=== PATIENT | male | born 1965 | race Caucasian/White ===

== ENCOUNTER 2017-05-09 11:49 | Observation (INO) | payer MEDICAID ==
[~2017-05-09] VITALS: Ht 170.2 cm; Wt 57.4 kg
[~2017-05-09 11:49] MED LIST: BASAGLAR K100 UNIT/1 SQ; FLUOXETINE20 MG PO; GABAPENTIN 400400 MG PO; LISINOPRIL 10MG10 MG PO; NAPROSYN500 M1 PO; PEPCID40 MG PO; TRAZODONE150 MG PO
[2017-05-09 11:53] VITALS: BP 146/110
[2017-05-09] MEDS ORDERED: SUBOXONE 8 MG-21 FIL SL (12:09)
[2017-05-09] MEDS ORDERED: OMEPRAZOLE40 MG PO (12:10)
[2017-05-09] MEDS ORDERED: SIMVASTATIN10 MG PO (12:10)
[2017-05-09 12:17] LABS: HEMOGLOBIN 16.6 g/dL (14.1-18.0)
[2017-05-09 12:19] LABS: LYMPH # 0.5 K/mm3 (0.7-4.5); LYMPH % 3.4 % (10-50)
--- NOTE | 2017-05-09 12:21 | Emergency Room Report ---
History of Present Illness Time Seen by MD Mata Presenting Problem in Triage Pt arrived:Walked Presenting Problem:PT REPORT WOKE UP THIS MORNING "SICK", REPORTS N/V. PT REPORTS HAS BEEN "SWEATY AND WEAK" FEELING. 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 N Clinical Suspician of Infection? N Mental Status: 1 - Regular (Normal Baseline) Sepsis Risk:Possible Sepsis Risk Have you (or family members/close friends) recently traveled outside the [place]? N If Yes, where/when: Have you had exposure to infectious disease within the past month? N TB? Other? Specify: Comment The patient complains of nausea, vomiting, diarrhea, sweatiness, and weakness that started this morning. He is a diabetic. He normally would check his sugar in the morning, but did not do so this morning, states that he just wanted to get to the hospital, so he walked here. Yesterday he felt fine. No pain at present. He is on Suboxone and has chronic back pain. He says he took Suboxone today and does not believe that he is in withdrawal. His back pain is not currently bothering him. He says he has been having problems with abdominal pain due to his gallbladder, which they are considering removing next month. He drinks 2 beers per night, no recent change. ALLERGIES Coded Allergies: No Known Allergies (03/22/17) Home Medications Active Scripts Famotidine (Pepcid) 40 MG PO BID #40 TAB Prov: 03/22/17 Reported Medications Insulin Glargine,Hum.rec.anlog (Basaglar Kwikpen U-100) 40 UNIT SQ DAILY LISINOPRIL (Lisinopril) 10 MG PO DAILY Fluoxetine Hcl (Fluoxetine 20MG) 20 MG PO DAILY GABAPENTIN (Gabapentin) 800 MG PO QHS Trazodone Hcl (Trazodone HCl) 150 MG PO QHS BUPRENORPHINE HCL/NALOXONE HCL (Suboxone 8 MG-2 MG Sl Film) 1 FILM SL BID Omeprazole (Omeprazole 40MG) 40 MG PO DAILY #30 Simvastatin 10 MG PO DAILY #30 History Medical History General CAD? No Angina: No ID: No Hypertension? Yes Hyperlipidemia? Yes CHF? No DVT? No PE? No COPD? No Asthma? No Anemia? No GERD? Yes Gastric ulcers? No GI Bleed? No Hernia? No Thyroid Problems? No Hypothyroidism? No CVA? No Seizures? No Diabetes? Yes Insulin Dependent: Yes Insulin Pump: No Home FSBS? Yes Renal Insuffiency? No End Stage Renal Disease? No UTI? No Stones? No BPH? No GB Disease: No Nephritic Syndrome? No Asplenia? No Hepatitis? No Sickle Cell Disease? No Arthritis? No Migraines? No Cataracts? No Glaucoma? No MRSA? No HIV? No TB? No Anxiety? No Depression? Yes Cancer? No More? No Immunization Hx DT/Tetanus Unknown Surgical Hx Previous Surgery?N Social History Smoking Hx Smoker: Current Every Day Smoker Tobacco: Yes Type Cigarettes Alcohol Alcohol: Yes Additionial History Additional History CT scan abdomen 03/22/17 possible gallbladder sludge/cholelithiasis. Ultrasound gallbladder 03/22/17 small amount sludge in the gallbladder. Small hyperechoic focus along the anterior wall may be due to a small polyp or a small adherent stone. HIDA scan 04/05/17 unremarkable. Review of Systems All Other Systems Reviewed and Negative Constitutional diaphoresis, malaise, weakness Respiratory denies cough, denies shortness of breath Cardiovascular denies chest pain Gastrointestinal see HPI, diarrhea, nausea, vomiting Physical Exam Vital Signs Vital Signs Date Time Temp Pulse Resp B/P Pulse O2 O2 Flow FiO2 Ox Delivery Rate 05/09 1824 98.9 109 16 151/100 99 ROOM AIR 05/09 1820 109 05/09 1820 98.9 109 16 151/100 05/09 1820 99 ROOM AIR 05/09 1748 98.8 100 20 158/90 97 05/09 1733 98.8 100 20 158/90 97 05/09 1622 107 20 161/92 100 05/09 1511 104 20 158/82 98 05/09 1355 101 20 141/94 98 05/09 1153 97.9 115 22 146/110 100 General Appearance no apparent distress Eye Exam - bilateral eye normal exam, bilateral eye PERRL, bilateral eye EOMI Ear, Nose, Throat hearing grossly normal, normal ENT inspection Neck normal inspection, non-tender, supple, full range of motion Respiratory Status Yes: trachea midline, chest symmetrical, non tender chest. No: respiratory distress. Lung Sounds bilateral: normal breath sounds, lungs clear. 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 No Results/Orders Laboratory Tests 05/09/17 1735: POC Glucose 207 H 05/09/17 1558: Lactic Acid 1.2 05/09/17 1510: Opiates Screen NEGATIVE, Urine Methadone Screen NEGATIVE, Barbiturates NEGATIVE, Phencyclidine Screen NEGATIVE, Amphetamines Screen NEGATIVE, Benzodiazepines Screen NEGATIVE, Cocaine Screen NEGATIVE, Marijuana (THC) Screen NEGATIVE 05/09/17 1354: POC Glucose 106 05/09/17 1229: Creatine Kinase 158, CK-MB (CK-2) Rel Index 1.2, CK and CKMB Interp 1.9, Troponin I < 0.02 05/09/17 1229: Amylase 32, Lipase 78 05/09/17 1202: Lactic Acid 2.3 H 05/09/17 1202: Sodium 144, Potassium 4.0, Chloride 107, Carbon Dioxide 31, BUN 12, Creatinine 0.7 L, Estimated Creat Clear 99, Estimated GFR (MDRD) 119, Glucose 199 H, Calcium 8.0 L, Total Bilirubin 0.4, AST 19, ALT 21, Alkaline Phosphatase 44 L, Total Protein 6.4, Albumin 3.5, Globulin 2.9, Albumin/Globulin Ratio 1.2, WBC 14.2 H, RBC 5.02, Hgb 16.6, Hct 49.7, MCV 99.1 H, RDW 12.7, Plt Count 189, Gran % 94.2 H, Gran # 13.4 H, Total Counted 100, Lymphocytes % 3.4 L, Monocytes % 2.4, Neutrophils 91 H, Band Neutrophils 1, Lymphocytes (Manual) 1 L, Lymphocytes # 0.5 L, Monocytes (Manual) 7, Monocytes # 0.3, Platelet Estimate NORMAL, Macrocytosis 1+, Target Cells 1+, PUBS MCHC 33.4, MCH 33.1 H, Alcohols 35 Current Medication Orders Sig/Iban Start time Last Medication Dose Route Stop Time Status Admin Fluoxetine HCl 20 MG DAILY 05/10 900 UNV PO Lisinopril 10 MG DAILY 05/10 900 UNV PO Pravastatin Sodium 10 MG DAILY 05/10 900 UNV PO Diagnostic Test (Pha) 1 EACH W/MEALS&HS 05/09 2100 UNV FS 07/08 2059 Famotidine 40 MG BID 05/09 2100 UNV PO Gabapentin 800 MG QHS 05/09 2100 UNV PO Insulin Human [rDNA See Dose W/MEALS&HS 05/09 2100 UNV origin] Insts (1) SC Trazodone HCl 150 MG QHS 05/09 2100 UNV PO Dextrose/Sodium 1,000 ML .Q8H 05/09 1715 UNV Chloride IV Influenza Virus 0.5 ML PRN PRN 05/09 171 UNV Vaccine Quadrival IM Nicotine 21 MG DAILYP PRN 05/09 1715 UNV TD Ondansetron HCl 4 MG Q6HP PRN 05/09 1715 UNV IV Sodium Chloride 10 ML PRN PRN 05/09 1715 UNV IV Dextrose/Sodium 1,000 ML .Q8H 05/09 1645 AC 05/09 Chloride IV 1633 Dextrose/Sodium 1,000 ML .STK-MED ONE 05/09 1632 DC Chloride IV Dextrose 50 ML ONCE ONE 05/09 1630 DC 05/09 IVP 05/09 1631 1633 Potassium Chloride/ 1,000 ML .Q8H 05/09 1630 DC Dextrose/Sod Cl IV 05/09 2029 Dextrose 0 .STK-MED ONE 05/09 1627 DC .ROUTE Iopamidol 75 ML ONCE ONE 05/09 1600 DC 05/09 IV 05/09 1601 1545 Sodium Chloride 10 ML ONCE ONE 05/09 1600 DC 05/09 IV 05/09 1601 1545 Famotidine 20 MG ONCE ONE 05/09 1530 DC 05/09 IV 05/09 1531 1521 Ondansetron HCl 4 MG ONCE ONE 05/09 1530 DC 05/09 IV 05/09 1531 1522 Famotidine 0 .STK-MED ONE 05/09 1521 DC IV Ondansetron HCl 0 .STK-MED ONE 05/09 1521 DC .ROUTE Sodium Chloride 1,000 ML .STK-MED ONE 05/09 1419 DC IV Sodium Chloride 1,000 ML .Q1H1M 05/09 1415 DC 05/09 IV 05/09 1515 1418 Dextrose 50 ML ONCE ONE 05/09 1230 DC 05/09 IVP 05/09 1231 1221 Dextrose 0 .STK-MED ONE 05/09 1218 DC .ROUTE Ondansetron HCl 4 MG ONCE ONE 05/09 1215 DC 05/09 IV 05/09 1216 1216 Sodium Chloride 10 ML PRN PRN 05/09 1215 AC IV 05/10 1206 Sodium Chloride 1,000 ML .Q1H1M 05/09 1215 DC 05/09 IV 05/09 1315 1215 Sodium Chloride 10 ML PRN PRN 05/09 1215 AC IV 05/10 1207 Sodium Chloride 1,000 ML .STK-MED ONE 05/09 1215 DC IV Ondansetron HCl 0 .STK-MED ONE 05/09 1214 DC .ROUTE Dose Instructions: (1)Insulin Human [rDNA origin]: SEE ADMIN CRITERIA FOR MEDIUM INTENSITY Orders Procedure Date/time Status DIET-CLEAR LIQUID 05/10 B Active CBC WITH AUTO DIFF 05/10 06 Active BASIC METABOLIC PROFILE 05/10 06 Active DIET-NOTHING BY MOUTH 05/09 D Complete RT Smoking Cessation >10min Se 05/09 1844 Active RT Smoking Cessation 3-10min S 05/09 1844 Active ADMITTED PT IS ACTUALLY IN BED 05/09 1826 Active FINGERSTICK BLOOD SUGAR 05/09 1735 Complete Decision to admit 05/09 1656 Active DIARRHEA PANEL, PCR 05/09 1615 Active URINALYSIS/COMPLETE 05/[address] ABD/PELVIS REQ 05/09 1520 Complete DRUG ABUSE SCREEN (TRIAGE) 05/09 1506 Complete FINGERSTICK BLOOD SUGAR 05/09 1354 Complete LACTIC ACID FOLLOW UP 05/09 1331 Complete LIPASE 05/09 1234 Complete AMYLASE 05/09 1234 Complete ELECTROCARDIOGRAM REQUEST 05/09 1232 Active CARDIAC ENZYMES 05/09 1232 Complete FSBS REQUEST BY CARE AREA 05/09 1208 Active ALCOHOL 05/09 1208 Complete IV SALINE LOCK 05/09 1207 Active CULTURE, BLOOD 05/09 1207 Active LACTIC ACID 05/09 1207 Complete CBC WITH AUTO DIFF 05/09 1207 Complete CHEM 12 PROFILE 05/09 1207 Complete DIFFERENTIAL-WBC 05/09 120 Complete ADMIT PATIENT 05/09 UNK Active 12 LEAD EKG-REBEKAH (INITIAL) 05/09 UNK Active VITAL SIGNS 05/09 UNK Active POM NURSE NICHOLAS HOSE ORDER 05/09 UNK Active IV SALINE LOCK 05/09 UNK Active RECORD I & O 05/09 UNK Active CODE STATUS 05/09 UNK Active PATIENT ACTIVITY ORDER 05/09 UNK Active FSBS REQUEST BY CARE AREA 05/09 UNK Active CM/EKG CM/EKG Comments EKG interpreted by Rosalino Gtz MD: Rhythm: sinus tachycardia Rate: 112 [place]: normal Ectopy: none Conduction: normal ST Segment Changes: none T Wave Changes: none Q Waves: none No evidence of acute ischemia or injury XRAY/CT/US XRAY/CT/US CT abdomen, pelvis Comment CT scan interpreted by radiologist: Thickened jejunum and proximal and mid ileum with scattered air-fluid levels consistent with enteritis. No change in the small calcification of the gallbladder. Progress - 3:00 PM: Recheck patient. He says he is still nauseated. Does not have any pain, but states he is "trying to get a headache". He complains of being hungry and wants to eat. His abdomen is firm, but it is nontender, he says his abdomen is its typical state. 4:47 PM: The patient is had recurrent hypoglycemia in the emergency department and persistent nausea and vomiting. I have discussed the case with Dr. Chan who agrees to admit the patient to the hospital. We discussed the patient's clinical information, including history, exam, laboratory and radiology results and ED course. Per hospital procedure, I will write temporary bridge inpatient orders on the patient. Specific orders requested by the admitting physician: The patient must supply his own Suboxone for use in the hospital. Continue IV fluids, Zofran clear liquids., Departure Departure Disposition Still a Patient Clinical Impression Primary Impression: Hypoglycemia Secondary Impressions: Enteritis Condition STABLE ED Critical Care Critical Care No at [id number]
[2017-05-09 12:53] LABS: NEUTROPHILS 91 % (42-76)
--- NOTE | 2017-05-09 13:30 | RADIOLOGY REPORT PS360 ---
CHEST-PORTABLE HISTORY: weak ORDERING PHYSICIAN: Rosalino Gtz MD PATIENT AGE: 51 years COMPARISON: None available FINDINGS: The cardiomediastinal silhouette and pulmonary vascularity are within normal limits. Scattered bilateral granulomas are present. No lobar consolidation or collapse. No acute bony anomalies. IMPRESSION: Old granulomatous disease, no acute finding
[2017-05-09 15:29] LABS: AMPHETAMINES/METAMPHETAMINES NEGATIVE ng/mL (<1000)
--- NOTE | 2017-05-09 16:03 | RADIOLOGY REPORT PS360 ---
CT ABD PELVIS W/ CONTRAST CLINICAL INDICATION: NAUSEA, VOMITING,FIRM ABDOMEN ORDERING PHYSICIAN: Rosalino Gtz MD PATIENT AGE: 51 years COMPARISON: 03/22/2017 TECHNIQUE: Axial images obtained with sagittal and coronal reformats. PROCEDURE: Oral Contrast: None IV Contrast: 75 mL [id number]. FINDINGS: Lung bases are clear. The liver, spleen, adrenal glands, and pancreas have an unremarkable appearance. A small calcification is once again noted involving the fundus of the gallbladder as previously described and could be due to small stone. No renal calculi, ureteral calculi, or hydronephrosis is evident. There is diffuse thickening of the jejunum and of the mid and proximal ileum with some scattered fluid-filled loops of small bowel with a few air-fluid levels. This is consistent with enteritis. No evidence of intestinal obstruction or free air. No evidence of appendicitis or diverticulitis. No acute bony anomalies. There is 6 mm anterolisthesis of L5 on S1. IMPRESSION: Thickened jejunum and proximal and mid ileum with scattered air-fluid levels consistent with enteritis No change small calcification of the gallbladder
[2017-05-09 18:20] VITALS: BP 151/100
[2017-05-09 18:24] VITALS: BP 151/100
[2017-05-09 19:28] VITALS: BP 161/91
--- NOTE | 2017-05-09 20:14 | HISTORY AND PHYSICAL REPORT ---
Demographics: Admit date: 05/09/17 Chief complaint: sob PRIMARY DIAGNOSIS: HYPOGLYCEMIA, ENTERITIS Allergies: Coded Allergies: No Known Allergies (03/22/17) History of present illness: History of present illness: omplains of nausea, vomiting, diarrhea, sweatiness, and weakness that started this morning. He is a diabetic. He normally would check his sugar in the morning , but did not do so this morning, states that he just wanted to get to the hospital, so he walked here. Yesterday he felt fine. No pain at present. He is on Suboxone and has chronic back pain. He says he took Suboxone today and does not believe that he is in withdrawal. His back pain is not currently bothering him. He says he has been having problems with abdominal pain due to his gallbladder, which they are considering removing next month. He drinks 2 beers per night, no recent change- pt was given ivf and attempted to see how he would do but continued to have sx and was admitted Past medical history: Family HX Family Hx Insignificant Yes Immunization HX DT/Tetanus 1-4 Years Ago Pneumonia Received In Past TB Test in last year No General CAD? No Angina: No [place]: No Hypertension? Yes Hyperlipidemia? Yes CHF? No DVT? No PE? No COPD? No Asthma? No Anemia? No GERD? Yes Gastric ulcers? No GI Bleed? No Hernia? No Thyroid Problems? No Hypothyroidism? No CVA? No Seizures? No Diabetes? Yes Insulin Dependent: Yes Insulin Pump: No Home FSBS? Yes Renal Insuffiency? No UTI? No Stones? No BPH? No GB Disease: No Nephritic Syndrome? No Asplenia? No Hepatitis? No Sickle Cell Disease? No Arthritis? No Migraines? No Cataracts? No Glaucoma? No MRSA? No HIV? No TB? No Anxiety? No Depression? Yes Cancer? No More? No Past Surgical HX Previous Surgery?N Current home meds: Active Scripts Famotidine (Pepcid) 40 MG PO BID #40 TAB Prov: 03/22/17 Reported Medications Insulin Glargine,Hum.rec.anlog (Basaglar Kwikpen U-100) 40 UNIT SQ DAILY LISINOPRIL (Lisinopril) 10 MG PO DAILY Fluoxetine Hcl (Fluoxetine 20MG) 20 MG PO DAILY GABAPENTIN (Gabapentin) 800 MG PO QHS Trazodone Hcl (Trazodone HCl) 150 MG PO QHS BUPRENORPHINE HCL/NALOXONE HCL (Suboxone 8 MG-2 MG Sl Film) 1 FILM SL BID Omeprazole (Omeprazole 40MG) 40 MG PO DAILY #30 Simvastatin 10 MG PO DAILY #30 Social Hx: Smoking HX Tobacco Yes Type Cigarettes Packs/day < 1 PACK Are you/the child exposed to second-hand smoke: Yes Alcohol Alcohol: Yes How much do you drink TWO BEERS EVERY SINGLE NIGHT For how long Longer Than 5 Years When was your last drink 12-24 Hours Ago Hx of Drug Use Drug Use? No Patien't marital status is Patient's support system is good Review of systems: Constitutional see HPI, weakness. No: fever. Eyes No: drainage. Ears, Nose, Mouth, Throat No ear discharge, No epistaxis, No throat pain Respiratory No: cough, shortness of breath, wheezing. Cardiovascular No chest pain, No palpitations, No syncope Gastrointestinal/Abdominal see HPI, diarrhea, nausea, poor appetite, poor fluid intake, No vomiting Genitourinary No: dysuria, frequency, hesitancy, hematuria. Musculoskeletal No: back pain, joint pain, neck pain. Skin No: rash. Neurological No: seizure disorder. Psychiatric No: no symptoms reported. Exam: Lab data for last 24 hours: Laboratory Tests 05/10/17 0615: POC Glucose 124 H 05/10/17 0610: Sodium 140, Potassium 3.1 L, Chloride 106, Carbon Dioxide 29, BUN 8, Creatinine 0.7 L, Estimated Creat Clear 101, Estimated GFR (MDRD) 119, Glucose 132 H, Calcium 7.4 L, WBC 4.1 L, RBC 3.91 L, Hgb 12.5 L, Hct 38.7 L, MCV 99.0 H, RDW 12.7, Plt Count 123 L, Gran % 75.5, Gran # 3.1, Lymphocytes % 20.0, Monocytes % 4.5, Lymphocytes # 0.8, Monocytes # 0.2, PUBS MCHC 32.3, MCH 32.0 H 05/10/17 0416: Urine Color YELLOW, Urine Appearance CLEAR, Urine pH 6.0, Ur Specific [place] 1.020, Urine Protein NEGATIVE, Urine Ketones NEGATIVE, Urine Blood NEGATIVE, Urine Nitrate NEGATIVE, Urine Bilirubin NEGATIVE, Urine Urobilinogen 0.2, Ur Leukocyte Esterase NEGATIVE, Urine RBC OCC, Urine WBC OCC, Urine Bacteria 1+, Urine Mucus OCC, Urine Glucose 2+ H 05/09/17 2059: POC Glucose 250 H 05/09/17 1851: POC Glucose 209 H 05/09/17 1735: POC Glucose 207 H 05/09/17 1558: Lactic Acid 1.2 05/09/17 1510: Opiates Screen NEGATIVE, Urine Methadone Screen NEGATIVE, Barbiturates NEGATIVE, Phencyclidine Screen NEGATIVE, Amphetamines Screen NEGATIVE, Benzodiazepines Screen NEGATIVE, Cocaine Screen NEGATIVE, Marijuana (THC) Screen NEGATIVE 05/09/17 1354: POC Glucose 106 05/09/17 1229: Creatine Kinase 158, CK-MB (CK-2) Rel Index 1.2, CK and CKMB Interp 1.9, Troponin I < 0.02 05/09/17 1229: Amylase 32, Lipase 78 05/09/17 1202: Lactic Acid 2.3 H 05/09/17 1202: Sodium 144, Potassium 4.0, Chloride 107, Carbon Dioxide 31, BUN 12, Creatinine 0.7 L, Estimated Creat Clear 99, Estimated GFR (MDRD) 119, Glucose 199 H, Calcium 8.0 L, Total Bilirubin 0.4, AST 19, ALT 21, Alkaline Phosphatase 44 L, Total Protein 6.4, Albumin 3.5, Globulin 2.9, Albumin/Globulin Ratio 1.2, WBC 14.2 H, RBC 5.02, Hgb 16.6, Hct 49.7, MCV 99.1 H, RDW 12.7, Plt Count 189, Gran % 94.2 H, Gran # 13.4 H, Total Counted 100, Lymphocytes % 3.4 L, Monocytes % 2.4, Neutrophils 91 H, Band Neutrophils 1, Lymphocytes (Manual) 1 L, Lymphocytes # 0.5 L, Monocytes (Manual) 7, Monocytes # 0.3, Platelet Estimate NORMAL, Macrocytosis 1+, Target Cells 1+, PUBS MCHC 33.4, MCH 33.1 H, Alcohols 35 Microbiology 05/09 1202 BLOOD: Anaerobic Blood Culture - RECD 05/09 1202 BLOOD: Aerobic Blood Culture - RECD 05/09 1202 BLOOD: Anaerobic Blood Culture - RECD 05/09 1202 BLOOD: Aerobic Blood Culture - RECD Admission vital signs: 1ST Vital Signs Result Date Time Pulse Ox 100 05/09 1153 B/P 146/110 05/09 1153 Temp 97.9 05/09 1153 Pulse 115 05/09 1153 Resp 22 05/09 1153 O2 Delivery ROOM AIR 05/09 1820 Exam General appearance: alert Eyes: anicteric, PERRLA ENT: dry mucous membranes Neck: no JVD Cardiovascular: regular rate & rhythm, murmur Respiratory: no respiratory distress, diminished breath sounds ABD: soft, tenderness Genitourinary: no hematuria Extremities: moves all Musculoskeletal: equal muscle strength Skin: dry Neuro: alert, dba developer II-XII nml as tested Additional information: will give ivf and monitor glucose Plan: Problem List 1. Enteritis 2. Hypoglycemia 3. IDDM (insulin dependent diabetes mellitus) 4. Chronic pain Plan: monitor glucose and fluids at 0728
[2017-05-10 04:40] LABS: URINE BILIRUBIN - DIPSTICK NEGATIVE (NEG); URINE BLOOD NEGATIVE (NEG)
[2017-05-10 04:50] VITALS: BP 144/80
[2017-05-10 06:53] LABS: HEMOGLOBIN 12.5 g/dL (14.1-18.0); LYMPH # 0.8 K/mm3 (0.7-4.5)
--- NOTE | 2017-05-10 07:52 | PHARMACY CLINIC NOTE ---
Patient Demographics Patient Demographics Admission date: 05/09/17 Date: 05/10/17 Time: 075 Allergies Coded Allergies: No Known Allergies (03/22/17) HEIGHT- FT: 5 IN: 7.00 K.380 VTE General Information Labs: Laboratory Tests 05/10 05/09 0610 1202 Hematology Hgb (14.1 - 18.0 g/dL) 12.5 L 16.6 Hct (42.0 - 52.0 %) 38.7 L 49.7 Plt Count (142 - 424 K/mm3) 123 L 189 Disclaimer The following section includes nursing documentation that has been pulled in for pharmacy review. Patient's VTE score: 1 Patient's VTE Risk: VERY LOW RISK Clinical trial participant? No VTE prophylaxis [id number] VTE prophylaxis ordered? Yes Type of prophylaxis/treatment: NICHOLAS at 0752
[2017-05-10 08:00] VITALS: BP 147/88
[2017-05-10 12:37] LABS: AEROMONAS NOT DETECTED (NOT DETECTE); ASTROVIRUS NOT DETECTED (NOT DETECTE); CYCLOSPORA CAYETANENSIS NOT DETECTED (NOT DETECTE); E COLI O157 NOT DETECTED (NOT DETECTE); ENTEROAGGREGATIVE E COLI NOT DETECTED (NOT DETECTE); ENTEROPATHOGENIC E COLI NOT DETECTED (NOT DETECTE); ENTEROTOXIGENIC E COLI NOT DETECTED (NOT DETECTE); SAPOVIRUS NOT DETECTED (NOT DETECTE); SHIGA-LIKE TOXIN PROD. E COLI NOT DETECTED (NOT DETECTE); SHIGELLA/ENTEROINVASIVE E COLI NOT DETECTED (NOT DETECTE); VIBRIO CHOLERAE NOT DETECTED (NOT DETECTE)
[2017-05-10 12:46] LABS: NOROVIRUS DETECTED (NOT DETECTE)
--- NOTE | 2017-05-10 14:16 | ACUTE CARE PROGRESS NOTE (QUA) ---
Progress Notes Subjective Date 05/10/17 Time 0800 Note doing better Patient/family reports: feeling better Nursing reports: no complaints Objective Findings Last VS-Temp:98.8 B/P:147/88 Pulse:82 Resp:16 SaO2:98 ROOM AIR Last weight lbs:126 oz:8 K.380 Method:Bed Scales Exam General appearance: awake Eyes: anicteric, PERRLA ENT: dry mucous membranes Neck: no JVD Cardiovascular: regular rate & rhythm Respiratory: no respiratory distress ABD: soft Genitourinary: no hematuria Extremities: moves all Musculoskeletal: equal muscle strength Skin: dry Neuro: alert, treatment specialist II-XII nml as tested Reviewed: allergies, medications, vital signs, lab results Assessment/Plan Problem List 1. Enteritis 2. Hypoglycemia 3. IDDM (insulin dependent diabetes mellitus) 4. Chronic pain Patient condition Improving Plan: continue current care This inpt stay is expected to cross 2 MNs from start of care Yes Comments: will change to regular fluids and replace kcl Antibiotic Stewardship (2) Current Culture Results Microbiology 05/09 120 BLOOD: Anaerobic Blood Culture - RECD 05/09 1202 BLOOD: Aerobic Blood Culture - RECD at 1416
--- NOTE | 2017-05-10 14:16 | ACUTE CARE PROGRESS NOTE (QUA) ---
Progress Notes Subjective Date 05/10/17 Time 0800 Note doing better Patient/family reports: feeling better Nursing reports: no complaints Objective Findings Last VS-Temp:98.8 B/P:147/88 Pulse:82 Resp:16 SaO2:98 ROOM AIR Last weight lbs:126 oz:8 K.380 Method:Bed Scales Exam General appearance: awake Eyes: anicteric, PERRLA ENT: dry mucous membranes Neck: no JVD Cardiovascular: regular rate & rhythm Respiratory: no respiratory distress ABD: soft Genitourinary: no hematuria Extremities: moves all Musculoskeletal: equal muscle strength Skin: dry Neuro: alert, trimmer loader II-XII nml as tested Reviewed: allergies, medications, vital signs, lab results Assessment/Plan Problem List 1. Enteritis 2. Hypoglycemia 3. IDDM (insulin dependent diabetes mellitus) 4. Chronic pain Patient condition Improving Plan: continue current care This inpt stay is expected to cross 2 MNs from start of care Yes Comments: will change to regular fluids and replace kcl Antibiotic Stewardship (2) Current Culture Results Microbiology 05/09 120 BLOOD: Anaerobic Blood Culture - RECD 05/09 1202 BLOOD: Aerobic Blood Culture - RECD at 1416
[2017-05-10 16:00] VITALS: BP 142/82
[2017-05-10 20:12] VITALS: BP 142/82; BP 153/93
[2017-05-10 20:28] VITALS: BP 153/93
[2017-05-11 04:01] VITALS: BP 141/78
[2017-05-11] MEDS ORDERED: ALIGN10.5 MG PO (08:26)
[2017-05-11 08:30] VITALS: BP 143/92
--- NOTE | 2017-05-11 08:32 | ACUTE CARE PROGRESS NOTE (QUA) ---
Progress Notes Subjective Date 05/11/17 Time 0830 Patient/family reports: feeling better, diarrhea Nursing reports: alert Objective Findings Laboratory Tests 05/11/17 0611: POC Glucose 474 *H 05/10/17 2020: Sodium 137, Potassium 3.8, Chloride 103, Carbon Dioxide 30, BUN 9, Creatinine 0.7 L, Estimated Creat Clear 101, Estimated GFR (MDRD) 119, Glucose 148 H, Calcium 8.3 L 05/10/17 2006: POC Glucose 143 H 05/10/17 1655: POC Glucose 245 H 05/10/17 1147: POC Glucose 343 *H 05/10/17 1025: Stl Aeromonas (PCR) NOT DETECTED, Stl Cyclospora species NOT DETECTED, Stool Rotavirus (PCR) NOT DETECTED, Stool Astrovirus (PCR) NOT DETECTED, Stool Campylobacter PCR NOT DETECTED, Stool Cryptosporidium PCR NOT DETECTED, Stl E. histolytica PCR NOT DETECTED, Stool Giardia Lamblia PCR NOT DETECTED, Stl P. shigelloides PCR NOT DETECTED, Stool Sapovirus (PCR) NOT DETECTED, Stool Vibrio (PCR) NOT DETECTED, Stl Vibrio cholerae PCR NOT DETECTED, Stl Norovirus GI/GII PCR DETECTED H, Adenovirus (PCR) NOT DETECTED, C. difficile Tox (PCR) NOT DETECTED, E. coli (PCR) NOT DETECTED, Salmonella (PCR) NOT DETECTED, Yersinia ( PCR) NOT DETECTED Vital Signs Date Time Temp Pulse Resp B/P Pulse O2 O2 Flow FiO2 Ox Delivery Rate 05/11 0401 98.7 85 18 141/78 98 ROOM AIR 05/10 2028 98.0 91 18 153/93 97 ROOM AIR 05/10 2012 98.0 91 18 153/93 98 05/10 1600 98.9 89 16 142/82 98 ROOM AIR 05/10 0853 98.8 82 16 147/88 98 Current Medications Insulin Human [rDNA origin] 0 .STK-MED ONE SC (DC) Sodium Chloride 1,000 ML .STK-MED ONE IV (DC) Insulin Human [rDNA origin] 0 .STK-MED ONE SC (DC) Sodium Chloride 1,000 ML .[id number] IV Insulin Human [rDNA origin] 0 .STK-MED ONE SC (DC) Fluoxetine HCl 20 MG DAILY PO Lisinopril 10 MG DAILY PO Pravastatin Sodium 10 MG DAILY PO Potassium Chloride/Water 100 ML ONCE ONE IV (DC) Diagnostic Test (Pha) 1 EACH W/MEALS&HS FS Famotidine 40 MG BID PO Gabapentin 800 MG QHS PO Insulin Human [rDNA origin] SEE ADMIN CRITERIA FOR MEDIUM INTENSITY W/MEALS&HS SC Trazodone HCl 150 MG QHS PO Nicotine 21 MG QAM TD Influenza Virus Vaccine Quadrival 0.5 ML PRN PRN IM Ondansetron HCl 4 MG Q6HP PRN IV Sodium Chloride 10 ML PRN PRN IV Sodium Chloride 10 ML PRN PRN IV Sodium Chloride 10 ML PRN PRN IV (DC) Last VS-Temp:98.7 B/P:141/78 Pulse:85 Resp:18 SaO2:98 ROOM AIR Last weight lbs:126 oz:8 K.380 Method:Bed Scales Exam General appearance: normal appearance, no acute distress Eyes: normal exam ENT: normal exam Neck: normal inspection Cardiovascular: normal exam, regular rate & rhythm Respiratory: normal exam, clear to auscultation, good air movement ABD: normal exam, normal bowel sounds, soft, no tenderness Genitourinary: normal voiding & quantity Extremities: normal exam, moves all, warm Musculoskeletal: normal exam, normal gait Skin: normal exam, intact, warm Neuro: normal exam, alert, intact, oriented Reviewed: allergies, medications, vital signs, lab results, radiology report Assessment/Plan Problem List 1. Enteritis 2. Hypoglycemia 3. IDDM (insulin dependent diabetes mellitus) 4. Chronic pain Patient condition Stable Plan: initiate discharge plan This inpt stay is expected to cross 2 MNs from start of care Yes Comments: rounded with vladimir Antibiotic Stewardship (2) Current Culture Results Microbiology 05/09 120 BLOOD: Anaerobic Blood Culture - RECD 05/09 1202 BLOOD: Aerobic Blood Culture - RECD at 0832
[2017-05-11] MEDS ORDERED: ZOFRAN4 MG PO (08:36)
--- NOTE | 2017-05-11 08:36 | DISCHARGE SUMMARY STANDARD ---
Demographics Admit date: 05/09/17 Discharge date: 05/11/17 History of present illness History of present illness 51 yr old male complains of nausea, vomiting, diarrhea, sweatiness, and weakness that started this morning. He is a diabetic. He normally would check his sugar in the morning, but did not do so this morning, states that he just wanted to get to the hospital, so he walked here. Yesterday he felt fine. No pain at present. He is on Suboxone and has chronic back pain. He says he took Suboxone today and does not believe that he is in withdrawal. His back pain is not currently bothering him. He says he has been having problems with abdominal pain due to his gallbladder, which they are considering removing next month. He drinks 2 beers per night, no recent change- pt was given ivf and attempted to see how he would do but continued to have sx and was admitted Hospital Course Hospital Course: Diarreha- iv fluids, diet clears then advanced, monitor of labs and diarreha panel- pos norovirus dc home, encourage fluids, probotic given,monitor glucose close Discharge diagnoses Problem List 1. Enteritis 2. Hypoglycemia 3. IDDM (insulin dependent diabetes mellitus) 4. Chronic pain Medications Medications: Discharge meds are as noted. Comment: vladimir rounded earlier Follow up Follow up in office in: 7 DAYS with: MARLEE CAPONE at 0835
[2017-05-11 09:01] VITALS: BP 143/92
[2017-05-11 09:42] VITALS: BP 143/92
--- OUTSIDE RECORDS SUMMARY | 2017-05-24 09:04 | External Medical Summary Rpt ---
Author Author , PAULINA GALLARDO Address Unknown Phone [email or web address] Providers Care Two Way Radio Technician Name Role Phone BAKARI RAÚL, BAKARI Unavailable Unavailable RAÚL [facility] Unavailable Unavailable PHARMACY, [facility], Unavailable Unavailable [facility] BIRDWHISTELL, Unavailable Unavailable BIRDWHISTELL BIRDWHISTELL, Unavailable Unavailable BIRDWHISTELL BIRDWHISTELL MAT, Unavailable Unavailable [facility] MAT [facility], Unavailable Unavailable BIRDWHISTELL MAT [facility] Unavailable Unavailable & INTER, [facility] Unavailable Unavailable & INTER, [facility] GARG, GARG Unavailable Unavailable YOHANA GARG, BRITANY, Unavailable Unavailable YOHANA Toribio CASE JUS, CASE JUS Unavailable Unavailable CELLAROSI - YORBA, Unavailable Unavailable CELLAROSI - YORBA CELLAROSI - YORBA Unavailable Unavailable PAT, CELLAROSI - YORBA PAT [facility] Unavailable Unavailable [facility], [facility], Unavailable Unavailable [id number], Unavailable Unavailable [facility] 2332 [facility] & Unavailable Unavailable EDUCATION, [facility] & Unavailable Unavailable EDUCATION, [facility] Unavailable Unavailable SERVICES, [facility] Unavailable Unavailable [facility], [facility] Unavailable Unavailable [facility], [facility] FARAGASSO DEV, Unavailable Unavailable FARAGASSO DEV BLANCHE STODDARD Unavailable Unavailable BLANCHE BERGER Unavailable Unavailable PREMA [facility] Unavailable Unavailable HOSPITA, [facility] Unavailable Unavailable HOSPITA, [facility] Unavailable Unavailable EMS, [facility] PATRICE RHO, PATRICE Unavailable Unavailable RHO [facility], Unavailable Unavailable [facility] HABASH, KEFAH, Unavailable Unavailable HABASH, KEFAH FINCH, FINCH Unavailable Unavailable [facility], Unavailable Unavailable [facility], Unavailable Unavailable [facility] RAIN KARI, Unavailable Unavailable RAIN KARI RAIN KAIR, Unavailable Unavailable RAIN KARI [facility] Unavailable Unavailable SERVICES O, [facility] HOUSMAN LILO, HOUSMAN Unavailable Unavailable LIL[facility] Unavailable Unavailable [facility], [facility] Unavailable Unavailable [facility] Un[facility] Unavailable [facility] PS, [facility] Unavailable Unavailable [facility], [facility]available Unavailable PRACTITIONER GR, KMS NURSE PRACTITIONER GR BELL BETTY, BELL Unavailable Unavailable BETTY [facility] # Unavailable Unavailable [id number], [facility] # [id number] [facility] Unavailable Unavailable HOLD[facility], [facility]available Unavailable [facility], [facility] Unavailable Unavailable [facility], [facility], Unavailable Unavailable [facility] JAVIER ANT, JAVIER ANT Unavailable Unavailable MAJMUDAR, MAJMUDAR Unavailable Unavailable [facility] Unavailable Unavailable SERVICES, [facility] MATT, MATT Unavailable Unavailable MATT MYNOR, MATT Unavailable Unavailable LOWE MATT FELIPE, MATT Unavailable Unavailable [place]STINEE MAX, JOSE P, MAX, Unavailable Unavailable JOSE P MECCARIELLO TRA, Unavailable Unavailable MECCARIELLO TRA MUHA JAVI, MUHA JAVI Unavailable Unavailable MUHA JAVI, MUHA JAVI Unavailable Unavailable ELENITA, BETSY R, Unavailable Unavailable ELENITA, BETSY R OZOR, OZOR Unavailable Unavailable VILLA, VILLA Unavailable Unavailable [facility], Unavailable Unavailable [facility], Unavailable Unavailable [facility], Unavailable Unavailable [facility] Unavailable Unavailable INCORPORAT, [facility] BOWLES JERRI, Unavailable Unavailable BOWLES JERRI MORENO MORGAN, Unavailable Unavailable MORENO MORGAN JIMMY, JIMMY Unavailable Unavailable SCALF SARA, SCALF SARA Unavailable Unavailable SHASHY WOOD, SHASHY Unavailable Unavailable [facility] Unavailable Un[facility], [facility] Unavailable Unavailable [facility]GENCY SERV, [facility] Unavailable Unavailable [facility]GENCY SERV[facility], [facility] Unavailable Unavailable PHYSICIAN SERVI, [facility] KESSLER RYA, KESSLER Unavailable Unavailable RYA KESSLER RYA, KESSLER Unavailable Unavailable RYA QUAN ADWOA, QUAN Unavailable Unavailable ADWOA VORKPOR EDWAR, VORKPOR Unavailable Unavailable EDWAR [id number] # Unavailable Unavailable [id number], [facility] #[id number] # [id number] WELLS, WELLS Unavailable Unavailable [facility]S SCO, [facility] Unavailable Unavailable RICHARD MAT, RICHARD MAT Unavailable Unavailable Purpose Continuity of Care Document - 02-13-2008 through 2016 Problems Code Diagnosis DOS Provider Status R109 UNSPECIFIED 04-05-2017 [facility] K828 OTHER 03-22-2017 [facility] SPECIFIED MEDICAL DISEASES OF IMAGING ASS GALLBLADDER R1013 EPIGASTRIC 03-22-2017 [facility] E1040 TYPE 1 02-27-2017 [facility] DIABETES L MELLITUS W/DIAB NEUROPATHY UNS E1043 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-27-2017 [facility] W/DIABETIC L AUTONOMIC POLYNEUROPA THY E119 TYPE 2 12-08-2016 [facility] WITHOUT COMPLICATIO NS [id number] FRACTURE 10-03-2016 [facility] INITIAL ENCNTR FOR CLOS FRACTURE E1165 TYPE 2 09-14-2016 [facility] MELLITUS HOSPITA WITH HYPERGLYCEM [place] [id number] GENERALIZED 09-14-2016 [facility] ABDOMINAL [facility]Y TENDERNESS HOSPITA R112 NAUSEA WITH 09-14-2016 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 M533 SACROCOCCYG 08-31-2016 [facility] DISORDERS NEC M545 LOW BACK 08-31-2016 [facility] PAIN DE [facility] EMS R531 WEAKNESS 08-31-2016 [facility] R5381 OTHER 08-31-2016 [facility] [id number] UNS 08-31-2016 [facility] FRACTURE N EMERGENCY SACRUM SERVI INITIAL ENC CLOS FRACTURE R300 DYSURIA 06-21-2016 [facility] N EMERGENCY SERVI R319 HEMATURIA 06-21-2016 [facility] UNSPECIFIED RADIOLOGY E1065 TYPE 1 06-15-2016 S NURSE DIABETES PRACTITIONE MELLITUS R GR WITH HYPERGLYCEM IA E1010 TYPE 1 06-02-2016 [facility] DIABETES L MAT MELLITUS W/KETOACIDO SIS W/O COMA K219 GASTRO-ESOP 06-02-2016 [facility] H REFLUX L MAT DISEASE WITHOUT ESOPHAGITIS K3184 GASTROPARES 06-02-2016 [facility] IS L MAT H34980 PAIN IN 05-05-2016 [facility] [place] RIGHT ELBOW RADIOLOGY M7711 LATERAL 05-05-2016 [facility] EPICONDYLIT N EMERGENCY IS RIGHT SERVI ELBOW R1110 VOMITING 03-02-2016 [facility] UNSPECIFIED COMMUNTIY HOSPITA Z5321 PROC & [place] 03-02-2016 [facility] NOT CARRIED COMMUNTIY OUT PT HOSPITA LEAVE PRIOR TO SEEN N521 ERECTILE 12-25-2015 [facility] DYSFUNCTION L MAT DUE TO DISEASES CLASS ELSW R1012 LEFT UPPER 12-18-2015 [facility] PAIN Z1211 ENCOUNTER 12-02-2015 [facility] MALIGNANT GROUP PS NEOPLASM OF COLON R1011 RIGHT UPPER 11-07-2015 [facility] PAIN HOSPITA Z125 ENCOUNTER 10-29-2015 [facility] MALIGNANT NEOPLASM PROSTATE B354 TINEA 09-15-2015 [facility] CORPORIS COMMUNTIY HOSPITA B358 OTHER 09-15-2015 [facility] DERMATOPHYT OSES L0201 CUTANEOUS 09-15-2015 [facility] ABSCESS OF COMMUNTIY FACE HOSPITA L723 SEBACEOUS 09-15-2015 [facility] CYST COMMUNTIY HOSPITA E0841 DM D/T 07-30-2015 [facility] UNDERLYING L MAT COND W/DIABETIC MONONEUROPA THY A084 VIRAL 07-20-2015 [facility] INTESTINAL COMMUNTIY INFECTION HOSPITA UNSPECIFIED X87644 TYPE 1 DM 07-20-2015 [facility] W/UNS DIAB COMMUNTIY RETINPATH HOSPITA W/O MACULAR EDEMA R000 TACHYCARDIA 07-20-2015 [facility] UNSPECIFIED 93887 DIAB W/O 04-14-2015 [facility] COMP TYPE DIAGNOSTICS II/UNS NOT STATED UNCNTRL 04371 DIAB 04-14-2015 [facility] W/NEURO L MANIFESTS TYPE II/UNS NOT UNCNTRL 3572 POLYNEUROPA 04-14-2015 [facility] THY IN L DIABETES V5867 LONG-TERM 04-14-2015 [facility] USE OF L INSULIN 32660 DIAB W/O 01-18-2015 [facility] L[facility] COMP TYPE I [JUV] NOT STATED UNCNTRL 37959 NAUSEA WITH 01-18-2015 [facility] VOMITING 70414 PLANTAR 11-14-2014 [facility] FIB[facility]AT[facility] ANKLE CE S 7295 PAIN IN 11-14-2014 [facility] & TISSUES OF ANKLE CE LIMB 3671 MYOPIA 08-12-2014 MUHA JAVI 3559 MONONEURITI 07-02-2014 [facility] UNSPECIFIED SITE 70901 DIAB W/O 06-19-2014 DI[facility]ETES MENTION CARE & COMP TYPE I EDUCATION [JUV TYPE] UNCNTRL 56114 OSTEOARTHRO 04-07-2014 [facility] S[facility] UNSPEC RADIOLOGY WHETHER GEN/LOC LOWER LEG 98092 OBSTRUCTIVE 12-27-2013 [facility] SLEEP APNEA 26808 OTHER 12-27-2013 [facility] ALTERATION [place] [address] UNSPECIFIED 12-27-2013 [facility] SLEEP COMMUNITY APNEA HOSPITA 1105 DERMATOPHYT 12-20-2013 [facility] OSIS OF THE L MAT BODY 78549 ESOPHAGEAL 12-20-2013 [facility] REFLUX L MAT 5363 GASTROPARES 11-25-2013 [place] [address] NAUSEA 11-25-2013 [facility] ALONE 4778 ALLERGIC 11-21-2013 [facility] RHINITIS L MAT DUE TO OTHER ALLERGEN 48082 UNSPECIFIED 11-21-2013 [facility] L MAT ARTHROPATHY SITE UNSPECIFIED 4659 ACUTE URIS 11-10-2013 [facility] [place] [facility] UNSPECIFIED SITE 4739 UNSPECIFIED 11-10-2013 [facility] [place] SINUSITIS 7862 COUGH 11-10-2013 [facility] 7241 PAIN IN 10-22-2013 [facility] THORACIC [facility] SPINE 7242 LUMBAGO 10-22-2013 [facility] HOSPITA 94613 DIAB W/O 10-14-2013 [facility] MENTION N PHYSICIAN COMP TYPE SERVI II/UNS TYPE UNCNTRL 15415 DIABETES 10-14-2013 [facility] W/KETOACIDO N PHYSICIAN SIS TYPE SERVI II/UNS TYPE UNCNTRL 27159 DEHYDRATION 10-14-2013 [facility] N PHYSICIAN SERVI 5849 ACUTE 10-14-2013 [facility] KIDNEY N PHYSICIAN FAILURE SERVI UNSPECIFIED 96706 DIAB 10-13-2013 [facility] W/KETOACIDO N EMERGENCY S TYPE I PHYSI [JUV] NOT STATE UNCNTRL 18514 DIAB W/OTH 10-13-2013 [facility]- MANIFESTS DE CO TYPE II/UNS EMS NOT UNCNTRL 57483 SINOATRIAL 10-13-2013 [facility] NODE DE CO DYSFUNCTION EMS 63176 VOMITING 10-13-2013 [facility] ALONE [place] EMS 21089 OTHER 10-13-2013 [facility]- ABNORMAL DE CO GLUCOSE EMS 83317 DIABETES 08-14-2013 [facility] DALYU W/KETOACIDO SIS TYPE I [JUV] UNCNTRL 75157 OTHER ACUTE 01-31-2011 [facility] EXTERNA & INTER 66984 TOB USE D/O 01-31-2011 [facility] COMP PG [facility] /PP & INTER UNSPEC EPIS CARE/NA 7569 OTH&UNSPEC 01-31-2011 [facility] 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 31056 UNSPECIFIED 01-31-2011 [facility] SLEEP [facility] DISTURBANCE & INTER 7919 OTHER 01-31-2011 [facility] NONSPECIFIC [facility]ED[facility] FINDING & INTER EXAMINATION OF URINE 4519 PHLEBITIS&T 12-01-2010 [facility] HROMBOPHLEB [facility]EDI[facility] ITIS OF & INTER UNSPECIFIED SITE 49654 SHORTNESS 11-05-2010 [facility] BRE[facility] [facility] 44932 ABDOMINAL 10-27-2010 [facility] PAIN, [facility] UNSPECIFIED HOSPITA SITE 09067 OTHER 10-20-2010 [facility] SPECIFIED [facility]RICS DISORDER OF & INTER THE ESOPHAGUS 7245 UNSPECIFIED 10-20-2010 [facility] BACKACHE PEDIATRICS & INTER 2762 ACIDOSIS 10-09-2010 [facility] & INTER 5609 UNSPECIFIED 10-09-2010 [facility] INTESTINAL PEDIATRICS & INTER OBSTRUCTION 2753 DISORDERS 10-07-2010 [facility] PHOSPHORUS HOSPITA METABOLISM 2768 HYPOPOTASSE 10-07-2010 [facility] HOSPITA 58491 LEUKOCYTOSI 10-07-2010 [facility] UNSPECIFIED SERVICES 5362 PERSISTENT 10-07-2010 [facility] 5601 PARALYTIC 10-07-2010 [facility] ILEUS [facility] HOSPITA 5758 OTHER 10-07-2010 [facility] [place] SPECIFIED RADIOLOGY DISORDER OF GALLBLADDER 5780 HEMATEMESIS 10-07-2010 [facility] HOSPITA 5789 UNSPECIFIED 10-07-2010 [facility]EM[facility]GENCY OF SERVICES GASTROINTES TINAL TRACT 5589 OTH&UNSPEC 10-06-2010 [facility] NONINFECTIO EMERGENCY US SERVICES GASTROENTER ITIS&COLITI S 7850 UNSPECIFIED 09-21-2010 [facility] 67487 DIAB 09-12-2010 [facility]/NEURO [facility] MANIFESTS HOSPITA TYPE I [JUV TYPE] UNCNTRL 7840 HEADACHE 09-12-2010 [facility] 64857 ABDOMINAL 09-12-2010 [facility] PAIN, LEFT [facility] UPPER HOSPITA [facility]ANT 01117 ABDOMINAL 09-12-2010 [facility] PAIN, [facility] EPIGASTRIC HOSPITA 5253 RETAINED 06-08-2010 [facility] DENTAL ROOT KARI 5264 INFLAMMATOR 06-08-2010 RAIN Y KARI CONDITIONS OF JAW 91473 DIAB 02-14-2008 [facility]/OPHTH [facility] CARE MANIFESTS CENTER TYPE II/UNS NOT UNCNTRL 47114 REGULAR 02-14-2008 [facility] 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 7231 CERVICALGIA 02-14-2008 YOHANA GARG E16.2 HYPOGLYCEMI A, UNSPECIFIED K29.70 GASTRITIS, UNSPECIFIED , WITHOUT BLEEDING K52.9 NONINFECTIV E GASTROENTER ITIS AND COLITIS, UNSPECIFIED R10.9 UNSPECIFIED ABDOMINAL PAIN Allergies, Adverse Reactions, Alerts Clinical Alert Notifications Alert Diabetes: no A1C in the last 6 months Diabetes: no eye exam in the last 365 days Diabetes: no influenza vaccine in the last 365 days Diabetes: no lipid panel in the last 365 days Member has >/= 3 hosp admit & >/= 1 ED visit in 365 days Medications Na ND Rx Da Fi Fi Am Da Di Ph RX Ph St me C No te ll ll ou ys ag ar # ys at rm s nt no ma ic us Or Da si cy ia de te s n re d LI 00 09 10 30 30 00 EA Ac SI 37 -0 -[address] ti NO 82 8- 6- 00 00 SI ve GA 07 20 20 50 DE IL 41 17 17 08 0 41 PH 10 AR MA MG CY TA OF BL CY ET NT HI AN A IN C FA 61 09 10 40 20 00 EA Ac MO 44 -1 -[address] ti TI 20 1- 6- 00 00 SI ve DI 12 20 20 50 DE NE 20 17 17 10 1 01 PH 40 AR MA MG CY TA OF BL CY ET NT HI AN A IN C GA 16 09 09 12 30 00 EA Ac BA 71 -0 -[address] ti PE 40 2- 9- 00 00 SI ve NT 33 20 20 0 50 DE IN 20 17 17 01 2 59 PH 80 AR 0 MA MG CY TA OF BL CY ET NT HI AN A IN C GA 16 08 09 90 30 00 EA Ac BA 71 -1 -[address] ti PE 40 1- 8- 00 00 SI ve NT 33 20 20 49 DE IN 20 17 17 61 2 46 PH 80 AR 0 MA MG CY TA OF BL CY ET NT HI AN A IN C FA 61 08 09 40 20 00 EA Ac MO 44 -0 -[address] ti TI 20 9- 1- 00 00 SI ve DI 12 20 20 49 DE NE 20 17 17 74 1 17 PH 40 AR MA MG CY TA OF BL CY ET NT HI AN A IN C BA 00 07 08 30 30 00 EA Ac SA 00 -2 -[address] ti GL 27 7- 5- 00 00 SI ve AR 71 20 20 49 DE 55 17 17 58 10 9 47 PH 0 AR UN MA IT CY /M L OF KW CY IK NT PE HI N AN A IN C OM 62 07 08 30 30 00 EA Ac EP 17 -2 -[address] ti RA 50 7- 5- 00 00 SI ve ZO 13 20 20 49 DE LE 64 17 [address] AR MA 40 CY MG OF CY CA NT PS HI UL AN E A IN C SI 16 07 08 30 30 00 EA Ac MV 71 -2 -[address] ti 40 7- 5- 00 00 SI ve TA 68 20 20 49 DE TI 20 17 17 58 N 2 44 PH 10 AR MA MG CY TA OF BL CY ET NT HI AN A IN C FL 50 07 08 30 30 00 EA Ac UO 11 -2 -[address] ti XE 10 7- 5- 00 00 SI ve TI 64 20 20 49 DE NE 80 17 17 58 3 45 PH HC AR L MA 20 CY MG OF CY CA NT PS HI UL AN E A IN C NA 68 07 08 60 30 00 EA Ac GA 46 -2 -[address] ti OX 20 7- 5- 00 00 SI ve EN 19 20 20 49 DE 00 17 17 58 50 5 48 PH 0 AR MG MA CY TA BL OF ET CY NT HI AN A IN C TR 50 07 08 30 30 00 EA Ac AZ 11 -2 -[address] ti OD 10 7- 5- 00 00 SI ve ON 43 20 20 49 DE E 30 17 17 58 50 2 43 PH AR MG MA CY TA BL OF ET CY NT HI AN A IN C LI 00 07 08 30 30 00 EA Ac SI 37 -2 -[address] ti NO 82 7- 5- 00 00 SI ve GA 07 20 20 49 DE IL 41 17 17 58 0 42 PH 10 AR MA MG CY TA OF BL CY ET NT HI AN A IN C GA 69 07 08 12 30 00 GE Ac BA 09 -1 -0 0. 00 OR ti PE 70 0- 4- 00 04 GE ve NT 81 20 20 0 02 TO IN 11 17 17 01 WN 2 94 80 AP 0 OT MG HE CA TA RY BL ET LA 60 07 07 1. 30 00 GE Ac NC 91 -0 -2 00 00 OR ti IN 30 5- 8- 0 06 GE ve G 00 20 20 04 TO DE 30 17 17 63 WN 1 98 CE AP OT HE CA RY 60 07 07 10 25 00 GE Ac MAZA 91 -0 -2 0. 00 OR ti RE 30 5- 8- 00 06 GE ve 00 20 20 0 04 TO CO 10 17 17 63 WN MF 1 97 OR AP T OT 30 HE G CA LA RY NC ET S ON 53 07 07 1. 30 00 GE Ac ET 88 -0 -2 00 00 OR ti OU 50 5- 8- 0 06 GE ve CH 20 20 20 04 TO 80 17 17 63 WN UL 1 96 TR AP AM OT IN HE I CA ME RY TE R BD 08 07 07 10 30 00 GE Ac 29 -0 -2 0. 00 OR ti UL 03 5- 8- 00 06 GE ve TR 20 20 20 0 04 TO A- 10 17 17 63 WN FI 9 93 NE AP OT PE HE N CA ND RY L 8M MX 31 G ON 53 07 07 10 25 00 GE Ac ET 88 -0 -2 0. 00 OR ti OU 50 5- 8- 00 06 GE ve CH 24 20 20 0 04 TO 45 17 17 62 WN UL 0 85 TR AP A OT TE HE ST CA RY ST RI PS BA 00 07 07 15 30 00 GE Ac SA 00 -0 -2 .0 00 OR ti GL 27 5- 8- 00 06 GE ve AR 71 20 20 04 TO 55 17 17 62 WN 10 9 86 0 AP UN OT IT HE /M CA L RY KW IK PE N GA 69 06 07 12 30 00 GE Ac BA 09 -1 -0 0. 00 OR ti PE 70 3- 7- 00 06 GE ve NT 81 20 20 0 04 TO IN 11 17 17 16 WN 2 20 80 AP 0 OT MG HE CA TA RY BL ET FR 99 05 06 10 25 00 WA Ac EE 07 -2 -2 0. [address] 30 8- 3- 00 00 RE ve YL 70 20 20 0 42 EN E 82 17 17 81 S LI 7 24 #1 TE [address] RI P EA 91 05 06 10 30 00 GE Ac SY 23 -2 -1 0. 00 OR ti 70 2- 6- 00 06 GE ve CO 00 20 20 0 04 TO MF 17 17 17 35 WN OR 2 56 T AP SY OT R HE 1 CA ML RY 30 GX 1/ 2" FL 00 05 06 16 30 00 WA Ac UT 05 -2 -1 .0 00 LG ti IC 43 3- 6- 00 00 RE ve 27 20 20 42 EN ON 09 17 17 73 S E 9 46 #1 GA 20 OP 75 50 MC G SP RA Y SI 68 05 06 30 30 00 WA Ac MV 18 -2 -1 .0 00 LG ti 00 3- 6- 00 00 RE ve TA 47 20 20 41 EN TI 80 17 17 50 S N 3 62 #1 10 20 75 MG TA BL ET GA 69 05 06 12 30 00 GE Ac BA 09 -1 -0 0. 00 OR ti PE 70 7- 9- 00 06 GE ve NT 81 20 20 0 04 TO IN 11 17 17 16 WN 2 20 80 AP 0 OT MG HE CA TA RY BL ET IN 11 04 05 60 30 00 [facility] MAZA 91 -2 -2 .0 00 LG ti LI 70 8- 6- 00 00 RE ve N 04 20 20 41 EN SY 81 17 17 69 S RI 4 11 #1 N 20 0. 75 5 ML 31 GX 16 " UL 08 05 05 10 25 00 IA Ac TI 22 -0 -2 0. 00 LG ti CA 20 1- 6 00 RE ve RE 95 20 20 0 42 EN 83 17 17 83 S PE 1 02 #1 N 20 NE 75 ED LE S 8M M 31 G BA 00 05 15 30 00 [facility] SA 00 -0 -2 .0 00 LG ti GL 27 - 00 RE ve AR 71 20 20 42 EN 55 17 17 83 S 10 9 00 #1 0 20 UN 75 IT /M L KW IK PE N FR 99 05 05 10 25 00 [facility] EE 07 -0 -2 0. [address] 30 - 00 RE ve YL 70 20 20 0 42 EN E 82 17 17 81 S LI 7 24 #1 TE [address] RI P TR 60 04 05 00 [facility] [place] 50 -2 -1 .0 00 LG ti OD 52 00 RE ve ON 65 20 20 40 EN E 50 17 17 46 S 15 1 68 #1 0 20 MG 75 TA BL ET SI 68 04 05 30 30 00 [facility] MV 18 -2 -1 .0 00 LG ti 00 00 RE ve TA 47 20 20 41 EN TI 80 17 17 50 S N 3 62 #1 10 20 75 MG TA BL ET FL 00 04 05 16 30 00 [facility] [place] 05 -2 -1 .0 00 LG ti IC 43 6 9 00 RE ve 27 20 20 42 EN ON 09 17 17 73 S E 9 46 #1 GA 20 OP 75 50 MC G SP RA Y GA 69 04 05 12 30 00 GE Ac BA 09 -2 -1 0. 00 OR ti PE 70 4 00 06 GE ve NT 81 20 20 0 04 TO IN 11 17 17 16 WN 2 20 80 AP 0 OT MG HE CA TA RY BL ET FL 00 04 05 30 30 00 WA Ac UO 78 -1 -1 .0 00 LG ti XE 12 7- 2- 00 00 RE ve TI 82 20 20 42 EN NE 20 17 17 55 S 1 03 #1 HC 20 L 75 20 MG CA PS UL E LI 68 04 05 30 30 00 WA Ac SI 18 -1 -1 .0 00 LG ti NO 00 7- 2- 00 00 RE ve GA 51 20 20 41 EN IL 40 17 17 87 S 3 96 #1 10 20 75 MG TA BL ET FR 99 04 05 10 25 00 WA Ac EE 07 -1 -0 0. [address] 30 2- 5- 00 00 RE ve YL 13 20 20 0 39 EN E 00 17 17 08 S 28 1 78 #1 G 20 LA 75 NC ET S FR 99 04 04 10 25 00 IA Ac EE 07 -0 -2 0. [address] 30 4- 8- 00 00 RE ve YL 70 20 20 0 38 EN E 82 17 17 27 S LI 7 72 #1 TE [address] RI P IN 11 03 04 60 30 00 IA Ac MAZA 91 -3 -2 .0 00 LG ti LI 70 0- 8- 00 00 RE ve N 04 20 20 41 EN SY 81 17 17 69 S RI 4 11 #1 N 20 0. 75 5 ML 31 GX 5/ 16 " TR 60 03 04 30 30 00 IA Ac AZ 50 -3 -2 .0 00 LG ti OD 52 0- 8- 00 00 RE ve ON 65 20 20 40 EN E 50 17 17 46 S 15 1 68 #1 0 20 MG 75 TA BL ET GA 68 03 04 12 30 00 HO Ac BA 00 -2 -2 0. 00 ME ti PE 10 7- 1- 00 06 TO ve NT 00 20 20 0 08 WN IN 70 17 17 39 3 08 PH 80 AR 0 MA MG CY TA OF BL ET CY NT HI AN A SI 68 03 04 30 30 00 IA Ac MV 18 -2 -2 .0 00 LG ti 00 6- 1- 00 00 RE ve TA 47 20 20 41 EN TI 80 17 17 50 S N 3 62 #1 10 20 75 MG TA BL ET FL 60 03 04 16 30 00 WA Ac UT 50 -2 -2 .0 00 LG ti IC 50 6- 1- 00 00 RE ve 82 20 20 42 EN ON 90 17 17 12 S E 1 74 #1 GA 20 OP 75 50 MC G SP RA Y LA 00 03 04 10 28 00 WA Ac NT 08 -2 -2 .0 00 LG ti US 82 4- 1- 00 00 RE ve 22 20 20 42 EN 10 03 17 17 09 S 0 3 44 #1 UN 20 IT 75 /M L AL FR 99 03 04 10 25 00 IA Ac EE 07 -2 -1 0. [address] 30 1- 4- 00 RE ve YL 13 20 20 0 39 EN E 00 17 17 08 S 28 1 78 #1 G 20 LA 75 NC ET S FR 99 03 04 10 25 00 IA Ac EE 07 -0 -0 0. [address] 30 9- 7- 00 00 RE ve YL 70 20 20 0 38 EN E 82 17 17 27 S LI 7 72 #1 TE [address] RI P LI 68 03 04 30 00 IA Ac SI 18 -1 -0 .0 00 LG ti NO 00 4- 7- 00 RE ve GA 51 20 20 41 EN IL 40 17 17 87 S 3 96 #1 10 20 75 MG TA BL ET FL 00 03 04 30 00 IA Ac UO 78 -1 -0 .0 00 LG ti XE 12 4- 7- 00 RE ve TI 82 20 20 40 EN NE 20 17 17 13 S 1 48 #1 HC 20 L 75 20 MG CA PS UL E IN 11 03 03 60 30 00 IA Ac MAZA 91 -0 -3 .0 00 LG ti LI 70 4- 1- 00 00 RE ve N 04 20 20 41 EN SY 81 17 17 69 S RI 4 11 #1 N 20 0. 75 5 ML 31 GX 5/ 16 " TR 60 03 03 30 30 00 IA Ac AZ 50 -0 -3 .0 00 LG ti OD 52 3- 1- 00 00 RE ve ON 65 20 20 40 EN E 50 17 17 46 S 15 1 68 #1 0 20 MG 75 TA BL ET GA 00 02 03 12 30 00 IA Ac BA 09 -2 -2 0. 00 LG ti PE 34 7- 4- 00 00 RE ve NT 44 20 20 0 41 EN IN 40 17 17 55 S 5 59 #1 80 20 0 75 MG TA BL ET FL 60 02 03 16 30 00 IA Ac UT 50 -2 -2 .0 00 LG ti IC 50 4- 4- 00 00 RE ve 82 20 20 41 EN ON 90 17 17 50 S E 1 51 #1 GA 20 OP 75 50 MC G SP RA Y SI 68 02 03 30 30 00 IA Ac MV 18 -2 -2 .0 00 LG ti 00 4- 4- 00 00 RE ve TA 47 20 20 41 EN TI 80 17 17 50 S N 3 62 #1 10 20 75 MG TA BL ET FR 99 02 03 10 25 00 IA Ac EE 07 -2 -2 0. [address] 30 3- 4- 00 00 RE ve YL 13 20 20 0 39 EN E 00 17 17 08 S 28 1 78 #1 G 20 LA 75 NC ET S FR 99 02 03 10 25 00 IA Ac EE 07 -1 -1 0. [address] 30 4- 0- 00 00 RE ve YL 70 20 20 0 38 EN E 82 17 17 27 S LI 7 72 #1 TE [address] RI P LI 68 02 03 30 30 00 IA Ac SI 18 -1 -1 .0 00 LG ti NO 00 3- 0- 00 00 RE ve GA 51 20 20 39 EN IL 40 17 17 02 S 3 30 #1 10 20 75 MG TA BL ET FL 00 02 03 30 30 00 IA Ac UO 78 -1 -1 .0 00 LG ti XE 12 3- 0- 00 00 RE ve TI 82 20 20 40 EN NE 20 17 17 13 S 1 48 #1 HC 20 L 75 20 MG CA PS UL E LA 00 02 03 10 28 00 IA Ac NT 08 -2 -1 .0 00 LG ti US 82 2- 0- 00 00 RE ve 22 20 20 38 EN 10 03 17 17 20 S 0 3 71 #1 UN 20 IT 75 /M L AL HY 00 02 03 20 [address] 59 -2 -1 .0 00 LG ti OC 12 0- 0- 00 00 RE ve OD 60 20 20 41 EN ON 50 17 17 40 S -A 5 84 #1 CE 20 TA 75 CA NO PH 7. 5- 32 5 HY 00 02 03 [address] 59 -0 -0 .0 00 LG ti OC 12 6- 3- 00 00 RE ve OD 60 20 20 41 EN ON 50 17 17 10 S -A 5 78 #1 CE 20 TA 75 CA NO PH 7. 5- 32 5 FR 99 02 03 10 25 00 IA Ac EE 07 -0 -0 0. [address] 30 6- 3- 00 00 RE ve YL 13 20 20 0 41 EN E 00 17 17 10 S 28 1 76 #1 G 20 LA 75 NC ET S FR 99 02 03 1. 30 00 WA Ac EE 07 -0 -0 [address] 30 6- 3- 0 00 RE ve YL 70 20 20 41 EN E 80 17 17 10 S LI 5 75 #1 TE 20 75 ME TE R NI 00 02 03 28 28 00 WA Ac CO 53 -0 -0 .0 00 LG ti TI 61 6- 3- 00 00 RE ve NE 10 20 20 41 EN 88 17 17 10 S 21 8 67 #1 20 MG 75 /2 4H R PA TC H TR 60 02 03 30 30 00 WA Ac AZ 50 -0 -0 .0 00 LG ti OD 52 4- 3- 00 00 RE ve ON 65 20 20 40 EN E 50 17 17 46 S 15 1 68 #1 0 20 MG 75 TA BL ET IN 11 02 03 10 30 00 IA Ac MAZA 91 -0 -0 0. 00 LG ti LI 70 4- 3- 00 00 RE ve N 04 20 20 0 38 EN SY 81 17 17 72 S RI 4 10 #1 N 20 0. 75 5 ML 31 GX / 16 " ON 02 02 12 2 00 WA Ac DA 46 -0 -2 .0 00 LG ti NS 20 1- 4- 00 00 RE ve ET 15 20 20 41 EN RO 71 17 17 02 S N 3 58 #1 OD 20 T 75 4 MG TA BL ET GA 68 02 02 20 5 00 IA Ac OM 38 -0 -2 .0 00 LG ti ET 20 1- 4- 00 00 RE ve ALONSO 04 20 20 41 EN ZI 00 17 17 02 S NE 1 57 #1 20 12 75 .5 MG TA BL ET FR 99 01 02 10 25 00 WA Ac EE 07 -3 -2 0. [address] 30 1- 4- 00 00 RE ve YL 13 20 20 0 39 EN E 00 17 17 08 S 28 1 78 #1 G 20 LA 75 NC ET S GA 00 01 02 12 30 00 WA Ac BA 09 -3 -2 0. 00 LG ti PE 34 0- 4- 00 00 RE ve NT 44 20 20 0 40 EN IN 40 17 17 95 S 5 43 #1 80 20 0 75 MG TA BL ET SI 68 01 02 30 30 00 WA Ac MV 18 -2 -2 .0 00 LG ti 00 6- 4- 00 00 RE ve TA 47 20 20 39 EN TI 80 17 17 17 S N 3 15 #1 10 20 75 MG TA BL ET FL 60 01 02 16 30 00 IA Ac UT 50 -2 -2 .0 00 LG ti IC 50 6- 4- 00 00 RE ve 82 20 20 40 EN ON 90 17 17 88 S E 1 04 #1 GA 20 OP 75 50 MC G SP RA Y LA 00 01 02 10 28 00 IA Ac NT 08 -2 -1 .0 00 LG ti US 82 4- 7- 00 00 RE ve 22 20 20 38 EN 10 03 17 17 20 S 0 3 71 #1 UN 20 IT 75 /M L AL HY 00 01 02 60 [address] 59 -2 -1 .0 00 LG ti OC 12 3- 7- 00 00 RE ve OD 60 20 20 40 EN ON 50 17 17 80 S -A 5 58 #1 CE 20 TA 75 CA NO PH 7. 5- [address] 00 02 60 30 00 IA Ac OO 53 -2 -1 .0 00 LG ti L 61 3- 7- 00 00 RE ve SO 06 20 20 40 EN FT 50 17 17 80 S EN 1 57 #1 ER 20 75 24 0 MG SO FT GE L FR 99 01 02 10 25 00 IA Ac EE 07 -2 -1 0. [address] 30 1- 7- 00 00 RE ve YL 70 20 20 0 38 EN E 82 17 17 27 S LI 7 72 #1 TE [address] RI P LI 68 01 02 30 30 00 IA Ac SI 18 -1 -1 .0 00 LG ti NO 00 7- 0- 00 00 RE ve GA 51 20 20 39 EN IL 40 17 17 02 S 3 30 #1 10 20 75 MG TA BL ET FL 00 02 30 30 IA Ac UO 78 -1 -1 .0 00 LG ti XE 12 7- 0- 00 00 RE ve TI 82 20 20 40 EN NE 20 17 17 13 S 1 48 #1 HC 20 L 75 20 MG CA PS UL E TR 60 01 02 30 30 00 IA Ac AZ 50 -0 -0 .0 00 LG ti OD 52 9- 3- 00 00 RE ve ON 65 20 20 40 EN E 50 17 17 46 S 15 1 68 #1 0 20 MG 75 TA BL ET FR 99 01 02 10 25 00 IA Ac EE 07 -0 -0 0. [address] 30 9- 3- 00 00 RE ve YL 13 20 20 0 39 EN E 00 17 17 08 S 28 1 78 #1 G 20 LA 75 NC ET S GA 68 12 01 12 30 00 GE Ac BA 46 -2 -2 0. 00 OR ti PE 20 8- 0- 00 06 GE ve NT 12 20 20 0 03 TO IN 70 16 17 43 WN 1 31 80 AP 0 OT MG HE CA TA RY BL ET LA 00 12 01 10 28 00 IA Ac NT 08 -2 -2 .0 00 LG ti US 82 8- 0- 00 00 RE ve 22 20 20 38 EN 10 03 16 17 20 S 0 3 71 #1 UN 20 IT 75 /M L AL FR 99 12 01 10 25 00 IA Ac EE 07 -2 -2 0. [address] 30 8- 0- 00 00 RE ve YL 70 20 20 0 38 EN E 82 16 17 27 S LI 7 72 #1 TE [address] RI P FL 50 12 01 16 30 00 IA Ac UT 38 -2 -2 .0 00 LG ti IC 30 7- 0- 00 00 RE ve 70 20 20 38 EN ON 01 16 17 59 S E 6 83 #1 GA 20 OP 75 50 MC G SP RA Y SI 68 12 30 30 00 IA Ac MV 18 -2 -2 .0 00 LG ti 00 7- 0- 00 00 RE ve TA 47 20 20 39 EN TI 80 16 17 17 S N 3 15 #1 10 20 75 MG TA BL ET FL 00 12 30 30 00 IA Ac UO 78 -2 -1 .0 00 LG ti XE 12 0- 3- 00 00 RE ve TI 82 20 20 40 EN NE 20 16 17 13 S 1 48 #1 HC 20 L 75 20 MG CA PS UL E LI 68 12 01 30 30 00 IA Ac SI 18 -2 -1 .0 00 LG ti NO 00 0- 3- 00 00 RE ve GA 51 20 20 39 EN IL 40 16 17 02 S 3 30 #1 10 20 75 MG TA BL ET FR 99 12 01 10 25 00 IA Ac EE 07 -1 -1 0. [address] 30 7- 3- 00 00 RE ve YL 13 20 20 0 39 EN E 00 16 17 08 S 28 1 78 #1 G 20 LA 75 NC ET S IN 11 12 01 60 30 00 IA Ac MAZA 91 -0 -0 .0 00 LG ti LI 70 9- 9- 00 00 RE ve N 04 20 20 38 EN SY 81 16 17 72 S RI 4 10 #1 N 20 0. 75 5 ML 31 GX 5/ 16 " TR 60 12 01 30 30 00 WA Ac AZ 50 -1 -0 .0 00 LG ti OD 52 1- 9- 00 00 RE ve ON 65 20 20 37 EN E 50 16 17 84 S 15 1 55 #1 0 20 MG 75 TA BL ET HY 00 02 02 0 10 2 [place] [address] 59 -0 -0 0. LG 38 NL ti OC 13 2- 2- 00 RE 13 EY ve OD 20 20 20 0 EN ON 20 16 16 S PA -A 5 #1 UL CE 20 W TA 75 CA # NO PH 12 EN 07 5 5- 32 5 MAZA 61 02 02 0 20 10 WA 34 MA Ac LF 97 -0 -0 0. LG 38 RT ti AM 10 2- 2- 00 RE 12 IN ve ET 12 20 20 0 EN HO 00 16 16 S LA XA 5 #1 UR ZO 20 A LE 75 B -T # MP 12 DS 07 5 TA BL ET CL 00 02 02 0 45 10 WA 34 MA Ac OT 16 -0 -0 0. LG 38 RT ti RI 80 2- 2- 00 RE 14 IN ve MA 13 20 20 0 EN ZO 34 16 16 S LA LE 6 #1 UR 20 A 1% 75 B # CR EA 12 M 07 5 TR 00 06 08 2 30 30 KR 64 BA Ac AZ 60 -2 -2 .0 OG 93 LB ti OD 36 0- 4- 00 ER 66 AU ve ON 16 20 20 5 GH E 02 11 11 PH [address] MG CY EW # P TA BL 24 ET 70 9 NO 00 07 07 5 20 25 KR 64 BA Ac VO 16 -0 -0 .0 OG 96 LB ti LO 93 8- 8- 00 ER 83 AU ve G 68 20 20 6 GH CA 51 11 11 PH X 2 AR AN [address] -3 CY EW 0 # P AL 24 70 9 BD 08 07 07 5 60 30 KR 64 BA Ac 29 -0 -0 .0 OG 96 LB ti IN 03 8- 8- 00 ER 82 AU ve MAZA 28 20 20 8 GH LI 46 11 11 PH N 8 AR AN SY MA DR R CY EW 0. # P 5 ML 24 70 8M 9 MX 31 G TR 50 06 06 2 30 30 KR 64 BA Ac AZ 11 -2 -2 .0 OG 93 LB ti OD 10 0- 0- 00 ER 66 AU ve ON 43 20 20 5 GH E 30 11 11 PH [address] MG CY EW # P TA BL 24 ET 70 9 CY 59 06 06 1 90 30 KR 64 BA Ac CL 74 -2 -2 .0 OG 93 LB ti OB 60 0- 0- 00 ER 66 AU ve EN 21 20 20 4 GH ZA 10 11 11 PH GA 6 AR AN IN MA DR E CY EW 5 # P MG 24 TA 70 BL 9 ET LI 00 06 06 0 15 30 KR 64 BA Ac SI 59 -2 -2 .0 OG 93 LB ti NO 10 0- 0- 00 ER 66 AU ve GA 40 20 20 3 GH IL 60 11 11 PH [address] MG CY EW # P TA BL 24 ET 70 9 CI 55 06 06 0 20 10 KR 64 BA Ac GA 11 -2 -2 .0 OG 93 LB ti OF 10 0- 0- 00 ER 66 AU ve LO 12 20 20 2 GH XA 70 11 11 PH CI 1 AR AN N MA DR HC CY EW L # P 50 0 24 MG 70 9 TA B AM 00 04 04 0 14 7 KR 64 BA Ac OX 09 -2 -2 .0 OG 83 LB ti -C 32 0- 0- 00 ER 75 AU ve LA 27 20 20 3 GH V 43 11 11 PH 50 4 AR AN 0- MA DR 12 CY EW 5 # P MG 24 TA 70 BL 9 ET CY 59 03 03 0 90 30 KR 64 BA Ac CL 74 -1 -1 .0 OG 78 LB ti OB 60 8- 8- 00 ER 22 AU ve EN 21 20 20 4 GH ZA 10 11 11 PH GA 6 AR AN IN MA DR E CY EW 5 # P MG 24 TA 70 BL 9 ET 64 03 03 3 60 30 KR 64 BA Ac 67 -1 -1 .0 OG 77 LB ti 90 4- 4- 00 ER 33 AU ve 90 20 20 6 GH 60 11 11 PH [address] CY EW # P 24 70 9 BA 00 03 03 3 90 30 KR 64 BA Ac CL 83 -0 -0 .0 OG 76 LB ti OF 21 9- 9- 00 ER 52 AU ve EN 02 20 20 3 GH 40 11 11 PH [address] MG CY EW # P TA BL 24 ET 70 9 TR 50 03 03 3 30 30 KR 64 BA Ac AZ 11 -0 -0 .0 OG 76 LB ti OD 10 9- 9- 00 ER 52 AU ve ON 43 20 20 2 GH E 30 11 11 PH [address] MG CY EW # P TA BL 24 ET 70 9 GA 68 02 02 0 12 3 KR 64 FI Ac OM 38 -2 -2 .0 OG 73 NL ti ET 20 3- 3- 00 ER 99 EY ve ALONOS 04 20 20 4 ZI 10 11 11 PH PA NE 1 AR UL MA W 25 CY # MG 24 TA 70 BL 9 ET RA 53 02 02 0 30 15 KR 64 FI Ac NI 74 -2 -2 .0 OG 73 NL ti TI 60 3- 3- 00 ER 99 EY ve DI 25 20 20 5 NE 31 11 11 PH PA 0 AR UL 15 MA W 0 CY MG # TA 24 BL 70 ET 9 MAZA 00 02 02 0 28 7 KR 64 FI Ac CR 09 -2 -2 .0 OG 73 NL ti AL 32 3- 3- 00 ER 99 EY ve FA 21 20 20 6 TE 00 11 11 PH PA 1 1 AR UL MA W GM CY # TA BL 24 ET 70 9 TR 50 02 02 0 30 30 KR 64 BA Ac AZ 11 -0 -0 .0 OG 70 LB ti OD 10 7- 7- 00 ER 89 AU ve ON 43 20 20 6 GH E 30 11 11 PH [address] MG CY EW # P TA BL 24 ET 70 9 OX 00 10 10 0 12 2 KR 22 HE Ac YC 40 -2 -2 .0 OG 65 ND ti OD 60 5- 5- 00 ER 12 ER ve ON 51 20 20 6 SO E- 20 10 10 PH N AC 1 AR RO ET MA BE AM CY RT IN # W OP HE 24 N 70 5- 9 32 5 OX 00 10 10 0 20 3 KR 22 AD Ac YC 40 -1 -1 .0 OG 65 KI ti OD 60 8- 8- 00 ER 06 NS ve ON 51 20 20 6 E- 20 10 10 PH FA AC 1 AR CA ET MA LY AM CY & IN # OP CO HE 24 SM N 70 ET 5- 9 IC 32 5 DE NT IS TR Y 00 10 10 0 20 2 KR 45 AD Ac 40 -1 -1 .0 OG 67 KI ti 60 3- 3- 00 ER 79 NS ve 35 20 20 8 70 10 10 PH FA 5 AR CA MA LY CY & # CO 24 SM 70 ET 9 IC DE NT IS TR Y 00 10 10 0 20 2 KR 45 AD Ac 40 -1 -1 .0 OG 67 KI ti 60 3- 3- 00 ER 79 NS ve 35 20 20 8 70 10 10 PH RU 5 AR TH MA CY # 24 70 9 00 10 10 0 20 3 KR 45 AD Ac 40 -0 -0 .0 OG 67 KI ti 60 7- 7- 00 ER 62 NS ve 35 20 20 8 70 10 10 PH RU 5 AR TH MA CY # 24 70 9 00 10 10 0 20 3 KR 45 AD Ac 40 -0 -0 .0 OG 67 KI ti 60 7- 7- 00 ER 62 NS ve 35 20 20 8 70 10 10 PH FA 5 AR CA MA LY CY & # CO 24 SM 70 ET 9 IC DE NT IS TR Y LO 00 09 10 5 30 30 KR 64 OL Ac VA 09 -3 -0 .0 OG [address] 30 0- 1- 00 ER 79 ER ve AT 92 20 20 7 IN 80 10 10 PH BR 6 AR ET 40 MA T CY A MG # TA 24 BL 70 ET 9 NO 00 06 10 02 10 30 J 75 GA Ac VO 16 -3 -0 .0 & 80 ES ti LI 91 0- 9- 00 L 90 TO ve N 83 20 20 PH 8 N 70 71 08 08 AR HE -3 1 MA NR 0 CY Y 10 R 0 UN IT /M L AL 00 08 09 00 10 2 CV 15 MA Ac 40 -2 -1 .0 S 32 X ti 60 7- 1- 00 PH 23 DO ve 35 20 20 AR NA 80 08 08 MA LD 5 CY P 23 32 NO 00 06 09 01 10 30 J 75 No Ac VO 16 -3 -1 .0 & 80 t ti LI 91 0- 1- 00 L 90 Av ve N 83 20 20 PH 8 ai 70 71 08 08 AR la -3 1 MA bl 0 CY e 10 0 UN IT /M L AL CL 00 08 09 00 28 7 CV 15 MA Ac IN 09 -2 -1 .0 S 32 X ti DA 33 7- 1- 00 PH 24 DO ve MY 17 20 20 AR NA CI 10 08 08 MA LD N 1 CY P HC L 23 15 32 0 MG CA PS UL E 00 07 07 00 16 3 CV 13 No Ac 40 -0 -1 .0 S 92 t ti 60 9- 7- 00 PH 70 Av ve 35 20 20 AR ai 80 08 08 MA la 5 CY bl e 23 32 45 07 07 00 32 11 CV 13 No Ac 80 -0 -1 .0 S 77 t ti 20 3- 7- 00 PH 28 Av ve 52 20 20 AR ai 29 08 08 MA la 0 CY bl e 23 32 00 06 07 00 30 4 CV 13 No Ac 40 -3 -1 .0 S 67 t ti 60 0- 7- 00 PH 94 Av ve 35 20 20 AR ai 70 08 08 MA la 5 CY bl e 23 32 NO 00 06 07 00 10 30 J 75 No Ac VO 16 -3 -1 .0 & 80 t ti LI 91 0- 7- 00 L 90 Av ve N 83 20 20 PH 8 ai 70 71 08 08 AR la -3 1 MA bl 0 CY e 10 0 UN IT /M L AL AM 00 06 07 00 28 7 CV 13 No Ac OX 09 -3 -1 .0 S 67 t ti IC 33 0- 7- 00 PH 91 Av ve IL 10 20 20 AR ai LI 90 08 08 MA la N 5 CY bl 50 e 0 23 MG 32 CA PS UL E TR 60 07 07 02 30 30 CV 87 No Ac AZ 50 -1 -1 .0 S 84 t ti OD 52 4- 7- 00 PH 37 Av ve ON 65 20 20 AR ai E 40 07 08 MA la 10 1 CY bl 0 e MG 23 32 TA BL ET Immunization Name Date Rout CVX Reac Dose Comm Prov Is Faci e tion ent ider Refu lity Give sed n TDAP 02-0 115 GEOR No GEOR 2-20 GETO GETO VACC 16 WN WN INE COMM COMM 7 UNTI UNTI YRS/ Y Y > IM [facility]OSP [facility] Results Labs Lab Lab Date Result Refere Interp Status Commen Order Detail nces retati t Range on Urinalysis dipstick W Reflex Microscopic panel in Urine (05-10-2017 04:16) Bacteri 1+ O complet a 017 ed [Presen 04:16 ce] in Urine sedimen t by Light microsc opy Mucus OCC NONE complet [Presen 017 ed ce] in 04:16 Urine sedimen t by Light microsc opy Erythro OCC 0 complet cytes 017 ed [Presen 04:16 ce] in Urine sedimen t by Light microsc opy Urinalysis dipstick W Reflex Microscopic panel in Urine (05-10-2017 04:16) Appeara CLEAR CLEAR complet nce of 017 ed Urine 04:16 Bilirub NEGATIV NEG complet in 017 E ed [Presen 04:16 ce] in Urine by Test strip Erythro NEGATIV NEG complet cytes 017 E ed [Presen 04:16 ce] in Urine Color YELLOW YELLOW complet of 017 ed Urine 04:16 Ketones NEGATIV NEG complet 017 E ed [Presen 04:16 ce] in Urine by Automat ed test strip Mucus NEGATIV NEG complet [Presen 017 E ed ce] in 04:16 Urine sedimen t by Light microsc opy Nitrite NEGATIV NEG complet 017 E ed [Presen 04:16 ce] in Urine by Test strip Urobili 0.2 NEG complet nogen 017 ed [Presen 04:16 ce] in Urine by Test strip Drugs identified in Urine by Screen method (05-09-2017 15:10) Ampheta NEGATIV <1000 complet mine 017 E ed [Presen 15:10 ce] in Urine by Screen method 11-Hydr NEGATIV <50 complet oxy 017 E ed delta-9 15:10 tetrahy drocann abinol [Presen ce] in Unspeci fied specime n Differential panel, method unspecified - (05-09-2017 12:02) LYMPH 1 % 10% - Low complet 017 50% ed 12:02 Macrocy 1+ complet lory 017 ed [Presen 12:02 ce] in Blood Platele NORMAL complet ts 017 ed [Presen 12:02 ce] in Blood by Light microsc opy Target 1+ complet cells 017 ed [Presen 12:02 ce] in Blood by Light microsc opy Urinalysis dipstick W Reflex Microscopic panel in Urine (03-22-2017 11:48) Bacteri TRACE O complet a 017 ed [Presen 11:48 ce] in Urine sedimen t by Light microsc opy Erythro OCC 0 complet cytes 017 ed [Presen 11:48 ce] in Urine sedimen t by Light microsc opy Epithel 08-09-2 OCC OCC complet ial 017 ed cells.s 11:48 quamous [Presen ce] in Urine sedimen t by Microsc opy high power field Urinalysis dipstick W Reflex Microscopic panel in Urine (03-22-2017 11:48) Appeara CLEAR CLEAR complet nce of 017 ed Urine 11:48 Bilirub NEGATIV NEG complet in 017 E ed [Presen 11:48 ce] in Urine by Test strip Erythro TRACE-I NEG complet cytes 017 NTACT ed [Presen 11:48 ce] in Urine Color YELLOW YELLOW complet of 017 ed Urine 11:48 Ketones TRACE NEG Abnorma complet 017 l ed [Presen 11:48 ce] in Urine by Automat ed test strip Mucus NEGATIV NEG complet [Presen 017 E ed ce] in 11:48 Urine sedimen t by Light microsc opy Nitrite NEGATIV NEG complet 017 E ed [Presen 11:48 ce] in Urine by Test strip Urobili 0.2 NEG complet nogen 017 ed [Presen 11:48 ce] in Urine by Test strip Procedures Procedure DOS Code Location Performer Comment HEPATOBIL 51055 [facility] SYST 7 MEDICAL IMAG INC IMAGING GB ASS W/[place] [address] [facility] ABDOMEN & 7 MEDICAL PELVIS IMAGING W/[place] [address] [facility] ABDOMINAL 7 MEDICAL REAL IMAGING TIME ASS W/IMAGE LIMITED FINAL G9551 [facility] REPR ABD 7 MEDICAL IMAG STS IMAGING W/O ASS INCIDNT FND LES NTD: FINAL G9638 [facility] REPORTS 7 MEDICAL W/O DOC IMAGING 1/MORE ASS DOSE REDUCTION TECH FOR DIAB A5512 [facility] ONLY MX 7 MEDICAL MEDICAL DNSITY SUPPLY [facility] [facility] FORMD PRFAB EA DIAB ONLY A5500 [facility] [place] FIT CSTM 7 MEDICAL MEDICAL PREP&SPL SUPPLY SUPPLY [facility] DNSITY INSRT AMB A0427 [facility] 7 [facility] CO EMS CO EMS EMERGENCY TRANSPORT LEVEL 1 URNLS DIP 92077 [facility] 7 N N STICK/TAB COMMUNTIY COMMUNTIY LET HOSPITA HOSPITA REAGENT AUTO MICROSCOP Y GROUND A0425 [facility] MILEAGE 7 N-DE Ray-DE PER CO EMS CO EMS STATUTE MILE THERAPEUT 45094 [facility] IC 7 N N INJECTION COMMUNTIY COMMUNTIY IV PUSH HOSPITA HOSPITA EACH NEW DRUG THER 35133 [facility] PROPH/DX 7 N N NJX IV COMMUNTIY COMMUNTIY PUSH HOSPITA HOSPITA SINGLE/1S T SBST/DRUG KETONE 43230 [facility] BODIES 7 N N SERUM COMMUNTIY COMMUNTIY QUALITAT[place] [address] [facility] LIPASE 7 N [place] [address] [facility] INFUSION 7 N N HYDRATION COMMUNTIY COMMUNTIY EACH HOSPITA HOSPITA ADDITIONA L HOUR COMPREHEN 34177 [facility] SIVE 7 N N METABOLIC COMMUNTIY COMMUNTIY [place] [address] [facility] LACTATE 7 N N COMMUNTIY COMMUNTIY HOSPITA HOSPITA INFUSION J7030 [facility] NORMAL 7 N N SALINE COMMUNTIY COMMUNTIY SOLUTION HOSPITA HOSPITA 1000 CC GLUC BLD 22357 [facility] GLUC MNTR 7 N N DEV COMMUNTIY COMMUNTIY CLEARED HOSPITA HOSPITA FDA SPEC HOME USE BLOOD 51706 [facility] COUNT 7 N N COMPLETE COMMUNTIY COMMUNTIY AUTO&AUTO HOSPITA HOSPITA DIFRNTL WBC ECG 97490 [facility] ROUTINE 7 [place] ECG EMERGENCY W/LEAST SERV 12 LDS I&R ONLY INITIAL 86230 [facility] 7 MEDICINE CARE/DAY SERVICES 30 O MINUTES SBSQ 63650 [facility] 7 N FAMILY CARE/DAY PRACTICE 25 MINUTES SBSQ 55786 [facility] 7 N FAMILY CARE/DAY PRACTICE 25 MINUTES AMB A0427 [facility] SERVICE 7 [facility] CO EMS CO EMS [place]ENC[place] [address] [facility] HEAD/BRAI 7 RADIOLOGY N W/O CONTRAST MATERIAL RADIOLOGI 39094 [facility] C 7 RADIOLOGY EXAMINATI ON CHEST SINGLE VIEW FRONTAL ECG 06619 [facility] ROUTINE 7 [place] ECG EMERGENCY W/LEAST SERVI 12 LDS I&R ONLY GROUND A0425 [facility] MILEAGE 7 [place] [place] PER CO EMS CO EMS STATUTE MILE RADEX 41081 [facility] SPINE 7 RADIOLOGY LUMBOSACR AL 2/3 VIEWS RADEX 02811 [facility] SACRUM & 7 RADIOLOGY [place] [address] [place] [address] [facility] PATRICE ABDOMEN & 6 RADIOLOGY RHO PELVIS W/O CONTRAST MATERIAL HEMOGLOBI 96328 [facility] QUAN N 6 NURSE ADWOA GLYCOSYLA PRACTITIO NICHOLAS A1C NER GR GLUC BLD 97246 [facility] QUAN GLUC MNTR 6 NURSE ADWOA DEV PRACTITIO CLEARED NER GR FDA SPEC HOME USE HEMOGLOBI 23800 [facility] N 6 N N GLYCOSYLA COMMUNTIY COMMUNTIY NICHOLAS A1C HOSPITA HOSPITA GLUC BLD 09218 [facility] GLUC MNTR 6 N N DEV COMMUNTIY COMMUNTIY CLEARED HOSPITA HOSPITA FDA SPEC HOME USE BLOOD 50605 [facility] COUNT 6 N N COMPLETE COMMUNTIY COMMUNTIY AUTO&AUTO HOSPITA HOSPITA DIFRNTL WBC COLLECTIO 45136 [facility] N VENOUS 6 N N BLOOD COMMUNTIY COMMUNTIY VENIPUNCT HOSPITA HOSPITA URE COMPREHEN 53127 [facility] SIVE 6 N N METABOLIC COMMUNTIY COMMUNTIY PANEL HOSPITA HOSPITA INJECTION J2270 [facility] MORPHINE 6 N N SULFATE COMMUNTIY COMMUNTIY UP TO 10 HOSPITA HOSPITA MG THERAPEUT 24426 [facility] IC 6 N N PROPHYLAC COMMUNTIY COMMUNTIY TIC/DX HOSPITA HOSPITA INJECTION SUBQ/IM INJECTION C9113 [facility] 6 N N PANTOPRAZ COMMUNTIY COMMUNTIY OLE HOSPITA HOSPITA SODIUM PER VIAL THER 70975 [facility] PROPH/DX 6 N N NJX EA COMMUNTIY COMMUNTIY SEQL IV HOSPITA HOSPITA PUSH SBST/DRUG FAC OBSERVATI 29489 [facility] 6 KHUSH[place] [address] [facility] MAGNESIUM 6 N N COMMUNTIY [place] [address] [facility] PHOSPHORU 6 N N S COMMUNTIY COMMUNTIY [place] [address] [facility] PHOSPHORU 6 N N S COMMUNTIY COMMUNTIY [place] [address] [facility] MAGNESIUM 6 N N COMMUNTIY COMMUNTIY HOSPITA HOSPITA INJECTION J0610 [facility] CALCIUM 6 N N GLUCONATE COMMUNTIY COMMUNTIY PER 10 HOSPITA HOSPITA ML NONINVASI 06189 [facility] VE 6 N N EAR/PULSE COMMUNTIY COMMUNTIY OXIMETRY HOSPITA HOSPITA SINGLE DETER THERAPEUT 55921 [facility] IC 6 N N INJECTION COMMUNTIY COMMUNTIY IV PUSH HOSPITA HOSPITA EACH NEW DRUG INJECTION J2270 [facility] MORPHINE 6 N N SULFATE COMMUNTIY COMMUNTIY UP TO 10 HOSPITA HOSPITA MG INITIAL 01030 [facility] OBSERVATI 6 ELL LEENA RÍOS MAT ON CARE/DAY 50 MINUTES THER 31897 [facility] PROPH/DX 6 N N NJX EA COMMUNTIY COMMUNTIY SEQL IV HOSPITA HOSPITA PUSH SBST/DRUG FAC INJECTION C9113 [facility] 6 N N PANTOPRAZ COMMUNTIY COMMUNTIY OLE HOSPITA HOSPITA SODIUM PER VIAL THERAPEUT 46695 [facility] IC 6 N N PROPHYLAC COMMUNTIY COMMUNTIY TIC/DX HOSPITA HOSPITA INJECTION SUBQ/IM PROTHROMB 33954 [facility] IN TIME 6 N N COMMUNTIY COMMUNTIY HOSPITA HOSPITA INJECTION J2550 [facility] 6 N N PROMETHAZ COMMUNTIY COMMUNTIY INE HCL HOSPITA HOSPITA UP TO 50 MG INFUSION J7030 [facility] NORMAL 6 N N SALINE COMMUNTIY COMMUNTIY SOLUTION HOSPITA HOSPITA 1000 CC COMPREHEN 42272 [facility] SIVE 6 N N METABOLIC COMMUNTIY COMMUNTIY PANEL HOSPITA HOSPITA COLLECTIO 16854 [facility] N VENOUS 6 N N BLOOD COMMUNTIY COMMUNTIY VENIPUNCT HOSPITA HOSPITA URE BLOOD 08743 [facility] COUNT 6 N N COMPLETE COMMUNTIY COMMUNTIY AUTO&AUTO HOSPITA HOSPITA DIFRNTL WBC GLUC BLD 70432 [facility] GLUC MNTR 6 N N DEV COMMUNTIY COMMUNTIY CLEARED HOSPITA HOSPITA FDA SPEC HOME USE HEMOGLOBI 50877 [facility] N 6 N N GLYCOSYLA COMMUNTIY COMMUNTIY NICHOLAS A1C HOSPITA HOSPITA GLUC BLD 68931 [facility] GLUC MNTR 6 N N DEV COMMUNTIY COMMUNTIY CLEARED HOSPITA HOSPITA FDA SPEC HOME USE ARTERIAL 82767 [facility] PUNCTURE 6 N N WITHDRAWA COMMUNTIY COMMUNTIY L BLOOD HOSPITA HOSPITA DX BLOOD 43175 [facility] GASES ANY 6 N N COMMUNTIY COMMUNTIY COMBINATI HOSPITA HOSPITA ON PH PCO2 PO2 CO2 HCO3 BLOOD 92753 [facility] COUNT 6 N N COMPLETE COMMUNTIY COMMUNTIY AUTO&AUTO HOSPITA HOSPITA DIFRNTL WBC COLLECTIO 82709 [facility] N VENOUS 6 N N BLOOD COMMUNTIY COMMUNTIY VENIPUNCT HOSPITA HOSPITA URE INJECTION J1815 [facility] INSULIN 6 N N PER 5 COMMUNTIY COMMUNTIY UNITS HOSPITA HOSPITA INJECTION J2550 [facility] 6 N N PROMETHAZ COMMUNTIY COMMUNTIY INE HCL HOSPITA HOSPITA [place] 50 [place] [address] [facility] INFUSION 6 N N HYDRATION COMMUNTIY COMMUNTIY EACH HOSPITA HOSPITA ADDITIONA L HOUR COMPREHEN 92883 [facility] SIVE 6 N N METABOLIC COMMUNTIY COMMUNTIY PANEL HOSPITA HOSPITA INFUSION J7030 [facility] NORMAL 6 N N SALINE COMMUNTIY COMMUNTIY SOLUTION HOSPITA HOSPITA 1000 CC INJECTION J1885 [facility] 6 N N KETOROLAC COMMUNTIY COMMUNTIY HOSPITA HOSPITA TROMETHAM INE PER 15 MG H[facility] G0378 [facility] OBSERVATI 6 N N ON COMMUNTIY COMMUNTIY SERVICE HOSPITA HOSPITA PER HOUR THERAPEUT 97141 [facility] IC 6 N N PROPHYLAC COMMUNTIY COMMUNTIY TIC/DX HOSPITA HOSPITA INJECTION SUBQ/IM THER 26417 [facility] PROPH/DX 6 N N NJX EA COMMUNTIY COMMUNTIY SEQL IV HOSPITA HOSPITA PUSH SBST/DRUG FAC URNLS DIP 38322 [facility] 6 N N STICK/TAB COMMUNTIY COMMUNTIY LET HOSPITA HOSPITA REAGENT AUTO MICROSCOP Y TOBACCO 68793 [facility] USE 6 N N CESSATION COMMUNTIY COMMUNTIY HOSPITA HOSPITA INTERMEDI ATE 3-10 MINUTES INJECTION [id number] [facility] MORPHINE 6 N N SULFATE COMMUNTIY COMMUNTIY UP TO [place] [address] [facility] INFUSION 6 N N THERAPY/P COMMUNTIY COMMUNTIY ROPHYLAXI HOSPITA HOSPITA S /DX 1ST TO 1 HR THERAPEUT 04078 [facility] IC 6 N N INJECTION COMMUNTIY COMMUNTIY IV PUSH HOSPITA HOSPITA EACH NEW DRUG KETONE 17245 [facility] BODIES 6 N N SERUM COMMUNTIY COMMUNTIY [place]IT[place] [address] [facility] LIPASE 6 N N COMMUNTIY COMMUNTIY HOSPITA HOSPITA ARTHROCEN 68009 [facility] MECCARIEL TESIS 6 [place] LO TRA ASPIR&/IN EMERGENCY J INTERM SERVI JT/BURS W/O US RADEX 51193 [facility] ELBOW 6 N N COMPLETE COMMUNTIY COMMUNTIY MINIMUM 3 HOSPITA HOSPITA VIEWS INFUSION J7030 [facility] NORMAL 6 N N SALINE COMMUNTIY COMMUNTIY SOLUTION HOSPITA HOSPITA 1000 CC COLLECTIO 06689 [facility] N VENOUS 6 N N BLOOD COMMUNTIY COMMUNTIY VENIPUNCT HOSPITA HOSPITA URE BLOOD 90876 [facility] COUNT 6 N N COMPLETE COMMUNTIY COMMUNTIY AUTO&AUTO HOSPITA HOSPITA DIFRNTL WBC GLUC BLD 05528 [facility] GLUC MNTR 6 N N DEV COMMUNTIY COMMUNTIY CLEARED HOSPITA HOSPITA FDA SPEC HOME USE THERAPEUT 30933 [facility] IC 6 N N PROPHYLAC COMMUNTIY COMMUNTIY TIC/DX HOSPITA HOSPITA INJECTION SUBQ/IM OBSERVATI 43645 [facility] ON CARE 6 ELL MAT ELL MAT DISCHARGE MANAGEMEN T BASIC 41429 [facility] METABOLIC 6 N N PANEL COMMUNTIY COMMUNTIY CALCIUM HOSPITA HOSPITA TOTAL ECG 59714 [facility] ROUTINE 6 N N ECG COMMUNTIY COMMUNTIY W/LEAST HOSPITA HOSPITA 12 LDS TRCG ONLY W/O I&[place] [address] [facility] [place] SCALF SARA ABDOMEN & 6 RADIOLOGY PELVIS W/O CONTRAST MATERIAL URNLS DIP 44583 [facility] 6 N N STICK/TAB COMMUNTIY COMMUNTIY LET HOSPITA HOSPITA [place] [address] [facility] LIPASE 6 N N COMMUNTIY COMMUNTIY HOSPITA HOSPITA KETONE 32806 [facility] BODIES 6 N N SERUM COMMUNTIY COMMUNTIY QUALITATI HOSPITA HOSPITA VE ECG 40118 [facility] OZOR ROUTINE 6 [place] ECG EMERGENCY W/LEAST PHYS 12 LDS I&R ONLY INJECTION J0360 [facility] 6 N N HYDRALAZI COMMUNTIY COMMUNTIY NE HCL UP HOSPITA HOSPITA TO 20 MG THERAPEUT 67914 [facility] IC 6 N N PROPHYLAC COMMUNTIY COMMUNTIY TIC/DX HOSPITA HOSPITA INJECTION SUBQ/IM THER 59388 [facility] PROPH/DX 6 N N NJX IV COMMUNTIY COMMUNTIY PUSH HOSPITA HOSPITA SINGLE/1S T SBST/DRUG THERAPEUT 75955 [facility] IC 6 N N INJECTION COMMUNTIY COMMUNTIY IV PUSH HOSPITA HOSPITA EACH NEW DRUG TOBACCO 83371 [facility] USE 6 N N CESSATION COMMUNTIY COMMUNTIY HOSPITA HOSPITA INTERMEDI ATE 3-10 MINUTES INITIAL 92715 [facility] OBSERVATI 6 ELL MAT ELL MAT ON CARE/DAY 50 MINUTES DRUG TEST G0479 [facility] 6 N N PRESUMP;I COMMUNTIY COMMUNTIY NSTRUMENT HOSPITA HOSPITA ED CHEMISTRY ANLYZER GLUC BLD 13737 [facility] GLUC MNTR 6 N N DEV COMMUNTIY COMMUNTIY CLEARED HOSPITA HOSPITA FDA SPEC HOME USE BLOOD 46328 [facility] COUNT 6 N N COMPLETE COMMUNTIY COMMUNTIY AUTO&AUTO HOSPITA HOSPITA DIFRNTL WBC COLLECTIO 01773 [facility] N VENOUS 6 N N BLOOD COMMUNTIY COMMUNTIY [place] [address] [facility] AMYLASE 6 N N COMMUNTIY COMMUNTIY HOSPITA HOSPITA INFUSION J7030 [facility] NORMAL 6 N N SALINE COMMUNTIY COMMUNTIY SOLUTION HOSPITA HOSPITA 1000 CC H[facility] [id number] [facility] OBSERVATI 6 N N ON COMMUNTIY COMMUNTIY SERVICE HOSPITA HOSPITA PER HOUR INJECTION J2270 [facility] MORPHINE 6 N N SULFATE COMMUNTIY COMMUNTIY UP TO 10 [place] [address] [facility] PHOSPHORU 6 N N S COMMUNTIY [place] [address] [facility] INFUSION 6 N N HYDRATION COMMUNTIY COMMUNTIY EACH HOSPITA HOSPITA ADDITIONA L HOUR COMPREHEN 21017 [facility] SIVE 6 N N METABOLIC COMMUNTIY COMMUNTIY PANEL HOSPITA HOSPITA COLOREC G0121 [facility] CANCR 6 N N SCR; COMMUNTIY COMMUNTIY COLNSCPY HOSPITA HOSPITA NOT MEET HI RISK GLUC BLD 26038 [facility] GLUC MNTR 6 N N DEV COMMUNTIY COMMUNTIY CLEARED HOSPITA HOSPITA FDA SPEC HOME USE RINGERS J7120 [facility] LACTATE 6 N N INFUSION COMMUNTIY COMMUNTIY UP TO HOSPITA HOSPITA 1000 CC COLONOSCO 63045 GASTROENT CASE JUS PY FLX DX 6 EROLOGY W/COLLJ AND SPEC WHEN HEPATOL PFRMD ANES 17901 [facility] LOWER 6 ANESTHESI INTESTINE A GROUP [place] [address] [facility] LIPASE 6 N N COMMUNTIY COMMUNTIY HOSPITA HOSPITA KETONE 52849 [facility] BODIES 6 N N SERUM COMMUNTIY COMMUNTIY QUALITATI HOSPITA HOSPITA VE THER 46047 [facility] PROPH/DX 6 N N NJX IV COMMUNTIY COMMUNTIY PUSH HOSPITA HOSPITA SINGLE/1S T SBST/DRUG THERAPEUT 99231 [facility] IC 6 N N INJECTION COMMUNTIY COMMUNTIY IV PUSH HOSPITA HOSPITA EACH NEW DRUG URNLS DIP 54876 [facility] 6 N N STICK/TAB COMMUNTIY COMMUNTIY LET HOSPITA HOSPITA REAGENT AUTO MICROSCOP Y GLUC BLD 08594 [facility] GLUC MNTR 6 N N DEV COMMUNTIY COMMUNTIY CLEARED HOSPITA HOSPITA FDA SPEC HOME USE BLOOD 41799 [facility] COUNT 6 N N COMPLETE COMMUNTIY COMMUNTIY AUTO&AUTO [place] [address] [facility] TROPONIN 6 N N QUANTITAT COMMUNTIY COMMUNTIY VERÓNICA HOSPITA HOSPITA INJECTION J2270 [facility] MORPHINE 6 N N SULFATE COMMUNTIY COMMUNTIY UP TO 10 HOSPITA HOSPITA MG INFUSION J7030 [facility] NORMAL 6 N N SALINE COMMUNTIY COMMUNTIY SOLUTION HOSPITA HOSPITA [address] [place] [address] [facility] LACTATE 6 N N COMMUNTIY COMMUNTIY HOSPITA HOSPITA COLLECTIO 60295 [facility] N VENOUS 6 N N BLOOD COMMUNTIY COMMUNTIY VENIPUNCT HOSPITA HOSPITA URE COMPREHEN 25632 [facility] SIVE 6 N N METABOLIC COMMUNTIY [place] [address] [facility] INFUSION 6 N N HYDRATION COMMUNTIY COMMUNTIY EACH HOSPITA HOSPITA ADDITIONA L HOUR COMPREHEN 37527 [facility] SIVE 6 DIAGNOSTI DIAGNOST[place] [address] [facility] PROSTATE 6 DIAGNOSTI DIAGNOSTI [place] [address] [facility] THYROXINE 6 DIAGNOSTI DIAGNOSTI TOTAL CS CS THYROID 86201 [facility] HORM 6 DIAGNOSTI DIAGNOSTI UPTK/THYR CS CS OID HORMONE BINDING RATIO HEMOGLOBI 20279 [facility] N 6 DIAGNOSTI DIAGNOSTI GLYCOSYLA CS CS NICHOLAS A1C BLOOD 76379 [facility] COUNT 6 DIAGNOSTI DIAGNOSTI COMPLETE CS AUTO&[place] [address] [facility] THYROID 6 DIAGNOSTI DIAGNOSTI STIMULATI CS CS NG HORMONE TSH LIPID 70621 [facility] PANEL 6 DIAGNOSTI DIAGNOSTI CS CS INJECTION J2001 [facility] 6 N N LIDOCAINE COMMUNTIY COMMUNTIY HCL HOSPITA HOSPITA INTRAVENO US INFUS 10 MG INCISION 12595 [facility] & 6 PREMA PREMA DRAINAGE ABSCESS SIMPLE/SI NGLE IM ADM 11515 [facility] PRQ ID 6 N N SUBQ/IM COMMUNTIY COMMUNTIY NJXS 1 HOSPITA HOSPITA VACCINE TDAP 97524 [facility] VACCINE 7 6 N N YRS/> IM COMMUNTIY COMMUNTIY HOSPITA [facility]ITA [facility] 88040 [facility] 5 [facility] DAY MANAGEMEN T 30 MIN/< SBSQ 15945 [facility] 5 [facility] CARE/DAY 25 MINUTES SBSQ 30377 [facility] 5 [facility] CARE/DAY 25 MINUTES AMB A0427 [facility] SERVICE 5 [facility] EMS CO EMS EMERGENCY TRANSPORT LEVEL 1 ECG 61939 [facility] ROUTINE 5 SCO SCO ECG W/LEAST 12 LDS I&R ONLY INITIAL 75309 [facility] 5 [facility] CARE/DAY 50 MINUTES GROUND A0425 [facility] MILEAGE 5 [facility] PER CO EMS CO EMS STATUTE MILE ALBUMIN 90506 [facility] URINE 5 DIAGNOSTI DIAGNOSTI MICROALBU CS MIN QUANTIATI VE URNLS DIP 52747 [facility] 5 DIAGNOSTI DIAGNOSTI STICK/TAB [facility] LET RGNT AUTO W/O MICROSCOP Y CREATININ 77027 [facility] E OTHER 5 DIAGNOSTI DIAGNOSTI SOURCE [facility] HEMOGLOBI 51066 [facility] N 5 DIAGNOSTI DIAGNOSTI GLYCOSYLA [facility] NICHOLAS A1C WALKING L4360 ISIDRO MONROESO BOOT 5 FOOT & N MORGAN PNEUMATC ANKLE CE &/ VACUUM PREFAB CUSTM FIT HEMOGLOBI 04619 [facility] N 5 DIAGNOSTI DIAGNOSTI GLYCOSYLA CS CS NICHOLAS A1C CANE INCL E0100 J & L J & L CANES 4 [facility] MEDICAL MATERIAL EQUIPMENT EQUIPMENT ADJUSTBLE /FIX W/[place] [address] [facility] THYROID 4 DIAGNOSTI DIAGNOSTI STIMULATI [place] [address] [facility] THYROXINE 4 DIAGNOSTI DIAGNOSTI TOTAL CS CS HEMOGLOBI 28543 [facility] N 4 DIAGNOSTI DIAGNOSTI GLYCOSYLA CS CS NICHOLAS A1C THYROID 48256 [facility] HORM 4 DIAGNOSTI DIAGNOSTI UPTK/THYR CS CS OID HORMONE BINDING RATIO BLOOD 10079 [facility] COUNT 4 DIAGNOSTI DIAGNOSTI COMPLETE CS CS AUTO&AUTO DIFRNTL WBC LIPID 61082 [facility] PANEL 4 DIAGNOSTI DIAGNOSTI CS CS COMPREHEN 67722 [facility] SIVE 4 DIAGNOSTI DIAGNOSTI METABOLIC CS CS PANEL INFUS SET A4230 DIABETES DIABETES EXT 4 CARE & CARE & INSULIN EDUCATION EDUCATION PUMP NONNDLE CANNULA TYPE SKIN A5120 DIABETES DIABETES BARRIER 4 CARE & CARE & WIPES OR EDUCATION EDUCATION SWABS EACH SYRINGE A4232 DIABETES DIABETES W/NDLE 4 CARE & CARE & EXTERNAL EDUCATION EDUCATION INSULIN PUMP STERILE 3CC TRANSPARE A6257 DIABETES DIABETES NT FILM 4 CARE & CARE & STERL 16 EDUCATION EDUCATION SQ IN OR LESS EA DRESS TRANSPARE A6257 DIABETES DIABETES NT FILM 4 CARE & CARE & STERL 16 EDUCATION EDUCATION SQ IN OR LESS EA DRESS SYRINGE A4232 DIABETES DIABETES W/NDLE 4 CARE & CARE & EXTERNAL EDUCATION EDUCATION INSULIN PUMP STERILE 3CC SKIN A5120 DIABETES DIABETES BARRIER 4 CARE & CARE & WIPES OR EDUCATION EDUCATION SWABS EACH INFUS SET A4230 DIABETES DIABETES EXT 4 CARE & CARE & INSULIN EDUCATION EDUCATION PUMP NONNDLE CANNULA TYPE ANKLE L1902 [facility] RICHARDSO ORTH 4 FOOT & N MORGAN ANKLE ANKLE CE GAUNT/SIM PREFAB OFF-THE-S HELF MRI LOWER 96355 PROSCAN PROSCAN EXTREM 4 RADIOLOGY RADIOLOGY OTH/THN JT W/O CONTR MATRL INFUS SET A4230 [facility] DIABETES EXT 4 CARE & CARE & INSULIN EDUCATION EDUCATION PUMP NONNDLE CANNULA TYPE SKIN A5120 DIABETES DIABETES BARRIER 4 CARE & CARE & WIPES OR EDUCATION EDUCATION SWABS EACH SYRINGE A4232 DIABETES DIABETES W/NDLE 4 CARE & CARE & EXTERNAL EDUCATION EDUCATION INSULIN PUMP STERILE 3CC TRANSPARE A6257 DIABETES DIABETES NT FILM 4 CARE & CARE & STERL 16 EDUCATION EDUCATION SQ IN OR LESS EA DRESS RADEX 85206 [facility] ANKLE 4 FOOT & N MORGAN COMPLETE ANKLE CE MINIMUM 3 VIEWS WALKING L4360 [facility] BOOT 4 FOOT & N MORGAN PNEUMATC ANKLE CE &/ VACUUM PREFAB CUSTM FIT RADIOLOGI 30112 [facility] C 4 FOOT & N MORGAN EXAMINATI ANKLE CE ON FOOT 2 VIEWS INFUS SET A4230 DI[facility]ETES DIABETES EXT 4 CARE & CARE & INSULIN EDUCATION EDUCATION PUMP NONNDLE CANNULA TYPE SKIN A5120 DIABETES DIABETES BARRIER 4 CARE & CARE & WIPES OR EDUCATION EDUCATION SWABS EACH SYRINGE A4232 DIABETES DIABETES W/NDLE 4 CARE & CARE & EXTERNAL EDUCATION EDUCATION INSULIN PUMP STERILE 3CC TRANSPARE A6257 DIABETES DIABETES NT FILM 4 CARE & CARE & STERL 16 EDUCATION EDUCATION SQ IN OR LESS EA DRESS TRANSPARE A6257 DIABETES DIABETES NT FILM 4 CARE & CARE & STERL 16 EDUCATION EDUCATION SQ IN OR LESS EA DRESS EXTERNAL E0784 PANFILO WHITTAKER AMBULATOR 4 [facility] Y E E INFUSION SERVICES SERVICES PUMP INSULIN SLEEP STD 03277 [facility] AIRFLOW 4 N N HRT COMMUNITY COMMUNITY RATE&O2 HOSPITA HOSPITA SAT EFFORT UNATT SYRINGE A4232 DIABETES DIABETES W/NDLE 4 CARE & CARE & EXTERNAL EDUCATION EDUCATION INSULIN PUMP STERILE 3CC SKIN A5120 DIABETES DIABETES BARRIER 4 CARE & CARE & WIPES OR EDUCATION EDUCATION SWABS EACH INFUS SET A4230 DIABETES DIABETES EXT 4 CARE & CARE & INSULIN EDUCATION EDUCATION PUMP NONNDLE CANNULA TYPE SENSOR;IN A9276 DIABETES DIABETES VSV DISP 4 CARE & CARE & INTRSTL EDUCATION EDUCATION CONT GLU MON SYS 1U=1D LIPID 70382 [facility] PANEL 4 DIAGNOSTI DIAGNOSTI CS CS COMPREHEN 17385 [facility] SIVE 4 DIAGNOSTI DIAGNOST[place] [address] [facility] THYROID 4 DIAGNOSTI DIAGNOSTI STIMULATI [place] [address] [facility] C-PEPTIDE 4 DIAGNOSTI [place]AG[place] [address] [facility] THYROXINE 4 DIAGNOSTI DIAGNOSTI [place] [address] [facility] INSULIN 4 DIAGNOSTI DIAGNOSTI TOTAL CS CS INCORPORA T THYROID 35296 [facility] HORM 4 DIAGNOSTI DIAGNOSTI UPTK/THYR CS CS OID INCORPORA HORMONE T BINDING RATIO BLOOD 36897 [facility] COUNT 4 DIAGNOSTI DESTINEE COMPLETE CS AUTO&AUTO DIFRNTL WBC HEMOGLOBI 89213 [facility] N 4 DIAGNOSTI DIAGNOSTI GLYCOSYLA CS CS NICHOLAS A1C RADIOLOGI 23168 [facility] [place] [facility] C EXAM 4 RADIOLOGY CHEST 2 VIEWS FRONTAL&L ATERAL RADEX 58278 [facility] SPINE 4 N N THORACIC COMMUNITY COMMUNITY 2 [facility] RADEX 84347 [facility] SPINE 4 N N LUMBOSACR COMMUNITY COMMUNITY AL 2/3 HOSPITA HOSPITA [facility] 02451 [facility] DISCHARGE 4 [place] A GOP DAY PHYSICIAN MANAGEMEN SERVI T 30 MIN/< SBSQ 12464 [facility] 4 [place] A GOP CARE/DAY PHYSICIAN 25 SERVI MINUTES INITIAL 27633 [facility] 4 [place] LILO CARE/DAY PHYSICIAN 70 SERVI MINUTES AMB A0427 [facility] SERVICE 4 [facility] EMS CO EMS EMERGENCY TRANSPORT LEVEL 1 RADIOLOGI 74462 [facility] [place] [facility] C 4 RADIOLOGY EXAMINATI ON CHEST SINGLE VIEW FRONTAL GROUND A0425 [facility] MILEAGE 4 N-DE N-DE PER CO EMS CO EMS STATUTE MILE ECG 88618 [facility] CELLARO ROUTINE 4 [facility] - YORBA ECG EMERGENCY PAT W/LEAST PHYSI 12 [facility] I&R [facility] 85315 [facility] DISCHARGE 4 [place] HUG DAY PHYSICIAN MANAGEMEN SERVI T 30 MIN/< SBSQ 74424 [facility] 4 [place] HU CARE/DAY PHYSICIAN 35 SERVI MINUTES INITIAL 91833 [facility] 4 [place] HU CARE/DAY PHYSICIAN 70 SERVI MINUTES CRITICAL 73509 [facility] 4 PREMA PREMA ILL/INJUR ED PATIENT INIT 30-74 MIN COMPREHEN 17582 [facility] ER[facility] SIVE 1 [facility] METABOLIC [employer] [facility] PANEL COLLECTIO 54614 [facility] N VENOUS 1 AND BLOOD PEDIATRIC VENIPUNCT S & INTER URE ALBUMIN 45534 [facility] URINE 1 MICROALBU PEDIATRIC PEDIATRIC MIN S & INTER S & INTER SEMIQUANT ITATIVE HEMOGLOBI 45965 [facility] ER[facility] N 1 [employer] GLYCOSYLA [employer] HOLDING NICHOLAS A1C SBSQ [address] JERRI CARE/DAY ADVANCED 25 MAZA MINUTES INITIAL 17744 [facility] INPATIENT 1 [facility] CONSULT ADVANCED NEW/ESTAB MAZA PT 40 MIN GASTRIC 58011 [facility] EMPTYING 1 N N IMAGING COMMUNITY [facility] 39512 [facility] DISCHARGE 1 BETTY DAY PEDIATRIC MANAGEMEN S & INTER T 30 MIN/< SBSQ 69778 [facility] 1 BETTY CARE/DAY PEDIATRIC 25 S & INTER MINUTES RADEX ABD 75172 [facility] [place] [facility] COMPL 1 RADIOLOGY AQT ABD W/S/E/D V[place] [address] [place] [address] [facility] ABDOMEN & 1 RADIOLOGY PELVIS W/O CONTRAST MATERIAL CRITICAL 75719 [facility] 1 EMERGENCY DEV ILL/INJUR SERVICES ED PATIENT INIT 30-74 MIN INITIAL 48444 [facility] 1 BETTY CARE/DAY PEDIATRIC 70 S & INTER MINUTES AMB A0427 [facility] SERVICE 1 [facility] CO EMS CO EMS EMERGENCY TRANSPORT LEVEL 1 GROUND A0425 [facility] MILEAGE 1 [facility] PER HI EMS CO EMS STATUTE MILE GENERAL 14365 [facility] ER[facility] HEALTH 1 AMERIC 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 HOLDING LIPID 50819 LAB [facility] LAB [facility] PANEL 1 [employer] HOLDING HEMOGLOBI 60837 LAB [facility] ER[facility]MO N 1 AMERIC AMERIC GLYCOSYLA HOLDING [place] [address] LAB ERASMO LAB ERASMO FREE 1 AMERIC AMERIC THYROXINE HOLDING HOLDING [facility] [facility] 1 AND ECG PEDIATRIC W/LEAST S & INTER 12 LDS W/I&[place] [address] [facility] [place] BAKAR[facility] HEAD/BRAI 1 RADIOLOGY RAÚL N W/O CONTRAST MATERIAL ALVEOLECT 01991 [facility] RAIN FADY 0 KARI KARI W/CURTG OSTEITIS/ SEQUESTRE CTOMY DEEP D9220 [facility] RAIN SEDATION/ 0 KARI KARI GENERAL ANESTHESI A-1ST 30 MINUTES ORTHOPANT 53607 [facility] RAIN OGRAM 0 KARI KARI BLD GLU A4253 AM MED AM MED TEST/REAG 8 DIRECT DIRECT T [facility] PHARMACY GLU MON-50 LANCETS A4259 AM MED AM MED PER BOX 8 DIRECT DIRECT OF [address] [facility] PHARMACY BLD GLU A4253 AM MED AM MED TEST/REAG 8 DIRECT DIRECT T [facility] PHARMACY GLU MON-50 LANCETS A4259 AM MED AM MED PER BOX [address] [facility] PHARMACY LANCETS A4259 AM MED AM MED PER BOX [address] [facility] PHARMACY BLD GLU A4253 AM MED AM MED TEST/REAG 8 DIRECT DIRECT T [facility] PHARMACY GLU MON-50 DEEP D9220 [facility] ELENITA, SEDATION/ 8 FOR BETSY Castillo GENERAL ORAL&MAXI ANESTHESI LLOFACIAL A-1ST 30 SURGERY MINUTES CHIROPRAC 21217 BRITANY GARG, TIC 8 YOHANA M YOHANA M MANIPULAT [place] SPINAL 3-4 REGIONS APPLICATI 35210 BRITANY GARG, ON 8 YOHANA M YOHANA M MODALITY 1/> AREAS HOT/COLD PACKS APPL 56095 BRITANY, GARG, MODALITY 8 YOHANA M YOHANA M 1/> AREAS ELEC STIMJ UNATTENDE D APPL 05289 GARG, GARG, MODALITY 8 YOHANA M YOHANA M 1/> AREAS ELEC STIMJ UNATTENDE D APPLICATI 86234 BRITANY GARG, ON 8 YOHANA M YOHANA M MODALITY 1/> AREAS HOT/COLD PACKS CHIROPRAC 24632 BRITANY GARG, TIC 8 YOHANA M YOHANA M MANIPULAT [place] SPINAL 3-4 REGIONS DETERMINA 63093 [facility], TION 8 [facility] E STATE ORTHOPANT 21344 [facility] MAX, OGRAM 8 FOR JOSE P ORAL&MAXI LLOFACIAL SURGERY Encounters Encounter Start End Date Code Location Performer Type Date OFFICE 00200 [facility] 7 7 KHUSHBU RÍOS T VISIT 15 MINUTES OFFICE 98955 [facility] 7 7 KHUSHBU RÍOS T VISIT 15 MINUTES EMERGENCY 66091 [facility] [place] VISIT EMERGENCY HIGH PHYS SEVERITY& THREAT RUST [facility] - 7 7 N OUTPATIEN COMMUNTIY T HOSPITA EMERGENCY 02291 [facility] 7 7 N DEPARTMEN COMMUNTIY T VISIT HOSPITA HIGH/URGE NT SEVERITY EMERGENCY 79715 [facility] CELLAROSI DEPT 7 7 [facility] - YORBA VISIT EMERGENCY HIGH PHYS SEVERITY& THREAT FUN EMERGENCY 59493 [facility] DEPT 7 7 [place] VISIT EMERGENCY HIGH SERVI SEVERITY& THREAT FUN EMERGENCY 53529 [facility] 6 6 N DEPARTMEN COMMUNTIY T VISIT HOSPITA HIGH/URGE NT SEVERITY [facility] - 6 6 N OUTPATIEN COMMUNTIY T HOSPITA OFFICE 04714 [facility] 6 6 NURSE ADWOA DORANTES/ESTAB NER GR PATIENT 60 MIN [facility] - 6 6 N OUTPATIEN COMMUNTIY T HOSPITA EMERGENCY 76500 [facility] DEPT 6 6 [place] LOWE VISIT EMERGENCY HIGH SERVI SEVERITY& THREAT FUN EMERGENCY 21475 [facility] 6 6 N DEPARTMEN COMMUNTIY T VISIT HOSPITA MODERATE SEVERITY [facility] - 6 6 N OUTPATIEN COMMUNTIY T HOSPITA EMERGENCY 76372 [facility] 6 6 [place] LO TRA DEPARTMEN EMERGENCY T VISIT SERVI HIGH/URGE NT SEVERITY OFFICE 23707 [facility] 6 6 KHUSHBU STERN T VISIT 15 MINUTES [facility]OSPITAL [facility] - 6 6 N OUTPATIEN COMMUNTIY T HOSPITA EMERGENCY 09460 [facility] 6 6 N DEPARTMEN COMMUNTIY T VISIT HOSPITA LIMITED/M INOR PROB OFFICE 08150 [facility] 6 6 KHUSHBU STERN T VISIT 15 MINUTES [facility]OSP[facility] - 6 6 N OUTPATIEN COMMUNTIY T HOSPITA EMERGENCY 17993 [facility] DEPT 6 6 [place] VISIT EMERGENCY HIGH PHYS SEVERITY& THREAT RUST [facility] - 6 6 N OUTPATIEN COMMUNTIY T HOSPITA EMERGENCY [address] [facility] DEPT 6 6 [place] VISIT EMERGENCY HIGH SERV SEVERITY& THREAT FUNCJ EMERGENCY 36401 [facility] 6 6 N DEPARTMEN COMMUNTIY T VISIT HOSPITA HIGH/URGE NT SEVERITY [facility] - 6 6 N OUTPATIEN COMMUNTIY T HOSPITA OFFICE 42053 [facility] B[facility] 6 6 KHUSHBU STERN T VISIT 15 MINUTES EMERGENCY 35509 [facility] 6 6 N DEPARTMEN COMMUNTIY T VISIT HOSPITA MODERATE SEVERITY [facility] - 6 6 N OUTPATIEN COMMUNTIY T HOSPITA EMERGENCY 73241 [facility] 6 6 PREMA PREMA DEPARTMEN T VISIT HIGH/URGE NT SEVERITY OFFICE 40726 [facility] 5 5 KHUSHBU STERN T VISIT 15 MINUTES [facility]OSP[facility] - 5 5 N INPATIENT COMMUNTIY HOSPITA EMERGENCY 83678 [facility] DEPT 5 5 SCO SCO VISIT HIGH SEVERITY& THREAT FUNCJ EMERGENCY 56562 [facility] 5 5 EDWAR EDWAR VISIT HIGH SEVERITY& THREAT FUNCJ OFFICE 32046 [facility] 5 5 KHUSHBU RÍOS T VISIT 15 MINUTES EMERGENCY 61758 [facility] DEPT 5 5 PREMA PREMA VISIT HIGH SEVERITY& THREAT FUNCJ OFFICE 98533 [facility] 5 5 FOOT & N MORGAN T VISIT ANKLE CE 15 MINUTES OFFICE 79410 MUHA JAVI MUHA JAVI OUTPATIEN 4 4 T NEW 30 MINUTES OFFICE 19797 [facility] OUT[facility]IEN 4 4 FOOT & N MORGAN T VISIT ANKLE CE 15 MINUTES OFFICE 80249 [facility] OUT[facility]IEN 4 4 FOOT & N MORGAN T VISIT ANKLE CE 15 MINUTES OFFICE 46419 [facility] OUT[facility]IEN 4 4 FOOT & N MORGAN T VISIT ANKLE CE 15 MINUTES OFFICE 05200 [facility] OUT[facility]IEN 4 4 FOOT & N MORGAN T VISIT ANKLE CE 15 MINUTES OFFICE 43910 [facility] OUT[facility] 4 4 FOOT & N MORGAN T NEW 30 ANKLE CE MINUTES [facility] - 4 4 N OUTPATIEN [facility] T HOSPITA OFFICE 70227 [facility] B[facility] OUTPATIEN 4 4 KHUSHBU LEENA KHUSHBU STERN T VISIT 15 MINUTES EMERGENCY 42370 [facility] DEPT 4 4 PREMA PREMA VISIT HIGH SEVERITY& THREAT FUN OFFICE 49320 [facility] OUT[facility]IEN 4 4 KHUSHBU STERN KHUSHBU STERN T VISIT 25 MINUTES EMERGENCY 10546 [facility] DEPT 4 4 RYA RYA VISIT HIGH SEVERITY& THREAT [facility] [place] [address] 4 N OUTPATIEN [facility] T HOSPITA EMERGENCY 70062 [facility] CELLARO DEPT 4 4 [facility] - YORBA VISIT EMERGENCY PAT HIGH PHYSI SEVERITY& THREAT FUN OFFICE 39690 [facility] 1 1 AND T VISIT PEDIATRIC 15 S & INTER MINUTES OFFICE 02510 [facility] 1 1 AND T VISIT PEDIATRIC 15 S & INTER MINUTES [facility] [place] [address] 1 N OUTPATIEN COMMUNITY T HOSPITA OFFICE 72850 [facility] OUT[facility] 1 1 AND T VISIT PEDIATRIC 15 S & INTER MINUTES [facility] [place] 13397 1 N INPATIENT [facility] EMERGENCY 41785 DERRICK MANCIA 1 1 EMERGENCY PREMA DEPARTMEN SERVICES T VISIT HIGH/URGE NT SEVERITY OFFICE 12128 [facility] OUT[facility]IEN 1 1 T VISIT 5 PEDIATRIC PEDIATRIC MINUTES S & INTER S & INTER OFFICE 66613 PATRICK FARR OUTPATIEN 1 1 AND T VISIT PEDIATRIC 15 S & INTER MINUTES [facility] [place] [address]97 1 N INPATIENT [facility] HOSPITA OFFICE 14116 RAIN RAIN OUTPATIEN 0 0 KARI KARI T NEW 10 MINUTES OFFICE 79111 [facility], OUTINGAEN 8 8 [facility] NEW 30 CENTER MINUTES OFFICE 18447 GARG, BRITANY OUTPATIEN 8 8 YOHANA Toribio T VISIT 15 MINUTES OFFICE 21767 [place] [facility], OUTPATIEN 8 8 FOR JOSE Velasquez T NEW 10 ORAL&MAXI MINUTES LLOFACIAL SURGERY
--- OUTSIDE RECORDS SUMMARY | 2017-05-24 09:04 | External Medical Summary Rpt ---
Author Author , PAULINA GALLARDO Address Unknown Phone [email or web address] Care Team Providers Care Distribution Spec Name Role Phone BAKARI RAÚL, BAKARI Unavailable [...] Unavailable Unavailable PAT, CELLAROSI - YORBA PAT [facility] Unavailable Unavailable ADVANCED MAZA, [facility], Unavailable Unavailable [facility] 2332, Unavailable Unavailable [facility] 2332 DI[facility] C[facility] & Unavailable Unavailable EDUCATION, [facility] & Unavailable Unavailable EDUCATION, [facility] ED[facility] Unavailable Unavailable SERVICES, [facility] Unavailable Unavailable [facility], [employer] [facility] Unavailable Unavailable [facility], [employer] [facility] FARAGASSO DEV, Unavailable Unavailable FARAGASSO DEV BLANCHE STODDARD Unavailable Unavailable BLANCHE BERGER Unavailable Unavailable [facility] Un[facility] Unavailable [facility], [facility] Unavailable Unavailable HOSPITA, [facility] Un[facility], [facility] Unavailable Unavailable EMS, [facility] PATRICE RHO, PATRICE Unavailable Unavailable RHO [facility], Unavailable Unavailable [facility] HABASH, KEFAH, Unavailable Unavailable HABASH, KEFAH FINCH, FINCH Unavailable Unavailable [facility], Unavailable Unavailable [facility], Unavailable Unavailable [facility] RAIN KARI, Unavailable Unavailable RAIN KARI RAIN KARI, Unavailable Unavailable RAIN KARI [facility] Unavailable Unavailable SERVICES O, [facility] HOUSMAN LILO, HOUSMAN Unavailable Unavailable [facility] Unavailable Unavailable [facility], [facility] Un[facility] Un[facility] Un[facility], [facility] Unavailable Unavailable [facility], [facility] N[facility] Unavailable Unavailable PRACTITIONER GR, KMS NURSE PRACTITIONER GR BELL BETTY, BELL Unavailable Unavailable BETTY [facility] # Unavailable Unavailable [id number], [facility] # [id number] [facility] Unavailable Unavailable HOLD[facility], [facility] Unavailable Unavailable [facility], [facility] Unavailable Unavailable [facility], [facility], Unavailable Unavailable [facility] JAVIER ANT, JAVIER ANT Unavailable Unavailable MAJMUDAR, MAJMUDAR Unavailable Unavailable [facility] Unavailable Unavailable SERVICES, [facility] MATT, MATT Unavailable Unavailable MATT [...] [facility] Unavailable Unavailable [facility]Y [facility], [facility] Unavailable Unavailable EMERGENCY SERV, [facility] Unavailable Unavailable EMERGENCY SERVI, [facility] Unavailable Unavailable PHYSICIAN SERVI, [facility] KESSLER RYA, KESSLER Unavailable Unavailable RYA KESSLER RYA, KESSLER Unavailable Unavailable RYA QUAN ADWOA, QUAN Unavailable Unavailable ADWOA VORKPOR EDWAR, VORKPOR Unavailable Unavailable EDWAR [facility] #[id number] # Unavailable Unavailable [id number], [facility] #[id number] # [id number] WELLS, WELLS Unavailable Unavailable [facility], [facility] Unavailable Unavailable RICHARD MAT, RICHARD MAT Unavailable Unavailable Purpose Continuity of Care Document - 02-13-2008 through 2016 Problems Code Diagnosis DOS Provider Status R109 UNSPECIFIED 04-05-2017 [facility] K828 OTHER 03-22-2017 [facility] SPECIFIED MEDICAL DISEASES OF IMAGING ASS GALLBLADDER R1013 EPIGASTRIC 03-22-2017 [facility] E1040 TYPE 1 02-27-2017 [facility] DIABETES L MELLITUS W/DIAB NEUROPATHY UNS E1043 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-27-2017 [facility] W/DIABETIC L AUTONOMIC POLYNEUROPA THY E119 TYPE 2 12-08-2016 [employer] [facility] WITHOUT COMPLICATIO NS [id number] FRACTURE 10-03-2016 [facility] INITIAL ENCNTR FOR CLOS FRACTURE E1165 TYPE 2 09-14-2016 [facility] DIABETES COMMUNTIY MELLITUS [place]ITA [place] HYPERGLYCEM [place] V34377 GENERALIZED 09-14-2016 [facility] ABDOMINAL COMMUNTIY TENDERNESS HOSPITA R112 NAUSEA WITH 09-14-2016 [facility] UNSPECIFIED PHYS R197 DIARRHEA 09-14-2016 [facility] UNSPECIFIED N EMERGENCY PHYS R51 HEADACHE 09-14-2016 [facility] COMMUNTIY HOSPITA R739 HYPERGLYCEM 09-14-2016 [facility] IA N EMERGENCY UNSPECIFIED PHYS Z720 TOBACCO USE 09-14-2016 [facility] COMMUNTIY HOSPITA 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 [facility] 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 COMMUNTIY OF INSULIN HOSPITA E1310 [...] W/OTH SPEC COMPLICATIO N E872 ACIDOSIS 08-31-2016 [facility] M533 SACROCOCCYG 08-31-2016 [facility] DISORDERS NEC M545 LOW BACK 08-31-2016 [facility] PAIN DE CO EMS R531 WEAKNESS 08-31-2016 [facility] R5381 OTHER 08-31-2016 [facility] [place] [facility] [facility] [id number] UNS 08-31-2016 [facility] FRACTURE N EMERGENCY SACRUM [...] K3184 GASTROPARES 06-02-2016 [facility] IS L MAT D66893 PAIN IN 05-05-2016 [facility] [place] RIGHT [place] [facility] M7711 LATERAL 05-05-2016 [facility] EPICONDYLIT N EMERGENCY IS RIGHT SERVI ELBOW R1110 VOMITING 03-02-2016 [facility] [facility] UNSPECIFIED COMMUNTIY HOSPITA Z5321 PROC & TX 03-02-2016 [facility] NOT CARRIED COMMUNTIY OUT PT HOSPITA LEAVE PRIOR TO SEEN N521 ERECTILE 12-25-2015 [facility] DYSFUNCTION L MAT DUE TO DISEASES CLASS ELSW R1012 LEFT UPPER 12-18-2015 [facility] PAIN Z1211 ENCOUNTER 12-02-2015 [facility] PS NEOPLASM OF COLON R1011 RIGHT UPPER 11-07-2015 [facility] COMMUNTIY PAIN HOSPITA Z125 ENCOUNTER 10-29-2015 [facility] MALIGNANT NEOPLASM PROSTATE B354 TINEA 09-15-2015 [facility] CORPORIS COMMUNTIY HOSPITA B358 OTHER 09-15-2015 [facility] DERMATOPHYT OSES L0201 CUTANEOUS 09-15-2015 [facility] [place] ABSCESS OF COMMUNTIY FACE HOSPITA L723 SEBACEOUS 09-15-2015 [facility] CYST COMMUNTIY HOSPITA E0841 DM D/T 07-30-2015 [facility] UNDERLYING L MAT COND W/DIABETIC MONONEUROPA THY A084 VIRAL 07-20-2015 [facility] [facility] INTESTINAL COMMUNTIY INFECTION HOSPITA UNSPECIFIED R99864 TYPE 1 DM 07-20-2015 [facility] W/UNS DIAB COMMUNTIY RETINPATH HOSPITA W/O MACULAR EDEMA R000 TACHYCARDIA 07-20-2015 [facility] UNSPECIFIED 98601 DIAB W/O 04-14-2015 [facility] COMP TYPE DIAGNOSTICS II/UNS NOT STATED UNCNTRL 98610 DIAB 04-14-2015 [facility] W/NEURO L MANIFESTS TYPE II/UNS NOT UNCNTRL 3572 POLYNEUROPA 04-14-2015 [facility] THY IN L DIABETES V5867 LONG-TERM 04-14-2015 [facility] USE OF L INSULIN 84993 DIAB W/O 01-18-2015 [facility] LLOY[facility] COMP TYPE I [JUV] NOT STATED UNCNTRL 23165 NAUSEA WITH 01-18-2015 [facility] LLOYD VOMITING 72041 PLANTAR 11-14-2014 [facility] F[facility] & FIBROMATOSI ANKLE CE S 7295 PAIN IN 11-14-2014 [facility] TISSUES OF ANKLE CE LIMB 3671 MYOPIA 08-12-2014 MUHA JAVI 3559 MONONEURITI 07-02-2014 [facility] S OF DIAGNOSTICS UNSPECIFIED SITE 44716 DIAB W/O 06-19-2014 DI[facility] MENTION CARE & COMP TYPE I EDUCATION [JUV TYPE] UNCNTRL 71773 OSTEOARTHRO 04-07-2014 [facility] UNSPEC RADIOLOGY WHETHER GEN/LOC LOWER LEG 43142 OBSTRUCTIVE 12-27-2013 [facility] SLEEP APNEA 82177 OTHER 12-27-2013 [facility] ALTER[place] [address] UNSPECIFIED 12-27-2013 [facility] SLEEP COMMUNITY APNEA HOSPITA 1105 DERMATOPHYT 12-20-2013 [facility] OSIS OF THE L MAT BODY 01741 ESOPHAGEAL 12-20-2013 [facility] REFLUX L MAT 5363 GASTROPARES 11-25-2013 [place] [address] NAUSEA 11-25-2013 [facility] LLOYD ALONE 4778 ALLERGIC 11-21-2013 [facility] RHINITIS L MAT DUE TO OTHER ALLERGEN 68736 UNSPECIFIED 11-21-2013 [facility] L MAT ARTHROPATHY SITE UNSPECIFIED 4659 ACUTE URIS 11-10-2013 [facility] UNSPECIFIED SITE 4739 UNSPECIFIED 11-10-2013 [facility] SINUSITIS 7862 COUGH 11-10-2013 [facility] 7241 PAIN IN 10-22-2013 [facility]ACIC [facility] SPINE 7242 LUMBAGO 10-22-2013 [facility] 86136 DIAB W/O 10-14-2013 [facility] MENTION N PHYSICIAN COMP TYPE SERVI II/UNS TYPE UNCNTRL 55720 DIABETES 10-14-2013 [facility] W/KETOACIDO N PHYSICIAN SIS TYPE SERVI II/UNS TYPE UNCNTRL 16773 DEHYDRATION 10-14-2013 [facility] N PHYSICIAN SERVI 5849 ACUTE 10-14-2013 [facility] KIDNEY N PHYSICIAN FAILURE SERVI UNSPECIFIED 12632 DIAB 10-13-2013 [facility] W/KETOACIDO N EMERGENCY S TYPE I PHYSI [JUV] NOT STATE UNCNTRL 17309 DIAB W/OTH 10-13-2013 [facility] MANIFESTS DE CO TYPE II/UNS EMS NOT UNCNTRL 48723 SINOATRIAL 10-13-2013 [facility] NODE DE CO DYSFUNCTION EMS 99472 VOMITING 10-13-2013 [facility] [place] [facility] ALONE [place] EMS 73620 OTHER 10-13-2013 [facility] [facility]- ABNORMAL DE CO GLUCOSE EMS 58103 DIABETES 08-14-2013 [facility] DALYU W/KETOACIDO SIS TYPE I [JUV] UNCNTRL 74552 OTHER ACUTE 01-31-2011 [facility] EXTERNA & INTER 02108 TOB USE D/O 01-31-2011 [facility] COMP PG [facility]ED[facility] /PP & INTER UNSPEC EPIS CARE/NA 7569 OTH&UNSPEC 01-31-2011 [facility] 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 19647 UNSPECIFIED 01-31-2011 [facility] SLEEP [facility] DISTURBANCE & INTER 7919 OTHER 01-31-2011 [facility] NONSPECIFIC [facility]ED[facility]RICS FINDING & INTER EXAMINATION OF URINE 4519 PHLEBITIS&T 12-01-2010 [facility] HROMBOPHLEB [facility]EDIATRICS ITIS OF & INTER UNSPECIFIED SITE 53546 SHORTNESS 11-05-2010 [facility] 43824 ABDOMINAL 10-27-2010 [facility] PAIN, [facility] UNSPECIFIED HOSPITA SITE 32124 OTHER 10-20-2010 [facility] SPECIFIED [facility]IATRICS DISORDER OF & INTER THE ESOPHAGUS 7245 UNSPECIFIED 10-20-2010 [facility] BACKACHE PEDIATRICS & INTER 2762 ACIDOSIS 10-09-2010 [facility] & INTER 5609 UNSPECIFIED 10-09-2010 [facility] INTEST[facility] & INTER OBSTRUCTION 2753 DISORDERS 10-07-2010 [facility] PHOSPHORUS HOSPITA METABOLISM 2768 HYPOPOTASSE 10-07-2010 [facility] HOSPITA 21282 LEUKOCYTOSI 10-07-2010 [facility] UNSPECIFIED SERVICES 5362 PERSISTENT 10-07-2010 [facility] 5601 PARALYTIC 10-07-2010 [facility] ILEUS [facility] HOSPITA 5758 OTHER 10-07-2010 [facility] [place] SPECIFIED [facility] DISORDER OF GALLBLADDER 5780 HEMATEMESIS 10-07-2010 [facility] 5789 UNSPECIFIED 10-07-2010 [facility] OF SERVICES GASTROINTES TINAL TRACT 5589 OTH&UNSPEC 10-06-2010 [facility] NONINFECTIO [facility]ERGENCY US SERVICES GASTROENTER ITIS&COLITI S 7850 UNSPECIFIED 09-21-2010 [facility]ACHYCARD[facility]ING 50025 DIAB 09-12-2010 [facility]/NEURO [facility] MANIFESTS HOSPITA TYPE I [JUV TYPE] UNCNTRL 7840 HEADACHE 09-12-2010 [facility] 40391 ABDOMINAL 09-12-2010 [facility] PAIN, LEFT [facility] UPPER HOSPITA QU[facility]ANT 25845 ABDOMINAL 09-12-2010 [facility] PAIN, [facility] EPIGASTRIC HOSPITA 5253 RETAINED 06-08-2010 [facility] KARI 5264 INFLAMMATOR 06-08-2010 RA[facility] Y KARI CONDITIONS OF JAW 36316 DIAB 02-14-2008 [facility] MANIF[facility] CENTER TYPE II/UNS NOT UNCNTRL 17242 REGULAR 02-14-2008 [facility] 15536 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 75 5 ML 31 GX 16 " UL 08 05 05 10 25 00 NM Ac TI 22 -0 -2 0. 00 LG ti CA 20 1- 6 00 RE ve RE 95 20 20 0 42 EN 83 17 17 83 S PE 1 02 #1 N 20 NE 75 ED LE S 8M M 31 G BA 00 05 15 30 00 [facility] SA 00 -0 -2 .0 00 LG ti GL 27 - 00 RE ve AR 71 20 20 42 EN 55 17 17 83 S 10 9 00 #1 0 20 UN 75 IT /M L KW IK PE N FR 99 05 05 10 25 00 [facility] EE 07 -0 -2 0. [address] 30 - 00 RE ve YL 70 20 20 0 42 EN E 82 17 17 81 S LI 7 24 #1 TE [address] RI P TR 60 04 05 00 [facility] AZ 50 -2 -1 .0 00 LG ti OD 52 00 RE ve ON 65 20 20 40 EN E 50 17 17 46 S 15 1 68 #1 0 20 MG 75 TA BL ET SI 68 04 05 30 30 00 [facility] MV 18 -2 -1 .0 00 LG ti 00 00 RE ve TA 47 20 20 41 EN TI 80 17 17 50 S N 3 62 #1 10 20 75 MG TA BL ET FL 00 04 05 16 30 00 [facility] UT 05 -2 -1 .0 00 LG ti IC 43 6 9 00 RE ve 27 20 20 42 EN ON 09 17 17 73 S E 9 46 #1 DC 20 OP 75 50 MC G SP [...] 00 7- 2- 00 00 RE ve DC 51 20 20 41 EN IL 40 [...] FR 99 04 04 10 25 00 NM Ac EE 07 -0 -2 0. [address] 30 4- 8- 00 00 RE ve YL 70 20 20 0 38 EN E 82 17 17 27 S LI 7 72 #1 TE [address] RI P IN 11 03 04 60 30 00 NM Ac MAZA 91 -3 -2 .0 00 LG ti LI 70 0- 8- 00 00 RE ve N 04 20 20 41 EN SY 81 17 17 69 S RI 4 11 #1 N 20 0. 75 5 ML 31 GX 5/ 16 " TR 60 03 04 30 30 00 NM Ac [place] 50 -3 -2 .0 00 [...] SI 68 03 04 30 30 00 NM Ac MV 18 -2 -2 .0 00 [...] 17 12 S E 1 74 #1 DC 20 OP 75 50 MC G SP RA Y LA 00 03 04 10 28 00 WA Ac NT 08 -2 -2 .0 00 LG ti US 82 4- 1- 00 00 RE ve 22 20 20 42 EN 10 03 17 17 09 S 0 3 44 #1 UN 20 IT 75 /M L AL FR 99 03 04 10 25 00 NM Ac EE 07 -2 -1 0. [address] 30 1- 4- 00 RE ve YL 13 20 20 0 39 EN E 00 17 17 08 S 28 1 78 #1 G 20 LA 75 NC ET S FR 99 03 04 10 25 00 NM Ac EE 07 -0 -0 0. [address] 30 9- 7- 00 00 RE ve YL 70 20 20 0 38 EN E 82 17 17 27 S LI 7 72 #1 TE [address] RI P LI 68 03 04 30 00 NM Ac SI 18 -1 -0 .0 00 LG ti NO 00 4- 7- 00 RE ve DC 51 20 20 41 EN IL 40 17 17 87 S 3 96 #1 10 20 75 MG TA BL ET FL 00 03 04 30 00 NM Ac UO 78 -1 -0 .0 00 LG ti XE 12 4- 7- 00 RE ve TI 82 20 20 40 EN NE 20 17 17 13 S 1 48 #1 HC 20 L 75 20 MG CA PS UL E IN 11 03 03 60 30 00 NM Ac MAZA 91 -0 -3 .0 00 LG ti LI 70 4- 1- 00 00 RE ve N 04 20 20 41 EN SY 81 17 17 69 S RI 4 11 #1 N 20 0. 75 5 ML 31 GX 5/ 16 " TR 60 03 03 30 30 00 NM Ac AZ 50 -0 -3 .0 00 LG ti OD 52 3- 1- 00 00 RE ve ON 65 20 20 40 EN E 50 17 17 46 S 15 1 68 #1 0 20 MG 75 TA BL ET GA 00 02 03 12 30 00 NM Ac BA 09 -2 -2 0. 00 LG ti PE 34 7- 4- 00 00 RE ve NT 44 20 20 0 41 EN IN 40 17 17 55 S 5 59 #1 80 20 0 75 MG TA BL ET FL 60 02 03 16 30 00 NM Ac UT 50 -2 -2 .0 00 LG ti IC 50 4- 4- 00 00 RE ve 82 20 20 41 EN ON 90 17 17 50 S E 1 51 #1 DC 20 OP 75 50 MC G SP RA Y SI 68 02 03 30 30 00 NM Ac MV 18 -2 -2 .0 00 LG ti 00 4- 4- 00 00 RE ve TA 47 20 20 41 EN TI 80 17 17 50 S N 3 62 #1 10 20 75 MG TA BL ET FR 99 02 03 10 25 00 NM Ac EE 07 -2 -2 0. [address] 30 3- 4- 00 00 RE ve YL 13 20 20 0 39 EN E 00 17 17 08 S 28 1 78 #1 G 20 LA 75 NC ET S FR 99 02 03 10 25 00 NM Ac EE 07 -1 -1 0. [address] 30 4- 0- 00 00 RE ve YL 70 20 20 0 38 EN E 82 17 17 27 S LI 7 72 #1 TE [address] RI P LI 68 02 03 30 30 00 NM Ac SI 18 -1 -1 .0 00 LG ti NO 00 3- 0- 00 00 RE ve DC 51 20 20 39 EN IL 40 17 17 02 S 3 30 #1 10 20 75 MG TA BL ET FL 00 02 03 30 30 00 NM Ac UO 78 -1 -1 .0 00 LG ti XE 12 3- 0- 00 00 RE ve TI 82 20 20 40 EN NE 20 17 17 13 S 1 48 #1 HC 20 L 75 20 MG CA PS UL E LA 00 02 03 10 28 00 NM Ac NT 08 -2 -1 .0 00 LG ti US 82 2- 0- 00 00 RE ve 22 20 20 38 EN 10 03 17 17 20 S 0 3 71 #1 UN 20 IT 75 /M L AL HY 00 02 03 [address] 59 -2 -1 .0 00 LG ti OC 12 0- 0- 00 00 RE ve OD 60 20 20 41 EN ON 50 17 17 40 S -A 5 84 #1 CE 20 TA 75 VT NO PH 7. 5- 32 5 HY 00 02 03 60 [address] 59 -0 -0 .0 00 LG ti OC 12 6- 3- 00 00 RE ve OD 60 20 20 41 EN ON 50 17 17 10 S -A 5 78 #1 CE 20 TA 75 VT NO PH 7. 5- 32 5 FR 99 02 03 10 25 00 NM Ac EE 07 -0 -0 0. 00 [...] IN 11 02 03 10 30 00 NM Ac MAZA 91 -0 -0 0. 00 [...] T 75 4 MG TA BL ET DC 68 02 02 20 5 00 NM Ac OM 38 -0 -2 .0 00 [...] FL 60 01 02 16 30 00 NM Ac UT 50 -2 -2 .0 00 LG ti IC 50 6- 4- 00 00 RE ve 82 20 20 40 EN ON 90 17 17 88 S E 1 04 #1 DC 20 OP 75 50 MC G SP RA Y LA 00 01 02 10 28 00 NM Ac NT 08 -2 -1 .0 00 LG ti US 82 4- 7- 00 00 RE ve 22 20 20 38 EN 10 03 17 17 20 S 0 3 71 #1 UN 20 IT 75 /M L AL HY 00 01 02 60 [address] 59 -2 -1 .0 00 LG ti OC 12 3- 7- 00 00 RE ve OD 60 20 20 40 EN ON 50 17 17 80 S -A 5 58 #1 CE 20 TA 75 VT NO PH 7. 5- [address] 00 02 60 30 00 NM Ac OO 53 -2 -1 .0 00 LG ti L 61 3- 7- 00 00 RE ve SO 06 20 20 40 EN FT 50 17 17 80 S EN 1 57 #1 ER 20 75 24 0 MG SO FT GE L FR 99 01 02 10 25 00 NM Ac EE 07 -2 -1 0. [address] 30 1- 7- 00 00 RE ve YL 70 20 20 0 38 EN E 82 17 17 27 S LI 7 72 #1 TE [address] RI P LI 68 01 02 30 30 00 NM Ac SI 18 -1 -1 .0 00 LG ti NO 00 7- 0- 00 00 RE ve DC 51 20 20 39 EN IL 40 17 17 02 S 3 30 #1 10 20 75 MG TA BL ET FL 00 02 30 30 NM Ac UO 78 -1 -1 .0 00 LG ti XE 12 7- 0- 00 00 RE ve TI 82 20 20 40 EN NE 20 17 17 13 S 1 48 #1 HC 20 L 75 20 MG CA PS UL E TR 60 01 02 30 30 00 NM Ac AZ 50 -0 -0 .0 00 LG ti OD 52 9- 3- 00 00 RE ve ON 65 20 20 40 EN E 50 17 17 46 S 15 1 68 #1 0 20 MG 75 TA BL ET FR 99 01 02 10 25 00 NM Ac EE 07 -0 -0 0. 00 [...] LA 00 12 01 10 28 00 NM Ac NT 08 -2 -2 .0 00 LG ti US 82 8- 0- 00 00 RE ve 22 20 20 38 EN 10 03 16 17 20 S 0 3 71 #1 UN 20 IT 75 /M L AL FR 99 12 01 10 25 00 NM Ac EE 07 -2 -2 0. [address] 30 8- 0- 00 00 RE ve YL 70 20 20 0 38 EN E 82 16 17 27 S LI 7 72 #1 TE [address] RI P FL 50 12 01 16 30 00 NM Ac UT 38 -2 -2 .0 00 LG ti IC 30 7- 0- 00 00 RE ve 70 20 20 38 EN ON 01 16 17 59 S E 6 83 #1 DC 20 OP 75 50 MC G SP RA Y SI 68 12 30 30 00 NM Ac MV 18 -2 -2 .0 00 LG ti 00 7- 0- 00 00 RE ve TA 47 20 20 39 EN TI 80 16 17 17 S N 3 15 #1 10 20 75 MG TA BL ET FL 00 12 30 30 00 NM Ac UO 78 -2 -1 .0 00 LG ti XE 12 0- 3- 00 00 RE ve TI 82 20 20 40 EN NE 20 16 17 13 S 1 48 #1 HC 20 L 75 20 MG CA PS UL E LI 68 12 01 30 30 00 NM Ac SI 18 -2 -1 .0 00 LG ti NO 00 0- 3- 00 00 RE ve DC 51 20 20 39 EN IL 40 16 17 02 S 3 30 #1 10 20 75 MG TA BL ET FR 99 12 01 10 25 00 NM Ac EE 07 -1 -1 0. [address] 30 7- 3- 00 00 RE ve YL 13 20 20 0 39 EN E 00 16 17 08 S 28 1 78 #1 G 20 LA 75 NC ET S IN 11 12 01 60 30 00 NM Ac MAZA 91 -0 -0 .0 00 [...] #1 UL CE 20 W TA 75 VT # NO PH 12 EN 07 5 [...] ve G 68 20 20 6 GH VT 51 11 11 PH X 2 AR [...] 4 GH ZA 10 11 11 PH DC 6 AR AN IN MA DR E CY EW 5 # P MG 24 TA 70 BL 9 ET LI 00 06 06 0 15 30 KR 64 BA Ac SI 59 -2 -2 .0 OG 93 LB ti NO 10 0- 0- 00 ER 66 AU ve DC 40 20 20 3 GH IL 60 11 11 PH [address] MG CY EW # P TA BL 24 ET 70 9 CI 55 06 06 0 20 10 KR 64 BA Ac DC 11 -2 -2 .0 OG 93 LB [...] 4 GH ZA 10 11 11 PH DC 6 AR AN IN MA DR E [...] P TA BL 24 ET 70 9 DC 68 02 02 0 12 3 KR 64 FI Ac OM 38 -2 -2 .0 OG 73 NL ti ET 20 3- 3- 00 ER 99 EY ve ALONSO 04 20 20 4 ZI 10 11 [...] 10 10 PH FA AC 1 AR VT ET MA LY AM CY & IN # OP CO HE 24 SM N 70 ET 5- 9 IC 32 5 DE NT IS TR Y 00 10 10 0 20 2 KR 45 AD Ac 40 -1 -1 .0 OG 67 KI ti 60 3- 3- 00 ER 79 NS ve 35 20 20 8 70 10 10 PH FA 5 AR VT MA LY CY & # CO 24 [...] 70 10 10 PH FA 5 AR VT MA LY CY & # CO 24 [...] 06 10 02 10 30 J 75 DC Ac VO 16 -3 -0 .0 & [...] Procedure DOS Code Location Performer Comment HEPATOBIL 53762 [facility] SYST 7 MEDICAL IMAG INC IMAGING GB ASS W/[place] [address] [facility] ABDOMEN & 7 MEDICAL PELVIS IMAGING W/[place] [address] [facility] ABDOMINAL 7 MEDICAL REAL IMAGING TIME ASS W/IMAGE LIMITED FINAL G9551 [facility] REPR ABD 7 MEDICAL IMAG STS IMAGING W/O ASS INCIDNT FND LES NTD: FINAL G9638 [facility] REPORTS 7 MEDICAL W/O DOC IMAGING 1/MORE ASS DOSE REDUCTION TECH FOR DIAB A5512 [facility] ONLY MX 7 MEDICAL MEDICAL DNSITY SUPPLY [facility] [employer] [facility] FORMD PRFAB EA DIAB ONLY A5500 [facility] FIT CSTM 7 MEDICAL MEDICAL PREP&SPL SUPPLY SUPPLY SHOE [facility] LLC DNSITY INSRT AMB A0427 [facility] 7 [facility] EMS CO EMS EMERGENCY TRANSPORT LEVEL 1 URNLS DIP 14828 [facility] 7 N N STICK/TAB COMMUNTIY COMMUNTIY LET HOSPITA HOSPITA REAGENT AUTO MICROSCOP Y GROUND A0425 [facility] MILEAGE 7 N-DE Ray-DE PER CO EMS CO EMS STATUTE MILE THERAPEUT 46138 [facility] IC 7 N N INJECTION COMMUNTIY COMMUNTIY IV PUSH HOSPITA HOSPITA EACH NEW DRUG THER 68243 [facility] PROPH/DX 7 N N NJX IV COMMUNTIY COMMUNTIY PUSH HOSPITA HOSPITA SINGLE/1S T SBST/DRUG KETONE 80670 [facility] BODIES 7 N N SERUM COMMUNTIY COMMUNTIY [place]IT[place] [address] [facility] LIPASE 7 N [place] [address] [facility] INFUSION 7 N N HYDRATION COMMUNTIY COMMUNTIY EACH HOSPITA HOSPITA ADDITIONA L HOUR COMPREHEN 73960 [facility] SIVE 7 N N METABOLIC COMMUNTIY COMMUNTI[place] [address] [facility] LACTATE 7 N N COMMUNTIY COMMUNTIY HOSPITA HOSPITA INFUSION J7030 [facility] NORMAL 7 N N SALINE COMMUNTIY COMMUNTIY SOLUTION HOSPITA HOSPITA 1000 CC GLUC BLD 78304 [facility] GLUC MNTR 7 N N DEV COMMUNTIY COMMUNTIY CLEARED HOSPITA HOSPITA FDA SPEC HOME USE BLOOD 67868 [facility] COUNT 7 N N COMPLETE COMMUNTIY COMMUNTIY AUTO&AUTO HOSPITA HOSPITA DIFRNTL WBC ECG 31014 [facility] ROUTINE 7 [place] ECG EMERGENCY W/LEAST SERV 12 LDS I&R ONLY INITIAL 65880 [facility] 7 MEDICINE CARE/DAY SERVICES 30 O MINUTES SBSQ 23682 [facility] 7 N FAMILY CARE/DAY PRACTICE 25 MINUTES SBSQ 02602 [facility] 7 N FAMILY CARE/DAY PRACTICE 25 MINUTES AMB A0427 [facility] SERVICE 7 [facility] [place] [address] [facility] [place] [facility] HEAD/BRAI 7 RADIOLOGY N W/O CONTRAST MATERIAL RADIOLOGI 33165 [facility] [place] [facility] C 7 RADIOLOGY EXAMINATI ON CHEST SINGLE VIEW FRONTAL ECG [address] [facility] ROUTINE 7 [place] ECG EMERGENCY W/LEAST SERVI 12 LDS I&R ONLY GROUND A0425 [facility] MILEAGE 7 [facility] CO EMS STATUTE MILE RADEX 57358 [facility] [place] [facility] SPINE 7 RADIOLOGY LUMBOSACR AL 2/3 VIEWS RADEX 91177 [facility] [place] [facility] SACRUM & 7 RADIOLOGY [place] [address] [place] [address] [facility] [place] PATRICE ABDOMEN & 6 RADIOLOGY RHO PELVIS W/O CONTRAST MATERIAL HEMOGLOBI 49836 [facility] QUAN N 6 NURSE ADWOA GLYCOSYLA PRACTITIO NICHOLAS A1C NER GR GLUC BLD 84347 [facility] QUAN GLUC MNTR 6 NURSE ADWOA DEV PRACTITIO CLEARED NER GR FDA SPEC HOME USE HEMOGLOBI 39252 [facility] N 6 N N GLYCOSYLA COMMUNTIY COMMUNTIY NICHOLAS A1C HOSPITA HOSPITA GLUC BLD 30677 [facility] GLUC MNTR 6 N N DEV COMMUNTIY COMMUNTIY CLEARED HOSPITA HOSPITA FDA SPEC HOME USE BLOOD 07214 [facility] COUNT 6 N N COMPLETE COMMUNTIY COMMUNTIY AUTO&AUTO HOSPITA HOSPITA DIFRNTL WBC COLLECTIO 57370 [facility] N VENOUS 6 N N BLOOD COMMUNTIY COMMUNTIY VENIPUNCT HOSPITA HOSPITA URE COMPREHEN 56402 [facility] [facility] SIVE 6 N N METABOLIC COMMUNTIY COMMUNTIY PANEL HOSPITA HOSPITA INJECTION J2270 [facility] MORPHINE 6 N N SULFATE COMMUNTIY COMMUNTIY UP TO 10 HOSPITA HOSPITA MG THERAPEUT 99446 [facility] IC 6 N N PROPHYLAC COMMUNTIY COMMUNTIY TIC/DX HOSPITA HOSPITA INJECTION SUBQ/IM INJECTION C9113 [facility] 6 N N PANTOPRAZ COMMUNTIY COMMUNTIY OLE HOSPITA HOSPITA SODIUM PER VIAL THER 23622 [facility] PROPH/DX 6 N N NJX EA COMMUNTIY COMMUNTIY SEQL IV HOSPITA HOSPITA PUSH SBST/DRUG FAC OBSERVATI 52103 [facility] ON CARE 6 KHUSHBU [place] [address] [facility] MAGNESIUM 6 N N COMMUNTIY [place] [address] [facility] PHOSPHORU 6 N N S COMMUNTIY COMMUNTIY [place] [address] [facility] PHOSPHORU 6 N N S COMMUNTIY COMMUNTIY [place] [address] [facility] MAGNESIUM 6 N N COMMUNTIY COMMUNTIY HOSPITA HOSPITA INJECTION J0610 [facility] CALCIUM 6 N N GLUCONATE COMMUNTIY COMMUNTIY PER 10 HOSPITA HOSPITA ML NONINVASI 68059 [facility] VE 6 N N EAR/PULSE COMMUNTIY COMMUNTIY OXIMETRY HOSPITA HOSPITA SINGLE DETER THERAPEUT 74269 [facility] IC 6 N N INJECTION COMMUNTIY COMMUNTIY IV PUSH HOSPITA HOSPITA EACH NEW DRUG INJECTION J2270 [facility] MORPHINE 6 N N SULFATE COMMUNTIY COMMUNTIY UP TO 10 HOSPITA HOSPITA MG INITIAL 19918 [facility] B[facility] OBSERVATI 6 ELL LEENA RÍOS MAT ON CARE/DAY 50 MINUTES THER 07219 [facility] PROPH/DX 6 N N NJX EA COMMUNTIY COMMUNTIY SEQL IV HOSPITA HOSPITA PUSH SBST/DRUG FAC INJECTION C9113 [facility] 6 N N PANTOPRAZ COMMUNTIY COMMUNTIY OLE HOSPITA HOSPITA SODIUM PER VIAL THERAPEUT 25611 [facility] IC 6 N N PROPHYLAC COMMUNTIY COMMUNTIY TIC/DX HOSPITA HOSPITA INJECTION SUBQ/IM PROTHROMB 63999 [facility] IN TIME 6 N N COMMUNTIY COMMUNTIY HOSPITA HOSPITA INJECTION J2550 [facility] 6 N N PROMETHAZ COMMUNTIY COMMUNTIY INE HCL HOSPITA HOSPITA UP TO 50 MG INFUSION J7030 [facility] NORMAL 6 N N SALINE COMMUNTIY COMMUNTIY SOLUTION HOSPITA HOSPITA 1000 CC COMPREHEN 58325 [facility] SIVE 6 N N METABOLIC COMMUNTIY COMMUNTIY PANEL HOSPITA HOSPITA COLLECTIO 94742 [facility] N VENOUS 6 N N BLOOD COMMUNTIY COMMUNTIY VENIPUNCT HOSPITA HOSPITA URE BLOOD 35447 [facility] COUNT 6 N N COMPLETE COMMUNTIY COMMUNTIY AUTO&AUTO HOSPITA HOSPITA DIFRNTL WBC GLUC BLD 66983 [facility] GLUC MNTR 6 N N DEV COMMUNTIY COMMUNTIY CLEARED HOSPITA HOSPITA FDA SPEC HOME USE HEMOGLOBI 25450 [facility] N 6 N N GLYCOSYLA COMMUNTIY COMMUNTIY NICHOLAS A1C HOSPITA HOSPITA GLUC BLD 92187 [facility] GLUC MNTR 6 N N DEV COMMUNTIY COMMUNTIY CLEARED HOSPITA HOSPITA FDA SPEC HOME USE ARTERIAL 46391 [facility] PUNCTURE 6 N N WITHDRAWA COMMUNTIY COMMUNTIY L BLOOD HOSPITA HOSPITA DX BLOOD 57763 [facility] GASES ANY 6 N N COMMUNTIY COMMUNTIY COMBINATI HOSPITA HOSPITA ON PH PCO2 PO2 CO2 HCO3 BLOOD 44172 [facility] COUNT 6 N N COMPLETE COMMUNTIY COMMUNTIY AUTO&AUTO HOSPITA HOSPITA DIFRNTL WBC COLLECTIO 98442 [facility] N VENOUS 6 N N BLOOD COMMUNTIY COMMUNTIY VENIPUNCT HOSPITA HOSPITA URE INJECTION J1815 [facility] INSULIN 6 N N PER 5 COMMUNTIY COMMUNTIY UNITS HOSPITA HOSPITA INJECTION J2550 [facility] 6 N N PROMETHAZ COMMUNTIY COMMUNTIY INE HCL HOSPITA HOSPITA [place] 50 [place] [address] [facility] INFUSION 6 N N HYDRATION COMMUNTIY COMMUNTIY EACH HOSPITA HOSPITA ADDITIONA L HOUR COMPREHEN 72914 [facility] SIVE 6 N N METABOLIC COMMUNTIY COMMUNTIY PANEL HOSPITA HOSPITA INFUSION J7030 [facility] NORMAL 6 N N SALINE COMMUNTIY COMMUNTIY SOLUTION HOSPITA HOSPITA 1000 CC INJECTION J1885 [facility] 6 N N KETOROLAC COMMUNTIY COMMUNTIY HOSPITA HOSPITA TROMETHAM INE PER 15 [facility] G0378 [facility] OBSERVATI 6 N N ON COMMUNTIY COMMUNTIY SERVICE HOSPITA HOSPITA PER HOUR THERAPEUT 40193 [facility] IC 6 N N PROPHYLAC COMMUNTIY COMMUNTIY TIC/DX HOSPITA HOSPITA INJECTION SUBQ/IM THER 34696 [facility] PROPH/DX 6 N N NJX EA COMMUNTIY COMMUNTIY SEQL IV HOSPITA HOSPITA PUSH SBST/DRUG FAC URNLS DIP 65021 [facility] 6 N N STICK/TAB COMMUNTIY COMMUNTIY LET HOSPITA HOSPITA REAGENT AUTO MICROSCOP Y TOBACCO 77137 [facility] USE 6 N N CESSATION COMMUNTIY COMMUNTIY HOSPITA HOSPITA INTERMEDI ATE 3-10 MINUTES INJECTION J2270 [facility] MORPHINE 6 N N SULFATE COMMUNTIY COMMUNTIY UP [place] 10 [place] [address] [facility] INFUSION 6 N N THERAPY/P COMMUNTIY COMMUNTIY ROPHYLAXI HOSPITA HOSPITA S /DX 1ST TO 1 HR THERAPEUT 58525 [facility] IC 6 N N INJECTION COMMUNTIY COMMUNTIY IV PUSH HOSPITA HOSPITA EACH NEW DRUG KETONE 42290 [facility] BODIES 6 N N SERUM COMMUNTIY COMMUNTIY QUALIT[place] [address] [facility] LIPASE 6 N N COMMUNTIY COMMUNTIY HOSPITA HOSPITA ARTHROCEN 49616 [facility] MECCARIEL TESIS 6 [place] LO TRA ASPIR&/IN EMERGENCY J INTERM SERVI JT/BURS W/O US RADEX 60268 [facility] ELBOW 6 N N COMPLETE COMMUNTIY COMMUNTIY MINIMUM 3 HOSPITA HOSPITA VIEWS INFUSION J7030 [facility] NORMAL 6 N N SALINE COMMUNTIY COMMUNTIY SOLUTION HOSPITA HOSPITA 1000 CC COLLECTIO 66598 [facility] N VENOUS 6 N N BLOOD COMMUNTIY COMMUNTIY VENIPUNCT HOSPITA HOSPITA URE BLOOD 99238 [facility] COUNT 6 N N COMPLETE COMMUNTIY COMMUNTIY AUTO&AUTO HOSPITA HOSPITA DIFRNTL WBC GLUC BLD 93042 [facility] GLUC MNTR 6 N N DEV COMMUNTIY COMMUNTIY CLEARED HOSPITA HOSPITA FDA SPEC HOME USE THERAPEUT 24589 [facility] IC 6 N N PROPHYLAC COMMUNTIY COMMUNTIY TIC/DX HOSPITA HOSPITA INJECTION SUBQ/IM OBSERVATI 50682 [facility] B[facility]WH[facility] ON CARE 6 ELL MAT ELL MAT DISCHARGE MANAGEMEN T BASIC 20683 [facility] METABOLIC 6 N N PANEL COMMUNTIY COMMUNTIY CALCIUM HOSPITA HOSPITA TOTAL ECG 87810 [facility] ROUTINE 6 N N ECG COMMUNTIY COMMUNTIY W/LEAST HOSPITA HOSPITA 12 LDS TRCG ONLY W/O I&[place] [address] [facility] [place] [facility] SARA ABDOMEN & 6 RADIOLOGY PELVIS W/O CONTRAST MATERIAL URNLS DIP 68146 [facility] 6 N N STICK/TAB COMMUNTIY COMMUNTIY LET HOSPITA HOSPITA [place] [address] [facility] LIPASE 6 N N COMMUNTIY COMMUNTIY HOSPITA HOSPITA KETONE 03071 [facility] BODIES 6 N N SERUM COMMUNTIY COMMUNTIY QUALITATI HOSPITA HOSPITA VE ECG 98220 [facility] OZOR ROUTINE 6 [place] ECG EMERGENCY W/LEAST PHYS 12 LDS I&R ONLY INJECTION J0360 [facility] 6 N N HYDRALAZI COMMUNTIY COMMUNTIY NE HCL UP HOSPITA HOSPITA TO 20 MG THERAPEUT 90156 [facility] IC 6 N N PROPHYLAC COMMUNTIY COMMUNTIY TIC/DX HOSPITA HOSPITA INJECTION SUBQ/IM THER 04318 [facility] PROPH/DX 6 N N NJX IV COMMUNTIY COMMUNTIY PUSH HOSPITA HOSPITA SINGLE/1S T SBST/DRUG THERAPEUT 94496 [facility] IC 6 N N INJECTION COMMUNTIY COMMUNTIY IV PUSH HOSPITA HOSPITA EACH NEW DRUG TOBACCO 19843 [facility] USE 6 N N CESSATION COMMUNTIY COMMUNTIY HOSPITA HOSPITA INTERMEDI ATE 3-10 MINUTES INITIAL 85636 [facility] OBSERVATI 6 ELL MAT ELL MAT ON CARE/DAY 50 MINUTES DRUG TEST G0479 [facility] 6 N N PRESUMP;I COMMUNTIY COMMUNTIY NSTRUMENT HOSPITA HOSPITA ED CHEMISTRY ANLYZER GLUC BLD 27597 [facility] GLUC MNTR 6 N N DEV COMMUNTIY COMMUNTIY CLEARED HOSPITA HOSPITA FDA SPEC HOME USE BLOOD 21211 [facility] COUNT 6 N N COMPLETE COMMUNTIY COMMUNTIY AUTO&AUTO HOSPITA HOSPITA DIFRNTL WBC COLLECTIO 43777 [facility] N VENOUS 6 N N BLOOD COMMUNTIY COMMUNTIY [place]ENIP[place] [address] [facility] AMYLASE 6 N N COMMUNTIY COMMUNTIY HOSPITA HOSPITA INFUSION J7030 [facility] NORMAL 6 N N SALINE COMMUNTIY COMMUNTIY SOLUTION HOSPITA HOSPITA 1000 [facility] G0378 [facility] OBSERVATI 6 N N ON COMMUNTIY COMMUNTIY SERVICE HOSPITA HOSPITA PER HOUR INJECTION J2270 [facility] MORPHINE 6 N N SULFATE COMMUNTIY COMMUNTIY UP TO [address] [place] [address] [facility] PHOSPHORU 6 N N S COMMUNTIY [place] [address] [facility] INFUSION 6 N N HYDRATION COMMUNTIY COMMUNTIY EACH HOSPITA HOSPITA ADDITIONA L HOUR COMPREHEN 60290 [facility] SIVE 6 N N METABOLIC COMMUNTIY COMMUNTIY PANEL HOSPITA HOSPITA COLOREC G0121 [facility] CANCR 6 N N SCR; COMMUNTIY COMMUNTIY COLNSCPY HOSPITA HOSPITA NOT MEET HI RISK GLUC BLD 12424 [facility] GLUC MNTR 6 N N DEV COMMUNTIY COMMUNTIY CLEARED HOSPITA HOSPITA FDA SPEC HOME USE RINGERS J7120 [facility] LACTATE 6 N N INFUSION COMMUNTIY COMMUNTIY UP TO HOSPITA HOSPITA 1000 CC COLONOSCO 55260 GASTROENT CASE JUS PY FLX DX 6 EROLOGY W/COLLJ AND SPEC WHEN HEPATOL PFRMD ANES 76788 [facility] JAVIER ANT LOWER 6 ANESTHESI INTESTINE A GROUP [place] [address] [facility] LIPASE 6 N N COMMUNTIY COMMUNTIY HOSPITA HOSPITA KETONE 81806 [facility] BODIES 6 N N SERUM COMMUNTIY COMMUNTIY QUALITATI HOSPITA HOSPITA VE THER 99869 [facility] PROPH/DX 6 N N NJX IV COMMUNTIY COMMUNTIY PUSH HOSPITA HOSPITA SINGLE/1S T SBST/DRUG THERAPEUT 58454 [facility] IC 6 N N INJECTION COMMUNTIY COMMUNTIY IV PUSH HOSPITA HOSPITA EACH NEW DRUG URNLS DIP 75707 [facility] 6 N N STICK/TAB COMMUNTIY COMMUNTIY LET HOSPITA HOSPITA REAGENT AUTO MICROSCOP Y GLUC BLD 69167 [facility] GLUC MNTR 6 N N DEV COMMUNTIY COMMUNTIY CLEARED HOSPITA HOSPITA FDA SPEC HOME USE BLOOD 28622 [facility] COUNT 6 N N COMPLETE COMMUNTIY COMMUNTIY AUTO&AUTO [place] [address] [facility] TROPONIN 6 N N QUANTITAT COMMUNTIY COMMUNTIY VERÓNICA HOSPITA HOSPITA INJECTION J2270 [facility] MORPHINE 6 N N SULFATE COMMUNTIY COMMUNTIY UP TO 10 HOSPITA HOSPITA MG INFUSION J7030 [facility] NORMAL 6 N N SALINE COMMUNTIY COMMUNTIY SOLUTION HOSPITA HOSPITA [address] [place] [address] [facility] LACTATE 6 N N COMMUNTIY COMMUNTIY HOSPITA HOSPITA COLLECTIO 66781 [facility] N VENOUS 6 N N BLOOD COMMUNTIY COMMUNTIY VENIPUNCT HOSPITA HOSPITA URE COMPREHEN 27205 [facility] SIVE 6 N N METABOLIC COMMUNTIY [place] [address] [facility] INFUSION 6 N N HYDRATION COMMUNTIY COMMUNTIY EACH HOSPITA HOSPITA ADDITIONA L HOUR COMPREHEN 35031 [facility] SIVE 6 DIAGNOSTI DIAGNOST[place] [address] [facility] PROSTATE 6 DIAGNOSTI DIAGNOSTI [place] [address] [facility] THYROXINE 6 DIAGNOSTI DIAGNOSTI TOTAL CS CS THYROID 05260 [facility] HORM 6 DIAGNOSTI DIAGNOSTI UPTK/THYR CS CS OID HORMONE BINDING RATIO HEMOGLOBI 57005 [facility] N 6 DIAGNOSTI DIAGNOSTI GLYCOSYLA CS CS NICHOLAS A1C BLOOD 84650 [facility] COUNT 6 DIAGNOSTI DIAGNOSTI COMPLETE CS AUTO&[place] [address] [facility] THYROID 6 DIAGNOSTI DIAGNOSTI STIMULATI CS CS NG HORMONE TSH LIPID 08422 [facility] PANEL 6 DIAGNOSTI DIAGNOSTI CS CS INJECTION J2001 [facility] 6 N N LIDOCAINE COMMUNTIY COMMUNTIY HCL HOSPITA HOSPITA INTRAVENO US INFUS 10 MG INCISION 06242 [facility] & 6 PREMA PREMA DRAINAGE ABSCESS SIMPLE/SI NGLE IM ADM 44369 [facility] PRQ ID 6 N N SUBQ/IM COMMUNTIY COMMUNTIY NJXS 1 HOSPITA HOSPITA VACCINE TDAP 47081 [facility] VACCINE 7 6 N N YRS/> IM COMMUNTIY COMMUNTIY HOSPITA HOSPITA HOSPITAL 82027 [facility] 5 [facility] DAY MANAGEMEN T 30 MIN/< SBSQ 26479 [facility] 5 [facility] CARE/DAY 25 MINUTES SBSQ 97102 [facility] 5 [facility] CARE/DAY 25 MINUTES AMB A0427 [facility] SERVICE 5 [facility] EMS EMERGENCY TRANSPORT LEVEL 1 ECG 16896 [facility] ROUTINE 5 SCO SCO ECG W/LEAST 12 LDS I&R ONLY INITIAL 32788 [facility] 5 [facility] CARE/DAY 50 MINUTES GROUND A0425 [facility] MILEAGE 5 [facility] [place] [facility] PER CO EMS CO EMS STATUTE MILE ALBUMIN 57064 [facility] URINE 5 DIAGNOSTI DIAGNOSTI MICROALBU CS MIN QUANTIATI VE URNLS DIP 70413 [facility] 5 DIAGNOSTI DIAGNOSTI STICK/TAB [facility] LET RGNT AUTO W/O MICROSCOP Y CREATININ 98282 [facility] E OTHER 5 DIAGNOSTI DIAGNOSTI SOURCE [facility] HEMOGLOBI 24684 [facility] N 5 DIAGNOSTI DIAGNOSTI GLYCOSYLA [facility] NICHOLAS A1C WALKING L4360 ISIDRO MONROESO BOOT 5 FOOT & N MORGAN PNEUMATC ANKLE CE &/ VACUUM PREFAB CUSTM FIT HEMOGLOBI 25030 [facility] N 5 DIAGNOSTI DIAGNOSTI GLYCOSYLA CS CS NICHOLAS A1C CANE INCL E0100 J & L J & L CANES 4 HOME [facility] ALL [facility]ICAL MEDICAL MATERIAL EQUIPMENT EQUIPMENT ADJUSTBLE /FIX W/[place] [address] [facility] THYROID 4 DIAGNOSTI DIAGNOSTI STIMULATI [place] [address] [facility] THYROXINE 4 DIAGNOSTI DIAGNOSTI TOTAL CS CS HEMOGLOBI 85014 [facility] N 4 DIAGNOSTI DIAGNOSTI GLYCOSYLA CS CS NICHOLAS A1C THYROID 57822 [facility] HORM 4 DIAGNOSTI DIAGNOSTI UPTK/THYR CS CS OID HORMONE BINDING RATIO BLOOD 99675 [facility] COUNT 4 DIAGNOSTI DIAGNOSTI COMPLETE CS CS AUTO&AUTO DIFRNTL WBC LIPID 39933 [facility] PANEL 4 DIAGNOSTI DIAGNOSTI CS CS COMPREHEN 54880 [facility] SIVE 4 DIAGNOSTI DIAGNOSTI METABOLIC [...] CE GAUNT/SIM PREFAB OFF-THE-S HELF MRI LOWER 20723 PROSCAN PROSCAN EXTREM 4 RADIOLOGY RADIOLOGY OTH/THN [...] SQ IN OR LESS EA DRESS RADEX 03250 [facility] ANKLE 4 FOOT & N MORGAN COMPLETE ANKLE CE MINIMUM 3 VIEWS WALKING L4360 [facility] BOOT 4 FOOT & N MORGAN PNEUMATC ANKLE CE &/ VACUUM PREFAB CUSTM FIT RADIOLOGI 51494 [facility] [place] C 4 FOOT & N MORGAN EXAMINATI [...] INFUSION SERVICES SERVICES PUMP INSULIN SLEEP STD 00399 [facility] AIRFLOW 4 N N HRT COMMUNITY COMMUNITY [...] EDUCATION CONT GLU MON SYS 1U=1D LIPID 66525 [facility] PANEL 4 DIAGNOSTI DIAGNOSTI CS CS COMPREHEN 97521 [facility] SIVE 4 DIAGNOSTI DIAGNOST[place] [address] [facility] THYROID 4 DIAGNOSTI DIAGNOSTI STIMULATI [place] [address] [facility] C-PEPTIDE 4 DIAGNOSTI [place]AG[place] [address] [facility] THYROXINE 4 DIAGNOSTI DIAGNOSTI [place] [address] [facility] INSULIN 4 DIAGNOSTI DIAGNOSTI TOTAL CS CS INCORPORA T THYROID 83955 [facility] HORM 4 DIAGNOSTI DIAGNOSTI UPTK/THYR CS CS OID INCORPORA HORMONE T BINDING RATIO BLOOD 21614 [facility] COUNT 4 DIAGNOSTI DESTINEE COMPLETE CS AUTO&AUTO DIFRNTL WBC HEMOGLOBI 11657 [facility] N 4 DIAGNOSTI DIAGNOSTI GLYCOSYLA CS CS NICHOLAS A1C RADIOLOGI 62863 [facility] [place] [facility] MAT C EXAM 4 RADIOLOGY CHEST 2 VIEWS FRONTAL&L ATERAL RADEX 97785 [facility] SPINE 4 N N THORACIC COMMUNITY COMMUNITY 2 [facility] RADEX 65941 [facility] SPINE 4 N N LUMBOSACR COMMUNITY COMMUNITY AL 2/3 HOSPITA HOSPITA [facility]ON[facility] 36844 [facility] DISCHARGE 4 [place] A GOP DAY PHYSICIAN MANAGEMEN SERVI T 30 MIN/< SBSQ 21930 [facility] 4 [place] A GOP CARE/DAY PHYSICIAN 25 SERVI MINUTES INITIAL 14367 [facility] 4 [place] LILO CARE/DAY PHYSICIAN 70 SERVI MINUTES AMB A0427 [facility] SERVICE 4 [facility] EMS CO EMS EMERGENCY TRANSPORT LEVEL 1 RADIOLOGI 86730 [facility] [place] [facility] MAT C 4 RADIOLOGY EXAMINATI ON CHEST SINGLE VIEW FRONTAL GROUND A0425 [facility] MILEAGE 4 N-DE N-DE PER CO EMS CO EMS STATUTE MILE ECG 94499 [facility] CELLARO ROUTINE 4 [place] - YORBA ECG EMERGENCY PAT W/LEAST PHYSI 12 [facility] I&R [facility] 68954 [facility] DISCHARGE 4 [place] HUG DAY PHYSICIAN MANAGEMEN SERVI T 30 MIN/< SBSQ 85637 [facility] 4 [place] HU CARE/DAY PHYSICIAN 35 SERVI MINUTES INITIAL 89575 [facility] 4 [place] HU CARE/DAY PHYSICIAN 70 SERVI MINUTES CRITICAL 38696 [facility] 4 PREMA PREMA ILL/INJUR ED PATIENT INIT 30-74 MIN COMPREHEN 54806 [facility] ER[facility]MO SIVE 1 AMERIC [employer] METABOLIC HOLDING HOLDING PANEL COLLECTIO 51837 [facility] N VENOUS 1 AND BLOOD PEDIATRIC VENIPUNCT S & INTER URE ALBUMIN 60426 [facility] URINE 1 MICROALBU PEDIATRIC PEDIATRIC MIN S & INTER S & INTER SEMIQUANT ITATIVE HEMOGLOBI 68765 [facility] ERASMO N 1 AMERIC AMERIC GLYCOSYLA HOLDING HOLDING NICHOLAS A1C SBSQ [address] JERRI CARE/DAY ADVANCED 25 MAZA MINUTES INITIAL 84934 [facility] INPATIENT 1 [facility] CONSULT ADVANCED NEW/ESTAB MAZA PT 40 MIN GASTRIC 11787 [facility] EMPTYING 1 N N IMAGING [facility]UNITY [facility] 75428 [facility] DISCHARGE 1 BETTY DAY PEDIATRIC MANAGEMEN S & INTER T 30 MIN/< SBSQ 50459 [facility] 1 BETTY CARE/DAY PEDIATRIC 25 S & INTER MINUTES RADEX ABD 90380 [facility] [place] [facility] MAT COMPL 1 RADIOLOGY AQT ABD W/S/E/D VIE[place] [address] [place] [address] [facility] [place] MAT ABDOMEN & 1 RADIOLOGY PELVIS W/O CONTRAST MATERIAL CRITICAL 81273 [facility] 1 EMERGENCY DEV ILL/INJUR SERVICES ED PATIENT INIT 30-74 MIN INITIAL 27864 [facility] 1 BETTY CARE/DAY PEDIATRIC 70 S & INTER MINUTES AMB A0427 [facility] SERVICE 1 [facility] EMS CO EMS EMERGENCY TRANSPORT LEVEL 1 GROUND A0425 [facility] MILEAGE 1 [facility] [facility] PER MT EMS CO EMS STATUTE MILE GENERAL 79614 [facility] HEALTH 1 AMERIC 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 HOLDING LIPID 00707 LAB [facility] PANEL 1 AMERIC AMERIC HOLDING HOLDING HEMOGLOBI 96689 [facility] ER[facility] N 1 AMERIC AMERIC GLYCOSYLA HOLDING [place] [address] LAB ERASMO LAB ERASMO FREE 1 AMERIC AMERIC THYROXINE HOLDING HOLDING ECG 25900 [facility] AND ECG PEDIATRIC W/LEAST S & INTER 12 LDS W/I&[place] [address] [facility] [place] BAKARI HEAD/BRAI 1 RADIOLOGY RAÚL N W/O CONTRAST MATERIAL ALVEOLECT 67668 [facility] RAIN FADY 0 KARI KARI W/CURTG OSTEITIS/ SEQUESTRE CTOMY DEEP D9220 [facility] RAIN SEDATION/ 0 KARI KARI GENERAL ANESTHESI A-1ST 30 MINUTES ORTHOPANT 76223 [facility] RAIN OGRAM 0 KARI KARI BLD GLU A4253 AM MED AM MED TEST/REAG 8 DIRECT DIRECT T [facility] PHARMACY GLU MON-50 LANCETS A4259 AM MED AM MED PER BOX 8 DIRECT DIRECT OF 100 [facility] BLD GLU A4253 AM MED AM MED TEST/REAG 8 DIRECT DIRECT T [facility] PHARMACY GLU MON-50 LANCETS A4259 AM MED AM MED PER BOX 8 DIRECT DIRECT OF 100 [facility] LANCETS A4259 AM MED AM MED PER BOX 8 DIRECT DIRECT OF 100 [facility] BLD GLU [id number] AM MED AM MED TEST/REAG 8 DIRECT DIRECT T [facility] PHARMACY GLU MON-50 DEEP [id number] [facility] EL[facility]ITA, SEDATION/ 8 FOR BETSY Castillo GENERAL ORAL&MAXI ANESTHESI LLOFACIAL A-1ST 30 SURGERY MINUTES CHIROPRAC 18953 BRITANY GARG, TIC 8 YOHANA M YOHANA M MANIPULAT [place] SPINAL 3-4 REGIONS APPLICATI 42674 BRITANY GARG, ON 8 YOHANA M YOHANA M MODALITY 1/> AREAS HOT/COLD PACKS APPL 94460 BRITANY, GARG, MODALITY 8 YOHANA M YOHANA M 1/> AREAS ELEC STIMJ UNATTENDE D APPL 98353 GRAG, GARG, MODALITY 8 YOHANA M YOHANA M 1/> AREAS ELEC STIMJ UNATTENDE D APPLICATI 49690 BRITANY GARG, ON 8 YOHANA M YOHANA M MODALITY 1/> AREAS HOT/COLD PACKS CHIROPRAC 88981 BRITANY GARG, TIC 8 YOHANA M YOHANA M MANIPULAT [place] SPINAL 3-4 REGIONS DETERMINA 24028 [facility], TION 8 [facility] 87902 [facility] MAX, OGRAM 8 FOR JOSE P ORAL&MAXI LLOFACIAL SURGERY Encounters Encounter Start End Date Code Location Performer Type Date OFFICE 28267 [facility] OUTPATIEN 7 7 KHUSHBU RÍOS T VISIT 15 MINUTES OFFICE 11939 [facility] OUT[facility] 7 7 KHUSHBU ROÍS T VISIT 15 MINUTES EMERGENCY 49165 [facility] 7 7 [place] VISIT EMERGENCY HIGH PHYS SEVERITY& THREAT [facility] - 7 7 N OUTPATIEN COMMUNTIY T HOSPITA EMERGENCY 02696 [facility] 7 7 N DEPARTMEN COMMUNTIY T VISIT HOSPITA HIGH/URGE NT SEVERITY EMERGENCY 94571 [facility] DEPT 7 7 [place] - YORBA VISIT EMERGENCY HIGH PHYS SEVERITY& THREAT FUN EMERGENCY 34053 [facility] DEPT 7 7 [place] VISIT EMERGENCY HIGH SERVI SEVERITY& THREAT FUN EMERGENCY 96300 [facility] 6 6 N DEPARTMEN COMMUNTIY T VISIT HOSPITA HIGH/URGE NT SEVERITY [facility] - 6 6 N OUTPATIEN COMMUNTIY T HOSPITA OFFICE 96319 [facility] 6 6 NURSE ADWOA DORANTES/ESTAB NER GR PATIENT 60 MIN [facility] - 6 6 N OUTPATIEN COMMUNTIY T HOSPITA EMERGENCY 40290 [facility] DEPT 6 6 [place] LOWE VISIT EMERGENCY HIGH SERVI SEVERITY& THREAT FUN EMERGENCY 91991 [facility] 6 6 N DEPARTMEN COMMUNTIY T VISIT HOSPITA MODERATE SEVERITY [facility]PITAL [facility] - 6 6 N OUTPATIEN COMMUNTIY T HOSPITA EMERGENCY 45584 [facility] 6 6 [place] LO TRA DEPARTMEN EMERGENCY T VISIT SERVI HIGH/URGE NT SEVERITY OFFICE 85295 [facility] OUTPATIEN 6 6 KHUSHBU STERN T VISIT 15 MINUTES [facility] - 6 6 N OUTPATIEN COMMUNTIY T HOSPITA EMERGENCY 26629 [facility] 6 6 N DEPARTMEN COMMUNTIY T VISIT HOSPITA LIMITED/M INOR PROB OFFICE 73045 [facility] OUTPATIEN 6 6 KHUSHBU STERN T VISIT 15 MINUTES [facility] - 6 6 N OUTPATIEN COMMUNTIY T HOSPITA EMERGENCY 01555 [facility] DEPT 6 6 [place] VISIT EMERGENCY HIGH PHYS SEVERITY& THREAT [facility] - 6 6 N OUTPATIEN COMMUNTIY T HOSPITA EMERGENCY 77376 [facility] DEPT 6 6 [place] VISIT EMERGENCY HIGH SERV SEVERITY& THREAT [facility] EMERGENCY 35249 [facility] 6 6 N DEPARTMEN COMMUNTIY T VISIT HOSPITA HIGH/URGE NT SEVERITY [facility] - 6 6 N OUTPATIEN COMMUNTIY T HOSPITA OFFICE 64807 [facility] B[facility] OUT[facility] 6 6 KHUSHBU STERN T VISIT 15 MINUTES EMERGENCY 46809 [facility] 6 6 N DEPARTMEN COMMUNTIY T VISIT HOSPITA MODERATE SEVERITY [facility] - 6 6 N OUTPATIEN COMMUNTIY T HOSPITA EMERGENCY 22519 [facility] 6 6 PREMA PREMA DEPARTMEN T VISIT HIGH/URGE NT SEVERITY OFFICE 21461 [facility] OUTPATIEN 5 5 KHUSHBU STERN T VISIT 15 MINUTES [facility] - 5 5 N INPATIENT COMMUNTIY HOSPITA EMERGENCY 68878 [facility] DEPT 5 5 SCO SCO VISIT HIGH SEVERITY& THREAT FUNCJ EMERGENCY 19280 [facility]ORK[facility] DEPT 5 5 EDWAR EDWAR VISIT HIGH SEVERITY& THREAT FUNCJ OFFICE 05060 BIRDWHIST BIRDWHIST OUTPATIEN 5 5 KHUSHBU RÍOS T VISIT 15 MINUTES EMERGENCY 20860 BLANCHE MANCIA DEPT 5 5 PREMA PREMA VISIT HIGH SEVERITY& THREAT FUNCJ OFFICE 52649 [place] [facility] OUT[facility]EN 5 5 FOOT & N MORGAN T VISIT ANKLE CE 15 MINUTES OFFICE 13309 MUHA JAVI MUHA JAVI OUTPATIEN 4 4 T NEW 30 MINUTES OFFICE 01018 [place] [facility] OUTPATIEN 4 4 FOOT & N MORGAN T VISIT ANKLE CE 15 MINUTES OFFICE 10589 [place] [facility] OUTPATIEN 4 4 FOOT & N MORGAN T VISIT ANKLE CE 15 MINUTES OFFICE 15051 [place] [facility] OUTPATIEN 4 4 FOOT & N MORGAN T VISIT ANKLE CE 15 MINUTES OFFICE 32940 [place] [facility] OUTPATIEN 4 4 FOOT & N MORGAN T VISIT ANKLE CE 15 MINUTES OFFICE 54493 [place] [facility] OUTPATIEN 4 4 FOOT & N MORGAN T NEW 30 ANKLE CE MINUTES [facility] - 4 4 N OUTPATIEN [facility] T HOSPITA OFFICE 11313 BIRDWHIST BIRDWHIST OUTPATIEN 4 4 KHUSHBU LEENA KHUSHBU STERN T VISIT 15 MINUTES EMERGENCY 34291 BLANCHE MANCIA DEPT 4 4 PREMA PREMA VISIT HIGH SEVERITY& THREAT FUN OFFICE 38005 BIRDWHIST BIRDWHIST OUTPATIEN 4 4 KHUSHBU STERN KHUSHBU STERN T VISIT 25 MINUTES EMERGENCY 95215 CHECO KESSLER DEPT 4 4 RYA RYA VISIT HIGH SEVERITY& THREAT [facility]LY [facility] [place] [address] 4 N OUTPATIEN [facility] T HOSPITA EMERGENCY 94610 [facility] CELLARO DEPT 4 4 CLAYTON - YORBA VISIT EMERGENCY PAT HIGH PHYSI SEVERITY& THREAT FUN OFFICE 28161 [facility] OUTPATIEN 1 1 AND T VISIT PEDIATRIC 15 S & INTER MINUTES OFFICE 97078 [facility] OUTPATIEN 1 1 AND T VISIT PEDIATRIC 15 S & INTER MINUTES [facility] [place] [address] 1 N OUTPATIEN COMMUNITY T HOSPITA OFFICE 59010 [facility] OUTPATIEN 1 1 AND T VISIT PEDIATRIC 15 S & INTER MINUTES [facility] [place] [address] 1 N INPATIENT COMMUNITY HOSPITA EMERGENCY 46702 DERRICK MANCIA 1 1 EMERGENCY PREMA DEPARTMEN SERVICES T VISIT HIGH/URGE NT SEVERITY OFFICE 50666 [facility] CULLENGRASS OUTPATIEN 1 1 T VISIT 5 PEDIATRIC PEDIATRIC MINUTES S & INTER S & INTER OFFICE 76536 PATRICK FARR OUTPATIEN 1 1 AND T VISIT PEDIATRIC 15 S & INTER MINUTES [facility] [place] [address] 1 N INPATIENT [facility] HOSPITA OFFICE 09178 RAIN RAIN OUTPATIEN 0 0 KARI KARI T NEW 10 MINUTES OFFICE 73172 [facility], OUTINGAEN 8 8 [facility] Stuart NEW 30 CENTER MINUTES OFFICE 27724 GARG, BRITANY OUTPATIEN 8 8 YOHANA Toribio T VISIT 15 MINUTES OFFICE 06364 [facility] MAX, OUTPATIEN 8 8 FOR JOSE Velasquez T NEW 10 ORAL&MAXI MINUTES LLOFACIAL SURGERY
--- OUTSIDE RECORDS SUMMARY | 2017-05-24 09:12 | External Medical Summary Rpt ---
Author Author , PAULINA GALLARDO Address Unknown Phone [email or web address] Care Team Providers Care Transit Planner Name Role Phone BAKARI RAÚL, BAKARI Unavailable [...] INTER GARG, GARG Unavailable Unavailable YOHANA GARG, GARG, Unavailable Unavailable YOHANA Toribio CASE JUS, CASE JUS Unavailable Unavailable CELLAROSI - YORBA, Unavailable Unavailable CELLAROSI - YORBA CELLAROSI - YORBA Unavailable Unavailable PAT, CELLAROSI - YORBA PAT [facility] Unavailable Unavailable ADVANCED MAZA, [facility], Unavailable Unavailable [facility]32, Unavailable Unavailable [facility] 2332 [facility] & Unavailable Unavailable EDUCATION, [facility] & Unavailable Unavailable EDUCATION, [facility] Unavailable Unavailable SERVICES, [facility] Unavailable Unavailable X[employer], [facility] Unavailable Unavailable LLC, [facility] FARAGASSO DEV, Unavailable Unavailable FARAGASSO DEV BLANCHE STODDARD Unavailable Unavailable BLANCHE BERGER Unavailable Unavailable PRE[facility] Unavailable Unavailable HOSPITA, [facility] Unavailable Unavailable H[facility]PITA, [facility] Un[facility] Unavailable [facility], [facility] Un[facility] Unavailable [facility], [facility] PATRICE RHO, PATRICE Unavailable Unavailable RHO [facility], Unavailable Unavailable [facility] HABASH, KEFAH, Unavailable Unavailable HABASH, KEFAH FINCH, FINCH Unavailable Unavailable FINCH JERRI, FINCH Unavailable Unavailable JERRI [facility], Unavailable Unavailable [facility], Unavailable Unavailable [facility] RA[facility], Unavailable Unavailable [facility], Unavailable Unavailable [facility] Unavailable Unavailable SERVICES O, [facility] HOUSMAN LILO, HOUSMAN Unavailable Unavailable LILO [facility] Unavailable Unavailable EQU[facility]MENT, [facility] Un[facility] Unavailable [facility] Unavailable Unavailable GROUP PS, [facility] Unavailable Unavailable [facility], [facility] Unavailable Unavailable PRACTITIONER GR, KMS NURSE PRACTITIONER GR BELL BETTY, BELL Unavailable Unavailable BETTY [facility] # Unavailable Unavailable [id number], [facility] # [id number] [facility] Unavailable Unavailable [facility], [facility] Unavailable Unavailable [facility], [facility] Unavailable Unavailable [facility], [facility], Unavailable Unavailable [facility] JAVIER ANT, JAVIER ANT Unavailable Unavailable MAJMUDAR, MAJMUDAR Unavailable Unavailable [facility] Unavailable Unavailable SERVICES, [facility] MATT, MATT Unavailable Unavailable MATT DESTINEE, MATT Unavailable Unavailable DESTINEE MAX, JOSE P, [...] Unavailable SHASHY WOOD, SHASHY Unavailable Unavailable WOOD DALEY WOOD, SHASHY Unavailable Unavailable [facility] Unavailable Unavailable [facility], [facility] Unavailable Unavailable EMERGENCY SERV, [facility] Unavailable Unavailable EMERGENCY SERVI, [facility] Unavailable Unavailable PHYSICIAN SERVI, [facility] KESSLER RYA, KESSLER Unavailable Unavailable RYA KESSLER RYA, KESSLER Unavailable Unavailable RYA QUAN ADWOA, QUAN Unavailable Unavailable ADWOA VORKPOR EDWAR, VORKPOR Unavailable Unavailable EDWAR [facility] #[id number] # Unavailable Unavailable [id number], [facility][id number] # [id number] WELLS, WELLS Unavailable Unavailable [facility], [facility] Unavailable Unavailable RICHARD MAT, RICHARD MAT Unavailable Unavailable Purpose Continuity of Care Document - 02-13-2008 through 2016 Problems Code Diagnosis DOS Provider Status R109 UNSPECIFIED 04-05-2017 [facility] [facility] K828 OTHER 03-22-2017 [place] SPEC[facility]IED [facility] DISEASES OF IMAGING ASS [facility] R1013 EPIGASTRIC 03-22-2017 [place] [facility] E1040 TYPE 1 02-27-2017 [facility] DIABETES L MELLITUS W/DIAB NEUROPATHY UNS E1043 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-27-2017 [facility] W/DIABETIC L AUTONOMIC POLYNEUROPA THY E119 TYPE 2 12-08-2016 [facility] MELL[facility] SUP[facility] XM Radio WITHOUT COMPLICATIO NS [id number] FRACTURE 10-03-2016 [facility] INITIAL ENCNTR FOR CLOS FRACTURE E1165 TYPE 2 09-14-2016 [facility] MELLITUS [place]ITA [place]PER[place]YCEM [place] [id number] GENERALIZED 09-14-2016 [facility] ABDOMINAL COMM[facility]TIY TENDERNESS HOSPITA R112 NAUSEA WITH 09-14-2016 [facility] UNSPECIFIED PHYS R197 DIARRHEA 09-14-2016 [facility] UNS[facility] N EMERGENCY PHYS R51 HEADACHE 09-14-2016 [facility] COMM[facility]TIY [facility]ITA R739 HYPERGLYCEM 09-14-2016 [facility] N EMERGENCY UNSPECIFIED PHYS Z720 TOBACCO USE 09-14-2016 [facility] COMM[facility]TIY [facility]PITA Z794 CHCF 09-14-2016 [facility] CURRENT USE COMMUNTIY OF INSULIN HOSPITA E1310 [...] W/OTH SPEC COMPLICATIO N E872 ACIDOSIS 08-31-2016 [facility]Y SERVI M533 SACROCOCCYG 08-31-2016 [facility] EAL [facility] DISORDERS NEC M545 LOW BACK 08-31-2016 [facility]- PAIN DE CO EMS R531 WEAKNESS 08-31-2016 [facility] R5381 OTHER 08-31-2016 [facility] [place] [facility] [id number] UNS 08-31-2016 [facility] FRACTURE N EMERGENCY SACRUM [...] K3184 GASTROPARES 06-02-2016 [facility] IS L MAT K84127 PAIN IN 05-05-2016 [facility] [place] RIGHT ELBOW RADIOLOGY M7711 LATERAL 05-05-2016 [facility] EPICONDYLIT N EMERGENCY IS RIGHT SERVI ELBOW R1110 VOMITING 03-02-2016 [facility] UNSPECIFIED COMMUNTIY HOSPITA Z5321 PROC & TX 03-02-2016 [facility] NOT CARRIED COMMUNTIY OUT PT HOSPITA LEAVE PRIOR TO SEEN N521 ERECTILE 12-25-2015 [facility] DYSFUNCTION L MAT DUE TO DISEASES CLASS ELSW R1012 LEFT UPPER 12-18-2015 [facility] [place] [facility] PAIN Z1211 ENCOUNTER 12-02-2015 [place] [facility] MALIGNANT GROUP PS NEOPLASM OF COLON R1011 RIGHT UPPER 11-07-2015 [facility] PAIN HOSPITA Z125 ENCOUNTER 10-29-2015 [facility] MALIGNANT NEOPLASM PROSTATE B354 TINEA 09-15-2015 [facility] CORPORIS COMMUNTIY HOSPITA B358 OTHER 09-15-2015 [facility] DERMATOPHYT OSES L0201 CUTANEOUS 09-15-2015 [facility] ABSCESS OF COMMUNTIY FACE HOSPITA L723 SEBACEOUS 09-15-2015 [facility] CYST COMMUNTIY HOSPITA E0841 DM D/T 07-30-2015 [facility] UNDERLYING L MAT COND W/DIABETIC MONONEUROPA THY A084 VIRAL 07-20-2015 [facility] INTESTINAL COMMUNTIY INFECTION HOSPITA UNSPECIFIED W64276 TYPE 1 DM 07-20-2015 [facility] W/UNS DIAB COMMUNTIY RETINPATH HOSPITA W/O MACULAR EDEMA R000 TACHYCARDIA 07-20-2015 [facility] UNSPECIFIED 13725 DIAB W/O 04-14-2015 [facility] COMP TYPE DIAGNOSTICS II/UNS NOT STATED UNCNTRL 04636 DIAB 04-14-2015 [facility] W/NEURO L MANIFESTS TYPE II/UNS NOT UNCNTRL 3572 POLYNEUROPA 04-14-2015 [facility] THY IN L DIABETES V5867 LONG-TERM 04-14-2015 [facility] USE OF L INSULIN 39569 DIAB W/O 01-18-2015 [facility] L[facility] COMP TYPE I [JUV] NOT STATED UNCNTRL 49277 NAUSEA WITH 01-18-2015 [facility] L[facility] VOMITING 53771 PLANTAR 11-14-2014 [facility] FAS[facility] FOOT & FIBROMATOSI ANKLE CE S 7295 PAIN IN 11-14-2014 [facility] BiomedINGTON SOFT FOOT & TISSUES OF ANKLE CE LIMB 3671 MYOPIA 08-12-2014 MUHA JAVI 3559 MONONEURITI 07-02-2014 [facility] S OF DIAGNOSTICS UNSPECIFIED SITE 94383 DIAB W/O 06-19-2014 DI[facility] MENTION CARE & COMP TYPE I EDUCATION [JUV TYPE] UNCNTRL 08926 OSTEOARTHRO 04-07-2014 [facility] UNSPEC RADIOLOGY WHETHER GEN/LOC LOWER LEG 05465 OBSTRUCTIVE 12-27-2013 [facility] SLEEP APNEA 16805 OTHER 12-27-2013 [facility] [address] UNSPECIFIED 12-27-2013 [facility] SLEEP COMMUNITY APNEA HOSPITA 1105 DERMATOPHYT 12-20-2013 [facility] OSIS OF THE L MAT BODY 84412 ESOPHAGEAL 12-20-2013 [facility] REFLUX L MAT 5363 GASTROPARES 11-25-2013 [place] [address] NAUSEA 11-25-2013 [facility] L[facility] ALONE 4778 ALLERGIC 11-21-2013 [facility] RHINITIS L MAT DUE TO OTHER ALLERGEN 46000 UNSPECIFIED 11-21-2013 [facility] L MAT ARTHROPATHY SITE UNSPECIFIED 6400 ACUTE URIS 11-10-2013 [facility]YA OF UNSPECIFIED SITE 4739 UNSPECIFIED 11-10-2013 [facility] SINUSITIS 7862 COUGH 11-10-2013 [facility] 7241 PAIN IN 10-22-2013 [facility] [place] THORACIC [facility] SPINE 7242 LUMBAGO 10-22-2013 [facility] HOSPITA 00434 DIAB W/O 10-14-2013 [facility] MENTION N PHYSICIAN COMP TYPE SERVI II/UNS TYPE UNCNTRL 84397 DIABETES 10-14-2013 [facility] W/KETOACIDO N PHYSICIAN SIS TYPE SERVI II/UNS TYPE UNCNTRL 72182 DEHYDRATION 10-14-2013 [facility] N PHYSICIAN SERVI 5849 ACUTE 10-14-2013 [facility] KIDNEY N PHYSICIAN FAILURE SERVI UNSPECIFIED 95668 DIAB 10-13-2013 [facility] W/KETOACIDO N EMERGENCY S TYPE I PHYSI [JUV] NOT STATE UNCNTRL 21494 DIAB W/OTH 10-13-2013 [facility]- MANIFESTS DE CO TYPE II/UNS EMS NOT UNCNTRL 31961 SINOATRIAL 10-13-2013 [facility]- NODE DE CO DYSFUNCTION EMS 03575 VOMITING 10-13-2013 [facility]- ALONE [place] EMS 28221 OTHER 10-13-2013 [facility]- ABNORMAL DE CO GLUCOSE EMS 31654 DIABETES 08-14-2013 [facility] DALYU W/KETOACIDO SIS TYPE I [JUV] UNCNTRL 01976 OTHER ACUTE 01-31-2011 [facility] EXTERNA & INTER 17911 TOB USE D/O 01-31-2011 [facility] COMP PG [facility]ED[facility] /PP & INTER UNSPEC EPIS CARE/NA 7569 OTH&UNSPEC 01-31-2011 [facility] 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 02641 UNSPECIFIED 01-31-2011 [facility] SLEEP [facility] DISTURBANCE & INTER 7919 OTHER 01-31-2011 [facility] NONSPECIFIC [facility]EDIATRICS FINDING & INTER EXAMINATION OF URINE 4519 PHLEBITIS&T 12-01-2010 [facility] HROMBOPHLEB [facility]EDIATRICS ITIS OF & INTER UNSPECIFIED SITE 00090 SHORTNESS 11-05-2010 [facility] [place] [facility] 52387 ABDOMINAL 10-27-2010 [facility] PAIN, [facility] UNSPECIFIED HOSPITA SITE 70975 OTHER 10-20-2010 [facility] SPECIFIED [facility]ATRICS DISORDER OF & INTER THE ESOPHAGUS 7245 UNSPECIFIED 10-20-2010 [facility] BACKACHE PEDIATRICS & INTER 2762 ACIDOSIS 10-09-2010 [facility] & INTER 5609 UNSPECIFIED 10-09-2010 [facility] IN[facility] & INTER OBSTRUCTION 2753 DISORDERS 10-07-2010 [facility] PH[facility]US [facility] METABOLISM 2768 HYPOPOTASSE 10-07-2010 [facility] HOSPITA 28296 LEUKOCYTOSI 10-07-2010 [facility] UNSPECIFIED SERVICES 5362 PERSISTENT 10-07-2010 [facility]GENCY SERVICES 5601 PARALYTIC 10-07-2010 [facility] ILEUS [facility]ITA 5758 OTHER 10-07-2010 [facility] [place] SPECIFIED [facility]OLOG[facility] DISORDER OF GALLBLADDER 5780 HEMATEMESIS 10-07-2010 [facility] 5789 UNSPECIFIED 10-07-2010 [facility] OF SERVICES GASTROINTES TINAL TRACT 5589 OTH&UNSPEC 10-06-2010 [facility] NONINFECTIO EMERGENCY US SERVICES GASTROENTER ITIS&COLITI S 7850 UNSPECIFIED 09-21-2010 [facility] 81083 DIAB 09-12-2010 [facility] W/NEURO [facility] MANIFESTS HOSPITA TYPE I [JUV TYPE] UNCNTRL 7840 HEADACHE 09-12-2010 [facility] 42392 ABDOMINAL 09-12-2010 [facility] PAIN, LEFT [facility] UPPER HOSPITA QUADRANT 36482 ABDOMINAL 09-12-2010 [facility] PAIN, [facility] EPIGASTRIC HOSPITA 5253 RETAINED 06-08-2010 [facility] KARI 5264 INFLAMMATOR 06-08-2010 RA[facility] Y KARI CONDITIONS OF JAW 59378 DIAB 02-14-2008 [facility] MANIFESTS CENTER TYPE II/UNS NOT UNCNTRL 28055 REGULAR 02-14-2008 [facility] 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 7231 CERVICALGIA 02-14-2008 YOHANA GARG Medications Na ND Rx Da Fi Fi [...] 82 8- 6- 00 00 SI ve UT 07 20 20 50 DE IL 41 [...] ET NT HI AN A IN C LI 00 07 08 30 30 00 EA Ac SI 37 -2 -[address] ti NO 82 7- 5- 00 00 SI ve UT 07 20 20 49 DE IL 41 17 17 58 0 42 PH 10 AR MA MG CY TA OF BL CY ET NT HI AN A IN C TR 50 07 08 30 30 00 EA Ac AZ 11 -2 -[address] ti OD 10 7- 5- 00 00 SI ve ON 43 20 20 49 DE E 30 17 17 58 50 2 43 PH AR MG MA CY TA BL OF ET CY NT HI AN A IN C NA 68 07 08 60 30 00 EA Ac UT 46 -2 -[address] ti OX 20 7- 5- 00 00 SI ve EN 19 20 20 49 DE 00 17 17 58 50 5 48 PH 0 AR MG MA CY TA BL OF ET CY NT HI AN A IN C FL [...] ET NT HI AN A IN C OM 62 07 08 30 30 00 EA Ac EP 17 -2 -[address] ti RA 50 7- 5- 00 00 SI ve ZO 13 20 20 49 DE LE 64 17 [address] AR MA 40 CY MG OF CY CA NT PS HI UL AN E A IN C BA 00 07 08 30 30 00 EA Ac SA 00 -2 -[address] ti GL 27 7- 5- 00 00 SI ve AR 71 20 20 49 DE 55 17 17 58 10 9 47 PH 0 AR UN MA IT CY /M L OF KW CY IK NT PE HI N AN A IN C GA 69 07 08 12 30 00 GE Ac BA 09 -1 -0 0. 00 OR ti PE 70 0- 4- 00 04 GE ve NT 81 20 20 0 02 TO IN 11 17 17 01 WN 2 94 80 AP 0 OT MG HE CA TA RY BL ET BA 00 07 07 15 30 00 GE Ac SA 00 -0 -2 .0 00 OR ti GL 27 5- 8- 00 06 GE ve AR 71 20 20 04 TO 55 17 17 62 WN 10 9 86 0 AP UN OT IT HE /M CA L RY KW IK PE N ON 53 07 07 10 25 00 GE Ac ET 88 -0 -2 0. 00 OR ti OU 50 5- 8- 00 06 GE ve CH 24 20 20 0 04 TO 45 17 17 62 WN UL 0 85 TR AP A OT TE HE ST CA RY ST RI PS BD 08 07 07 10 30 00 GE Ac 29 -0 -2 0. 00 OR ti UL 03 5- 8- 00 06 GE ve TR 20 20 20 0 04 TO A- 10 17 17 63 WN FI 9 93 NE AP OT PE HE N CA ND RY L 8M MX 31 G ON 53 07 07 1. 30 00 GE Ac ET 88 -0 -2 00 00 OR ti OU 50 5- 8- 0 06 GE ve CH 20 20 20 04 TO 80 17 17 63 WN UL 1 96 TR AP AM OT IN HE I CA ME RY TE R 60 07 07 10 25 00 GE Ac MAZA 91 -0 -2 0. 00 OR ti RE 30 5- 8- 00 06 GE ve 00 20 20 0 04 TO CO 10 17 17 63 WN MF 1 97 OR AP T OT 30 HE G CA LA RY NC ET S LA 60 07 07 1. 30 00 GE Ac NC 91 -0 -2 00 00 OR ti IN 30 5- 8- 0 06 GE ve G 00 20 20 04 TO DE 30 17 17 63 WN 1 98 CE AP OT HE CA RY GA 69 06 07 12 30 00 [...] CA ML RY 30 GX 1/ 2" SI 68 05 06 30 30 00 WA Ac MV 18 -2 -1 .0 00 LG ti 00 3- 6- 00 00 RE ve TA 47 20 20 41 EN TI 80 17 17 50 S N 3 62 #1 10 20 75 MG TA BL ET FL 00 05 06 16 30 00 MN Ac UT 05 -2 -1 .0 00 LG ti IC 43 3- 6- 00 00 RE ve 27 20 20 42 EN ON 09 17 17 73 S E 9 46 #1 UT 20 OP 75 50 MC G SP RA Y GA 69 05 06 12 30 00 GE Ac BA 09 -1 -0 0. 00 OR ti PE 70 7- 9- 00 06 GE ve NT 81 20 20 0 04 TO IN 11 17 17 16 WN 2 20 80 AP 0 OT MG HE CA TA RY BL ET IN 11 04 05 60 30 00 WA Ac MAZA 91 -2 -2 .0 00 LG ti LI 70 8- 6- 00 00 RE ve N 04 20 20 41 EN SY 81 17 17 69 S RI 4 11 #1 N 20 0. 75 5 ML 31 GX 5/ 16 " FR 99 05 05 10 25 00 WA Ac EE 07 -0 -2 0. [address] 30 - 00 RE ve YL 70 20 20 0 42 EN E 82 17 17 81 S LI 7 24 #1 TE [address] RI P BA 00 05 05 15 30 00 MN Ac SA 00 -0 -2 .0 00 LG ti GL 27 - 00 RE ve AR 71 20 20 42 EN 55 17 17 83 S 10 9 00 #1 0 20 UN 75 IT /M L KW IK PE N UL 08 05 05 10 00 MN Ac TI 22 -0 -2 0. 00 LG ti CA 20 - 6 00 RE ve RE 95 20 20 0 42 EN 83 17 17 83 S PE 1 02 #1 N 20 NE 75 ED LE S 8M M 31 G GA 69 04 05 30 00 GE Ac BA 09 -2 -1 0. 00 OR ti PE 70 06 GE ve NT 81 20 20 0 04 TO IN 11 17 17 16 WN 2 20 80 AP 0 OT MG HE CA TA RY BL ET FL 00 04 05 00 MN Ac UT 05 -2 -1 .0 00 LG ti IC 43 00 RE ve 27 20 20 42 EN ON 09 17 17 73 S E 9 46 #1 UT 20 OP 75 50 MC G SP RA Y SI 68 04 01 10 30 00 [facility] MV 18 -2 -1 .0 00 LG ti 00 00 RE ve TA 47 20 20 41 EN TI 80 17 17 50 S N 3 62 #1 10 20 75 MG TA BL ET TR 60 04 01 10 30 00 MN Ac AZ 50 -2 -1 .0 00 LG ti OD 52 00 RE ve ON 65 20 20 40 EN E 50 17 17 46 S 15 1 68 #1 0 20 MG 75 TA BL ET LI 68 04 05 00 MN Ac SI 18 -1 -1 .0 00 LG ti NO 00 00 RE ve UT 51 20 20 41 EN IL 40 17 17 87 S 3 96 #1 10 20 75 MG TA BL ET FL 00 04 05 30 30 00 MN Ac UO 78 -1 -1 .0 00 LG ti XE 12 00 RE ve TI 82 20 20 42 EN NE 20 17 17 55 S 1 03 #1 HC 20 L 75 20 MG CA PS UL E FR 99 04 05 10 25 00 MN Ac EE 07 -1 -0 0. [address] 30 2- 5- 00 00 RE ve YL 13 20 20 0 39 EN E 00 17 17 08 S 28 1 78 #1 G 20 LA 75 NC ET S TR 60 03 04 30 30 00 MN Ac AZ 50 -3 -2 .0 00 LG ti OD 52 0- 8- 00 00 RE ve ON 65 20 20 40 EN E 50 17 17 46 S 15 1 68 #1 0 20 MG 75 TA BL ET IN 11 03 04 60 30 00 MN Ac MAZA 91 -3 -2 .0 00 LG ti LI 70 0- 8- 00 00 RE ve N 04 20 20 41 EN SY 81 17 17 69 S RI 4 11 #1 N 20 0. 75 5 ML 31 GX 5 16 " FR 99 04 04 10 25 00 MN Ac EE 07 -0 -2 0. [address] 30 4- 8- 00 00 RE ve YL 70 20 20 0 38 EN E 82 17 17 27 S LI 7 72 #1 TE [address] RI P LA 00 03 04 10 28 00 MN Ac NT 08 -2 -2 .0 00 LG ti US 82 4- 1- 00 00 RE ve 22 20 20 42 EN 10 03 17 17 09 S 0 3 44 #1 UN 20 IT 75 /M L AL FL 60 03 04 16 30 00 MN Ac UT 50 -2 -2 .0 00 LG ti IC 50 6- 1- 00 00 RE ve 82 20 20 42 EN ON 90 17 17 12 S E 1 74 #1 UT 20 OP 75 50 MC G SP RA Y SI 68 03 04 30 30 00 MN Ac MV 18 -2 -2 .0 00 LG ti 00 6- 1- 00 00 RE ve TA 47 20 20 41 EN TI 80 17 17 50 S N 3 62 #1 10 20 75 MG TA BL ET GA 68 03 04 12 30 00 Ac BA 00 -2 -2 0. 00 ME ti PE 10 7- 1- 00 06 TO ve NT 00 20 20 0 08 WN IN 70 17 17 39 3 08 PH 80 AR 0 MA MG CY TA OF BL ET CY NT HI AN A FR 99 03 04 10 25 00 MN Ac EE 07 -2 -1 0. [address] 30 1- 4- 00 00 RE ve YL 13 20 20 0 39 EN E 00 17 17 08 S 28 1 78 #1 G 20 LA 75 NC ET S FR 99 03 04 10 25 00 MN Ac EE 07 -0 -0 0. [address] 30 9- 7- 00 RE ve YL 70 20 20 0 38 EN E 82 17 17 27 S LI 7 72 #1 TE [address] RI P FL 00 03 04 30 30 00 WA Ac UO 78 -1 -0 .0 00 LG ti XE 12 4- 7- 00 RE ve TI 82 20 20 40 EN NE 20 17 17 13 S 1 48 #1 HC 20 L 75 20 MG CA PS UL E LI 68 03 04 30 30 00 MN Ac SI 18 -1 -0 .0 00 LG ti NO 00 4- 7- 00 RE ve UT 51 20 20 41 EN IL 40 17 17 87 S 3 96 #1 10 20 75 MG TA BL ET TR 60 03 11 10 30 00 MN Ac AZ 50 -0 -3 .0 00 LG ti OD 52 3- 1- 00 RE ve ON 65 20 20 40 EN E 50 17 17 46 S 15 1 68 #1 0 20 MG 75 TA BL ET IN 11 03 03 60 30 00 MN Ac MAZA 91 -0 -3 .0 00 LG ti LI 70 4- 00 RE ve N 04 20 20 41 EN SY 81 17 17 69 S RI 4 11 #1 N 20 0. 75 5 ML 31 GX / 16 " FR 99 02 03 10 25 00 MN Ac EE 07 -2 -2 0. [address] 30 3- 00 RE ve YL 13 20 20 0 39 EN E 00 17 17 08 S 28 1 78 #1 G 20 LA 75 NC ET S FL 60 02 03 16 30 00 MN Ac UT 50 -2 -2 .0 00 LG ti IC 50 4- 4- 00 RE ve 82 20 20 41 EN ON 90 17 17 50 S E 1 51 #1 UT 20 OP 75 50 MC G SP RA Y SI 68 02 30 30 00 MN Ac MV 18 -2 -2 .0 00 LG ti 00 4- 4- 00 RE ve TA 47 20 20 41 EN TI 80 17 17 50 S N 3 62 #1 10 20 75 MG TA BL ET GA 00 02 03 12 30 00 MN Ac BA 09 -2 -2 0. 00 LG ti PE 34 7- 4- 00 RE ve NT 44 20 20 0 41 EN IN 40 17 17 55 S 5 59 #1 80 20 0 75 MG TA BL ET FL 00 02 03 30 30 MN Ac UO 78 -1 -1 .0 00 LG ti XE 12 3- 0- 00 00 RE ve TI 82 20 20 40 EN NE 20 17 17 13 S 1 48 #1 HC 20 L 75 20 MG CA PS UL E LI 68 02 03 30 30 00 MN Ac SI 18 -1 -1 .0 00 LG ti NO 00 3- 0- 00 00 RE ve UT 51 20 20 39 EN IL 40 17 17 02 S 3 30 #1 10 20 75 MG TA BL ET FR 99 02 03 10 25 00 MN Ac EE 07 -1 -1 0. [address] 30 4- 0- 00 00 RE ve YL 70 20 20 0 38 EN E 82 17 17 27 S LI 7 72 #1 TE [address] RI P HY 00 02 03 [address] 59 -2 -1 .0 00 LG ti OC 12 0- 0- 00 00 RE ve OD 60 20 20 41 EN ON 50 17 17 40 S -A 5 84 #1 CE 20 TA 75 NC NO PH 7. 5- 32 5 LA 00 02 03 10 28 00 MN Ac NT 08 -2 -1 .0 00 LG ti US 82 2- 0- 00 00 RE ve 22 20 20 38 EN 10 03 17 17 20 S 0 3 71 #1 UN 20 IT 75 /M L AL IN 11 02 03 10 30 00 MN Ac MAZA 91 -0 -0 0. 00 LG ti LI 70 4- 3- 00 00 RE ve N 04 20 20 0 38 EN SY 81 17 17 72 S RI 4 10 #1 N 20 0. 75 5 ML 31 GX 5/ 16 " TR 60 02 03 30 30 00 MN Ac AZ 50 -0 -0 .0 00 LG ti OD 52 4- 3- 00 00 RE ve ON 65 20 20 40 EN E 50 17 17 46 S 15 1 68 #1 0 20 MG 75 TA BL ET NI 00 02 03 28 28 00 MN Ac CO 53 -0 -0 .0 00 LG ti TI 61 6- 3- 00 00 RE ve NE 10 20 20 41 EN 88 17 17 10 S 21 8 67 #1 20 MG 75 /2 4H R PA TC H FR 99 02 03 1. 30 00 MN Ac EE 07 -0 -0 [address] 30 6- 3- 0 00 RE ve YL 70 20 20 41 EN E 80 17 17 10 S LI 5 75 #1 TE 20 75 ME TE R FR 99 02 03 10 25 00 WA Ac EE 07 -0 -0 0. [address] 30 6- 3- 00 00 RE ve YL 13 20 20 0 41 EN E 00 17 17 10 S 28 1 76 #1 G 20 LA 75 NC ET S HY 00 02 03 [address] 59 -0 -0 .0 00 LG ti OC 12 6- 3- 00 00 RE ve OD 60 20 20 41 EN ON 50 17 17 10 S -A 5 78 #1 CE 20 TA 75 NC NO PH 7. 5- 32 5 FL 60 01 02 16 30 00 WA Ac UT 50 -2 -2 .0 00 LG ti IC 50 6- 4- 00 00 RE ve 82 20 20 40 EN ON 90 17 17 88 S E 1 04 #1 UT 20 OP 75 50 MC G SP RA Y SI 68 01 02 30 30 00 MN Ac MV 18 -2 -2 .0 00 LG ti 00 6- 4- 00 00 RE ve TA 47 20 20 39 EN TI 80 17 17 17 S N 3 15 #1 10 20 75 MG TA BL ET GA 00 01 02 12 30 00 MN Ac BA 09 -3 -2 0. 00 LG ti PE 34 0- 4- 00 00 RE ve NT 44 20 20 0 40 EN IN 40 17 17 95 S 5 43 #1 80 20 0 75 MG TA BL ET FR 99 01 02 10 25 00 MN Ac EE 07 -3 -2 0. [address] 30 1- 4- 00 00 RE ve YL 13 20 20 0 39 EN E 00 17 17 08 S 28 1 78 #1 G 20 LA 75 NC ET S UT 68 02 02 20 5 00 MN Ac OM 38 -0 -2 .0 00 LG ti ET 20 1- 4- 00 00 RE ve ALONSO 04 20 20 41 EN ZI 00 17 17 02 S NE 1 57 #1 20 12 75 .5 MG TA BL ET ON 68 02 02 12 2 00 WA Ac DA 46 -0 -2 .0 00 LG ti NS 20 1- 4- 00 00 RE ve ET 15 20 20 41 EN RO 71 17 17 02 S N 3 58 #1 OD 20 T 75 4 MG TA BL ET FR 99 01 02 10 25 00 MN Ac EE 07 -2 -1 0. [address] 30 1- 7- 00 00 RE ve YL 70 20 20 0 38 EN E 82 17 17 27 S LI 7 72 #1 TE [address] RI P LA 00 01 02 10 28 00 MN Ac NT 08 -2 -1 .0 00 LG ti US 82 4- 7- 00 00 RE ve 22 20 20 38 EN 10 03 17 17 20 S 0 3 71 #1 UN 20 IT 75 /M L AL ST 00 01 02 60 30 00 MN Ac OO 53 -2 -1 .0 00 LG ti L 61 3- 7- 00 00 RE ve SO 06 20 20 40 EN FT 50 17 17 80 S EN 1 57 #1 ER 20 75 24 0 MG SO FT GE L HY 00 01 02 60 [address] 59 -2 -1 .0 00 LG ti OC 12 3- 7- 00 00 RE ve OD 60 20 20 40 EN ON 50 17 17 80 S -A 5 58 #1 CE 20 TA 75 NC NO PH 7. 5- 32 5 FL 00 01 02 30 30 00 MN Ac UO 78 -1 -1 .0 00 LG ti XE 12 7- 0- 00 00 RE ve TI 82 20 20 40 EN NE 20 17 17 13 S 1 48 #1 HC 20 L 75 20 MG CA PS UL E LI 68 01 30 30 00 MN Ac SI 18 -1 -1 .0 00 LG ti NO 00 7- 0- 00 00 RE ve UT 51 20 20 39 EN IL 40 17 17 02 S 3 30 #1 10 20 75 MG TA BL ET FR 99 01 02 10 25 00 MN Ac EE 07 -0 -0 0. [address] 30 9- 3- 00 00 RE ve YL 13 20 20 0 39 EN E 00 17 17 08 S 28 1 78 #1 G 20 LA 75 NC ET S TR 60 01 30 30 00 MN Ac AZ 50 -0 -0 .0 00 LG ti OD 52 9- 3- 00 00 RE ve ON 65 20 20 40 EN E 50 17 17 46 S 15 1 68 #1 0 20 MG 75 TA BL ET SI 68 12 30 30 00 MN Ac MV 18 -2 -2 .0 00 LG ti 00 7- 0- 00 00 RE ve TA 47 20 20 39 EN TI 80 16 17 17 S N 3 15 #1 10 20 75 MG TA BL ET FL 50 12 01 16 30 00 MN Ac UT 38 -2 -2 .0 00 LG ti IC 30 7- 0- 00 00 RE ve 70 20 20 38 EN ON 01 16 17 59 S E 6 83 #1 UT 20 OP 75 50 MC G SP RA Y FR 99 12 01 10 25 00 WA Ac EE 07 -2 -2 0. [address] 30 8- 0- 00 00 RE ve YL 70 20 20 0 38 EN E 82 16 17 27 S LI 7 72 #1 TE [address] RI P LA 00 12 01 10 28 00 WA Ac NT 08 -2 -2 .0 00 LG ti US 82 8- 0- 00 00 RE ve 22 20 20 38 EN 10 03 16 17 20 S 0 3 71 #1 UN 20 IT 75 /M L AL GA 68 12 01 12 30 00 GE Ac BA 46 -2 -2 0. 00 OR ti PE 20 8- 0- 00 06 GE ve NT 12 20 20 0 03 TO IN 70 16 17 43 WN 1 31 80 AP 0 OT MG HE CA TA RY BL ET FR 99 12 01 10 25 00 MN Ac EE 07 -1 -1 0. [address] 30 7- 3- 00 00 RE ve YL 13 20 20 0 39 EN E 00 16 17 08 S 28 1 78 #1 G 20 LA 75 NC ET S LI 68 12 30 30 00 MN Ac SI 18 -2 -1 .0 00 LG ti NO 00 0- 3- 00 00 RE ve UT 51 20 20 39 EN IL 40 16 17 02 S 3 30 #1 10 20 75 MG TA BL ET FL 00 12 30 30 00 MN Ac UO 78 -2 -1 .0 00 LG ti XE 12 0- 3- 00 00 RE ve TI 82 20 20 40 EN NE 20 16 17 13 S 1 48 #1 HC 20 L 75 20 MG CA PS UL E IN 11 12 60 30 00 MN Ac MAZA 91 -0 -0 .0 00 LG ti LI 70 9- 9- 00 00 RE ve N 04 20 20 38 EN SY 81 16 17 72 S RI 4 10 #1 N 20 0. 75 5 ML 31 GX 5/ 16 " TR 60 12 01 30 30 00 MN Ac AZ 50 -1 -0 .0 00 LG ti OD 52 1- 9- 00 00 RE ve ON 65 20 20 37 EN E 50 16 17 84 S 15 1 55 #1 0 20 MG 75 TA BL ET CL 00 02 02 0 45 10 WA 34 MA Ac OT 16 -0 -0 0. LG 38 RT ti RI 80 2- 2- 00 RE 14 IN ve MA 13 20 20 0 EN ZO 34 16 16 S LA LE 6 #1 UR 20 A 1% 75 B # CR EA 12 M 07 5 MAZA 61 02 02 0 20 10 WA 34 MA Ac LF 97 -0 -0 0. LG 38 RT ti AM 10 2- 2- 00 RE 12 IN ve ET 12 20 20 0 EN HO 00 16 16 S LA XA 5 #1 UR ZO 20 A LE 75 B -T # MP 12 DS 07 5 TA BL ET HY 00 02 02 0 10 [address] 59 -0 -0 0. LG 38 NL ti OC 13 2- 2- 00 RE 13 EY ve OD 20 20 20 0 EN ON 20 16 16 S PA -A 5 #1 UL CE 20 W TA 75 NC # NO PH 12 EN 07 5 5- 32 5 TR 00 06 08 2 30 30 KR 64 BA Ac AZ 60 -2 -2 .0 OG 93 LB ti OD 36 0- 4- 00 ER 66 AU ve ON 16 20 20 5 GH E 02 11 11 PH [address] MG CY EW # P TA BL 24 ET 70 9 BD 08 07 07 5 60 30 KR 64 BA Ac 29 -0 -0 .0 OG 96 LB ti IN 03 8- 8- 00 ER 82 AU ve MAZA 28 20 20 8 GH LI 46 11 11 PH N 8 AR AN SY MA DR R CY EW 0. # P 5 ML 24 70 8M 9 MX 31 G NO 00 07 07 5 20 25 KR 64 BA Ac VO 16 -0 -0 .0 OG 96 LB ti LO 93 8- 8- 00 ER 83 AU ve G 68 20 20 6 GH NC 51 11 11 PH X 2 AR AN [address] -3 CY EW 0 # P AL 24 70 9 CI 55 06 06 0 20 10 KR 64 BA Ac UT 11 -2 -2 .0 OG 93 LB ti OF 10 0- 0- 00 ER 66 AU ve LO 12 20 20 2 GH XA 70 11 11 PH CI 1 AR AN N MA DR HC CY EW L # P 50 0 24 MG 70 9 TA B LI 00 06 06 0 15 30 KR 64 BA Ac SI 59 -2 -2 .0 OG 93 LB ti NO 10 0- 0- 00 ER 66 AU ve UT 40 20 20 3 GH IL 60 [...] 4 GH ZA 10 11 11 PH UT 6 AR AN IN MA DR E CY EW 5 # P MG 24 TA 70 BL 9 ET TR 50 06 06 2 30 30 KR 64 BA Ac AZ 11 -2 -2 .0 OG 93 LB ti OD 10 0- 0- 00 ER 66 AU ve ON 43 20 20 5 GH E 30 11 11 PH [address] MG CY EW # P TA BL 24 ET 70 9 AM 00 04 04 0 14 7 [...] 4 GH ZA 10 11 11 PH UT 6 AR AN IN MA DR E [...] CY EW # P 24 70 9 TR 50 03 03 3 30 30 KR 64 BA Ac AZ 11 -0 -0 .0 OG 76 LB ti OD 10 9- 9- 00 ER 52 AU ve ON 43 20 20 2 GH E 30 11 11 PH [address] MG CY EW # P TA BL 24 ET 70 9 BA 00 03 03 3 90 30 KR 64 BA Ac CL 83 -0 -0 .0 OG 76 LB ti OF 21 9- 9- 00 ER 52 AU ve EN 02 20 20 3 GH 40 11 11 PH [address] MG CY EW # P TA BL 24 ET 70 9 UT 68 02 02 0 12 3 KR [...] 10 10 PH FA AC 1 AR NC ET MA LY AM CY & IN [...] 70 9 00 10 10 0 20 2 KR 45 AD Ac 40 -1 -1 .0 OG 67 KI ti 60 3- 3- 00 ER 79 NS ve 35 20 20 8 70 10 10 PH FA 5 AR NC MA LY CY & # CO 24 SM 70 ET 9 IC DE NT IS TR Y 00 10 10 0 20 3 KR [...] 70 10 10 PH FA 5 AR NC MA LY CY & # CO 24 [...] 06 10 02 10 30 J 75 UT Ac VO 16 -3 -0 .0 & 80 ES ti LI 91 0- 9- 00 L 90 TO ve N 83 20 20 PH 8 N 70 71 08 08 AR HE -3 1 MA NR 0 CY Y 10 R 0 UN IT /M L AL CL 00 08 09 00 28 7 CV 15 MA Ac IN 09 -2 -1 .0 S 32 X ti DA 33 7- 1- 00 PH 24 DO ve MY 17 20 20 AR NA CI 10 08 08 MA LD N 1 CY P HC L 23 15 32 0 MG CA PS UL E NO 00 06 09 01 10 30 J 75 No Ac VO 16 -3 -1 .0 & 80 t ti LI 91 0- 1- 00 L 90 Av ve N 83 20 20 PH 8 ai 70 71 08 08 AR la -3 1 MA bl 0 CY e 10 0 UN IT /M L AL 00 08 09 00 10 2 CV 15 MA Ac 40 -2 -1 .0 S 32 X ti 60 7- 1- 00 PH 23 DO ve 35 20 20 AR NA 80 08 08 MA LD 5 CY P 23 32 TR 60 07 07 02 30 30 CV 87 No Ac AZ 50 -1 -1 .0 S 84 t ti OD 52 4- 7- 00 PH 37 Av ve ON 65 20 20 AR ai E 40 07 08 MA la 10 1 CY bl 0 e MG 23 32 TA BL ET AM 00 06 07 00 28 7 CV 13 No Ac OX 09 -3 -1 .0 S 67 t ti IC 33 0- 7- 00 PH 91 Av ve IL 10 20 20 AR ai LI 90 08 08 MA la N 5 CY bl 50 e 0 23 MG 32 CA PS UL E NO 00 06 07 00 10 30 J 75 No Ac VO 16 -3 -1 .0 & 80 t ti LI 91 0- 7- 00 L 90 Av ve N 83 20 20 PH 8 ai 70 71 08 08 AR la -3 1 MA bl 0 CY e 10 0 UN IT /M L AL 00 06 07 00 30 4 CV [...] 0 CY bl e 23 32 00 07 07 00 16 3 CV 13 No Ac 40 -0 -1 .0 S 92 t ti 60 9- 7- 00 PH 70 Av ve 35 20 20 AR ai 80 08 08 MA la 5 CY bl e 23 32 Immunization Name Date Rout CVX Reac Dose Comm Prov Is Faci e tion ent ider Refu lity Give sed n TDAP 02-0 115 GEOR No GEOR 2-20 GETO GETO VACC 16 WN WN INE COMM COMM 7 UNTI UNTI YRS/ Y Y > IM HOSP [facility] Procedures Procedure DOS Code Location Performer Comment [facility] [address] [facility] SYST 7 MEDICAL IMAG INC IMAGING GB ASS W/PHARMA INTERVENJ FINAL G9551 [facility] REPR ABD 7 MEDICAL IMAG STS IMAGING W/O ASS INCIDNT FND LES NTD: FINAL G9638 [facility] REPORTS 7 MEDICAL W/O DOC IMAGING 1/MORE ASS DOSE REDUCTION TECH 57442 [facility] ABDOMINAL 7 MEDICAL REAL IMAGING TIME ASS W/[place] [address] [facility] ABDOMEN & 7 MEDICAL PELVIS IMAGING W/O ASS CONTRAST MATERIAL FOR DIAB A5512 [place] ONLY MX 7 MEDICAL MEDICAL DNSITY SUPPLY SUPPLY INSRT DIR [employer] FORMD PRFAB EA DIAB ONLY A5500 [place] FIT CSTM 7 MEDICAL MEDICAL PREP&SPL SUPPLY SUPPLY [employer] DNSITY INSRT AMB A0427 [facility] SERVICE 7 Cory-DE Ray-DE ALS CO EMS CO EMS EMERGENCY TRANSPORT LEVEL 1 [place] [address] [facility] LACTATE 7 N N COMMUNTIY COMMUNTIY HOSPITA HOSPITA BLOOD 02914 [facility] COUNT 7 N N COMPLETE COMMUNTIY COMMUNTIY AUTO&AUTO HOSPITA HOSPITA DIFRNTL WBC INFUSION J7030 [facility] NORMAL 7 N N SALINE COMMUNTIY COMMUNTIY SOLUTION HOSPITA HOSPITA 1000 CC COMPREHEN 90668 [facility] SIVE 7 N N METABOLIC COMMUNTIY COMMUNTIY PANEL HOSPITA HOSPITA GLUC BLD 53668 [facility] GLUC MNTR 7 N N DEV COMMUNTIY COMMUNTIY CLEARED HOSPITA HOSPITA FDA SPEC HOME USE GROUND A0425 [facility] MILEAGE 7 [facility] PER CO EMS CO EMS STATUTE MILE THERAPEUT 20437 [facility] IC 7 N N INJECTION COMMUNTIY COMMUNTIY IV PUSH HOSPITA HOSPITA EACH NEW DRUG URNLS DIP 75354 [facility] 7 N N STICK/TAB COMMUNTIY COMMUNTIY LET HOSPITA HOSPITA REAGENT AUTO MICROSCOP Y THER 55291 [facility] PROPH/DX 7 N N NJX IV COMMUNTIY COMMUNTIY PUSH HOSPITA HOSPITA SINGLE/1S T SBST/DRUG KETONE 11346 [facility] BODIES 7 N N SERUM COMMUNTIY COMMUNTIY QUALITAT[place] [address] [facility] LIPASE 7 N [place] [address] [facility] INFUSION 7 N N HYDRATION COMMUNTIY COMMUNTIY EACH HOSPITA HOSPITA ADDITIONA L HOUR ECG 44150 [facility] ROUTINE 7 [place] ECG EMERGENCY W/LEAST SERV 12 LDS I&R ONLY INITIAL 74551 [facility] 7 MEDICINE CARE/DAY SERVICES 30 O MINUTES SBSQ 26265 [facility] 7 N FAMILY CARE/DAY PRACTICE 25 MINUTES SBSQ 31996 [facility] 7 N FAMILY CARE/DAY PRACTICE 25 MINUTES AMB A0427 [facility] SERVICE 7 Cory-DE DE LEON ALS CO EMS CO EMS [place] [address] [facility] [place] [facility] HEAD/BRAI 7 RADIOLOGY N W/O CONTRAST MATERIAL RADIOLOGI 32880 [facility] [place] [facility] C 7 RADIOLOGY EXAMINATI ON CHEST SINGLE VIEW FRONTAL ECG 10484 [facility] ROUTINE 7 [place] ECG EMERGENCY W/LEAST SERVI 12 LDS I&R ONLY GROUND A0425 [facility] MILEAGE 7 Cory-DE Ray-DE PER CO EMS CO EMS STATUTE MILE RADEX 33757 [facility] [place] [facility] SPINE 7 RADIOLOGY LUMBOSACR AL 2/3 VIEWS RADEX 00159 [facility] [place] [facility] SACRUM & 7 RADIOLOGY [place] [address] [place] [address] [facility] [place] PATRICE ABDOMEN & 6 RADIOLOGY RHO PELVIS W/O CONTRAST MATERIAL HEMOGLOBI 57522 [facility] QUAN N 6 NURSE ADWOA GLYCOSYLA PRACTITIO NICHOLAS A1C NER GR GLUC BLD 89029 KMS QUAN GLUC MNTR 6 NURSE ADWOA DEV PRACTITIO CLEARED NER FDA SPEC HOME USE INJECTION J2270 [facility] MORPHINE 6 N N SULFATE COMMUNTIY COMMUNTIY UP TO 10 HOSPITA HOSPITA MG GLUC BLD 61610 [facility] GLUC MNTR 6 N N DEV COMMUNTIY COMMUNTIY CLEARED HOSPITA HOSPITA FDA SPEC HOME USE THERAPEUT 90431 [facility] IC 6 N N PROPHYLAC COMMUNTIY COMMUNTIY TIC/DX HOSPITA HOSPITA INJECTION SUBQ/[place] [address] [facility] MAGNESIUM 6 N N COMMUNTIY COMMUNTIY HOSPITA HOSPITA THER 04141 [facility] PROPH/DX 6 N N NJX EA COMMUNTIY COMMUNTIY SEQL IV HOSPITA HOSPITA PUSH SBST/DRUG FAC COMPREHEN 38046 [facility] SIVE 6 N N METABOLIC COMMUNTIY COMMUNTIY PANEL HOSPITA HOSPITA HEMOGLOBI 22645 [facility] N 6 N N GLYCOSYLA COMMUNTIY COMMUNTIY NICHOLAS A1C HOSPITA HOSPITA BLOOD 74508 [facility] COUNT 6 N N COMPLETE COMMUNTIY COMMUNTIY AUTO&AUTO HOSP[place] [address] [facility] PHOSPHORU 6 N N S COMMUNTIY COMMUNTIY INORGANIC HOSPITA HOSPITA OBSERVATI 66016 [facility] BIRDWHIST ON CARE 6 ELL MAT ELL MAT DISCHARGE MANAGEMEN T INJECTION C9113 [facility] 6 N N PANTOPRAZ COMMUNTIY COMMUNTIY OLE HOSPITA HOSPITA SODIUM PER VIAL COLLECTIO 96965 [facility] N VENOUS 6 N N BLOOD COMMUNTIY COMMUNTIY VENIPUNCT HOSPITA HOSPITA URE INJECTION C9113 [facility] 6 N N PANTOPRAZ COMMUNTIY COMMUNTIY OLE HOSPITA HOSPITA SODIUM PER VIAL COLLECTIO 57666 [facility] N VENOUS 6 N N BLOOD COMMUNTIY COMMUNTIY VENIPUNCT HOSPITA HOSPITA URE PROTHROMB 57954 [facility] IN TIME 6 N N COMMUNTIY COMMUNTIY HOSPITA HOSPITA BLOOD 95698 [facility] COUNT 6 N N COMPLETE COMMUNTIY COMMUNTIY AUTO&AUTO HOSPITA HOSPITA DIFRNTL WBC INFUSION J7030 [facility] NORMAL 6 N N SALINE COMMUNTIY COMMUNTIY SOLUTION HOSPITA HOSPITA 1000 CC COMPREHEN 79194 [facility] SIVE 6 N N METABOLIC COMMUNTIY COMMUNTIY PANEL HOSPITA HOSPITA INJECTION J2550 [facility] 6 N N PROMETHAZ COMMUNTIY COMMUNTIY INE HCL HOSPITA HOSPITA UP TO 50 MG THER 90701 [facility] PROPH/DX 6 N N NJX EA COMMUNTIY COMMUNTIY SEQL IV HOSPITA HOSPITA PUSH SBST/[place] [address] [facility] MAGNESIUM 6 N N COMMUNTIY [place] [address] [facility] PHOSPHORU 6 N N S COMMUNTIY COMMUNTIY INORGANIC HOSPITA HOSPITA INJECTION J0610 [facility] CALCIUM 6 N N GLUCONATE COMMUNTIY COMMUNTIY PER 10 HOSPITA HOSPITA ML THERAPEUT 55900 [facility] IC 6 N N PROPHYLAC COMMUNTIY COMMUNTIY TIC/DX HOSPITA HOSPITA INJECTION SUBQ/IM HEMOGLOBI 01419 [facility] N 6 N N GLYCOSYLA COMMUNTIY COMMUNTIY NICHOLAS A1C HOSPITA HOSPITA INJECTION J2270 [facility] MORPHINE 6 N N SULFATE COMMUNTIY COMMUNTIY UP TO 10 HOSPITA HOSPITA MG NONINVASI 28926 [facility] VE 6 N N EAR/PULSE COMMUNTIY COMMUNTIY OXIMETRY HOSPITA HOSPITA SINGLE DETER THERAPEUT 51525 [facility] IC 6 N N INJECTION COMMUNTIY COMMUNTIY IV PUSH HOSPITA HOSPITA EACH NEW DRUG GLUC BLD 40872 [facility] GLUC MNTR 6 N N DEV COMMUNTIY COMMUNTIY CLEARED HOSPITA HOSPITA FDA SPEC HOME USE INITIAL 85789 [facility] BIRDWHIST OBSERVATI 6 ELL MAT ELL MAT ON CARE/DAY 50 MINUTES URNLS DIP 72998 [facility] 6 N N STICK/TAB COMMUNTIY COMMUNTIY LET HOSPITA HOSPITA REAGENT AUTO MICROSCOP Y TOBACCO 79383 [facility] USE 6 N N CESSATION COMMUNTIY COMMUNTIY HOSPITA HOSPITA INTERMEDI ATE 3-10 MINUTES GLUC BLD 86151 [facility] GLUC MNTR 6 N N DEV COMMUNTIY COMMUNTIY CLEARED HOSPITA HOSPITA FDA SPEC HOME USE BLOOD 86682 [facility] GASES ANY 6 N N COMMUNTIY COMMUNTIY COMBINATI HOSPITA HOSPITA ON PH PCO2 PO2 CO2 HCO3 THERAPEUT 90186 [facility] IC 6 N N INJECTION COMMUNTIY COMMUNTIY IV [place] [address] [facility] INFUSION 6 N N THERAPY/P COMMUNTIY COMMUNTIY ROPHYLAXI HOSPITA HOSPITA S /DX 1ST TO 1 HR INJECTION J2270 [facility] MORPHINE 6 N N SULFATE COMMUNTIY COMMUNTIY UP TO 10 HOSPITA HOSPITA MG THERAPEUT 57194 [facility] IC 6 N N PROPHYLAC COMMUNTIY COMMUNTIY TIC/DX HOSPITA HOSPITA INJECTION SUBQ/[place] [address] [facility] LIPASE 6 N N [place]UN[place] [address] [facility] INFUSION 6 N N HYDRATION COMMUNTIY COMMUNTIY EACH HOSPITA HOSPITA ADDITIONA L HOUR KETONE 47459 [facility] BODIES 6 N N SERUM COMMUNTIY COMMUNTIY QUALITATI HOSPITA HOSPITA VE INJECTION J1885 [facility] 6 N N KETOROLAC COMMUNTIY COMMUNTIY HOSPITA HOSPITA TROMETHAM INE PER 15 MG THER 17296 [facility] PROPH/DX 6 N N NJX EA COMMUNTIY COMMUNTIY SEQL IV HOSPITA HOSPITA PUSH SBST/DRUG FAC INJECTION J1815 [facility] INSULIN 6 N N PER 5 COMMUNTIY COMMUNTIY UNITS HOSPITA HOSPITA INJECTION J2550 [facility] 6 N N PROMETHAZ COMMUNTIY COMMUNTIY INE HCL HOSPITA HOSPITA UP TO 50 MG COMPREHEN 40848 [facility] SIVE 6 N N METABOLIC COMMUNTIY COMMUNTIY PANEL HOSPITA HOSPITA INFUSION J7030 [facility] NORMAL 6 N N SALINE COMMUNTIY COMMUNTIY SOLUTION HOSPITA HOSPITA 1000 CC BLOOD 93070 [facility] COUNT 6 N N COMPLETE COMMUNTIY COMMUNTIY AUTO&AUTO HOSPITA HOSPITA DIFRNTL WBC ARTERIAL 06532 [facility] PUNCTURE 6 N N WITHDRAWA COMMUNTIY COMMUNTIY L BLOOD HOSPITA HOSPITA DX HOSPITAL G0378 [facility] OBSERVATI 6 N N ON COMMUNTIY COMMUNTIY SERVICE HOSPITA HOSPITA PER HOUR COLLECTIO 95417 [facility] N VENOUS 6 N N BLOOD COMMUNTIY COMMUNTIY VENIPUNCT HOSPITA HOSPITA URE ARTHROCEN 95309 [facility] MECCARIEL TESIS 6 [place] LO TRA ASPIR&/IN EMERGENCY J INTERM SERVI JT/BURS W/O US RADEX 21709 [facility] [place] ELBOW 6 RADIOLOGY JERRI COMPLETE MINIMUM 3 VIEWS THERAPEUT 27431 [facility] IC 6 N N PROPHYLAC COMMUNTIY COMMUNTIY TIC/DX HOSPITA HOSPITA INJECTION SUBQ/IM GLUC BLD 60388 [facility] GLUC MNTR 6 N N DEV COMMUNTIY COMMUNTIY CLEARED HOSPITA HOSPITA FDA SPEC HOME USE INFUSION J7030 [facility] NORMAL 6 N N SALINE COMMUNTIY COMMUNTIY SOLUTION HOSPITA HOSPITA 1000 CC BLOOD 89657 [facility] COUNT 6 N N COMPLETE COMMUNTIY COMMUNTIY AUTO&AUTO HOSPITA HOSPITA DIFRNTL WBC BASIC 68065 [facility] METABOLIC 6 N N PANEL COMMUNTIY COMMUNTIY CALCIUM HOSPITA HOSPITA TOTAL COLLECTIO 29802 [facility] N VENOUS 6 N N BLOOD COMMUNTIY COMMUNTIY VENIPUNCT HOSPITA HOSPITA URE OBSERVATI 10457 [facility]IRD[facility] BIRDWHIST ON CARE 6 ELL MAT ELL [place] [address] [facility] AMYLASE 6 N N COMMUNTIY COMMUNTIY HOSPITA HOSPITA COLLECTIO 64201 [facility] N VENOUS 6 N N BLOOD COMMUNTIY COMMUNTIY VENIPUNCT HOSPITA HOSPITA URE HOSPITAL G0378 [facility] OBSERVATI 6 N N ON COMMUNTIY COMMUNTIY SERVICE HOSPITA HOSPITA PER HOUR DRUG TEST G0479 [facility] 6 N N PRESUMP;I COMMUNTIY COMMUNTIY NSTRUMENT HOSPITA HOSPITA ED CHEMISTRY ANLYZER INFUSION J7030 [facility] NORMAL 6 N N SALINE COMMUNTIY COMMUNTIY SOLUTION HOSPITA HOSPITA 1000 CC BLOOD 51805 [facility] COUNT 6 N N COMPLETE COMMUNTIY COMMUNTIY AUTO&AUTO HOSPITA HOSPITA DIFRNTL WBC COMPREHEN 60101 [facility] SIVE 6 N N METABOLIC COMMUNTIY COMMUNTIY PANEL HOSPITA HOSPITA GLUC BLD 22367 [facility] GLUC MNTR 6 N N DEV COMMUNTIY COMMUNTIY CLEARED HOSPITA HOSPITA FDA SPEC HOME USE TOBACCO 24255 [facility] USE 6 N N CESSATION COMMUNTIY COMMUNTIY HOSPITA HOSPITA INTERMEDI ATE 3-10 MINUTES INJECTION J2270 [facility] MORPHINE 6 N N SULFATE COMMUNTIY COMMUNTIY UP TO 10 HOSPITA HOSPITA MG INJECTION J0360 [facility] 6 N N HYDRALAZI COMMUNTIY COMMUNTIY NE HCL UP HOSPITA HOSPITA TO 20 MG INITIAL 02690 [facility] BIRDWHIST OBSERVATI 6 ELL MAT ELL MAT ON CARE/DAY 50 MINUTES URNLS DIP 67668 [facility] 6 N N STICK/TAB COMMUNTIY COMMUNTIY LET HOSPITA HOSPITA REAGENT AUTO MICROSCOP Y ECG 25816 [facility] [place] ECG EMERGENCY W/LEAST PHYS 12 LDS I&R ONLY THERAPEUT 87123 [facility] IC 6 N N INJECTION COMMUNTIY COMMUNTIY IV PUSH HOSPITA HOSPITA EACH NEW DRUG THER 36028 [facility] PROPH/DX 6 N N NJX IV COMMUNTIY COMMUNTIY PUSH HOSPITA HOSPITA SINGLE/1S T SBST/DRUG ECG 48191 [facility] ROUTINE 6 N N ECG COMMUNTIY COMMUNTIY W/LEAST HOSPITA HOSPITA 12 LDS TRCG ONLY W/O I&R THERAPEUT 69893 [facility] IC 6 N N PROPHYLAC COMMUNTIY COMMUNTIY TIC/DX HOSPITA HOSPITA INJECTION SUBQ/[place] [address] [facility] [place] SCALF S[place] ABDOMEN & 6 RADIOLOGY PELVIS W/[place] [address] [facility] PHOSPHORU 6 N N S COMMUNTIY COMMUN[place] [address] [facility] INFUSION 6 N N HYDRATION COMMUNTIY COMMUNTIY EACH HOSPITA HOSPITA ADDITIONA L HOUR KETONE 01585 [facility] BODIES 6 N N SERUM COMMUNTIY COMMUNTIY QUALITAT[place] [address] [facility] LIPASE 6 N N COMMUNTIY COMMUNTIY HOSPITA HOSPITA RINGERS J7120 [facility] LACTATE 6 N N INFUSION COMMUNTIY COMMUNTIY UP TO HOSPITA HOSPITA 1000 CC GLUC BLD 59685 [facility] GLUC MNTR 6 N N DEV COMMUNTIY COMMUNTIY CLEARED HOSPITA HOSPITA FDA SPEC HOME USE ANES 96016 [place] J[place] ANT LOWER 6 ANESTHESI INTESTINE A GROUP PS ENDOSCOPY DISTAL DUODENUM COLOREC G0121 [facility] CANCR 6 N N SCR; COMMUNTIY COMMUNTIY COLNSCPY HOSPITA HOSPITA NOT MEET HI RISK COLONOSCO 41126 GASTROENT CASE JUS PY FLX DX 6 EROLOGY W/COLLJ [place] [address] [facility] LACTATE 6 N N COMMUNTIY COMMUNTIY HOSPITA HOSPITA COLLECTIO 95174 [facility] N VENOUS 6 N N BLOOD COMMUNTIY COMMUNTIY VENIPUNCT HOSPITA HOSPITA URE COMPREHEN 74338 [facility] SIVE 6 N N METABOLIC COMMUNTIY COMMUNTIY PANEL HOSPITA HOSPITA INFUSION J7030 [facility] NORMAL 6 N N SALINE COMMUNTIY COMMUNTIY SOLUTION HOSPITA HOSPITA 1000 CC BLOOD 68758 [facility] COUNT 6 N N COMPLETE COMMUNTIY COMMUNTIY AUTO&AUTO HOSP[place] [address] [facility] TROPONIN 6 N N QUANTITAT COMMUNTIY COMMUNTIY VERÓNICA HOSPITA HOSPITA GLUC BLD 66768 [facility] GLUC MNTR 6 N N DEV COMMUNTIY COMMUNTIY CLEARED HOSPITA HOSPITA FDA SPEC HOME USE THERAPEUT 56042 [facility] IC 6 N N INJECTION COMMUNTIY COMMUNTIY IV PUSH HOSPITA HOSPITA EACH NEW DRUG URNLS DIP 28338 [facility] 6 N N STICK/TAB COMMUNTIY COMMUNTIY LET HOSPITA HOSPITA REAGENT AUTO MICROSCOP Y INJECTION J2270 [facility] MORPHINE 6 N N SULFATE COMMUNTIY COMMUNTIY UP TO 10 HOSPITA HOSPITA MG THER 34064 [facility] PROPH/DX 6 N N NJX IV COMMUNTIY COMMUNTIY PUSH HOSPITA HOSPITA SINGLE/1S T SBST/[place] [address] [facility] LIPASE 6 N N COMMUNTIY COMMUNTIY HOSPITA HOSPITA KETONE 41275 [facility] BODIES 6 N N SERUM COMMUNTIY [place] [address] [facility] INFUSION 6 N N HYDRATION COMMUNTIY COMMUNTIY EACH HOSPITA HOSPITA ADDITIONA L HOUR HEMOGLOBI 08742 [facility] N 6 DIAGNOSTI DIAGNOSTI GLYCOSYLA CS CS NICHOLAS A1C LIPID 04428 [facility] PANEL 6 DIAGNOSTI DIAGNOSTI CS CS THYROID 39520 [facility] HORM 6 DIAGNOSTI DIAGNOSTI UPTK/THYR CS CS OID HORMONE BINDING RATIO BLOOD 27063 [facility] COUNT 6 DIAGNOSTI DIAGNOSTI COMPLETE CS CS AUTO&[place] [address] [facility] PROSTATE 6 DIAGNOSTI DIAGNOSTI SPECIFIC CS CS ANTIGEN TOTAL COMPREHEN 60377 [facility] SIVE 6 DIAGNOSTI DIAGNOSTI [place] [address] [facility] THYROXINE 6 DIAGNOST[place] [address] [facility] THYROID 6 DIAGNOSTI DIAGNOSTI STIMULATI CS CS NG HORMONE TSH IM ADM 41313 [facility] PRQ ID 6 N N SUBQ/IM COMMUNTIY COMMUNTIY NJXS 1 HOSPITA HOSPITA VACCINE TDAP 90994 [facility] VACCINE 7 6 N N YRS/> IM COMMUNTIY COMMUNTIY HOSPITA HOSPITA INCISION 89002 [facility] MANCIA & 6 PREMA PREMA DRAINAGE ABSCESS SIMPLE/SI NGLE INJECTION J2001 [facility] 6 N N LIDOCAINE COMMUNTIY COMMUNTIY HCL HOSPITA HOSPITA INTRAVENO US INFUS 10 [facility] 21516 [facility] DISCHARGE 5 [facility] DAY MANAGEMEN T 30 MIN/< SBSQ 80486 [facility] 5 [facility] CARE/DAY 25 MINUTES SBSQ 55253 [facility] 5 [facility] CARE/DAY 25 MINUTES AMB A0427 [facility] SERVICE 5 [facility] [place] [facility] ALS CO EMS CO EMS EMERGENCY TRANSPORT LEVEL 1 ECG 61215 [facility] ROUTINE 5 SCO SCO ECG W/LEAST 12 LDS I&R ONLY INITIAL 28962 [facility] 5 [facility] CARE/DAY 50 MINUTES GROUND A0425 [facility] MILEAGE 5 [facility] PER CO EMS CO EMS STATUTE MILE ALBUMIN 02839 [facility] URINE 5 DIAGNOSTI DIAGNOSTI MICROALBU [facility] MIN QUANTIATI VE HEMOGLOBI 92849 [facility] N 5 DIAGNOSTI DIAGNOSTI GLYCOSYLA [facility] NICHOLAS A1C CREATININ 14462 [facility] E OTHER 5 DIAGNOSTI DIAGNOSTI SOURCE [facility] URNLS DIP 94370 QUEST QUEST 5 DIAGNOSTI DIAGNOSTI STICK/TAB [facility] LET RGNT AUTO W/O MICROSCOP Y WALKING L4360 ISIDRO ELI BOOT 5 FOOT & N MORGAN PNEUMATC ANKLE CE &/ VACUUM PREFAB CUSTM FIT HEMOGLOBI 60886 QUEST QUEST N 5 DIAGNOSTI DIAGNOSTI GLYCOSYLA [facility] NICHOLAS A1C CANE INCL E0100 J & L J & L CANES 4 HOME HOME ALL MEDICAL MEDICAL MATERIAL EQUIPMENT EQUIPMENT ADJUSTBLE /FIX W/[place] [address] [facility] THYROID 4 DIAGNOSTI DIAGNOSTI STIMULATI [place] [address] [facility] THYROXINE 4 DIAGNOSTI DIAGNOSTI TOTAL CS CS COMPREHEN 77924 [facility] QUE[facility] SIVE 4 DIAGNOSTI DIAGNOSTI METABOLIC CS CS PANEL BLOOD 42358 [facility] QUE[facility] COUNT 4 DIAGNOSTI DIAGNOSTI COMPLETE CS CS AUTO&AUTO DIFRNTL WBC THYROID 95062 [facility] HORM 4 DIAGNOSTI DIAGNOSTI UPTK/THYR CS CS OID HORMONE BINDING RATIO HEMOGLOBI 21403 QUEST QUEST N 4 DIAGNOSTI DIAGNOSTI GLYCOSYLA CS CS NICHOLAS A1C LIPID 78233 QUEST QUEST PANEL 4 DIAGNOSTI DIAGNOSTI CS CS INFUS SET A4230 DIABETES DIABETES EXT 4 CARE & CARE & INSULIN EDUCATION EDUCATION PUMP NONNDLE CANNULA TYPE SYRINGE A4232 DIABETES DIABETES W/NDLE 4 CARE & CARE & EXTERNAL EDUCATION EDUCATION INSULIN PUMP STERILE 3CC TRANSPARE A6257 DIABETES DIABETES NT FILM 4 CARE & CARE & STERL 16 EDUCATION EDUCATION SQ IN OR LESS EA DRESS SKIN A5120 DIABETES DIABETES BARRIER 4 CARE & CARE & WIPES OR EDUCATION EDUCATION SWABS EACH SKIN A5120 DIABETES DIABETES BARRIER 4 CARE & CARE & WIPES OR EDUCATION EDUCATION SWABS EACH TRANSPARE A6257 DIABETES DIABETES NT FILM 4 CARE & CARE & STERL 16 EDUCATION EDUCATION SQ IN OR LESS EA DRESS SYRINGE A4232 DIABETES DIABETES W/NDLE 4 CARE & CARE & EXTERNAL EDUCATION EDUCATION INSULIN PUMP STERILE 3CC INFUS SET A4230 DIABETES DIABETES EXT 4 CARE & CARE & INSULIN EDUCATION EDUCATION PUMP NONNDLE CANNULA TYPE ANKLE L1902 [place] [facility] ORTH 4 FOOT & N MORGAN ANKLE ANKLE CE GAUNT/SIM PREFAB OFF-THE-S HELF MRI LOWER 99929 PROSCAN PROSCAN EXTREM 4 RADIOLOGY RADIOLOGY OTH/THN JT W/O CONTR MATRL INFUS SET A4230 DIABETES DIABETES EXT 4 CARE & CARE & INSULIN EDUCATION EDUCATION PUMP NONNDLE CANNULA TYPE SYRINGE A4232 DIABETES DIABETES W/NDLE 4 CARE & CARE & EXTERNAL EDUCATION EDUCATION INSULIN PUMP STERILE 3CC TRANSPARE A6257 DIABETES DIABETES NT FILM 4 CARE & CARE & STERL 16 EDUCATION EDUCATION SQ IN OR LESS EA DRESS SKIN A5120 DIABETES DIABETES BARRIER 4 CARE & CARE & WIPES OR EDUCATION EDUCATION SWABS EACH WALKING L4360 [facility] FOOT & N MORGAN PNEUMATC ANKLE CE &/ VACUUM PREFAB CUSTM FIT RADEX 49071 [facility] ANKLE 4 FOOT & N MORGAN COMPLETE ANKLE CE MINIMUM 3 VIEWS RADIOLOGI 78493 [place] [facility] C 4 FOOT & N MORGAN EXAMINATI ANKLE CE ON FOOT 2 VIEWS INFUS SET A4230 DIABETES DIABETES EXT 4 CARE & CARE & INSULIN EDUCATION EDUCATION PUMP NONNDLE CANNULA TYPE SYRINGE A4232 DIABETES DIABETES W/NDLE 4 CARE & CARE & EXTERNAL EDUCATION EDUCATION INSULIN PUMP STERILE 3CC SKIN A5120 DIABETES DIABETES BARRIER 4 CARE & CARE & WIPES OR EDUCATION EDUCATION SWABS EACH TRANSPARE A6257 DIABETES DIABETES NT FILM 4 CARE & CARE & STERL 16 EDUCATION EDUCATION SQ IN OR LESS EA DRESS SKIN A5120 DIABETES DIABETES BARRIER 4 CARE & CARE & WIPES OR EDUCATION EDUCATION SWABS EACH EXTERNAL E0784 PANFILO WHITTAKER AMBULATOR 4 [facility] Y E E INFUSION SERVICES SERVICES PUMP INSULIN TRANSPARE A6257 DIABETES DIABETES NT FILM 4 CARE & CARE & STERL 16 EDUCATION EDUCATION SQ IN OR LESS EA DRESS SYRINGE [id number] DIABETES DIABETES W/NDLE 4 CARE & CARE & EXTERNAL EDUCATION EDUCATION INSULIN PUMP STERILE 3CC SLEEP STD 09951 SHASHY SHASHY AIRFLOW 4 WOOD WOOD HRT RATE&O2 SAT EFFORT UNATT INFUS SET A4230 DIABETES DIABETES EXT 4 CARE & CARE & INSULIN EDUCATION EDUCATION PUMP NONNDLE CANNULA TYPE SENSOR;IN A9276 DIABETES DIABETES VSV DISP 4 CARE & CARE & INTRSTL EDUCATION EDUCATION CONT GLU MON SYS 1U=1D LIPID 30210 [facility] PANEL 4 DIAGNOSTI DIAGNOSTI CS CS HEMOGLOBI 59936 [facility] QUEST N 4 DIAGNOSTI DIAGNOSTI GLYCOS[place] [address] [facility] QUE[facility] INSULIN 4 DIAGNOSTI DIAGNOST[place] [address] [facility] THYROID 4 DIAGNOSTI DIAGNOSTI STIMULATI [place] [address] [facility] THYROXINE 4 DIAGNOSTI DIAGNOSTI TOTAL CS CS INCORPORA T COMPREHEN 36850 [facility] SIVE 4 DIAGNOSTI DIAGNOSTI METABOLIC CS CS PANEL BLOOD 31214 [facility] MATT COUNT 4 DIAGNOSTI DESTINEE COMPLETE CS AUTO&AUTO DIFRNTL WBC THYROID 92293 [facility] HORM 4 DIAGNOSTI DIAGNOSTI UPTK/THYR CS CS OID INCORPORA [place] [address] [facility] C-PEPTIDE 4 DIAGNOSTI DIAGNOSTI CS CS INCORPORA T RADIOLOGI 16664 [facility] C EXAM 4 RYA RYA CHEST 2 VIEWS FRONTAL&L ATERAL RADEX 90590 [facility] [place] [facility] SPINE 4 RADIOLOGY THORACIC 2 VIEWS RADEX 91154 [facility] [place] SPINE 4 RADIOLOGY LUMBOSACR AL 2/3 [facility] 64212 [facility] 4 [place] A GOP DAY PHYSICIAN MANAGEMEN SERVI T 30 MIN/< SBSQ 66459 [facility] 4 [place] A GOP CARE/DAY PHYSICIAN 25 SERVI MINUTES AMB A0427 [facility] SERVICE 4 [facility] [place] [facility] CO EMS CO EMS EMERGENCY TRANSPORT LEVEL 1 RADIOLOGI 39373 [facility] C 4 [place] - YORBA EXAMINATI EMERGENCY PAT ON CHEST PHYSI SINGLE VIEW FRONTAL INITIAL 17167 [facility] 4 [place] LILO CARE/DAY PHYSICIAN 70 SERVI MINUTES ECG 45195 [facility] ROUTINE 4 [place] ECG EMERGENCY PAT W/LEAST PHYSI 12 LDS I&R ONLY GROUND A0425 [facility] [place] PER CO EMS CO EMS STATUTE [facility] 55915 [facility] 4 [place] [facility] DAY PHYSICIAN MANAGEMEN SERVI T 30 MIN/< SBSQ 02564 [facility] 4 [place] [facility] CARE/DAY PHYSICIAN 35 SERVI MINUTES INITIAL 78444 [facility] 4 [place] [facility] CARE/DAY PHYSICIAN 70 SERVI MINUTES CRITICAL 67053 [facility] 4 PREMA PREMA ILL/INJUR ED PATIENT INIT 30-74 MIN COLLECTIO 73931 [facility] N VENOUS 1 AND BLOOD PEDIATRIC VENIPUNCT S & INTER URE ALBUMIN 11753 [facility] URINE 1 MICROALBU PEDIATRIC PEDIATRIC MIN S & INTER S & INTER SEMIQUANT ITATIVE COMPREHEN 74939 [facility] ER[facility]MO SIVE 1 [facility] METABOLIC [facility] PANEL HEMOGLOBI 61544 LAB [facility]MO LAB ERASMO N 1 AMERIC AMERIC GLYCOSYLA HOLDING HOLDING NICHOLAS A1C SBSQ 38195 [facility] 1 [facility] CARE/DAY ADVANCED 25 MAZA MINUTES INITIAL 62530 [facility] INPATIENT 1 [facility] CONSULT ADVANCED NEW/ESTAB MAZA PT 40 MIN GASTRIC 88130 [facility] [place] [facility] EMPTYING 1 RADIOLOGY IMAGING STUDY [facility] 83910 [facility] DISCHARGE 1 BETTY DAY PEDIATRIC MANAGEMEN S & INTER T 30 MIN/< RADEX ABD 42216 [facility] [place] [facility] COMPL 1 RADIOLOGY AQT ABD W/S/E/D VIEWS 1 VIEW CH SBSQ 29766 [facility] 1 BETTY CARE/DAY PEDIATRIC 25 S & INTER MINUTES CRITICAL 57310 [facility] 1 EMERGENCY DEV ILL/INJUR SERVICES ED PATIENT INIT 30-74 MIN AMB A0427 [facility] SERVICE 1 [facility] CO EMS CO EMS EMERGENCY TRANSPORT LEVEL 1 INITIAL 65449 [facility] 1 BETTY CARE/DAY PEDIATRIC 70 S & [place] [address] [facility] [place] [facility] ABDOMEN & 1 RADIOLOGY PELVIS W/O CONTRAST MATERIAL GROUND A0425 [facility] 1 Cory-DE N-DE PER CO EMS CO EMS STATUTE MILE HEMOGLOBI 88161 LAB ERASMO LAB ERASMO N 1 AMERIC AMERIC GLYCOSYLA [employer]ING HOLDING NICHOLAS A1C LIPID 91767 LAB ER[facility] LAB ERASMO PANEL 1 [place] [address] LAB ERASMO LAB ERASMO FREE 1 AMERIC AMERIC THYROXINE HOLDING HOLDING GENERAL 82687 LAB ERASMO LAB ERASMO HEALTH 1 AMERIC 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 HOLDING ECG 99331 [facility] ROUTINE 1 AND ECG PEDIATRIC W/LEAST S & INTER 12 LDS W/I&R [place] [address] [facility] [place] HEAD/BRAI 1 RADIOLOGY RAÚL N W/O CONTRAST MATERIAL ALVEOLECT 99314 BR[facility] RAIN FADY 0 KARI KARI W/CURTG OSTEITIS/ SEQUESTRE CTOMY DEEP D9220 BRISEYDA RAIN SEDATION/ 0 KARI KARI GENERAL ANESTHESI A-1ST 30 MINUTES ORTHOPANT 67445 BRISEYDA RAIN OGRAM 0 KARI KARI LANCETS A4259 AM MED AM MED PER BOX 8 DIRECT DIRECT OF 100 [facility] PH[facility]ACY BLD GLU A4253 AM MED AM MED TEST/REAG 8 DIRECT DIRECT T STRIPS [facility] PHARMACY GLU MON-50 LANCETS A4259 AM MED AM MED PER BOX 8 DIRECT DIRECT OF 100 [facility] PHARMACY BLD GLU A4253 AM MED AM MED TEST/REAG 8 DIRECT DIRECT T STRIPS [facility] PHARMACY GLU MON-50 BLD GLU A4253 AM MED AM MED TEST/REAG 8 DIRECT DIRECT T STRIPS [facility] PHARMACY GLU MON-50 LANCETS A4259 AM MED AM MED PER BOX 8 DIRECT DIRECT OF 100 [facility] PHARMAC[facility] DEEP D9220 [place] DEIRDRE ELENITA, SEDATION/ 8 FOR BETSY Castillo GENERAL ORAL&MAXI ANESTHESI LLOFACIAL A-1ST 30 SURGERY MINUTES APPLICATI 43542 BRITANY GARG, ON 8 YOHANA M YOHANA Toribio MODALITY 1/> AREAS HOT/COLD PACKS APPL 77323 BRITANY GARG, MODALITY 8 YOHANA M YOHANA Toribio 1/> AREAS ELEC STIMJ UNATTENDE D CHIROPRAC 52120 BRITANY GARG, TIC 8 YOHANA Toribio MANIPULAT [place] SPINAL 3-4 REGIONS APPLICATI 84761 BRITANY GARG, ON 8 YOHANA Toribio MODALITY 1/> AREAS HOT/COLD PACKS CHIROPRAC 84203 BRITANY GARG, TIC 8 YOHANA Toribio MANIPULAT VER[place] SPINAL 3-4 REGIONS APPL 92289 BRITANY GARG, MODALITY 8 YOHANA Toribio 1/> AREAS ELEC STIMJ UNATTENDE D DETERMINA 78048 [facility], TION 8 [facility] E STATE ORTHOPANT 77248 [facility] JAYNE WONG 8 FOR JOSE Ron ORAL&MAXI LLOFACIAL SURGERY Encounters Encounter Start End Date Code Location Performer Type Date OFFICE 66220 [facility] 7 7 ELL ELL T VISIT 15 MINUTES OFFICE 27594 [facility] OUT[facility] 7 7 ELL ELL T VISIT 15 MINUTES [facility] - 7 7 N OUTPATIEN COMMUNTIY T HOSPITA EMERGENCY 53512 [facility] 7 7 N DEPARTMEN COMMUNTIY T VISIT HOSPITA HIGH/URGE NT SEVERITY EMERGENCY 14678 [facility] JIMMY DEPT 7 7 [place] VISIT EMERGENCY HIGH PHYS SEVERITY& THREAT FUNCJ EMERGENCY 94365 [facility] CELLAROSI DEPT 7 7 [place] - Y[place]BA VISIT EMERGENCY HIGH PHYS SEVERITY& THREAT FUNCJ EMERGENCY 92949 [facility] MATT DEPT 7 7 [place] VISIT EMERGENCY HIGH SERVI SEVERITY& THREAT FUNCJ EMERGENCY 01099 [facility] MECCARIEL 6 6 [place] LO TRA DEPARTMEN EMERGENCY T VISIT SERVI HIGH/URGE NT SEVERITY HOSPITAL [facility] - 6 6 N OUTPATIEN COMMUNTIY T HOSPITA OFFICE 30821 [facility] 6 6 NURSE ADWOA DORANTES/ESTAB NER GR PATIENT 60 MIN EMERGENCY 81505 [facility] DEPT 6 6 N VISIT COMMUNTIY HIGH HOSPITA SEVERITY& THREAT [facility] - 6 6 N OUTPATIEN COMMUNTIY T HOSPITA EMERGENCY 02844 [facility] 6 6 [place] LO TRA DEPARTMEN EMERGENCY T VISIT SERVI HIGH/URGE NT SEVERITY EMERGENCY 31212 [facility] 6 6 N DEPARTMEN COMMUNTIY T VISIT HOSPITA MODERATE SEVERITY HOSPITAL [facility] - 6 6 N OUTPATIEN COMMUNTIY T HOSPITA OFFICE 77554 [facility] OUTPATIEN 6 6 KHUSHBU STERN T VISIT 15 MINUTES HOSPITAL [facility] - 6 6 N OUTPATIEN COMMUNTIY T HOSPITA EMERGENCY 06730 [facility] 6 6 N DEPARTMEN COMMUNTIY T VISIT HOSPITA LIMITED/M INOR PROB OFFICE 86078 [facility] OUTPATIEN 6 6 KHUSHBU STERN T VISIT 15 MINUTES EMERGENCY 60622 [facility] DEPT 6 6 [place] VISIT EMERGENCY HIGH PHYS SEVERITY& THREAT [facility] - 6 6 N [facility] 6 6 N [facility]PAT[facility] - 6 6 N OUTPATIEN COMMUNTIY T HOSPITA EMERGENCY 25747 [facility] 6 6 N DEPARTMEN COMMUNTIY T VISIT HOSPITA HIGH/URGE NT SEVERITY EMERGENCY 61164 [facility] DEPT 6 6 [place] VISIT EMERGENCY HIGH SERV SEVERITY& THREAT [facility] OFFICE 42601 [facility]WH[facility] BIRDWHIST OUTPATIEN 6 6 KHUSHBU STERN T VISIT 15 MINUTES EMERGENCY 57097 BLANC[facility] MANCIA 6 6 PREMA PREMA DEPARTMEN T VISIT HIGH/URGE NT SEVERITY HOSPITAL [facility] - 6 6 N OUTPATIEN COMMUNTIY T HOSPITA EMERGENCY 81316 [facility] 6 6 N DEPARTMEN COMMUNTIY T VISIT HOSPITA MODERATE SEVERITY OFFICE 25621 [facility] OUTPATIEN 5 5 KHUSHBU STERN T VISIT 15 MINUTES HOSPITAL [facility] - 5 5 N INPATIENT COMMUNTIY HOSPITA EMERGENCY 85423 [facility]UB[facility] MAC DEPT 5 5 SCO SCO VISIT HIGH SEVERITY& THREAT FUNCJ EMERGENCY 10166 [facility] DEPT 5 5 EDWAR EDWAR VISIT HIGH SEVERITY& THREAT FUNCJ OFFICE 87111 [facility]IRDWHIST OUTPATIEN 5 5 KHUSHBU RÍOS T VISIT 15 MINUTES EMERGENCY 03209 BLANCHE MANCIA DEPT 5 5 PREMA PREMA VISIT HIGH SEVERITY& THREAT FUNCJ OFFICE 61786 [facility] RICHARDSO OUTPATIEN 5 5 FOOT & N MORGAN T VISIT ANKLE CE 15 MINUTES OFFICE 56065 MUHA JAVI MUHA JAVI OUTPATIEN 4 4 T NEW 30 MINUTES OFFICE 47348 [facility] OUTPATIEN 4 4 FOOT & N MORGAN T VISIT ANKLE CE 15 MINUTES OFFICE 68532 [facility] OUTPATIEN 4 4 FOOT & N MORGAN T VISIT ANKLE CE 15 MINUTES OFFICE 98635 [facility] [facility] OUTPATIEN 4 4 FOOT & N MORGAN T VISIT ANKLE CE 15 MINUTES OFFICE 47416 [facility] [facility] OUTPATIEN 4 4 FOOT & N MORGAN T VISIT ANKLE CE 15 MINUTES OFFICE 36620 ISIDRO MONROE OUTPATIEN 4 4 FOOT & N MORGAN T NEW 30 ANKLE CE MINUTES [facility] [place] [address] 4 N OUTPATIEN COMMUNITY T HOSPITA OFFICE 43653 BIRDARMANDOIST BIRDWHIST OUTPATIEN 4 4 KHUSHBU STERN T VISIT 15 MINUTES EMERGENCY 61216 BLANCHE MANCIA DEPT 4 4 PREMA PREMA VISIT HIGH SEVERITY& THREAT FUNCJ OFFICE 41749 TRUDYIST BIRDWHIST OUTPATIEN 4 4 KHUSHBU STERN T VISIT 25 MINUTES EMERGENCY 69793 [facility] DEPT 4 4 RYA RYA VISIT HIGH SEVERITY& THREAT [facility] [place] [address] 4 N OUTPATIEN [facility] T HOSPITA EMERGENCY 34007 [facility] CELLAROSI DEPT 4 4 [place] - Y[place]BA VISIT EMERGENCY PAT HIGH PHYSI SEVERITY& THREAT FUNCJ OFFICE 49029 PATRICK AFRR OUTPATIEN 1 1 AND T VISIT PEDIATRIC 15 S & INTER MINUTES OFFICE 66035 PATRICK FARR OUTPATIEN 1 1 AND T VISIT PEDIATRIC 15 S & INTER MINUTES [facility]OSP[facility] [place] [address]11 1 N OUTPATIEN [facility] T HOSPITA OFFICE 74275 [facility] OUT[facility] 1 1 AND T VISIT PEDIATRIC 15 S & INTER MINUTES [facility] [place] 13211 1 N INPATIENT COMMUNITY HOSPITA EMERGENCY 09681 DERRICK MANCIA 1 1 EMERGENCY PREMA DEPARTMEN SERVICES T VISIT HIGH/URGE NT SEVERITY OFFICE 96744 [facility]ENDEBRA [facility] OUTPATIEN 1 1 T VISIT 5 PEDIATRIC PEDIATRIC MINUTES S & INTER S & INTER OFFICE 24699 CULLENDEBRA YORDAN OUTPATIEN 1 1 AND T VISIT PEDIATRIC 15 S & INTER MINUTES [facility] [place] [address] 1 N [facility]PATIENT [facility] 88787 BRISEYDA RAIN OUTPATIEN 0 0 KARI KARI T NEW 10 MINUTES OFFICE 13318 [facility] 8 8 [facility] [place] NEW 30 CENTER MINUTES OFFICE 70437 BRITANY, ZACARIAS GARG 8 8 YOHANA [place] VISIT 15 MINUTES OFFICE 05740 [facility] MAX, ZACARIAS 8 8 FOR JOSE [place] NEW 10 ORAL&MAXI MINUTES LLOFACIAL SURGERY
--- OUTSIDE RECORDS SUMMARY | 2017-05-24 09:12 | External Medical Summary Rpt ---
Author Author , PAULINA GALLARDO Address Unknown Phone [email or web address] Care Team Providers Care Account Analyst Name Role Phone BAKARI RAÚL, BAKARI Unavailable [...] Unavailable Unavailable PAT, CELLAROSI - YORBA PAT [facility] Unavailable Unavailable ADVANCED MAZA, [facility], Unavailable Unavailable [facility] [place] [facility] 2332, Unavailable Unavailable [facility] 2332 DI[facility]ES C[facility] & Unavailable Unavailable EDUCATION, [facility] ED[facility] & Unavailable Unavailable EDUCATION, [facility] ED[facility]ATION [facility] Unavailable Unavailable SERVICES, [facility]available Unavailable [employer], [facility] Unavailable Unavailable LLC, [facility] FARAGASSO DEV, Unavailable Unavailable FARAGASSO DEV BLANCHE STODDARD Unavailable Unavailable BLANCHE BERGER Unavailable Unavailable PREMA [facility] Unavailable Unavailable HOSPITA, [facility] Unavailable Unavailable HOSPITA, [facility] Un[facility] Un[facility], [facility] Un[facility] Unavailable [facility], [facility] PATRICE RHO, PATRICE Unavailable Unavailable RHO [...] PHARMACY, [facility] Unavailable Unavailable [facility]AC[facility] Un[facility] Unavailable [facility] PS, [facility] Un[facility] Unavailable [facility], [facility] NURSE Unavailable Unavailable PRACTITIONER GR, KMS NURSE PRACTITIONER GR BELL BETTY, BELL Unavailable Unavailable BETTY [facility] # Unavailable Unavailable [id number], [facility] # [id number] [facility] Unavailable Unavailable HOLD[facility], [facility] Unavailable Unavailable [facility], [facility] Unavailable Unavailable [facility], [facility], Unavailable Unavailable [facility] JAVIER ANT, JAVIER ANT Unavailable Unavailable MAJMUDAR, MAJMUDAR Unavailable Unavailable [facility] Unavailable Unavailable SERVICES, [facility] MATT, MATT Unavailable Unavailable MATT [...] [facility] Unavailable Un[facility], [facility] Unavailable Unavailable [facility]GENCY SERV, [facility] Unavailable Unavailable [facility]GENCY SERV[facility], [facility] Unavailable Unavailable PHYSICIAN SERVI, [facility] KESSLER RYA, KESSLER Unavailable Unavailable RYA KESSLER RYA, KESSLER Unavailable Unavailable RYA QUAN ADWOA, QUAN Unavailable Unavailable ADWOA VORKPOR EDWAR, VORKPOR Unavailable Unavailable EDWAR [facility] #[id number] # Unavailable Unavailable [id number], [facility] #[id number] # [id number] WELL[facility], WELLS Unavailable Unavailable [facility], [facility] Unavailable Unavailable RICHARD MAT, RICHARD MAT Unavailable Unavailable Purpose Continuity of Care Document - 02-13-2008 through 2016 Problems Code Diagnosis DOS Provider Status R109 UNSPECIFIED 04-05-2017 [facility] K828 OTHER 03-22-2017 [facility] SPECIFIED [facility]ICAL DISEASES OF IMAGING ASS GALLBLADDER R1013 EPIGASTRIC 03-22-2017 [facility] E1040 TYPE 1 02-27-2017 [facility] DIABETES L MELLITUS W/DIAB NEUROPATHY UNS E1043 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-27-2017 [facility] W/DIABETIC L AUTONOMIC POLYNEUROPA THY E119 TYPE 2 12-08-2016 [facility] WITHOUT COMPLICATIO NS T159XDR FRACTURE 10-03-2016 [facility] INITIAL ENCNTR FOR CLOS FRACTURE E1165 TYPE 2 09-14-2016 [facility] DIABETES COMMUNTIY MELLITUS HOSPITA [place] HYPERGLYCEM [place] Q24991 GENERALIZED 09-14-2016 [facility] ABDOMINAL COMMUNTIY TENDERNESS HOSPITA R112 NAUSEA WITH 09-14-[facility]NSPECIF[facility] PHYS R197 DIARRHEA 09-14-2016 [facility] PHYS R51 HEADACHE 09-14-2016 [facility] COMM[facility]TIY HOSPITA R739 HYPERGLYCEM 09-14-2016 [facility] [place] N EMERGENCY UNSPECIFIED PHYS Z720 TOBACCO USE 09-14-2016 [facility] COMM[facility]TIY H[facility]PITA Z794 PRISON 09-14-2016 [facility] CURRENT USE COMMUNTIY OF INSULIN HOSPITA E1310 [...] RADIOLOGY DISORDERS NEC M545 LOW BACK 08-31-2016 [facility]- PAIN DE CO EMS R531 WEAKNESS 08-31-2016 [facility] [place] [facility] R5381 OTHER 08-31-2016 [facility] [place] [facility] V7621IV UNS 08-31-2016 [facility] FRACTURE N EMERGENCY SACRUM [...] K3184 GASTROPARES 06-02-2016 [facility] IS L MAT V80073 PAIN IN 05-05-2016 [facility] [place] RIGHT ELBOW RADIOLOGY M7711 LATERAL 05-05-2016 [facility] EPICONDYLIT N EMERGENCY IS RIGHT SERVI ELBOW R1110 VOMITING 03-02-2016 [facility] UNSPECIFIED COMMUNTIY HOSPITA Z5321 PROC & TX 03-02-2016 [facility] NOT CARRIED COMMUNTIY OUT PT HOSPITA LEAVE PRIOR TO SEEN N521 ERECTILE 12-25-2015 [facility] DYSFUNCTION L MAT DUE TO DISEASES CLASS ELSW R1012 LEFT UPPER 12-18-2015 [facility] [place] [facility] PAIN Z1211 ENCOUNTER 12-02-2015 [facility] PS NEOPLASM OF COLON R1011 RIGHT UPPER 11-07-2015 [facility]ANT COMMUNTIY PAIN HOSPITA Z125 ENCOUNTER 10-29-2015 [facility] MALIGNANT NEOPLASM PROSTATE B354 TINEA 09-15-2015 [facility] CORPORIS COMMUNTIY HOSPITA B358 OTHER 09-15-2015 [facility] DERMATOPHYT OSES L0201 CUTANEOUS 09-15-2015 [facility] ABSCESS OF COMMUNTIY FACE HOSPITA L723 SEBACEOUS 09-15-2015 [facility] CYST COMMUNTIY HOSPITA E0841 DM D/T 07-30-2015 [facility] UNDERLYING L MAT COND W/DIABETIC MONONEUROPA THY A084 VIRAL 07-20-2015 [facility] INTESTINAL COMMUNTIY INFECTION HOSPITA UNSPECIFIED O65944 TYPE 1 DM 07-20-2015 [facility] W/UNS DIAB COMMUNTIY RETINPATH HOSPITA W/O MACULAR EDEMA R000 TACHYCARDIA 07-20-2015 [facility] UNSPECIFIED 51018 DIAB W/O 04-14-2015 [facility] COMP TYPE DIAGNOSTICS II/UNS NOT STATED UNCNTRL 52020 DIAB 04-14-2015 [facility] W/NEURO L MANIFESTS TYPE II/UNS NOT UNCNTRL 3572 POLYNEUROPA 04-14-2015 [facility] THY IN L DIABETES V5867 LONG-TERM 04-14-2015 [facility] USE OF L INSULIN 64356 DIAB W/O 01-18-2015 [facility] LLOY[facility] COMP TYPE I [JUV] NOT STATED UNCNTRL 11650 NAUSEA WITH 01-18-2015 [facility] VOMITING 02634 PLANTAR 11-14-2014 [facility] FIBROMATOSI ANKLE CE S 7295 PAIN IN 11-14-2014 [facility] SOFT FOOT & TISSUES OF ANKLE CE LIMB 3671 MYOPIA 08-12-2014 MUHA JAVI 3559 MONONEURITI 07-02-2014 [facility] S OF DIAGNOSTICS UNSPECIFIED SITE 82407 DIAB W/O 06-19-2014 DI[facility] MENTION CARE & COMP TYPE I EDUCATION [JUV TYPE] UNCNTRL 39644 OSTEOARTHRO 04-07-2014 [facility] UNSPEC RADIOLOGY WHETHER GEN/LOC LOWER LEG 99935 OBSTRUCTIVE 12-27-2013 [facility] SLEEP APNEA 04277 OTHER 12-27-2013 [facility] [place] [address] UNSPECIFIED 12-27-2013 [facility] SLEEP COMMUNITY APNEA HOSPITA 1105 DERMATOPHYT 12-20-2013 [facility] OSIS OF THE L MAT BODY 71125 ESOPHAGEAL 12-20-2013 [facility] REFLUX L MAT 5363 GASTROPARES 11-25-2013 [place] [address] NAUSEA 11-25-2013 [facility] LLOY[facility] ALONE 4778 ALLERGIC 11-21-2013 [facility] RHINITIS L MAT DUE TO OTHER ALLERGEN 35118 UNSPECIFIED 11-21-2013 [facility] L MAT ARTHROPATHY SITE UNSPECIFIED 7579 ACUTE URIS 11-10-2013 [facility] OF UNSPECIFIED SITE 4739 UNSPECIFIED 11-10-2013 [facility] SINUSITIS 7862 COUGH 11-10-2013 [facility] [place] [facility] 7241 PAIN IN 10-22-2013 [facility] [place] THORACIC [facility] SPINE 7242 LUMBAGO 10-22-2013 [facility] HOSPITA 89185 DIAB W/O 10-14-2013 [facility] MENTION N PHYSICIAN COMP TYPE SERVI II/UNS TYPE UNCNTRL 29507 DIABETES 10-14-2013 [facility] W/KETOACIDO N PHYSICIAN SIS TYPE SERVI II/UNS TYPE UNCNTRL 89306 DEHYDRATION 10-14-2013 [facility] N PHYSICIAN SERVI 5849 ACUTE 10-14-2013 [facility] KIDNEY N PHYSICIAN FAILURE SERVI UNSPECIFIED 11809 DIAB 10-13-2013 [facility] W/KETOACIDO N EMERGENCY S TYPE I PHYSI [JUV] NOT STATE UNCNTRL 93931 DIAB W/OTH 10-13-2013 [facility]- MANIFESTS DE CO TYPE II/UNS EMS NOT UNCNTRL 28721 SINOATRIAL 10-13-2013 [facility]- NODE DE CO DYSFUNCTION EMS 00823 VOMITING 10-13-2013 [facility] ALONE [place] EMS 38630 OTHER 10-13-2013 [facility]- ABNORMAL DE CO GLUCOSE EMS 37406 DIABETES 08-14-2013 [facility] DALYU W/KETOACIDO SIS TYPE I [JUV] UNCNTRL 94461 OTHER ACUTE 01-31-2011 [facility] EXTERNA & INTER 90317 TOB USE D/O 01-31-2011 [facility] COMP PG [facility]ED[facility] /PP & INTER UNSPEC EPIS CARE/NA 7569 OTH&UNSPEC 01-31-2011 [facility] 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 70713 UNSPECIFIED 01-31-2011 [facility] SLEEP [facility] DISTURBANCE & INTER 7919 OTHER 01-31-2011 [facility] NONSPECIFIC [facility]EDIATRICS FINDING & INTER EXAMINATION OF URINE 4519 PHLEBITIS&T 12-01-2010 [facility] HROMBOPHLEB [facility]EDIATRICS ITIS OF & INTER UNSPECIFIED SITE 42435 SHORTNESS 11-05-2010 [facility] 32324 ABDOMINAL 10-27-2010 [facility] PAIN, [facility] UNSPECIFIED HOSPITA SITE 47788 OTHER 10-20-2010 [facility] SPECIFIED [facility]IATRICS DISORDER OF & INTER THE ESOPHAGUS 7245 UNSPECIFIED 10-20-2010 [facility] BACKACHE PEDIATRICS & INTER 2762 ACIDOSIS 10-09-2010 [facility] & INTER 5609 UNSPECIFIED 10-09-2010 [facility] INTER OBSTRUCTION 2753 DISORDERS 10-07-2010 [facility] PHOSPHORUS HOSPITA METABOLISM 2768 HYPOPOTASSE 10-07-2010 [facility] HOSPITA 06176 LEUKOCYTOSI 10-07-2010 [facility] UNSPECIFIED SERVICES 5362 PERSISTENT 10-07-2010 [facility] VOMITING [facility]ERGENCY SERVICES 5601 PARALYTIC 10-07-2010 [facility] ILEUS [facility] HOSPITA 5758 OTHER 10-07-2010 [facility] [place] SPECIFIED RADIOLOGY DISORDER OF GALLBLADDER 5780 HEMATEMESIS 10-07-2010 [facility] HOSPITA 5789 UNSPECIFIED 10-07-2010 [facility]GENCY OF SERVICES GASTROINTES TINAL TRACT 5589 OTH&UNSPEC 10-06-2010 [facility] NONINFECTIO EMERGENCY US SERVICES GASTROENTER ITIS&COLITI S 7850 UNSPECIFIED 09-21-2010 [facility] [employer] [facility] 29225 DIAB 09-12-2010 [facility] W/NEURO [facility] MANIFESTS HOSPITA TYPE I [JUV TYPE] UNCNTRL 7840 HEADACHE 09-12-2010 [facility] [place] [facility] 98085 ABDOMINAL 09-12-2010 [facility] PAIN, LEFT [facility] UPPER HOSPITA [facility]ANT 91683 ABDOMINAL 09-12-2010 [facility] PAIN, [facility] EPIGASTRIC HOSPITA 5253 RETAINED 06-08-2010 [facility] 5264 INFLAMMATOR 06-08-2010 RA[facility] Y K[facility] CONDITIONS OF JAW 60745 DIAB 02-14-2008 [facility]/OPHTH [facility] MANIFESTS CENTER TYPE II/UNS NOT UNCNTRL 15764 REGULAR 02-14-2008 [facility] 42115 DEGEN 02-14-2008 [facility] THORACIC/TH M ORACOLUMBAR [...] 82 8- 6- 00 00 SI ve NM 07 20 20 50 DE IL 41 [...] 82 7- 5- 00 00 SI ve NM 07 20 20 49 DE IL 41 [...] 07 08 60 30 00 EA Ac NM 46 -2 -[address] ti [...] FL 00 05 06 16 30 00 RI Ac UT 05 -2 -1 .0 00 LG ti IC 43 3- 6- 00 00 RE ve 27 20 20 42 EN ON 09 17 17 73 S E 9 46 #1 NM 20 OP 75 50 MC G SP [...] BA 00 05 05 15 30 00 RI Ac SA 00 -0 -2 .0 00 LG ti GL 27 - 00 RE ve AR 71 20 20 42 EN 55 17 17 83 S 10 9 00 #1 0 20 UN 75 IT /M L KW IK PE N UL 08 05 05 10 00 RI Ac TI 22 -0 -2 0. 00 [...] BL ET FL 00 04 05 00 RI Ac UT 05 -2 -1 .0 00 LG ti IC 43 00 RE ve 27 20 20 42 EN ON 09 17 17 73 S E 9 46 #1 NM 20 OP 75 50 MC G SP RA Y SI 68 04 01 10 30 00 [facility] MV 18 -2 -1 .0 00 LG ti 00 00 RE ve TA 47 20 20 41 EN TI 80 17 17 50 S N 3 62 #1 10 20 75 MG TA BL ET TR 60 04 01 10 30 00 RI Ac AZ 50 -2 -1 .0 00 LG ti OD 52 00 RE ve ON 65 20 20 40 EN E 50 17 17 46 S 15 1 68 #1 0 20 MG 75 TA BL ET LI 68 04 05 00 RI Ac SI 18 -1 -1 .0 00 LG ti NO 00 00 RE ve NM 51 20 20 41 EN IL 40 17 17 87 S 3 96 #1 10 20 75 MG TA BL ET FL 00 04 05 30 30 00 RI Ac UO 78 -1 -1 .0 00 LG ti XE 12 00 RE ve TI 82 20 20 42 EN NE 20 17 17 55 S 1 03 #1 HC 20 L 75 20 MG CA PS UL E FR 99 04 05 10 25 00 RI Ac EE 07 -1 -0 0. [address] 30 2- 5- 00 00 RE ve YL 13 20 20 0 39 EN E 00 17 17 08 S 28 1 78 #1 G 20 LA 75 NC ET S TR 60 03 04 30 30 00 RI Ac AZ 50 -3 -2 .0 00 LG ti OD 52 0- 8- 00 00 RE ve ON 65 20 20 40 EN E 50 17 17 46 S 15 1 68 #1 0 20 MG 75 TA BL ET IN 11 03 04 60 30 00 RI Ac MAZA 91 -3 -2 .0 00 LG ti LI 70 0- 8- 00 00 RE ve N 04 20 20 41 EN SY 81 17 17 69 S RI 4 11 #1 N 20 0. 75 5 ML 31 GX 5 16 " FR 99 04 04 10 25 00 RI Ac EE 07 -0 -2 0. [address] 30 4- 8- 00 00 RE ve YL 70 20 20 0 38 EN E 82 17 17 27 S LI 7 72 #1 TE [address] RI P LA 00 03 04 10 28 00 RI Ac NT 08 -2 -2 .0 00 LG ti US 82 4- 1- 00 00 RE ve 22 20 20 42 EN 10 03 17 17 09 S 0 3 44 #1 UN 20 IT 75 /M L AL FL 60 03 04 16 30 00 RI Ac UT 50 -2 -2 .0 00 LG ti IC 50 6- 1- 00 00 RE ve 82 20 20 42 EN ON 90 17 17 12 S E 1 74 #1 NM 20 OP 75 50 MC G SP RA Y SI 68 03 04 30 30 00 RI Ac MV 18 -2 -2 .0 00 [...] FR 99 03 04 10 25 00 RI Ac EE 07 -2 -1 0. [address] 30 1- 4- 00 00 RE ve YL 13 20 20 0 39 EN E 00 17 17 08 S 28 1 78 #1 G 20 LA 75 NC ET S FR 99 03 04 10 25 00 RI Ac EE 07 -0 -0 0. 00 [...] LI 68 03 04 30 30 00 RI Ac SI 18 -1 -0 .0 00 LG ti NO 00 4- 7- 00 RE ve NM 51 20 20 41 EN IL 40 17 17 87 S 3 96 #1 10 20 75 MG TA BL ET TR 60 03 11 10 30 00 RI Ac AZ 50 -0 -3 .0 00 LG ti OD 52 3- 1- 00 RE ve ON 65 20 20 40 EN E 50 17 17 46 S 15 1 68 #1 0 20 MG 75 TA BL ET IN 11 03 03 60 30 00 RI Ac MAZA 91 -0 -3 .0 00 LG ti LI 70 4- 00 RE ve N 04 20 20 41 EN SY 81 17 17 69 S RI 4 11 #1 N 20 0. 75 5 ML 31 GX / 16 " FR 99 02 03 10 25 00 RI Ac EE 07 -2 -2 0. [address] 30 3- 00 RE ve YL 13 20 20 0 39 EN E 00 17 17 08 S 28 1 78 #1 G 20 LA 75 NC ET S FL 60 02 03 16 30 00 RI Ac UT 50 -2 -2 .0 00 LG ti IC 50 4- 4- 00 RE ve 82 20 20 41 EN ON 90 17 17 50 S E 1 51 #1 NM 20 OP 75 50 MC G SP RA Y SI 68 02 30 30 00 RI Ac MV 18 -2 -2 .0 00 LG ti 00 4- 4- 00 RE ve TA 47 20 20 41 EN TI 80 17 17 50 S N 3 62 #1 10 20 75 MG TA BL ET GA 00 02 03 12 30 00 RI Ac BA 09 -2 -2 0. 00 LG ti PE 34 7- 4- 00 RE ve NT 44 20 20 0 41 EN IN 40 17 17 55 S 5 59 #1 80 20 0 75 MG TA BL ET FL 00 02 03 30 30 RI Ac UO 78 -1 -1 .0 00 LG ti XE 12 3- 0- 00 00 RE ve TI 82 20 20 40 EN NE 20 17 17 13 S 1 48 #1 HC 20 L 75 20 MG CA PS UL E LI 68 02 03 30 30 00 RI Ac SI 18 -1 -1 .0 00 LG ti NO 00 3- 0- 00 00 RE ve NM 51 20 20 39 EN IL 40 17 17 02 S 3 30 #1 10 20 75 MG TA BL ET FR 99 02 03 10 25 00 RI Ac EE 07 -1 -1 0. [address] 30 4- 0- 00 00 RE ve YL 70 20 20 0 38 EN E 82 17 17 27 S LI 7 72 #1 TE [address] RI P HY 00 02 03 [address] 59 -2 -1 .0 00 LG ti OC 12 0- 0- 00 00 RE ve OD 60 20 20 41 EN ON 50 17 17 40 S -A 5 84 #1 CE [address] NO PH 7. 5- 32 5 LA 00 02 03 10 28 00 RI Ac NT 08 -2 -1 .0 00 LG ti US 82 2- 0- 00 00 RE ve 22 20 20 38 EN 10 03 17 17 20 S 0 3 71 #1 UN 20 IT 75 /M L AL IN 11 02 03 10 30 00 RI Ac MAZA 91 -0 -0 0. 00 LG ti LI 70 4- 3- 00 00 RE ve N 04 20 20 0 38 EN SY 81 17 17 72 S RI 4 10 #1 N 20 0. 75 5 ML 31 GX 5/ 16 " TR 60 02 03 30 30 00 RI Ac AZ 50 -0 -0 .0 00 LG ti OD 52 4- 3- 00 00 RE ve ON 65 20 20 40 EN E 50 17 17 46 S 15 1 68 #1 0 20 MG 75 TA BL ET NI 00 02 03 28 28 00 RI Ac CO 53 -0 -0 .0 00 LG ti TI 61 6- 3- 00 00 RE ve NE 10 20 20 41 EN 88 17 17 10 S 21 8 67 #1 20 MG 75 /2 4H R PA TC H FR 99 02 03 1. 30 00 RI Ac EE 07 -0 -0 00 00 [...] 5 78 #1 CE [address] NO PH 7. 5- 32 5 FL 60 01 02 16 30 00 WA Ac UT 50 -2 -2 .0 00 LG ti IC 50 6- 4- 00 00 RE ve 82 20 20 40 EN ON 90 17 17 88 S E 1 04 #1 NM 20 OP 75 50 MC G SP RA Y SI 68 01 02 30 30 00 RI Ac MV 18 -2 -2 .0 00 LG ti 00 6- 4- 00 00 RE ve TA 47 20 20 39 EN TI 80 17 17 17 S N 3 15 #1 10 20 75 MG TA BL ET GA 00 01 02 12 30 00 RI Ac BA 09 -3 -2 0. 00 LG ti PE 34 0- 4- 00 00 RE ve NT 44 20 20 0 40 EN IN 40 17 17 95 S 5 43 #1 80 20 0 75 MG TA BL ET FR 99 01 02 10 25 00 RI Ac EE 07 -3 -2 0. [address] 30 1- 4- 00 00 RE ve YL 13 20 20 0 39 EN E 00 17 17 08 S 28 1 78 #1 G 20 LA 75 NC ET S NM 68 02 02 20 5 00 RI Ac OM 38 -0 -2 .0 00 [...] FR 99 01 02 10 25 00 RI Ac EE 07 -2 -1 0. [address] 30 1- 7- 00 00 RE ve YL 70 20 20 0 38 EN E 82 17 17 27 S LI 7 72 #1 TE [address] RI P LA 00 01 02 10 28 00 RI Ac NT 08 -2 -1 .0 00 LG ti US 82 4- 7- 00 00 RE ve 22 20 20 38 EN 10 03 17 17 20 S 0 3 71 #1 UN 20 IT 75 /M L AL ST 00 01 02 60 30 00 RI Ac OO 53 -2 -1 .0 00 LG ti L 61 3- 7- 00 00 RE ve SO 06 20 20 40 EN FT 50 17 17 80 S EN 1 57 #1 ER 20 75 24 0 MG SO FT GE L HY 00 01 02 60 [address] 59 -2 -1 .0 00 LG ti OC 12 3- 7- 00 00 RE ve OD 60 20 20 40 EN ON 50 17 17 80 S -A 5 58 #1 CE [address] NO PH 7. 5- 32 5 FL 00 01 02 30 30 00 RI Ac UO 78 -1 -1 .0 00 LG ti XE 12 7- 0- 00 00 RE ve TI 82 20 20 40 EN NE 20 17 17 13 S 1 48 #1 HC 20 L 75 20 MG CA PS UL E LI 68 01 30 30 00 RI Ac SI 18 -1 -1 .0 00 LG ti NO 00 7- 0- 00 00 RE ve NM 51 20 20 39 EN IL 40 17 17 02 S 3 30 #1 10 20 75 MG TA BL ET FR 99 01 02 10 25 00 RI Ac EE 07 -0 -0 0. [address] 30 9- 3- 00 00 RE ve YL 13 20 20 0 39 EN E 00 17 17 08 S 28 1 78 #1 G 20 LA 75 NC ET S TR 60 01 30 30 00 RI Ac AZ 50 -0 -0 .0 00 LG ti OD 52 9- 3- 00 00 RE ve ON 65 20 20 40 EN E 50 17 17 46 S 15 1 68 #1 0 20 MG 75 TA BL ET SI 68 12 30 30 00 RI Ac MV 18 -2 -2 .0 00 LG ti 00 7- 0- 00 00 RE ve TA 47 20 20 39 EN TI 80 16 17 17 S N 3 15 #1 10 20 75 MG TA BL ET FL 50 12 01 16 30 00 RI Ac UT 38 -2 -2 .0 00 LG ti IC 30 7- 0- 00 00 RE ve 70 20 20 38 EN ON 01 16 17 59 S E 6 83 #1 NM 20 OP 75 50 MC G SP [...] FR 99 12 01 10 25 00 RI Ac EE 07 -1 -1 0. [address] 30 7- 3- 00 00 RE ve YL 13 20 20 0 39 EN E 00 16 17 08 S 28 1 78 #1 G 20 LA 75 NC ET S LI 68 12 30 30 00 RI Ac SI 18 -2 -1 .0 00 LG ti NO 00 0- 3- 00 00 RE ve NM 51 20 20 39 EN IL 40 16 17 02 S 3 30 #1 10 20 75 MG TA BL ET FL 00 12 30 30 00 RI Ac UO 78 -2 -1 .0 00 LG ti XE 12 0- 3- 00 00 RE ve TI 82 20 20 40 EN NE 20 16 17 13 S 1 48 #1 HC 20 L 75 20 MG CA PS UL E IN 11 12 60 30 00 RI Ac MAZA 91 -0 -0 .0 00 LG ti LI 70 9- 9- 00 00 RE ve N 04 20 20 38 EN SY 81 16 17 72 S RI 4 10 #1 N 20 0. 75 5 ML 31 GX 5/ 16 " TR 60 12 01 30 30 00 RI Ac AZ 50 -1 -0 .0 00 [...] #1 UL CE [address] # NO PH 12 EN 07 5 [...] ve G 68 [address] 51 11 11 PH X 2 AR AN [address] -3 CY EW 0 # P AL 24 70 9 CI 55 06 06 0 20 10 KR 64 BA Ac NM 11 -2 -2 .0 OG 93 LB [...] 0- 0- 00 ER 66 AU ve NM 40 20 20 3 GH IL 60 [...] 4 GH ZA 10 11 11 PH NM 6 AR AN IN MA DR E [...] 4 GH ZA 10 11 11 PH NM 6 AR AN IN MA DR E [...] P TA BL 24 ET 70 9 NM 68 02 02 0 12 3 KR [...] 10 10 PH FA AC [address] ET MA LY AM CY & IN [...] 70 10 10 PH FA [address] MA LY CY & # CO 24 [...] 70 10 10 PH FA [address] MA LY CY & # CO 24 [...] 06 10 02 10 30 J 75 NM Ac VO 16 -3 -0 .0 & [...] Procedure DOS Code Location Performer Comment [facility] [address] [facility] 7 MEDICAL IMAG INC IMAGING GB ASS W/PHARMA INTERVENJ FINAL G9551 [facility] REPR ABD 7 MEDICAL IMAG STS IMAGING W/O ASS INCIDNT FND LES NTD: FINAL G9638 [facility] REPORTS 7 MEDICAL W/O DOC IMAGING 1/MORE ASS DOSE REDUCTION TECH 79927 [facility] ABDOMINAL 7 MEDICAL REAL IMAGING TIME ASS W/[place] [address] [facility] ABDOMEN & 7 MEDICAL PELVIS IMAGING W/O ASS CONTRAST MATERIAL FOR DIAB A5512 [place] ONLY MX 7 MEDICAL MEDICAL DNSITY SUPPLY SUPPLY INSRT [employer] FORMD PRFAB EA DIAB ONLY A5500 [place] FIT CSTM 7 MEDICAL MEDICAL PREP&SPL SUPPLY SUPPLY [employer] DNSITY INSRT AMB A0427 [facility] SERVICE 7 Cory-DE Ray-DE ALS CO EMS CO EMS EMERGENCY TRANSPORT LEVEL 1 [place] [address] [facility] LACTATE 7 N N COMMUNTIY COMMUNTIY HOSPITA HOSPITA BLOOD 39350 [facility] COUNT 7 N N COMPLETE COMMUNTIY COMMUNTIY AUTO&AUTO HOSPITA HOSPITA DIFRNTL WBC INFUSION J7030 [facility] NORMAL 7 N N SALINE COMMUNTIY COMMUNTIY SOLUTION HOSPITA HOSPITA 1000 CC COMPREHEN 96665 [facility] SIVE 7 N N METABOLIC COMMUNTIY COMMUNTIY PANEL HOSPITA HOSPITA GLUC BLD 41014 [facility] GLUC MNTR 7 N N DEV COMMUNTIY COMMUNTIY CLEARED HOSPITA HOSPITA FDA SPEC HOME USE GROUND A0425 [facility] MILEAGE 7 HALEY DE LEON PER CO EMS CO EMS STATUTE MILE THERAPEUT 76105 [facility] IC 7 N N INJECTION COMMUNTIY COMMUNTIY IV PUSH HOSPITA HOSPITA EACH NEW DRUG URNLS DIP 72516 [facility] 7 N N STICK/TAB COMMUNTIY COMMUNTIY LET HOSPITA HOSPITA REAGENT AUTO MICROSCOP Y THER 47077 [facility] PROPH/DX 7 N N NJX IV COMMUNTIY COMMUNTIY PUSH HOSPITA HOSPITA SINGLE/1S T SBST/DRUG KETONE 79432 [facility] BODIES 7 N N SERUM COMMUNTIY COMMUNTIY QUALITAT[place] [address] [facility] LIPASE 7 N N [place] [address] [facility] INFUSION 7 N N HYDRATION COMMUNTIY COMMUNTIY EACH HOSPITA HOSPITA ADDITIONA L HOUR ECG 62520 [facility] ROUTINE 7 [place] ECG EMERGENCY W/LEAST SERV 12 LDS I&R ONLY INITIAL 56301 [facility] 7 MEDICINE CARE/DAY SERVICES 30 O MINUTES SBSQ 93044 [facility] 7 N FAMILY CARE/DAY PRACTICE 25 MINUTES SBSQ 01371 [facility] 7 N FAMILY CARE/DAY PRACTICE 25 MINUTES AMB [id number] [facility] SERVICE 7 Cory-DE DE LEON [facility] EMS [place] EMS [place] [address] [facility] [place] [facility] HEAD/BRAI 7 RADIOLOGY N W/O CONTRAST MATERIAL RADIOLOGI 93420 [facility] [place] [facility] C 7 RADIOLOGY EXAMINATI ON CHEST SINGLE VIEW FRONTAL ECG 37073 [facility] ROUTINE 7 [place] ECG EMERGENCY W/LEAST SERVI 12 LDS I&R ONLY GROUND A0425 [facility] MILEAGE 7 Cory-DE Ray-DE PER CO EMS CO EMS STATUTE MILE RADEX 41751 [facility] [place] [facility] SPINE 7 RADIOLOGY LUMBOSACR AL 2/3 VIEWS RADEX 05069 [facility] [place] [facility] SACRUM & 7 RADIOLOGY [place] [address] [place] [address] [facility] [place] PATRICE ABDOMEN & 6 RADIOLOGY RHO PELVIS W/O CONTRAST MATERIAL HEMOGLOBI 87467 [facility]MS[facility] QUAN N 6 NURSE ADWOA GLYCOSYLA PRACTITIO NICHOLAS A1C NER GR GLUC BLD 48999 KMS QUAN GLUC MNTR 6 NURSE ADWOA DEV PRACTITIO CLEARED NER FDA SPEC HOME USE INJECTION [id number] [facility] MORPHINE 6 N N SULFATE COMMUNTIY COMMUNTIY UP TO 10 HOSPITA HOSPITA MG GLUC BLD 04910 [facility] GLUC MNTR 6 N N DEV COMMUNTIY COMMUNTIY CLEARED HOSPITA HOSPITA FDA SPEC HOME USE THERAPEUT 39089 [facility] IC 6 N N PROPHYLAC COMMUNTIY COMMUNTIY TIC/DX HOSPITA HOSPITA INJECTION SUBQ/[place] [address] [facility] MAGNESIUM 6 N N COMMUNTIY COMMUNTIY HOSPITA HOSPITA THER 20884 [facility] PROPH/DX 6 N N NJX EA COMMUNTIY COMMUNTIY SEQL IV HOSPITA HOSPITA PUSH SBST/DRUG FAC COMPREHEN 88148 [facility] SIVE 6 N N METABOLIC COMMUNTIY COMMUNTIY PANEL HOSPITA HOSPITA HEMOGLOBI 39804 [facility] N 6 N N GLYCOSYLA COMMUNTIY COMMUNTIY NICHOLAS A1C HOSPITA HOSPITA BLOOD 07601 [facility] COUNT 6 N N COMPLETE COMMUNTIY COMMUNTIY AUTO&AUTO HOSP[place] [id number] [facility] PHOSPHORU 6 N N S COMMUNTIY COMMUNTIY INORGANIC HOSPITA HOSPITA OBSERVATI 65877 BIRDWHIST BIRDWHIST ON CARE 6 ELL MAT ELL MAT DISCHARGE MANAGEMEN T INJECTION C9113 [facility] 6 N N PANTOPRAZ COMMUNTIY COMMUNTIY OLE HOSPITA HOSPITA SODIUM PER VIAL COLLECTIO 71707 [facility] N VENOUS 6 N N BLOOD COMMUNTIY COMMUNTIY VENIPUNCT HOSPITA HOSPITA URE INJECTION [id number] [facility] 6 N N PANTOPRAZ COMMUNTIY COMMUNTIY OLE HOSPITA HOSPITA SODIUM PER VIAL COLLECTIO 92030 [facility] N VENOUS 6 N N BLOOD COMMUNTIY COMMUNTIY VENIPUNCT HOSPITA HOSPITA URE PROTHROMB 79257 [facility] IN TIME 6 N N COMMUNTIY COMMUNTIY HOSPITA HOSPITA BLOOD 88001 [facility] COUNT 6 N N COMPLETE COMMUNTIY COMMUNTIY AUTO&AUTO HOSPITA HOSPITA DIFRNTL WBC INFUSION J7030 [facility] NORMAL 6 N N SALINE COMMUNTIY COMMUNTIY SOLUTION HOSPITA HOSPITA 1000 CC COMPREHEN 17323 [facility] SIVE 6 N N METABOLIC COMMUNTIY COMMUNTIY PANEL HOSPITA HOSPITA INJECTION J2550 [facility] 6 N N PROMETHAZ COMMUNTIY COMMUNTIY INE HCL HOSPITA HOSPITA UP TO 50 MG THER 84558 [facility] PROPH/DX 6 N N NJX EA COMMUNTIY COMMUNTIY SEQL IV HOSPITA HOSPITA PUSH SBST/[place] [address] [facility] MAGNESIUM 6 N N COMMUNTI[place] [address] [facility] PHOSPHORU 6 N N S COMMUNTIY COMMUNTIY INORGANIC HOSPITA HOSPITA INJECTION J0610 [facility] CALCIUM 6 N N GLUCONATE COMMUNTIY COMMUNTIY PER 10 HOSPITA HOSPITA ML THERAPEUT 58780 [facility] IC 6 N N PROPHYLAC COMMUNTIY COMMUNTIY TIC/DX HOSPITA HOSPITA INJECTION SUBQ/IM HEMOGLOBI 77414 [facility] N 6 N N GLYCOSYLA COMMUNTIY COMMUNTIY NICHOLAS A1C HOSPITA HOSPITA INJECTION J2270 [facility] MORPHINE 6 N N SULFATE COMMUNTIY COMMUNTIY UP TO 10 HOSPITA HOSPITA MG NONINVASI 40188 [facility] VE 6 N N EAR/PULSE COMMUNTIY COMMUNTIY OXIMETRY HOSPITA HOSPITA SINGLE DETER THERAPEUT 59899 [facility] IC 6 N N INJECTION COMMUNTIY COMMUNTIY IV PUSH HOSPITA HOSPITA EACH NEW DRUG GLUC BLD 10934 [facility] GLUC MNTR 6 N N DEV COMMUNTIY COMMUNTIY CLEARED HOSPITA HOSPITA FDA SPEC HOME USE INITIAL 55360 [facility] BIRDWHIST OBSERVATI 6 ELL MAT ELL MAT ON CARE/DAY 50 MINUTES URNLS DIP 18932 [facility] 6 N N STICK/TAB COMMUNTIY COMMUNTIY LET HOSPITA HOSPITA REAGENT AUTO MICROSCOP Y TOBACCO 49103 [facility] USE 6 N N CESSATION COMMUNTIY COMMUNTIY HOSPITA HOSPITA INTERMEDI ATE 3-10 MINUTES GLUC BLD 86311 [facility] GLUC MNTR 6 N N DEV COMMUNTIY COMMUNTIY CLEARED HOSPITA HOSPITA FDA SPEC HOME USE BLOOD 22110 [facility] GASES ANY 6 N N COMMUNTIY COMMUNTIY COMBINATI HOSPITA HOSPITA ON PH PCO2 PO2 CO2 HCO3 THERAPEUT 65354 [facility] IC 6 N N INJECTION COMMUNTIY COMMUNTIY IV [place]USH [place] [address] [facility] INFUSION 6 N N THERAPY/P COMMUNTIY COMMUNTIY ROPHYLAXI HOSPITA HOSPITA S /DX 1ST TO 1 HR INJECTION J2270 [facility] MORPHINE 6 N N SULFATE COMMUNTIY COMMUNTIY UP TO 10 HOSPITA HOSPITA MG THERAPEUT 28832 [facility] IC 6 N N PROPHYLAC COMMUNTIY COMMUNTIY TIC/DX HOSPITA HOSPITA INJECTION SUBQ/[place] [address] [facility] LIPASE 6 N N [place] [address] [facility] INFUSION 6 N N HYDRATION COMMUNTIY COMMUNTIY EACH HOSPITA HOSPITA ADDITIONA L HOUR KETONE 94887 [facility] BODIES 6 N N SERUM COMMUNTIY COMMUNTIY QUALITATI HOSPITA HOSPITA VE INJECTION J1885 [facility] 6 N N KETOROLAC COMMUNTIY COMMUNTIY HOSPITA HOSPITA TROMETHAM INE PER 15 MG THER 04357 [facility] PROPH/DX 6 N N NJX EA COMMUNTIY COMMUNTIY SEQL IV HOSPITA HOSPITA PUSH SBST/DRUG FAC INJECTION J1815 [facility] INSULIN 6 N N PER 5 COMMUNTIY COMMUNTIY UNITS HOSPITA HOSPITA INJECTION J2550 [facility] 6 N N PROMETHAZ COMMUNTIY COMMUNTIY INE HCL HOSPITA HOSPITA UP TO 50 MG COMPREHEN 30654 [facility] SIVE 6 N N METABOLIC COMMUNTIY COMMUNTIY PANEL HOSPITA HOSPITA INFUSION J7030 [facility] NORMAL 6 N N SALINE COMMUNTIY COMMUNTIY SOLUTION HOSPITA HOSPITA 1000 CC BLOOD 63225 [facility] COUNT 6 N N COMPLETE COMMUNTIY COMMUNTIY AUTO&AUTO HOSPITA HOSPITA DIFRNTL WBC ARTERIAL 38489 [facility] PUNCTURE 6 N N WITHDRAWA COMMUNTIY COMMUNTIY L BLOOD HOSPITA HOSPITA DX HOSPITAL G0378 [facility] OBSERVATI 6 N N ON COMMUNTIY COMMUNTIY SERVICE HOSPITA HOSPITA PER HOUR COLLECTIO 19483 [facility] N VENOUS 6 N N BLOOD COMMUNTIY COMMUNTIY VENIPUNCT HOSPITA HOSPITA URE ARTHROCEN 91359 [facility] MECCARIEL TESIS 6 [place] LO TRA ASPIR&/IN EMERGENCY J INTERM SERVI JT/BURS W/O US RADEX 66922 [facility] [place] FINCH ELBOW 6 RADIOLOGY JERRI COMPLETE MINIMUM 3 VIEWS THERAPEUT 64862 [facility] IC 6 N N PROPHYLAC COMMUNTIY COMMUNTIY TIC/DX HOSPITA HOSPITA INJECTION SUBQ/IM GLUC BLD 04969 [facility] GLUC MNTR 6 N N DEV COMMUNTIY COMMUNTIY CLEARED HOSPITA HOSPITA FDA SPEC HOME USE INFUSION J7030 [facility] NORMAL 6 N N SALINE COMMUNTIY COMMUNTIY SOLUTION HOSPITA HOSPITA 1000 CC BLOOD 75157 [facility] COUNT 6 N N COMPLETE COMMUNTIY COMMUNTIY AUTO&AUTO HOSPITA HOSPITA DIFRNTL WBC BASIC 20305 [facility] METABOLIC 6 N N PANEL COMMUNTIY COMMUNTIY CALCIUM HOSPITA HOSPITA TOTAL COLLECTIO 58592 [facility] N VENOUS 6 N N BLOOD COMMUNTIY COMMUNTIY VENIPUNCT HOSPITA HOSPITA URE OBSERVATI 41198 [facility]WHIST BIRDWHIST ON CARE 6 ELL MAT ELL [place] [address] [facility] AMYLASE 6 N N COMMUNTIY COMMUNTIY HOSPITA HOSPITA COLLECTIO 49559 [facility] N VENOUS 6 N N BLOOD COMMUNTIY COMMUNTIY VENIPUNCT HOSPITA HOSPITA URE HOSPITAL G0378 [facility] OBSERVATI 6 N N ON COMMUNTIY COMMUNTIY SERVICE HOSPITA HOSPITA PER HOUR DRUG TEST G0479 [facility] 6 N N PRESUMP;I COMMUNTIY COMMUNTIY NSTRUMENT HOSPITA HOSPITA ED CHEMISTRY ANLYZER INFUSION J7030 [facility] NORMAL 6 N N SALINE COMMUNTIY COMMUNTIY SOLUTION HOSPITA HOSPITA 1000 CC BLOOD 73135 [facility] COUNT 6 N N COMPLETE COMMUNTIY COMMUNTIY AUTO&AUTO HOSPITA HOSPITA DIFRNTL WBC COMPREHEN 78133 [facility] SIVE 6 N N METABOLIC COMMUNTIY COMMUNTIY PANEL HOSPITA HOSPITA GLUC BLD 39232 [facility] GLUC MNTR 6 N N DEV COMMUNTIY COMMUNTIY CLEARED HOSPITA HOSPITA FDA SPEC HOME USE TOBACCO 10455 [facility] USE 6 N N CESSATION COMMUNTIY COMMUNTIY HOSPITA HOSPITA INTERMEDI ATE 3-10 MINUTES INJECTION J2270 [facility] MORPHINE 6 N N SULFATE COMMUNTIY COMMUNTIY UP TO 10 HOSPITA HOSPITA MG INJECTION J0360 [facility] 6 N N HYDRALAZI COMMUNTIY COMMUNTIY NE HCL UP HOSPITA HOSPITA TO 20 MG INITIAL 64217 [facility] BIRDWHIST OBSERVATI 6 ELL MAT ELL MAT ON CARE/DAY 50 MINUTES URNLS DIP 91902 [facility] 6 N N STICK/TAB COMMUNTIY COMMUNTIY LET HOSPITA HOSPITA REAGENT AUTO MICROSCOP Y ECG 21406 [facility] [place] ECG EMERGENCY W/LEAST PHYS 12 LDS I&R ONLY THERAPEUT 17489 [facility] IC 6 N N INJECTION COMMUNTIY COMMUNTIY IV PUSH HOSPITA HOSPITA EACH NEW DRUG THER 22528 [facility] PROPH/DX 6 N N NJX IV COMMUNTIY COMMUNTIY PUSH HOSPITA HOSPITA SINGLE/1S T SBST/DRUG ECG 43812 [facility] ROUTINE 6 N N ECG COMMUNTIY COMMUNTIY W/LEAST HOSPITA HOSPITA 12 LDS TRCG ONLY W/O I&R THERAPEUT 25567 [facility] IC 6 N N PROPHYLAC COMMUNTIY COMMUNTIY TIC/DX HOSPITA HOSPITA INJECTION SUBQ/[place] [address] [facility] [place] SCALF SARA ABDOMEN & 6 RADIOLOGY PELVIS W/[place] [address] [facility] PHOSPHORU 6 N N S COMMUNTIY [place] [address] [facility] INFUSION 6 N N HYDRATION COMMUNTIY COMMUNTIY EACH HOSPITA HOSPITA ADDITIONA L HOUR KETONE 52976 [facility] BODIES 6 N N SERUM COMMUNTIY COMMUNTIY QU[place]IT[place] [address] [facility] LIPASE 6 N N COMMUNTIY COMMUNTIY HOSPITA HOSPITA RINGERS J7120 [facility] LACTATE 6 N N INFUSION COMMUNTIY COMMUNTIY UP TO HOSPITA HOSPITA 1000 CC GLUC BLD 82370 [facility] GLUC MNTR 6 N N DEV COMMUNTIY COMMUNTIY CLEARED HOSPITA HOSPITA FDA SPEC HOME USE ANES 10228 [place] [facility] ANT LOWER 6 ANESTHESI INTESTINE A GROUP PS ENDOSCOPY DISTAL DUODENUM COLOREC G0121 [facility] CANCR 6 N N SCR; COMMUNTIY COMMUNTIY COLNSCPY HOSPITA HOSPITA NOT MEET HI RISK COLONOSCO 50676 GASTROENT CASE JUS PY FLX DX 6 EROLOGY W/COLLJ [place] [address] [facility] LACTATE 6 N N COMMUNTIY COMMUNTIY HOSPITA HOSPITA COLLECTIO 99969 [facility] N VENOUS 6 N N BLOOD COMMUNTIY COMMUNTIY VENIPUNCT HOSPITA HOSPITA URE COMPREHEN 22385 [facility] SIVE 6 N N METABOLIC COMMUNTIY COMMUNTIY PANEL HOSPITA HOSPITA INFUSION J7030 [facility] NORMAL 6 N N SALINE COMMUNTIY COMMUNTIY SOLUTION HOSPITA HOSPITA 1000 CC BLOOD 39186 [facility] COUNT 6 N N COMPLETE COMMUNTIY COMMUNTIY AUTO&AUTO [place]OSP[place] [address] [facility] TROPONIN 6 N N QUANTITAT COMMUNTIY COMMUNTIY VERÓNICA HOSPITA HOSPITA GLUC BLD 73873 [facility] GLUC MNTR 6 N N DEV COMMUNTIY COMMUNTIY CLEARED HOSPITA HOSPITA FDA SPEC HOME USE THERAPEUT 60360 [facility] IC 6 N N INJECTION COMMUNTIY COMMUNTIY IV PUSH HOSPITA HOSPITA EACH NEW DRUG URNLS DIP 21617 [facility] 6 N N STICK/TAB COMMUNTIY COMMUNTIY LET HOSPITA HOSPITA REAGENT AUTO MICROSCOP Y INJECTION J2270 [facility] MORPHINE 6 N N SULFATE COMMUNTIY COMMUNTIY UP TO 10 HOSPITA HOSPITA MG THER 56315 [facility] PROPH/DX 6 N N NJX IV COMMUNTIY COMMUNTIY PUSH HOSPITA HOSPITA SINGLE/1S T SBST/[place] [address] [facility] LIPASE 6 N N COMMUNTIY COMMUNTIY HOSPITA HOSPITA KETONE 73530 [facility] BODIES 6 N N SERUM COMMUNTIY [place] [address] [facility] INFUSION 6 N N HYDRATION COMMUNTIY COMMUNTIY EACH HOSPITA HOSPITA ADDITIONA L HOUR HEMOGLOBI 71068 [facility] N 6 DIAGNOSTI DIAGNOSTI GLYCOSYLA CS CS NICHOLAS A1C LIPID 93936 [facility] PANEL 6 DIAGNOSTI DIAGNOSTI CS CS THYROID 96590 [facility] HORM 6 DIAGNOSTI DIAGNOSTI UPTK/THYR CS CS OID HORMONE BINDING RATIO BLOOD 11061 [facility] COUNT 6 DIAGNOSTI DIAGNOSTI COMPLETE CS CS AUTO&[place] [address] [facility] PROSTATE 6 DIAGNOSTI DIAGNOSTI SPECIFIC CS CS ANTIGEN TOTAL COMPREHEN 56505 [facility] SIVE 6 DIAGNOSTI DIAGNOST[place] [address] [facility] THYROXINE 6 DIAGNOST[place] [address] [facility] THYROID 6 DIAGNOSTI DIAGNOSTI STIMULATI CS CS NG HORMONE TSH IM ADM 48008 [facility] PRQ ID 6 N N SUBQ/IM COMMUNTIY COMMUNTIY NJXS 1 HOSPITA HOSPITA VACCINE TDAP 35417 [facility] VACCINE 7 6 N N YRS/> IM COMMUNTIY COMMUNTIY HOSPITA HOSPITA INCISION 25227 [facility] & 6 PREMA PREMA DRAINAGE ABSCESS SIMPLE/SI NGLE INJECTION J2001 [facility] 6 N N LIDOCAINE COMMUNTIY COMMUNTIY HCL HOSPITA HOSPITA INTRAVENO US INFUS 10 [facility] 08636 [facility] DISCHARGE 5 [facility] DAY MANAGEMEN T 30 MIN/< SBSQ 23018 [facility] 5 [facility] CARE/DAY 25 MINUTES SBSQ 90954 [facility] 5 [facility] CARE/DAY 25 MINUTES AMB A0427 [facility] SERVICE 5 HALYE DE [facility] ALS CO EMS CO EMS EMERGENCY TRANSPORT LEVEL 1 ECG 64825 [facility] ROUTINE 5 SCO SCO ECG W/LEAST 12 LDS I&R ONLY INITIAL 76838 [facility] 5 [facility] CARE/DAY 50 MINUTES GROUND A0425 [facility] MILEAGE 5 [facility]Y [facility] LEON PER CO EMS CO EMS STATUTE MILE ALBUMIN 41586 [facility] URINE 5 DIAGNOSTI DIAGNOSTI MICROALBU [facility] MIN QUANTIATI VE HEMOGLOBI 52114 [facility] N 5 DIAGNOSTI DIAGNOSTI GLYCOSYLA [facility] NICHOLAS A1C CREATININ 78328 [facility] E OTHER 5 DIAGNOSTI DIAGNOSTI SOURCE [facility] URNLS DIP 38324 [facility] 5 DIAGNOSTI DIAGNOSTI STICK/TAB [facility] LET RGNT AUTO W/O MICROSCOP Y WALKING L4360 [facility] ELI BOOT 5 FOOT & N MORGAN PNEUMATC ANKLE CE &/ VACUUM PREFAB CUSTM FIT HEMOGLOBI 94488 [facility] N 5 DIAGNOSTI DIAGNOSTI GLYCOSYLA [facility] NICHOLAS A1C CANE INCL E0100 J & L J & L CANES 4 HOME [facility]ICAL MEDICAL MATERIAL EQUIPMENT EQUIPMENT ADJUSTBLE /FIX W/[place] [address] [facility] THYROID 4 DIAGNOSTI DIAGNOSTI STIMULATI [place] [address] [facility] THYROXINE 4 DIAGNOSTI DIAGNOSTI TOTAL CS CS COMPREHEN 39406 [facility] SIVE 4 DIAGNOSTI DIAGNOSTI METABOLIC CS CS PANEL BLOOD 05179 [facility] COUNT 4 DIAGNOSTI DIAGNOSTI COMPLETE CS CS AUTO&AUTO DIFRNTL WBC THYROID 66610 [facility] HORM 4 DIAGNOSTI DIAGNOSTI UPTK/THYR CS CS OID HORMONE BINDING RATIO HEMOGLOBI 65017 [facility] N 4 DIAGNOSTI DIAGNOSTI GLYCOSYLA CS CS NICHOLAS A1C LIPID 60746 [facility] PANEL 4 DIAGNOSTI DIAGNOSTI CS [...] CE GAUNT/SIM PREFAB OFF-THE-S HELF MRI LOWER 98029 PROSCAN PROSCAN EXTREM 4 RADIOLOGY RADIOLOGY OTH/THN [...] OR EDUCATION EDUCATION SWABS EACH WALKING L4360 [facility] BOOT 4 FOOT & N MORGAN PNEUMATC ANKLE CE &/ VACUUM PREFAB CUSTM FIT RADEX 83742 [facility] ANKLE 4 FOOT & N MORGAN COMPLETE ANKLE CE MINIMUM 3 VIEWS RADIOLOGI 72533 [place] [facility] C 4 FOOT & N [...] EDUCATION INSULIN PUMP STERILE 3CC SLEEP STD 43249 SHASHY SHASHY AIRFLOW 4 WOOD WOOD HRT RATE&O2 SAT EFFORT UNATT INFUS SET A4230 DIABETES DIABETES EXT 4 CARE & CARE & INSULIN EDUCATION EDUCATION PUMP NONNDLE CANNULA TYPE SENSOR;IN A9276 DIABETES DIABETES VSV DISP 4 CARE & CARE & INTRSTL EDUCATION EDUCATION CONT GLU MON SYS 1U=1D LIPID 90038 [facility] PANEL 4 DIAGNOSTI DIAGNOSTI CS CS HEMOGLOBI 70642 [facility] N 4 DIAGNOSTI DIAGNOSTI GLYCOSY[place] [address] [facility] INSULIN 4 DIAGNOSTI DIAGNOSTI [place] [address] [facility] THYROID 4 DIAGNOSTI DIAGNOSTI STIMULAT[place] [address] [facility] THYROXINE 4 DIAGNOSTI DIAGNOSTI TOTAL CS CS INCORPORA T COMPREHEN 27421 [facility] SIVE 4 DIAGNOSTI DIAGNOSTI METABOLIC CS CS PANEL BLOOD 29628 [facility] COUNT 4 DIAGNOSTI DESTINEE COMPLETE CS AUTO&AUTO DIFRNTL WBC THYROID 84099 [facility] HORM 4 DIAGNOSTI DIAGNOSTI UPTK/THYR CS CS OID INCORPORA [place] [address] [facility] C-PEPTIDE 4 DIAGNOSTI DIAGNOSTI CS CS INCORPORA T RADIOLOGI 60545 [facility] EXAM 4 RYA RYA CHEST 2 VIEWS FRONTAL&L ATERAL RADEX 09102 [facility] [place] [facility] SPINE 4 RADIOLOGY THORACIC 2 VIEWS RADEX 77635 [facility] [place] [facility] [place] SPINE 4 RADIOLOGY LUMBOSACR AL 2/3 [facility] 94442 [facility] 4 [place] A GOP DAY PHYSICIAN MANAGEMEN SERVI T 30 MIN/< SBSQ 45066 [facility] 4 [place] A GOP CARE/DAY PHYSICIAN 25 SERVI MINUTES AMB A0427 [facility] SERVICE 4 [facility] ALS CO EMS CO EMS EMERGENCY TRANSPORT LEVEL 1 RADIOLOGI 34023 [facility] C 4 [place] - YORBA EXAMINATI EMERGENCY PAT ON CHEST PHYSI SINGLE VIEW FRONTAL INITIAL 45314 [facility] 4 [place] LILO CARE/DAY PHYSICIAN 70 SERVI MINUTES ECG 67048 [facility] ROUTINE 4 [place] - YORBA ECG EMERGENCY PAT W/LEAST PHYSI 12 LDS I&R ONLY GROUND A0425 [facility] [place] [facility] PER CO EMS CO EMS STATUTE [facility] 62364 [facility] 4 [place] [facility] DAY PHYSICIAN MANAGEMEN SERVI T 30 MIN/< SBSQ 90658 [facility] 4 [place] [facility] CARE/DAY PHYSICIAN 35 SERVI MINUTES INITIAL 22813 [facility] 4 [place] [facility] CARE/DAY PHYSICIAN 70 SERVI MINUTES CRITICAL 99264 [facility] 4 PREMA PREMA ILL/INJUR ED PATIENT INIT 30-74 MIN COLLECTIO 58655 [facility] N VENOUS 1 AND BLOOD PEDIATRIC VENIPUNCT S & INTER URE ALBUMIN 32991 [facility] URINE 1 MICROALBU PEDIATRIC PEDIATRIC MIN S & INTER S & INTER SEMIQUANT ITATIVE COMPREHEN 46891 [facility] SIVE 1 [employer] METABOLIC [employer] PANEL HEMOGLOBI 01747 [facility] ERASMO N 1 [employer] GLYCOSYLA [employer] HOLDING NICHOLAS A1C SBSQ 38837 [facility] CARE/DAY ADVANCED 25 MAZA MINUTES INITIAL 78081 [facility] INPATIENT 1 [facility] CONSULT ADVANCED NEW/ESTAB MAZA PT 40 MIN GASTRIC 68702 [facility] [place] [facility] EMPTYING 1 RADIOLOGY [facility] 58580 [facility] DISCHARGE 1 BETTY DAY PEDIATRIC MANAGEMEN S & INTER T 30 MIN/< RADEX ABD 99686 [facility] [place] [facility] COMPL 1 RADIOLOGY AQT ABD W/S/E/D VIEWS 1 VIEW CH SBSQ 30673 [facility] 1 BETTY CARE/DAY PEDIATRIC 25 S & INTER MINUTES CRITICAL 58332 [facility] 1 EMERGENCY DEV ILL/INJUR SERVICES ED PATIENT INIT 30-74 MIN AMB A0427 [facility] SERVICE 1 [facility] CO EMS CO EMS EMERGENCY TRANSPORT LEVEL 1 INITIAL 30061 [facility] 1 BETTY CARE/DAY PEDIATRIC 70 S & [place] [address] [facility] [place] [facility] ABDOMEN & 1 RADIOLOGY PELVIS W/O CONTRAST MATERIAL GROUND A[address] [facility] 1 Cory-DE N-DE PER CO EMS CO EMS STATUTE MILE HEMOGLOBI 77125 [facility] ER[facility]MO N 1 [employer] GLYCOSYLA [employer] HOLD[employer] NICHOLAS A1C LIPID 38477 [facility] PANEL 1 [employer] [place] [address] LAB ERASMO LAB ER[facility] FREE 1 AMERIC AMERIC THYROXINE HOLDING HOLDING GENERAL 82994 [facility] LAB ERASMO HEALTH 1 AMERIC 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 HOLDING ECG 83535 [facility] ROUTINE 1 AND ECG PEDIATRIC W/LEAST S & INTER 12 LDS W/I&[place] [address] [facility] [place] HEAD/BRAI 1 RADIOLOGY RAÚL N W/O CONTRAST MATERIAL ALVEOLECT 07967 [facility] FADY 0 KARI KARI W/CURTG OSTEITIS/ SEQUESTRE CTOMY DEEP D9220 [facility] RAIN SEDATION/ 0 KARI KARI GENERAL ANESTHESI A-1ST 30 MINUTES ORTHOPANT 93604 BRISEYDA RAIN OGRAM 0 KARI KARI LANCETS A4259 AM MED AM MED PER BOX 8 DIRECT DIRECT OF 100 [facility] BLD GLU A4253 AM MED AM MED TEST/REAG 8 DIRECT DIRECT T STRIPS [facility] PH[facility] GLU MON-50 LANCETS A4259 AM MED AM MED PER BOX 8 DIRECT DIRECT OF 100 [facility] BLD GLU A4253 AM MED AM MED TEST/REAG 8 DIRECT DIRECT T STRIPS [facility] PHARM[facility] GLU MON-50 BLD GLU A4253 AM MED AM MED TEST/REAG 8 DIRECT DIRECT T STRIPS [facility] PHARMACY GLU MON-50 LANCETS A4259 AM MED AM MED PER BOX 8 DIRECT DIRECT OF 100 [facility] DEEP D9220 [place] DEIRDRE ELENITA, SEDATION/ 8 FOR BETSY Castillo GENERAL ORAL&MAXI ANESTHESI LLOFACIAL A-1ST 30 SURGERY MINUTES APPLICATI 50795 BRITANY GARG, ON 8 YOHANA M YOHANA Toribio MODALITY 1/> AREAS HOT/COLD PACKS APPL 91822 BRITANY GARG, MODALITY 8 YOHANA M YOHANA Toribio 1/> AREAS ELEC STIMJ UNATTENDE D CHIROPRAC 94451 BRITANY GARG, TIC 8 YOHANA Toribio MANIPULAT [place] SPINAL 3-4 REGIONS APPLICATI 26407 BRITANY GARG, ON 8 YOHANA Toribio MODALITY 1/> AREAS HOT/COLD PACKS CHIROPRAC 23119 BRITANY GARG, TIC 8 YOHANA Toribio MANIPULAT [place] SPINAL 3-4 REGIONS APPL 67778 BRITANY GARG, MODALITY 8 YOHANA Toribio 1/> AREAS ELEC STIMJ UNATTENDE D DETERMINA 98013 [facility]ABASH, TION 8 EYE CARE [facility] E STATE ORTHOPANT 47746 [facility] JAYNE WONG 8 FOR JOSE Ron ORAL&MAXI LLOFACIAL SURGERY Encounters Encounter Start End Date Code Location Performer Type Date OFFICE 25028 [facility] 7 7 ELL ELL T VISIT 15 MINUTES OFFICE 67696 [facility] 7 7 ELL ELL T VISIT 15 MINUTES [facility] - 7 7 N OUTPATIEN COMMUNTIY T HOSPITA EMERGENCY 16129 [facility] 7 7 N DEPARTMEN COMMUNTIY T VISIT HOSPITA HIGH/URGE NT SEVERITY EMERGENCY 54552 [facility] JIMMY DEPT 7 7 [place] VISIT EMERGENCY HIGH PHYS SEVERITY& THREAT FUNCJ EMERGENCY 25253 [facility] CELLAROSI DEPT 7 7 [place] - YORBA VISIT EMERGENCY HIGH PHYS SEVERITY& THREAT FUNCJ EMERGENCY 27545 [facility] MATT DEPT 7 7 [place] VISIT EMERGENCY HIGH SERVI SEVERITY& THREAT FUNCJ EMERGENCY 19542 [facility] MECCARIEL 6 6 [place] DEPARTMEN EMERGENCY T VISIT SERVI HIGH/URGE NT SEVERITY [facility] - 6 6 N OUTPATIEN COMMUNTIY T HOSPITA OFFICE 63671 [facility] QUAN CONSULTAT 6 6 NURSE ADWOA DORANTES/ESTAB NER GR PATIENT 60 MIN EMERGENCY 42633 [facility] DEPT 6 6 N VISIT COMMUNTIY HIGH HOSPITA SEVERITY& THREAT [facility] - 6 6 N OUTPATIEN COMMUNTIY T HOSPITA EMERGENCY 62157 [facility] 6 6 [place] DEPARTMEN EMERGENCY T VISIT SERVI HIGH/URGE NT SEVERITY EMERGENCY 45075 [facility] 6 6 N DEPARTMEN COMMUNTIY T VISIT HOSPITA MODERATE SEVERITY [facility]PITAL [facility] - 6 6 N OUTPATIEN COMMUNTIY T HOSPITA OFFICE 08600 [facility] 6 6 KHUSHBU STERN T VISIT 15 MINUTES [facility] - 6 6 N OUTPATIEN COMMUNTIY T HOSPITA EMERGENCY 65959 [facility] 6 6 N DEPARTMEN COMMUNTIY T VISIT HOSPITA LIMITED/M INOR PROB OFFICE 18461 [facility] 6 6 KHUSHBU STERN T VISIT 15 MINUTES EMERGENCY 96176 [facility] DEPT 6 6 [place] VISIT EMERGENCY HIGH PHYS SEVERITY& THREAT [facility] - 6 6 N [facility] 6 6 N [facility] [facility] - 6 6 N OUTPATIEN COMMUNTIY T HOSPITA EMERGENCY [id number] [facility] 6 6 N DEPARTMEN COMMUNTIY T VISIT HOSPITA HIGH/URGE NT SEVERITY EMERGENCY 90464 [facility] [place] VISIT EMERGENCY HIGH SERV SEVERITY& [facility]AT [facility] OFFICE 35101 BIRDWHIST BIRDWHIST OUTPATIEN 6 6 KHUSHBU STERN T VISIT 15 MINUTES EMERGENCY 33791 BLANCHE MANCIA 6 6 PREMA PREMA DEPARTMEN T VISIT HIGH/URGE NT SEVERITY HOSPITAL [facility] - 6 6 N OUTPATIEN COMMUNTIY T HOSPITA EMERGENCY 23689 [facility] 6 6 N DEPARTMEN COMMUNTIY T VISIT HOSPITA MODERATE SEVERITY OFFICE 57489 BIRDWHIST BIRDWHIST OUTPATIEN 5 5 KHUSHBU STERN T VISIT 15 MINUTES HOSPITAL [facility] - 5 5 N INPATIENT COMMUNTIY HOSPITA EMERGENCY 88608 BUBBA MAC DEPT 5 5 SCO SCO VISIT HIGH SEVERITY& THREAT FUNCJ EMERGENCY 97052 VORHECTOROR VORKPOR DEPT 5 5 EDWAR EDWAR VISIT HIGH SEVERITY& THREAT FUNCJ OFFICE 06337 BIRDWHIST BIRDWHIST OUTPATIEN 5 5 KHUSHBU RÍOS T VISIT 15 MINUTES EMERGENCY 85726 BLANCHE MANCIA DEPT 5 5 PREMA PREMA VISIT HIGH SEVERITY& THREAT FUNCJ OFFICE 45981 MOHITINGTON RICHARDSO OUTPATIEN 5 5 FOOT & N MORGAN T VISIT ANKLE CE 15 MINUTES OFFICE 48040 MUHA JAVI MUHA JAVI OUTPATIEN 4 4 T NEW 30 MINUTES OFFICE 95119 [place] RICHARDSO OUTPATIEN 4 4 FOOT & N MORGAN T VISIT ANKLE CE 15 MINUTES OFFICE 34457 MOHIT[place] RICHARDSO OUTPATIEN 4 4 FOOT & N MORGAN T VISIT ANKLE CE 15 MINUTES OFFICE 67918 MOHIT[place] RICHARDSO OUTPATIEN 4 4 FOOT & N MORGAN T VISIT ANKLE CE 15 MINUTES OFFICE 04686 MOHITINGTON RICHARDSO OUTPATIEN 4 4 FOOT & N MORGAN T VISIT ANKLE CE 15 MINUTES OFFICE 76644 ISIDRO MONROE OUTPATIEN 4 4 FOOT & N MORGAN T NEW 30 ANKLE CE MINUTES [facility] [place] [address] 4 N OUTPATIEN COMMUNITY T HOSPITA OFFICE 22936 BIRDARMANDOIST BIRDWHIST OUTPATIEN 4 4 KHUSHBU STERN T VISIT 15 MINUTES EMERGENCY 20731 BLANCHE MANCIA DEPT 4 4 PREMA PREMA VISIT HIGH SEVERITY& THREAT FUNCJ OFFICE 01165 TRUDYIST BIRDWHIST OUTPATIEN 4 4 KHUSHBU STERN T VISIT 25 MINUTES EMERGENCY 60540 CHECO KESSLER DEPT 4 4 RYA RYA VISIT HIGH SEVERITY& THREAT [facility] [place] [address] 4 N OUTPATIEN [facility] T HOSPITA EMERGENCY 62103 [facility] CELLAR[facility] DEPT 4 4 [place] - YORBA VISIT EMERGENCY PAT HIGH PHYSI SEVERITY& THREAT FUNCJ OFFICE 72102 PATRICK FARR OUTPATIEN 1 1 AND T VISIT PEDIATRIC 15 S & INTER MINUTES OFFICE 03784 PATRICK FARR OUTPATIEN 1 1 AND T VISIT PEDIATRIC 15 S & INTER MINUTES [facility] [place] [address] 1 N OUTPATIEN [facility] T HOSPITA OFFICE 57652 BLUEGRASS YORDAN OUTPATIEN 1 1 AND T VISIT PEDIATRIC 15 S & INTER MINUTES [facility] [place] [address] 1 N INPATIENT COMMUNITY HOSPITA EMERGENCY 00176 DERRICK MANCIA 1 1 EMERGENCY PREMA DEPARTMEN SERVICES T VISIT HIGH/URGE NT SEVERITY OFFICE 04079 CULLENDEBRA CULLENGRASS OUTPATIEN 1 1 T VISIT 5 PEDIATRIC PEDIATRIC MINUTES S & INTER S & INTER OFFICE 44016 CULLENDEBRA YORDAN OUTPATIEN 1 1 AND T VISIT PEDIATRIC 15 S & INTER MINUTES [facility] [place] [address] 1 N INPATIENT [facility] 79833 BRISEYDA RAIN OUTPATIEN 0 0 KARI KARI T NEW 10 MINUTES OFFICE 47624 [facility] NEW 30 [facility]ENTER MINUTES OFFICE 58714 BRITANY, ZACARIAS GARG 8 8 YOHANA [facility] VISIT 15 MINUTES OFFICE 38742 [facility], ZACARIAS 8 8 FOR JOSE [facility] NEW 10 ORAL&MAXI MINUTES LLOFACIAL SURGERY
--- OUTSIDE RECORDS SUMMARY | 2017-05-24 09:14 | External Medical Summary Rpt ---
Demographics Preferred Language Japanese Marital Status Unknown Evangelical Affiliation Unknown Race Unknown Ethnic Group Unknown Author Author PAULINA Address Unknown Phone Immunization No patient found.
--- OUTSIDE RECORDS SUMMARY | 2017-05-24 09:14 | External Medical Summary Rpt ---
Demographics Preferred Language Khmer Marital Status Unknown Rastafari Affiliation Unknown Race Unknown Ethnic Group Unknown Author Author PAULINA Address Unknown Phone Immunization No patient found.
--- OUTSIDE RECORDS SUMMARY | 2017-05-24 09:16 | External Medical Summary Rpt ---
Author Author STEVEJAMES Lee, [employer] Address Unknown Phone Unavailable Results Comprehensive metabolic 2000 panel in Serum or Plasma Observa Value Referen Units Interpr Notes Date tion ce etation Range Albumin/G 1.1 - 1.8 No Normal No Oct 3 lobulin informati informati 2017 [Mass on in on in 12:39 PM ratio] in source source Serum or data data Plasma Albumin 3.4 - 5.0 gm/dL Normal No Oct 3 [Mass/vol informati 2017 ume] in on in 12:39 PM Serum or source Plasma data Alkaline 46 - 116 U/L Normal No Oct 3 phosphata informati 2017 se on in 12:39 PM [Enzymati source c data activity/ volume] in Serum or Plasma Bilirubin 0.2 - 1.0 mg/dL Normal No Oct 3 .total informati 2017 [Mass/vol on in 12:39 PM ume] in source Serum or data Plasma Urea 7 - 18 mg/dL Normal No Oct 3 nitrogen informati 2017 [Mass/vol on in 12:39 PM ume] in source Serum or data Plasma Calcium 8.5 - mg/dL Normal No Oct 3 [Mass/vol 10.1 informati 2017 ume] in on in 12:39 PM Serum or source Plasma data Chloride 98 - 107 mmoL/L Normal No Oct 3 [Moles/vo informati 2017 lume] in on in 12:39 PM Serum or source Plasma data Carbon 21.0 - mmoL/L Normal No Oct 3 dioxide, 32.0 informati 2017 total on in 12:39 PM [Moles/vo source lume] in data Serum or Plasma Creatinin 0.70 - mg/dL Normal No Oct 3 e 1.30 informati 2017 [Mass/vol on in 12:39 PM ume] in source Serum or data Plasma Estimated >60 ML/MIN No REFERENCE Oct 3 informati RANGE: 2017 glomerula on in >60 12:39 PM r source ML/MIN/1. filtratio data 73 SQUARE n rate METERSIf (GF this patient is -A merican, then multiply theresult by 1.210. Globulin 1.3 - 3.2 gm/dL Normal No May 3 [Mass/vol informati 2016 ume] in on in 12:39 PM Serum source data Glucose 74 - 106 mg/dL High No May 3 [Mass/vol informati 2016 ume] in on in 12:39 PM Serum or source Plasma data Potassium 3.5 - 5.1 mmoL/L Normal No May 16 inform2016 [Moles/vo on in 12:39 PM lume] in source Serum or data Plasma Sodium 136 - 145 mmoL/L Normal No May 16 [Moles/vo informati 2016 lume] in on in 12:39 PM Serum or source Plasma data Aspartate 15 - 37 U/L Normal No May 162016 aminotran on in 12:39 PM sferase source [Enzymati data c activity/ volume] in Serum or Plasma Alanine 12 - 78 U/L Normal No May 16 aminotran 2016 sferase on in 12:39 PM [Enzymati source c data activity/ volume] in Serum or Plasma Protein 6.4 - 8.2 gm/dL Normal No May 16 [Mass/vol informati 2016 ume] in on in 12:39 PM Serum or source Plasma data INR in Blood by Coagulation assay Observa Value Referen Units Interpr Notes Date tion ce etation Range INR in 0.9 - 1.1 No Normal INDICATIO May 16 Blood by informati N 2016 Coagulati on in 12:39 PM on assay source INR data RANGETHER APY FOR DVT, PE, ATRIAL FIB; 2.0 - 3.0PROPHY LAXIS FOR VTETHERAP Y FOR MECHANICA L HEART 2.5 - 3.5VALVE; PREVENTIO N OF SYSTEMICE MBOLISM SECONDARY TO AMI Prothromb 9.4 - SECONDS Normal No May 16 in time 11.8 inform2016 (PT) in on in 12:39 PM Platelet source poor data plasma by Coagulati on assay CBC W Auto Differential panel in Blood Observa Value Referen Units Interpr Notes Date tion ce etation Range Basophils 0 - 0.2 K/MM3 Normal No May 16 inform2016 [#/volume on in 12:39 PM ] in source Blood by data Automated count Basophils 0.1 - 2.0 % Normal No Oct 3 /100 informati 2017 leukocyte on in 12:39 PM s in source Blood by data Automated count Eosinophi 0.0 - 0.4 K/mm3 Normal No May 16 ls inform2016 [#/volume on in 12:39 PM ] in source Blood by data Automated count Eosinophi 0.1 - % Normal No May 16 ls/100 12.0 inform2016 leukocyte on in 12:39 PM s in source Blood by data Automated count Granulocy 1.3 - 8.0 K/mm3 Normal No May 16 lory inform2016 [#/volume on in 12:39 PM ] in source Blood by data Automated count Granulocy 37.0 - % Normal No May 16 lory/100 80.0 inform2016 leukocyte on in 12:39 PM s in source Blood by data Automated count Hematocri 42.0 - % Normal No May 16 t [Volume 52.0 2016 on in 12:39 PM Fraction] source of Blood data Hemoglobi 14.1 - g/dL Normal No May 16 n 18.0 2016 [Mass/vol on in 12:39 PM ume] in source Blood data Lymphocyt 0.7 - 4.5 K/mm3 Normal No May 16 es 2016 [#/volume on in 12:39 PM ] in source Unspecifi data ed specimen by Automated count Lymphocyt 10 - 50 % Normal No May 16 es 2016 [#/volume on in 12:39 PM ] in source Unspecifi data ed specimen by Automated count Erythrocy 27 - 31.2 pg High No May 16 te mean 2016 corpuscul on in 12:39 PM ar source hemoglobi data n [Entitic mass] Erythrocy 31.8 - g/dl Normal No May 16 te mean 35.4 2016 corpuscul on in 12:39 PM ar source hemoglobi data n concentra tion [Mass/vol ume] by Automated count Erythrocy 82.2 - fl High No May 16 te mean 97.8 2016 corpuscul on in 12:39 PM ar volume source [Entitic data volume] by Automated count Monocytes 0.1 - 1.0 K/mm3 Normal No May 3 2016 [#/volume on in 12:39 PM ] in source Blood by data Automated count Monocytes 1.7 - 9.3 % Normal No May 16 informati 2016 leukocyte on in 12:39 PM s in source Blood by data Automated count Platelets 142 - 424 K/mm3 Normal No Oct 3 informati 2016 [#/volume on in 12:39 PM ] in source Blood data Erythrocy 4.6 - 6.2 M/mm3 Normal No Oct 3 lory informati 2016 [#/volume on in 12:39 PM ] in source Amniotic data fluid Erythrocy 11.5 - % Normal No May 3 te 17.5 informati 2016 distribut on in 12:39 PM ion width source [Entitic data volume] by Automated count Leukocyte 4.8 - K/MM3 Low No May 3 s 10.8 informati 2016 [#/volume on in 12:39 PM ] in source Blood data Glucose [Mass/volume] in Capillary blood by Glucometer Observa Value Referen Units Interpr Notes Date tion ce etation Range Glucose 70 - 110 mg/dl High No Sep 28 [Mass/vol alert informati 2016 6:11 ume] in on in AM Capillary source blood by data Glucomete r Basic metabolic panel in Blood Observa Value Referen Units Interpr Notes Date tion ce etation Range Urea 7 - 18 mg/dL Normal No Sep 27 nitrogen informati 2017 8:20 [Mass/vol on in PM ume] in source Serum or data Plasma Calcium 8.5 - mg/dL Low No Sep 27 [Mass/vol 10.1 informati 2017 8:20 ume] in on in PM Serum or source Plasma data Chloride 98 - 107 mmoL/L Normal No Sep 27 [Moles/vo informati 2016 8:20 lume] in on in PM Serum or source Plasma data Carbon 21.0 - mmoL/L Normal No Sep 27 dioxide, 32.0 informati 2016 8:20 total on in PM [Moles/vo source lume] in data Serum or Plasma Creatinin 0.70 - mg/dL Low No Sep 27 e 1.30 informati 2016 8:20 [Mass/vol on in PM ume] in source Serum or data Plasma Creatinin 50 - 200 ML/MIN Normal No Sep 27 e renal informati 2016 8:20 clearance on in PM source predicted data by Cockcroft -Gault formula Estimated >60 ML/MIN No REFERENCE Sep 27 informati RANGE: 2017 8:20 glomerula on in >60 PM r source ML/MIN/1. filtratio data 73 SQUARE n rate METERSIf (GF this patient is -A merican, then multiply theresult by 1.210. Glucose 74 - 106 mg/dL High No Sep [Mass/vol informati 2016 8:20 ume] in on in PM Serum or source Plasma data Potassium 3.5 - 5.1 mmoL/L Normal No May 10 informati 2016 8:20 [Moles/vo on in PM lume] in source Serum or data Plasma Sodium 136 - 145 mmoL/L Normal No May 10 [Moles/vo informati 2016 8:20 lume] in on in PM Serum or source Plasma data Glucose [Mass/volume] in Capillary blood by Glucometer Observa Value Referen Units Interpr Notes Date tion ce etation Range Glucose 70 - 110 mg/dl High No May 10 [Mass/vol informati 2016 8:06 ume] in on in PM Capillary source blood by data Glucomete r Glucose [Mass/volume] in Capillary blood by Glucometer Observa Value Referen Units Interpr Notes Date tion ce etation Range Glucose 70 - 110 mg/dl High No May 10 [Mass/vol informati 2016 4:55 ume] in on in PM Capillary source blood by data Glucomete r Glucose [Mass/volume] in Capillary blood by Glucometer Observa Value Referen Units Interpr Notes Date tion ce etation Range Glucose 70 - 110 mg/dl High No Sep [Mass/vol alert informati 2017 ume] in on in 11:47 AM Capillary source blood by data Glucomete r DIARRHEA PANEL,PCR Observa Value Referen Units Interpr Notes Date tion ce etation Range Adenovi NOT NOT No No No May 10 ranjeet DETECTE DETECTE informa informa informa 2016 40+41 D tion in tion in tion in 10:25 Ag source source source AM [Presen data data data ce] in Stool Aeromon NOT NOT No No No May 10 as DETECTE DETECTE informa informa informa 2016 salmoni D tion in tion in tion in 10:25 tash source source source AM [Presen data data data ce] in Unspeci fied specime n Astrovi NOT NOT No No No May 10 ranjeet DETECTE DETECTE informa informa informa 2016 [Presen D tion in tion in tion in 10:25 ce] in source source source AM Stool data data data by Electro n microsc opy Campylo NOT NOT No No No Sep 27 bacter DETECTE DETECTE informa informa informa 2017 sp Ab D tion in tion in tion in 10:25 [Presen source source source AM ce] in data data data Serum Clostri NOT NOT No No No Sep 27 dium DETECTE DETECTE informa informa informa 2017 diffici D tion in tion in tion in 10:25 le source source source AM toxin data data data A+B [Presen ce] in Stool Cryptos NOT NOT No No No Sep 27 poridiu DETECTE DETECTE informa informa informa 2017 m sp Ag D tion in tion in tion in 10:25 source source source AM [Presen data data data ce] in Unspeci fied specime n Cyclosp NOT NOT No No No Sep 27 ora DETECTE DETECTE informa informa informa 2017 cayetan D tion in tion in tion in 10:25 erick source source source AM [Presen data data data ce] in Unspeci fied specime n Escheri NOT NOT No No No Sep fermin DETECTE DETECTE informa informa informa 2017 coli D tion in tion in tion in 10:25 [Presen source source source AM ce] in data data data Unspeci fied specime n by Culture FDA method Escheri NOT NOT No No No Sep fermin DETECTE DETECTE informa informa informa 2017 coli D tion in tion in tion in 10:25 [Presen source source source AM ce] in data data data Unspeci fied specime n by Culture FDA method Escheri NOT NOT No No No Sep 27 fermin DETECTE DETECTE informa informa informa 2017 coli D tion in tion in tion in 10:25 Shiga-l source source source AM homero data data data toxin 1 assa Escheri NOT NOT No No No Sep 27 fermin DETECTE DETECTE informa informa informa 2017 coli D tion in tion in tion in 10:25 [id number] source source source AM data data data [Presen ce] in Stool by Organis m specifi c culture Entamoe NOT NOT No No No Sep 27 ba DETECTE DETECTE informa informa informa 2017 histoly D tion in tion in tion in 10:25 jennifer source source source AM [Presen data data data ce] in Stool by Trichro me stain Giardia NOT NOT No No No Sep DETECTE DETECTE informa informa informa 2017 lamblia D tion in tion in tion in 10:25 Ag source source source AM [Presen data data data ce] in Stool Norovir DETECTE NOT No Abnorma No Sep us Ag D DETECTE informa l informa 2016 [Presen tion in tion in 10:25 ce] in source source AM Stool data data Stool NOT NOT No No No Sep Plesiom DETECTE DETECTE informa informa informa 2017 onas D tion in tion in tion in 10:25 shigell source source source AM oides data data data DNA detec Rotavir NOT NOT No No No May 10 us RNA DETECTE DETECTE informa informa informa 2017 detecti D tion in tion in tion in 10:25 on by source source source AM probe data data data and tar Salmone NOT NOT No No No May 10 lla sp DETECTE DETECTE informa informa informa 2017 DNA D tion in tion in tion in 10:25 [Identi source source source AM fier] data data data in Unspeci fied specime n by Probe & target amplifi cation method Caliciv NOT NOT No No No May 10 irus DETECTE DETECTE informa informa informa 2016 [Identi D tion in tion in tion in 10:25 fier] source source source AM in data data data Stool by Electro n microsc opy Escheri NOT NOT No No No May 10 fermin DETECTE DETECTE informa informa informa 2016 coli D tion in tion in tion in 10:25 [Presen source source source AM ce] in data data data Unspeci fied specime n by Culture FDA method Escheri NOT NOT No No No May 10 fermin DETECTE DETECTE informa informa informa 2016 coli D tion in tion in tion in 10:25 SXT source source source AM gene+H7 data data data gene [Identi fier] in Unspeci fied specime n by Probe & target amplifi cation method Vibrio NOT NOT No No No May 10 cholera DETECTE DETECTE informa informa informa 2017 e DNA D tion in tion in tion in 10:25 [Presen source source source AM ce] in data data data Unspeci fied specime n by Probe & target amplifi cation method Vibrio NOT NOT No No No Sep 27 sp DNA DETECTE DETECTE informa informa informa 2016 [Identi D tion in tion in tion in 10:25 fier] source source source AM in data data data Unspeci fied specime n by Probe & target amplifi cation method Vibrio NOT NOT No No No Sep 27 sp DETECTE DETECTE informa informa informa 2016 identif D tion in tion in tion in 10:25 ied in source source source AM Stool data data data by Organis m specifi c culture Glucose [Mass/volume] in Capillary blood by Glucometer Observa Value Referen Units Interpr Notes Date ti ce etation Range Glucose 70 - 110 mg/dl High No Sep 27 [Mass/vol informati 2017 6:15 ume] in on in AM Capillary source blood by data Glucomete r Basic metabolic panel in Blood Observa Value Referen Units Interpr Notes Date ti ce etation Range Urea 7 - 18 mg/dL No No Sep 27 nitrogen informati informati 2017 6:10 [Mass/vol on in on in AM ume] in source source Serum or data data Plasma Calcium 8.5 - mg/dL Low No Sep 27 [Mass/vol 10.1 informati 2017 6:10 ume] in on in AM Serum or source Plasma data Chloride 98 - 107 mmoL/L Normal No Sep 27 [Moles/vo informati 2017 6:10 lume] in on in AM Serum or source Plasma data Carbon 21.0 - mmoL/L Normal No Sep 27 dioxide, 32.0 informati 2017 6:10 total on in AM [Moles/vo source lume] in data Serum or Plasma Creatinin 0.70 - mg/dL Low No Sep 27 e 1.30 informati 2017 6:10 [Mass/vol on in AM ume] in source Serum or data Plasma Creatinin 50 - 200 ML/MIN Normal No Sep 27 e renal informati 2017 6:10 clearance on in AM source predicted data by Cockcroft -Gault formula Estimated >60 ML/MIN No REFERENCE Sep 27 informati RANGE: 2017 6:10 glomerula on in >60 AM r source ML/MIN/1. filtratio data 73 SQUARE n rate METERSIf (GF this patient is -A merican, then multiply theresult by 1.210. Glucose 74 - 106 mg/dL High No Sep 27 [Mass/vol informati 2017 6:10 ume] in on in AM Serum or source Plasma data Potassium 3.5 - 5.1 mmoL/L Low No Sep 27 informati 2017 6:10 [Moles/vo on in AM lume] in source Serum or data Plasma Sodium 136 - 145 mmoL/L Normal No Sep 27 [Moles/vo informati 2017 6:10 lume] in on in AM Serum or source Plasma data CBC W Auto Differential panel in Blood Observa Value Referen Units Interpr Notes Date tion ce etation Range Granulocy 1.3 - 8.0 K/mm3 Normal No Sep 27 lory informati 2017 6:10 [#/volume on in AM ] in source Blood by data Automated count Granulocy 37.0 - % Normal No Sep 27 lory/100 80.0 informati 2017 6:10 leukocyte on in AM s in source Blood by data Automated count Hematocri 42.0 - % Low No Sep 27 t [Volume 52.0 informati 2017 6:10 on in AM Fraction] source of Blood data Hemoglobi 14.1 - g/dL Low No Sep 27 n 18.0 informati 2017 6:10 [Mass/vol on in AM ume] in source Blood data Lymphocyt 0.7 - 4.5 K/mm3 Normal No Sep 27 es informati 2017 6:10 [#/volume on in AM ] in source Unspecifi data ed specimen by Automated count Lymphocyt 10 - 50 % Normal No Sep 27 es informati 2017 6:10 [#/volume on in AM ] in source Unspecifi data ed specimen by Automated count Erythrocy 27 - 31.2 pg High No Sep 27 te mean informati 2017 6:10 corpuscul on in AM ar source hemoglobi data n [Entitic mass] Erythrocy 31.8 - g/dl Normal No Sep 27 te mean 35.4 informati 2017 6:10 corpuscul on in AM ar source hemoglobi data n concentra tion [Mass/vol ume] by Automated count Erythrocy 82.2 - fL High No Sep 27 te mean 97.8 informati 2017 6:10 corpuscul on in AM ar volume source [Entitic data volume] by Automated count Monocytes 0.1 - 1.0 K/mm3 Normal No Sep 27 informati 2017 6:10 [#/volume on in AM ] in source Blood by data Automated count Monocytes 1.7 - 9.3 % Normal No Sep 27 /100 informati 2017 6:10 leukocyte on in AM s in source Blood by data Automated count Platelets 142 - 424 K/mm3 Low No Sep 27 informati 2017 6:10 [#/volume on in AM ] in source Blood data Erythrocy 4.6 - 6.2 M/mm3 Low No Sep 27 lory informati 2017 6:10 [#/volume on in AM ] in source Amniotic data fluid Erythrocy 11.5 - % Normal No Sep 27 te 17.5 informati 2017 6:10 distribut on in AM ion width source [Entitic data volume] by Automated count Leukocyte 4.8 - K/mm3 Low No Sep 27 s 10.8 informati 2016 6:10 [#/volume on in AM ] in source Blood data Urinalysis dipstick W Reflex Microscopic panel in Urine Observa Value Referen Units Interpr Notes Date tion ce etation Range Appeara CLEAR CLEAR No No No Sep 27 nce of informa informa informa 2017 Urine tion in tion in tion in 4:16 AM source source source data data data Bacteri 1+ O No No No Sep 27 a informa informa informa 2016 [Presen tion in tion in tion in 4:16 AM ce] in source source source Urine data data data sedimen t by Light microsc opy Bilirub NEGATIV NEG No No No Sep 27 in E informa informa informa 2016 [Presen tion in tion in tion in 4:16 AM ce] in source source source Urine data data data by Test strip Erythro NEGATIV NEG No No No Sep 27 cytes E informa informa informa 2016 [Presen tion in tion in tion in 4:16 AM ce] in source source source Urine data data data Color YELLOW YELLOW No No No Sep 27 of informa informa informa 2017 Urine tion in tion in tion in 4:16 AM source source source data data data Glucose NEG No High No Sep 27 [Mass/vol informati informati 2017 4:16 ume] in on in on in AM Urine by source source Test data data strip Ketones NEGATIV NEG mg/dL No No Sep 27 E informa informa 2016 [Presen tion in tion in 4:16 AM ce] in source source Urine data data by Automat ed test strip Mucus NEGATIV NEG No No No Sep [Presen E informa informa informa 2016 ce] in tion in tion in tion in 4:16 AM Urine source source source sedimen data data data t by Light microsc opy Mucus OCC NONE No No No Sep [Presen informa informa informa 2016 ce] in tion in tion in tion in 4:16 AM Urine source source source sedimen data data data t by Light microsc opy Nitrite NEGATIV NEG No No No Sep E informa informa informa 2016 [Presen tion in tion in tion in 4:16 AM ce] in source source source Urine data data data by Test strip pH of 5.0 - 8.5 No Normal No Sep 27 Urine informati informati 2017 4:16 on in on in AM source source data data Protein NEG mg/dL No No Sep 27 [Mass/vol informati informati 2017 4:16 ume] in on in on in AM Urine by source source Automated data data test strip Erythro OCC 0 rbc/hpf No No Sep 27 cytes informa informa 2016 [Presen tion in tion in 4:16 AM ce] in source source Urine data data sedimen t by Light microsc opy Specific 1.005 - No Normal No Sep 27 gravity 1.030 informati informati 2017 4:16 of Urine on in on in AM source source data data Urobili 0.2 NEG E.U./dL No No Sep 27 nogen informa informa 2017 [Presen tion in tion in 4:16 AM ce] in source source Urine data data by Test strip Leukocyte O wbc/hpf No No Sep 27 s informati informati 2017 4:16 [#/volume on in on in AM ] in source source Urine data data Urinalysis dipstick W Reflex Microscopic panel in Urine Observa Value Referen Units Interpr Notes Date tion ce etation Range Appeara CLEAR CLEAR No No No Sep 27 nce of informa informa informa 2017 Urine tion in tion in tion in 4:16 AM source source source data data data Bilirub NEGATIV NEG No No No Sep 27 in E informa informa informa 2016 [Presen tion in tion in tion in 4:16 AM ce] in source source source Urine data data data by Test strip Erythro NEGATIV NEG No No No Sep 27 cytes E informa informa informa 2016 [Presen tion in tion in tion in 4:16 AM ce] in source source source Urine data data data Color YELLOW YELLOW No No No Sep 27 of informa informa informa 2017 Urine tion in tion in tion in 4:16 AM source source source data data data Glucose NEG No High No Sep 27 [Mass/vol informati informati 2017 4:16 ume] in on in on in AM Urine by source source Test data data strip Ketones NEGATIV NEG mg/dL No No Sep E informa informa 2016 [Presen tion in tion in 4:16 AM ce] in source source Urine data data by Automat ed test strip Mucus NEGATIV NEG No No No Sep [Presen E informa informa informa 2016 ce] in tion in tion in tion in 4:16 AM Urine source source source sedimen data data data t by Light microsc opy Nitrite NEGATIV NEG No No No Sep E informa informa informa 2016 [Presen tion in tion in tion in 4:16 AM ce] in source source source Urine data data data by Test strip pH of 5.0 - 8.5 No Normal No Sep 27 Urine informati informati 2017 4:16 on in on in AM source source data data Protein NEG mg/dL No No Sep 27 [Mass/vol informati informati 2017 4:16 ume] in on in on in AM Urine by source source Automated data data test strip Specific 1.005 - No Normal No Sep 27 gravity 1.030 informati informati 2017 4:16 of Urine on in on in AM source source data data Urobili 0.2 NEG E.U./dL No No Sep 27 nogen informa informa 2016 [Presen tion in tion in 4:16 AM ce] in source source Urine data data by Test strip Glucose [Mass/volume] in Capillary blood by Glucometer Observa Value Referen Units Interpr Notes Date tion ce etation Range Glucose 70 - 110 mg/dl High No May 09 [Mass/vol informati 2016 8:59 ume] in on in PM Capillary source blood by data Glucomete r Glucose [Mass/volume] in Capillary blood by Glucometer Observa Value Referen Units Interpr Notes Date ti ce etation Range Glucose 70 - 110 mg/dl High No May 09 [Mass/vol informati 2016 7:59 ume] in on in PM Capillary source blood by data Glucomete r Glucose [Mass/volume] in Capillary blood by Glucometer Observa Value Referen Units Interpr Notes Date ti ce etation Range Glucose 70 - 110 mg/dl High No May 09 [Mass/vol informati 2016 6:51 ume] in on in PM Capillary source blood by data Glucomete r Glucose [Mass/volume] in Capillary blood by Glucometer Observa Value Referen Units Interpr Notes Date ti ce etation Range Glucose 70 - 110 mg/dl High No May 09 [Mass/vol informati 2016 5:35 ume] in on in PM Capillary source blood by data Glucomete r Lactate [Moles/volume] in Serum or Plasma Observa Value Referen Units Interpr Notes Date ti ce etation Range Lactate 0.4 - 2.0 MMOL/L Normal No May 09 [Moles/vo informati 2016 3:58 lume] in on in PM Serum or source Plasma data Drugs identified in Urine by Screen method Observa Value Referen Units Interpr Notes Date tion ce etation Range Positive urine drug screen samples are stored for 7 days. Contact the Lab if confirmation of positives is needed. Ampheta NEGATIV <1000 ng/mL No No May 09 mine E informa informa 2017 [Presen tion in tion in 3:10 PM ce] in source source Urine data data by Screen method Barbitura <200 ng/mL No No May 09 lory informati informati 2017 3:10 [Mass/vol on in on in PM ume] in source source Urine by data data Screen method Benzodiaz 200 ng/mL ng/mL No No May 09 epines informati informati 2017 3:10 [Mass/vol on in on in PM ume] in source source Serum or data data Plasma by Screen method Cocaine <300 ng/g No No May 09 [Mass/vol informati informati 2017 3:10 ume] in on in on in PM Unspecifi source source ed data data specimen Methadone <300 ng/mL No No Sep informati informati 2017 3:10 [Mass/vol on in on in PM ume] in source source Unspecifi data data ed specimen Opiates <300 ng/mL No No May 09 [Mass/vol informati informati 2017 3:10 ume] in on in on in PM Unspecifi source source ed data data specimen Phencycli <25 ng/mL No No Apr 26 dine informati informati 2017 3:10 [Mass/vol on in on in PM ume] in source source Unspecifi data data ed specimen 11-Hydr NEGATIV <50 ng/mL No No May 09 oxy E informa informa 2017 delta-9 tion in tion in 3:10 PM source source tetrahy data data drocann abinol [Presen ce] in Unspeci fied specime n Glucose [Mass/volume] in Capillary blood by Glucometer Observa Value Referen Units Interpr Notes Date tion ce etation Range Glucose 70 - 110 mg/dl No No Sep [Mass/vol informati informati 2017 1:54 ume] in on in on in PM Capillary source source blood by data data Glucomete r Amylase [Enzymatic activity/volume] in Serum or Plasma Observa Value Referen Units Interpr Notes Date tion ce etation Range Amylase 25 - 115 U/L Normal No Sep [Enzymati informati 2016 c on in 12:29 PM activity/ source volume] data in Serum or Plasma Lipase [Enzymatic activity/volume] in Serum or Plasma Observa Value Referen Units Interpr Notes Date tion ce etation Range Lipase 73 - 393 U/L Normal No Sep [Enzymati informati 2016 c on in 12:29 PM activity/ source volume] data in Serum or Plasma Ethanol [Mass/volume] in Serum or Plasma Observa Value Referen Units Interpr Notes Date tion ce etation Range Ethanol 0 - 99 mg/dL Normal ANY May 09 [Mass/vol ALCOHOL > 2017 ume] in OR = 80 12:02 PM Serum or MG/DL IS Plasma CONSIDERE D LEGALLYIN TOXICATED UNDER [facility] LAW. Comprehensive metabolic 2000 panel in Serum or Plasma Observa Value Referen Units Interpr Notes Date tion ce etation Range Albumin/G 1.1 - 1.8 No Normal No Sep 26 lobulin informati informati 2017 [Mass on in on in 12:02 PM ratio] in source source Serum or data data Plasma Albumin 3.4 - 5.0 gm/dL Normal No Sep 26 [Mass/vol informati 2017 ume] in on in 12:02 PM Serum or source Plasma data Alkaline 46 - 116 U/L Low No Sep 26 phosphata informati 2017 se on in 12:02 PM [Enzymati source c data activity/ volume] in Serum or Plasma Bilirubin 0.2 - 1.0 mg/dL Normal No Sep 26 .total informati 2017 [Mass/vol on in 12:02 PM ume] in source Serum or data Plasma Urea 7 - 18 mg/dL Normal No Sep 26 nitrogen informati 2017 [Mass/vol on in 12:02 PM ume] in source Serum or data Plasma Calcium 8.5 - mg/dL Low No Sep [Mass/vol 10.1 informati 2017 ume] in on in 12:02 PM Serum or source Plasma data Chloride 98 - 107 mmoL/L Normal No Sep [Moles/vo informati 2017 lume] in on in 12:02 PM Serum or source Plasma data Carbon 21.0 - mmoL/L Normal No Sep 26 dioxide, 32.0 informati 2017 total on in 12:02 PM [Moles/vo source lume] in data Serum or Plasma Creatinin 0.70 - mg/dL Low No Sep 26 e 1.30 informati 2017 [Mass/vol on in 12:02 PM ume] in source Serum or data Plasma Creatinin 50 - 200 ML/MIN Normal No Sep 26 e renal informati 2017 clearance on in 12:02 PM source predicted data by Cockcroft -Gault formula Estimated >60 ML/MIN No REFERENCE Sep 26 informati RANGE: 2017 glomerula on in >60 12:02 PM r source ML/MIN/1. filtratio data 73 SQUARE n rate METERSIf (GF this patient is -A merican, then multiply theresult by 1.210. Globulin 1.3 - 3.2 gm/dL Normal No Sep 26 [Mass/vol informati 2017 ume] in on in 12:02 PM Serum source data Glucose 74 - 106 mg/dL High No Sep 26 [Mass/vol informati 2017 ume] in on in 12:02 PM Serum or source Plasma data Potassium 3.5 - 5.1 mmoL/L Normal No Sep inform2016 [Moles/vo on in 12:02 PM lume] in source Serum or data Plasma Sodium 136 - 145 mmoL/L Normal No May 09 [Moles/vo inform2016 lume] in on in 12:02 PM Serum or source Plasma data Aspartate 15 - 37 U/L Normal No May 092016 aminotran on in 12:02 PM sferase source [Enzymati data c activity/ volume] in Serum or Plasma Alanine 12 - 78 U/L Normal No May 09 aminotran inform2016 sferase on in 12:02 PM [Enzymati source c data activity/ volume] in Serum or Plasma Protein 6.4 - 8.2 gm/dL Normal No May 09 [Mass/vol informati 2016 ume] in on in 12:02 PM Serum or source Plasma data CBC W Auto Differential panel in Blood Observa Value Referen Units Interpr Notes Date tion ce etation Range Granulocy 1.3 - 8.0 K/mm3 High No May 09 lory inform2016 [#/volume on in 12:02 PM ] in source Blood by data Automated count Granulocy 37.0 - % High No May 09 lory/100 80.0 2016 leukocyte on in 12:02 PM s in source Blood by data Automated count Hematocri 42.0 - % Normal No May 09 t [Volume 52.0 informati 2016 on in 12:02 PM Fraction] source of Blood data Hemoglobi 14.1 - g/dL Normal No May 09 n 18.0 informati 2016 [Mass/vol on in 12:02 PM ume] in source Blood data Lymphocyt 0.7 - 4.5 K/mm3 Low No Sep es inform2016 [#/volume on in 12:02 PM ] in source Unspecifi data ed specimen by Automated count Lymphocyt 10 - 50 % Low No May 09 es informati 2016 [#/volume on in 12:02 PM ] in source Unspecifi data ed specimen by Automated count Erythrocy 27 - 31.2 pg High No Sep te mean informati 2016 corpuscul on in 12:02 PM ar source hemoglobi data n [Entitic mass] Erythrocy 31.8 - g/dl Normal No May 09 te mean 35.4 informati 2016 corpuscul on in 12:02 PM ar source hemoglobi data n concentra tion [Mass/vol ume] by Automated count Erythrocy 82.2 - fL High No Sep 26 te mean 97.8 2016 corpuscul on in 12:02 PM ar volume source [Entitic data volume] by Automated count Monocytes 0.1 - 1.0 K/mm3 Normal No Sep 26 informati 2016 [#/volume on in 12:02 PM ] in source Blood by data Automated count Monocytes 1.7 - 9.3 % Normal No Sep 26 /100 inform2016 leukocyte on in 12:02 PM s in source Blood by data Automated count Platelets 142 - 424 K/mm3 Normal No Sep 26 informati 2016 [#/volume on in 12:02 PM ] in source Blood data Erythrocy 4.6 - 6.2 M/mm3 Normal No Sep 26 lory informati 2016 [#/volume on in 12:02 PM ] in source Amniotic data fluid Erythrocy 11.5 - % Normal No Sep 26 te 17.5 informati 2016 distribut on in 12:02 PM ion width source [Entitic data volume] by Automated count Leukocyte 4.8 - K/mm3 High No Sep 26 s 10.8 informati 2016 [#/volume on in 12:02 PM ] in source Blood data Differential panel, method unspecified - Observa Value Referen Units Interpr Notes Date tion ce etation Range Neutrophi 0 - 8 % Normal No Sep 26 ls.band informati 2017 form/100 on in 12:02 PM leukocyte source s in data Blood by Automated count LYMPH 1 10 - 50 % Low No Sep 26 inform2016 tion in 12:02 source PM data Macrocy 1+ No No No No Sep 26 lory informa informa informa informa 2016 [Presen tion in tion in tion in tion in 12:02 ce] in source source source source PM Blood data data data data Monocytes 2 - 9 % Normal No Sep 26 /100 inform2016 leukocyte on in 12:02 PM s in source Blood by data Automated count Platele NORMAL No No No No Sep 26 ts informa informa informa informa 2016 [Presen tion in tion in tion in tion in 12:02 ce] in source source source source PM Blood data data data data by Light microsc opy Neutrophi 42 - 76 % High No Sep 26 ls informati 2016 [#/volume on in 12:02 PM ] in source Blood by data Automated count Cells No #CELLS No No May 09 Counted informati informati informati 2016 Total [#] on in on in on in 12:02 PM in Blood source source source data data data Target 1+ No No No No May 09 cells informa informa informa informa 2016 [Presen tion in tion in tion in tion in 12:02 ce] in source source source source PM Blood data data data data by Light microsc opy Lactate [Moles/volume] in Blood Observa Value Referen Units Interpr Notes Date tion ce etation Range Lactate 0.4 - 2.0 mmol/L High An May 09 [Moles/vo elevated 2016 lume] in Lactic 12:02 PM Blood Acid is suggestiv e of sepsis and shouldbe repeated within 6 hours of initial testing. Ethanol [Mass/volume] in Serum or Plasma Observa Value Referen Units Interpr Notes Date ti ce etation Range Ethanol 0 - 99 mg/dL Normal ANY Mar 22 [Mass/vol ALCOHOL > 2016 1:05 ume] in OR = 80 PM Serum or MG/DL IS Plasma CONSIDERE D LEGALLYIN TOXICATED UNDER [employer]. Urinalysis dipstick W Reflex Microscopic panel in Urine Observa Value Referen Units Interpr Notes Date ti ce etation Range Appeara CLEAR CLEAR No No No Mar 22 nce of informa informa informa 2016 Urine tion in tion in tion in 11:48 source source source AM data data data Bacteri TRACE O No No No Mar 22 a informa informa informa 2016 [Presen tion in tion in tion in 11:48 ce] in source source source AM Urine data data data sedimen t by Light microsc opy Bilirub NEGATIV NEG No No No Mar 22 in E informa informa informa 2016 [Presen tion in tion in tion in 11:48 ce] in source source source AM Urine data data data by Test strip Erythro TRACE-I NEG No No No Mar 22 cytes NTACT informa informa informa 2016 [Presen tion in tion in tion in 11:48 ce] in source source source AM Urine data data data Color YELLOW YELLOW No No No Mar 22 of informa informa informa 2016 Urine tion in tion in tion in 11:48 source source source AM data data data Glucose NEG No High No Mar 22 [Mass/vol informati informati 2017 ume] in on in on in 11:48 AM Urine by source source Test data data strip Ketones TRACE NEG mg/dL Abnorma No Mar 22 l informa 2017 [Presen tion in 11:48 ce] in source AM Urine data by Automat ed test strip Mucus NEGATIV NEG No No No Mar 22 [Presen E informa informa informa 2016 ce] in tion in tion in tion in 11:48 Urine source source source AM sedimen data data data t by Light microsc opy Nitrite NEGATIV NEG No No No Mar 22 E informa informa informa 2016 [Presen tion in tion in tion in 11:48 ce] in source source source AM Urine data data data by Test strip pH of 5.0 - 8.5 No Normal No Mar 22 Urine informati informati 2017 on in on in 11:48 AM source source data data Protein NEG mg/dL No No Mar 22 [Mass/vol informati informati 2017 ume] in on in on in 11:48 AM Urine by source source Automated data data test strip Erythro OCC 0 rbc/hpf No No Mar 22 cytes informa informa 2016 [Presen tion in tion in 11:48 ce] in source source AM Urine data data sedimen t by Light microsc opy Specific 1.005 - No Normal No Mar 22 gravity 1.030 informati informati 2017 of Urine on in on in 11:48 AM source source data data Epithel OCC OCC #/hpf No No Mar 22 ial informa informa 2017 cells.s tion in tion in 11:48 quamous source source AM data data [Presen ce] in Urine sedimen t by Microsc opy high power field Urobili 0.2 NEG E.U./dL No No Mar 22 nogen informa informa 2017 [Presen tion in tion in 11:48 ce] in source source AM Urine data data by Test strip Leukocyte O wbc/hpf No No Mar 22 s informati informati 2017 [#/volume on in on in 11:48 AM ] in source source Urine data data Urinalysis dipstick W Reflex Microscopic panel in Urine Observa Value Referen Units Interpr Notes Date tion ce etation Range Appeara CLEAR CLEAR No No No Mar 22 nce of informa informa informa 2016 Urine tion in tion in tion in 11:48 source source source AM data data data Bilirub NEGATIV NEG No No No Mar 22 in E informa informa informa 2016 [Presen tion in tion in tion in 11:48 ce] in source source source AM Urine data data data by Test strip Erythro TRACE-I NEG No No No Mar 22 cytes NTACT informa informa informa 2016 [Presen tion in tion in tion in 11:48 ce] in source source source AM Urine data data data Color YELLOW YELLOW No No No Mar 22 of informa informa informa 2016 Urine tion in tion in tion in 11:48 source source source AM data data data Glucose NEG No High No Mar 22 [Mass/vol informati informati 2017 ume] in on in on in 11:48 AM Urine by source source Test data data strip Ketones TRACE NEG mg/dL Abnorma No Mar 22 l informa 2016 [Presen tion in 11:48 ce] in source AM Urine data by Automat ed test strip Mucus NEGATIV NEG No No No Mar 22 [Presen E informa informa informa 2016 ce] in tion in tion in tion in 11:48 Urine source source source AM sedimen data data data t by Light microsc opy Nitrite NEGATIV NEG No No No Mar 22 E informa informa informa 2016 [Presen tion in tion in tion in 11:48 ce] in source source source AM Urine data data data by Test strip pH of 5.0 - 8.5 No Normal No Mar 22 Urine informati informati 2017 on in on in 11:48 AM source source data data Protein NEG mg/dL No No Mar 22 [Mass/vol informati informati 2017 ume] in on in on in 11:48 AM Urine by source source Automated data data test strip Specific 1.005 - No Normal No Mar 22 gravity 1.030 informati informati 2016 of Urine on in on in 11:48 AM source source data data Urobili 0.2 NEG E.U./dL No No Mar 22 nogen informa informa 2016 [Presen tion in tion in 11:48 ce] in source source AM Urine data data by Test strip Glucose [Mass/volume] in Capillary blood by Glucometer Observa Value Referen Units Interpr Notes Date tion ce etation Range Glucose 70 - 110 mg/dl High No Mar 22 [Mass/vol informati 2016 ume] in on in 10:55 AM Capillary source blood by data Glucomete r Comprehensive metabolic 2000 panel in Serum or Plasma Observa Value Referen Units Interpr Notes Date tion ce etation Range Albumin/G 1.1 - 1.8 No Normal No Mar 22 lobulin informati informati 2016 [Mass on in on in 10:40 AM ratio] in source source Serum or data data Plasma Albumin 3.4 - 5.0 gm/dL Normal No Mar 22 [Mass/vol informati 2016 ume] in on in 10:40 AM Serum or source Plasma data Alkaline 46 - 116 U/L Low No Mar 22 phosphata informati 2016 se on in 10:40 AM [Enzymati source c data activity/ volume] in Serum or Plasma Bilirubin 0.2 - 1.0 mg/dL Normal No Mar 22 .total informati 2016 [Mass/vol on in 10:40 AM ume] in source Serum or data Plasma Urea 7 - 18 mg/dL Low No Mar 22 nitrogen informati 2016 [Mass/vol on in 10:40 AM ume] in source Serum or data Plasma Calcium 8.5 - mg/dL Normal No Mar 22 [Mass/vol 10.1 informati 2016 ume] in on in 10:40 AM Serum or source Plasma data Chloride 98 - 107 mmoL/L Normal No Mar 22 [Moles/vo informati 2016 lume] in on in 10:40 AM Serum or source Plasma data Carbon 21.0 - mmoL/L Normal No Mar 22 dioxide, 32.0 informati 2017 total on in 10:40 AM [Moles/vo source lume] in data Serum or Plasma Creatinin 0.70 - mg/dL Normal No Mar 22 e 1.30 informati 2017 [Mass/vol on in 10:40 AM ume] in source Serum or data Plasma Creatinin 50 - 200 ML/MIN Normal No Mar 22 e renal informati 2017 clearance on in 10:40 AM source predicted data by Cockcroft -Gault formula Estimated >60 ML/MIN No REFERENCE Mar 22 informati RANGE: 2017 glomerula on in >60 10:40 AM r source ML/MIN/1. filtratio data 73 SQUARE n rate METERSIf (GF this patient is -A merican, then multiply theresult by 1.210. Globulin 1.3 - 3.2 gm/dL Normal No Mar 22 [Mass/vol informati 2016 ume] in on in 10:40 AM Serum source data Glucose 74 - 106 mg/dL High No Mar 22 [Mass/vol informati 2016 ume] in on in 10:40 AM Serum or source Plasma data Potassium 3.5 - 5.1 mmoL/L Normal No Mar 222016 [Moles/vo on in 10:40 AM lume] in source Serum or data Plasma Sodium 136 - 145 mmoL/L Normal No Mar 22 [Moles/vo informati 2016 lume] in on in 10:40 AM Serum or source Plasma data Aspartate 15 - 37 U/L High No Mar 222016 aminotran on in 10:40 AM sferase source [Enzymati data c activity/ volume] in Serum or Plasma Alanine 12 - 78 U/L Normal No Mar 22 aminotran 2016 sferase on in 10:40 AM [Enzymati source c data activity/ volume] in Serum or Plasma Protein 6.4 - 8.2 gm/dL Normal No Mar 22 [Mass/vol informati 2016 ume] in on in 10:40 AM Serum or source Plasma data Amylase [Enzymatic activity/volume] in Serum or Plasma Observa Value Referen Units Interpr Notes Date tion ce etation Range Amylase 25 - 115 U/L Low No Mar 22 [Enzymati informati 2016 c on in 10:40 AM activity/ source volume] data in Serum or Plasma Lipase [Enzymatic activity/volume] in Serum or Plasma Observa Value Referen Units Interpr Notes Date tion ce etation Range Lipase 73 - 393 U/L Normal No Mar 22 [Enzymati informati 2016 c on in 10:40 AM activity/ source volume] data in Serum or Plasma CBC W Auto Differential panel in Blood Observa Value Referen Units Interpr Notes Date tion ce etation Range Basophils 0 - 0.2 K/MM3 Normal No Mar 222016 [#/volume on in 10:40 AM ] in source Blood by data Automated count Basophils 0.1 - 2.0 % Normal No Mar 22 /100 2016 leukocyte on in 10:40 AM s in source Blood by data Automated count Eosinophi 0.0 - 0.4 K/mm3 Normal No Mar 22 ls informati 2016 [#/volume on in 10:40 AM ] in source Blood by data Automated count Eosinophi 0.1 - % Normal No Mar 22 ls/100 12.0 inform2016 leukocyte on in 10:40 AM s in source Blood by data Automated count Granulocy 1.3 - 8.0 K/mm3 Normal No Mar 22 lory 2016 [#/volume on in 10:40 AM ] in source Blood by data Automated count Granulocy 37.0 - % Normal No Mar 22 lory/100 80.0 inform2016 leukocyte on in 10:40 AM s in source Blood by data Automated count Hematocri 42.0 - % Normal No Mar 22 t [Volume 52.0 ati 2016 on in 10:40 AM Fraction] source of Blood data Hemoglobi 14.1 - g/dL Normal No Mar 22 n 18.0 2016 [Mass/vol on in 10:40 AM ume] in source Blood data Lymphocyt 0.7 - 4.5 K/mm3 Normal No Mar 22 es 2016 [#/volume on in 10:40 AM ] in source Unspecifi data ed specimen by Automated count Lymphocyt 10 - 50 % Normal No Mar 22 es 2016 [#/volume on in 10:40 AM ] in source Unspecifi data ed specimen by Automated count Erythrocy 27 - 31.2 pg High No Mar 22 te mean 2016 corpuscul on in 10:40 AM ar source hemoglobi data n [Entitic mass] Erythrocy 31.8 - g/dl Normal No Mar 22 te mean 35.4 2016 corpuscul on in 10:40 AM ar source hemoglobi data n concentra tion [Mass/vol ume] by Automated count Erythrocy 82.2 - fl High No Mar 22 te mean 97.8 inform2016 corpuscul on in 10:40 AM ar volume source [Entitic data volume] by Automated count Monocytes 0.1 - 1.0 K/mm3 Normal No Mar 222016 [#/volume on in 10:40 AM ] in source Blood by data Automated count Monocytes 1.7 - 9.3 % Normal No Mar 22 inform2016 leukocyte on in 10:40 AM s in source Blood by data Automated count Platelet 7.4 - fl Low No Mar 22 mean 10.4 2016 volume on in 10:40 AM [Entitic source volume] data in Blood by Automated count Platelets 142 - 424 K/mm3 Normal No Mar 222016 [#/volume on in 10:40 AM ] in source Blood data Erythrocy 4.6 - 6.2 M/mm3 Low No Mar 22 lory 2016 [#/volume on in 10:40 AM ] in source Amniotic data fluid Erythrocy 11.5 - % Normal Mar 22 te 17.5 2016 distribut on in 10:40 AM ion width source [Entitic data volume] by Automated count Leukocyte 4.8 - K/MM3 Normal Mar 22 s 10.8 informati 2016 [#/volume on in 10:40 AM ] in source Blood data
--- OUTSIDE RECORDS SUMMARY | 2017-05-24 09:16 | External Medical Summary Rpt ---
[...] IS Plasma CONSIDERE D LEGALLYIN TOXICATED UNDER [facility] LAW. Comprehensive metabolic 2000 panel in [...] IS Plasma CONSIDERE D LEGALLYIN TOXICATED UNDER [facility] LAW. Urinalysis dipstick W Reflex Microscopic panel [...]
== END 2017-05-11 09:45 | disposition home or self-care (01) ==
LOC: ER 11:49 → 2ND 16:59 → ER 16:59 → 2ND 17:13
PROVIDERS: Emergency Medicine
DX: K52.9 Noninfective gastroenteritis and colitis, unspecified (principal); E11.649 Type 2 diabetes mellitus with hypoglycemia without coma; G89.29 Other chronic pain; F17.210 Nicotine dependence, cigarettes, uncomplicated; Z79.4 Long term (current) use of insulin; Z79.891 Long term (current) use of opiate analgesic; Z79.899 Other long term (current) drug therapy; I10 Essential (primary) hypertension; E78.5 Hyperlipidemia, unspecified; M54.9 Dorsalgia, unspecified
CPT/HCPCS: G0378; J2405; Q9967

== ENCOUNTER → 2017-05-16 | Outpatient (CLI) | payer MEDICAID ==
[2017-05-16 12:56] LABS: HEMOGLOBIN 16.1 g/dL (14.1-18.0); LYMPH % 31.1 % (10-50)
[2017-05-16 12:57] LABS: LYMPH # 1.3 K/mm3 (0.7-4.5)
[2017-05-16 14:15] LABS: BUN 7 mg/dL (7-18)
[2017-05-16 14:22] LABS: GFR (ESTIMATED) 102 ML/MIN (>60)
== END ==
LOC: LAB 12:37
PROVIDERS: Surgery
DX: R10.13 Epigastric pain (principal); R11.0 Nausea; Z01.818 Encounter for other preprocedural examination

== ENCOUNTER 2017-05-30 07:13 | Day surgery (SDC) | payer MEDICAID ==
[~2017-05-30 07:13] MED LIST changes: +ALIGN10.5 MG PO; +OMEPRAZOLE40 MG PO; +SIMVASTATIN10 MG PO; +SUBOXONE 8 MG-21 FIL SL; +ZOFRAN4 MG PO
--- NOTE | 2017-05-30 09:44 | Operative Note ---
Endoscopy Report Date: 05/30/17 Preoperative diagnosis: Nausea, anorexia Procedure Type of procedure: Several gastric duodenoscopy with biopsies Indications: Patient is a 51-year-old white male originally referred from [facility] for evaluation of gallbladder. He had been seen in the emergency department about 2 months ago with a 2 day history where he states he "couldn't eat". He states he had no appetite. He did have some minor nausea. He was in the emergency department he underwent CT scan which revealed possible gallbladder sludge. This was followed by gallbladder ultrasound which revealed no stones but small hypoechoic focus anteriorly possibly consistent with polyp. He underwent a HIDA scan which revealed an ejection fraction of 64 percent. Of note, the patient had slight elevation of AST in the emergency department. He admits to drinking alcohol. He previously drank a fifth daily. He states that he now drinks about 2 beers daily. He is on Suboxone. Given the history and nature of his symptoms and equivocal gallbladder workup plan was made for upper endoscopy. Consent was obtained and patient was taken to the same-day surgery endoscopy procedure room. He was positioned in a lateral decubitus position and adequate sedation was achieved with anesthesia titration of propofol. Olympus endoscope was inserted via the oropharynx. Proximal esophagus appeared normal. The gastroesophageal junction there are findings consistent with Atkinson's esophagus. Stomach was cannulated and insufflated. Retroflexion revealed a moderate sliding hiatal hernia. There is diffuse gastritis and findings of a "watermelon stomach" consistent with nonerosive gastritis. Gastric antral mucosal biopsy was obtained for CLOtest for H. pylori. Pylorus was traversed. Duodenal bulb and duodenal sweep were inspected and there appeared to be some atrophic mucosa which was biopsied. Gastric biopsy was obtained as well. Several biopsies were obtained of the gastroesophageal junction. Endoscope was withdrawn. Findings 1. Hiatal Hernia 2. Gastritis 3. Atkinson's Esophagus Follow-Up Follow-Up: Plan to follow-up on the biopsies and H. pylori status. Likely change from H2 blockers to proton pump inhibitors given the findings suggestive of Atkinson's esophagus. If there is any dysplasia may require referral for possible ablation. at [id number]
[2017-05-30 10:46] VITALS: BP 145/93
== END 2017-05-30 10:10 | disposition home or self-care (01) ==
LOC: SDC 07:13
PROVIDERS: Surgery
PROC: 0DB78ZX Excision of Stomach, Pylorus, Via Natural or Artificial Opening Endoscopic, Diagnostic (ICD-10-PCS; 2017-05-30)
PROC: 0DB68ZX Excision of Stomach, Via Natural or Artificial Opening Endoscopic, Diagnostic (ICD-10-PCS; 2017-05-30)
PROC: 0DB48ZX Excision of Esophagogastric Junction, Via Natural or Artificial Opening Endoscopic, Diagnostic (ICD-10-PCS; 2017-05-30)
PROC: 0DB98ZX Excision of Duodenum, Via Natural or Artificial Opening Endoscopic, Diagnostic (ICD-10-PCS; principal; 2017-05-30 08:30)
DX: K22.70 Barrett's esophagus without dysplasia (principal); K44.9 Diaphragmatic hernia without obstruction or gangrene; K29.70 Gastritis, unspecified, without bleeding; R11.0 Nausea

== ENCOUNTER 2017-06-07 16:00 | Emergency (ER) | payer MEDICAID ==
[~2017-06-07] VITALS: Ht 170.2 cm; Wt 55.8 kg
--- OUTSIDE RECORDS SUMMARY | 2017-06-07 16:19 | External Medical Summary Rpt | CCD ---
Author Author , PAULINA Organization PAULINA Address Unknown Phone [email or web address] Team Providers Care Tailor'S Aide Name Role Phone BAKARI RAÚL, BAKARI Unavailable Unavailable RAÚL CROWLEY JR, CARLINE GALAVIZ Unavailable Unavailable [facility] Unavailable Unavailable PHARMACY, [...] Unavailable PAT, CELLAROSI - YORBA PAT [facility] Unavailable Unavailable ADVANCED MAZA, [facility], Unavailable Unavailable [facility] [place] [facility] 2332, Unavailable Unavailable [facility] 2332 [facility] & Unavailable Unavailable EDUCATION, [facility] & Unavailable Unavailable EDUCATION, [facility] Unavailable Unavailable SERVICES, [facility] Unavailable Unavailable LLC, [employer] [facility] FARAGASSO DEV, Unavailable Unavailable FARAGASSO DEV ROSCOE STODDARDLEY Unavailable Unavailable PRE[facility] ROSCO[facility] STODDARDLEY Unavailable Unavailable PREMA [facility] Unavailable Unavailable HOSPITA, [facility] Unavailable Unavailable HOSPITA, [facility] Unavailable Unavailable EMS, [facility] PATRICE RHO, PATRICE Unavailable Unavailable RHO [facility], Unavailable Unavailable [facility] HABASH, KEFAH, Unavailable Unavailable HABASH, KEFAH FINCH, FINCH Unavailable Unavailable [facility], Unavailable Unavailable [facility], Unavailable Unavailable [facility] Unavailable Unavailable INC, [facility] RAIN KARI, Unavailable Unavailable RAIN KARI RAIN KARI, Unavailable Unavailable RAIN KARI [facility], Unavailable Unavailable [facility] Unavailable Unavailable SERVICES O, [facility] HOUSMAN LILO, HOUSMAN Unavailable Unavailable LILO [facility] Unavailable Unavailable EQUIPMENT, [facility] Un[facility] Un[facility] Unavailable Unavailable GROUP [facility], [facility] Unavailable Unavailable [facility], [facility] NURSE Unavailable Unavailable PRACTITIONER GR, [facility]URSE PRACTITIONER GR ARABELLA BALDERAS Unavailable Unavailable [facility] # Unavailable Unavailable [id number], [facility] # [id number] [facility] Unavailable Unavailable HOLD[facility], [facility] Unavailable Unavailable [facility], [facility] Un[facility] Unavailable [facility], [facility], Unavailable Unavailable [facility] JAVIER ANT, JAVIER ANT Unavailable Unavailable MAJMUDAR, MAJMUDAR Unavailable Unavailable [facility] Unavailable Unavailable SERVICES, [facility] MATT GUTIERREZ Unavailable Unavailable MATT LOWE, MATT Unavailable Unavailable MATT MARTINEZ Unavailable Unavailable DESTINEE MAX, JOSE P, MAX, Unavailable Unavailable JOSE P MECCARIELLO TRA, Unavailable Unavailable MECCARIELLO TRA MUHA JAVI, MUHA JAVI Unavailable Unavailable MUHA JAVI, MUHA JAVI Unavailable Unavailable ELENITA, BETSY R, Unavailable Unavailable ELENITABETSY R OZOR, OZOR Unavailable Unavailable [facility], Unavailable [facility]available [facility], [facility] VILLA, VILLA Unavailable Unavailable [facility], Unavailable Unavailable [facility], Unavailable Unavailable [facility], Unavailable Unavailable [facility] Unavailable Unavailable INCORPORAT, [facility] BOWLES JERRI, Unavailable Unavailable [facility] RENUSCH, RENUSCH Unavailable Unavailable MORENO MORGAN, Unavailable Unavailable MORENO MORGAN JIMMY, JIMMY Unavailable Unavailable SCALF SARA, SCALF SARA Unavailable Unavailable SHASHY WOOD, SHASHY Unavailable Unavailable [facility] Unavailable Un[facility], [facility] Unavailable Unavailable [facility]GENCY SERV, [facility] Unavailable Unavailable EMERGENCY SERVI, [facility] Unavailable Unavailable PHYSICIAN SERVI, [facility] KESSLER RYA, KESSLER Unavailable Unavailable RYA KESSLER RYA, KESSLER Unavailable Unavailable RYA QUAN ADWOA, QUAN Unavailable Unavailable ADWOA VORKPOR EDWAR, VORKPOR Unavailable Unavailable EDWAR [id number] # Unavailable Unavailable [id number], [id number] # [id number] WE[facility], WELLS Unavailable Unavailable [facility], [facility] Unavailable Unavailable RICHARD MAT, RICHARD MAT Unavailable Unavailable Purpose Continuity of Care Document - 02-13-2008 through 2016 Problems Code Diagnosis DOS Provider Status [id number] TYPE 2 05-09-2017 [facility] W/HYPOGLYCE SAMUEL W/O COMA K529 NONINFECTIV 05-09-2017 [facility] ITIS & COLITIS UNS Z0389 ENCOUNTER 05-09-2017 [facility] SUSPCT DZ & PLLC COND RULED OUT R1013 EPIGASTRIC 04-24-2017 [facility] R109 UNSPECIFIED 04-05-2017 [facility] K828 OTHER 03-22-2017 [facility] SPEC[facility]ICAL DISEASES OF IMAGING ASS GALLBLADDER E119 TYPE 2 03-09-2017 [facility] WITHOUT COMPLICATIO NS Z0000 ENCOUNTER 03-09-2017 [facility] MED EXAM INC W/O ABNORMAL FIND E1040 TYPE 1 02-27-2017 [facility] L MELLITUS W/DIAB NEUROPATHY UNS E1043 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-27-2017 [facility] W/DIABETIC L AUTONOMIC POLYNEUROPA THY I687JPQ FRACTURE 10-03-2016 [facility] COCCYX L INITIAL ENCNTR FOR CLOS FRACTURE E1165 TYPE 2 09-14-2016 [facility] DI[facility]ETES COMM[facility]TIY MELLITUS HOSPITA WITH HYPERGLYCEM IA G13194 GENERALIZED 09-14-2016 [facility] ABDOMINAL COMMUNTIY TENDERNESS HOSPITA R112 NAUSEA WITH 09-14-2016 [facility] N EMERGENCY UNSPECIFIED PHYS R197 DIARRHEA 09-14-2016 [facility] UNSPECIFIED N EMERGENCY PHYS R51 HEADACHE 09-14-2016 [facility] R739 HYPERGLYCEM 09-14-2016 [facility] IA N EMERGENCY UNSPECIFIED PHYS Z720 TOBACCO USE 09-14-2016 [facility] COMM[facility]TIY [facility]PITA Z794 COCONUT JELLY ROLLER 09-14-2016 [facility] CURRENT USE COMMUNTIY OF INSULIN HOSPITA E1310 OTHER 09-06-2016 [facility] SPECIFIED MEDICINE DIAB SERVICES O W/KETOACIDO SIS W/O COMA E860 DEHYDRATION 09-06-2016 [facility] N [facility] SERV I10 ESSENTIAL 09-06-2016 [facility] PRIMARY MEDICINE HYPERTENSIO SERVICES O N I959 HYPOTENSION 09-06-2016 [facility] N EMERGENCY UNSPECIFIED SERV N179 ACUTE 09-06-2016 [facility] KIDNEY N EMERGENCY FAILURE SERV UNSPECIFIED E1169 TYPE 2 08-31-2016 [facility] DIABETES N EMERGENCY MELLITUS SERVI W/OTH SPEC COMPLICATIO N E872 ACIDOSIS 08-31-2016 [facility] N [facility] SERVI M533 SACROCOCCYG 08-31-2016 [facility] DISORDERS NEC M545 LOW BACK 08-31-2016 [facility] R531 WEAKNESS 08-31-2016 [facility] R5381 OTHER 08-31-2016 [facility] [place] [facility] [facility] [id number] UNS 08-31-2016 [facility] FRACTURE N EMERGENCY SACRUM SERVI INITIAL ENC CLOS FRACTURE R300 DYSURIA 06-21-2016 [facility] N EMERGENCY SERVI R319 HEMATURIA 06-21-2016 [facility] [place] UNSPECIFIED RADIOLOGY E1065 TYPE 1 06-15-2016 [facility] NURSE DIABETES PRACTITIONE MELLITUS R GR WITH HYPERGLYCEM IA E1010 TYPE 1 06-02-2016 [facility] DIABETES L MAT MELLITUS W/KETOACIDO SIS W/O COMA K219 GASTRO-ESOP 06-02-2016 [facility] H REFLUX L MAT DISEASE WITHOUT ESOPHAGITIS K3184 GASTROPARES 06-02-2016 [facility] IS L MAT K72165 PAIN IN 05-05-2016 [facility] [place] RIGHT ELBOW RAD[facility]Y M7711 LATERAL 05-05-2016 [facility] EPICONDYLIT N EMERGENCY IS RIGHT SERVI ELBOW R1110 VOMITING 03-02-2016 [facility] UNSPECIFIED COMMUNTIY HOSPITA Z5321 PROC & [place] 03-02-2016 [facility] NOT CARRIED COMMUNTIY OUT PT HOSPITA LEAVE PRIOR TO SEEN N521 ERECTILE 12-25-2015 [facility] DYSFUNCTION L MAT DUE TO DISEASES CLASS ELSW R1012 LEFT UPPER 12-18-2015 [facility] [place] [facility] PAIN Z1211 ENCOUNTER 12-02-2015 [facility] PS NEOPLASM OF COLON R1011 RIGHT UPPER 11-07-2015 [facility] PAIN HOSPITA Z125 ENCOUNTER 10-29-2015 [facility] MALIGNANT NEOPLASM PROSTATE B354 TINEA 09-15-2015 [facility] CORPORIS COMMUNTIY HOSPITA B358 OTHER 09-15-2015 [facility] DERMATOPHYT OSES L0201 CUTANEOUS 09-15-2015 [facility] ABSCESS OF COMMUNTIY FACE HOSPITA L723 SEBACEOUS 09-15-2015 [facility] CYST COMMUNTIY HOSPITA E0841 DM D/T 07-30-2015 [facility] UNDERLYING L MAT COND W/DIABETIC MONONEUROPA THY A084 VIRAL 07-20-2015 [facility] INTESTINAL COMMUNTIY INFECTION HOSPITA UNSPECIFIED R94210 TYPE 1 DM 07-20-2015 [facility] W/UNS DIAB COMMUNTIY RETINPATH HOSPITA W/O MACULAR EDEMA R000 TACHYCARDIA 07-20-2015 [facility] UNSPECIFIED 64511 DIAB W/O 04-14-2015 [facility] COMP TYPE DIAGNOSTICS II/UNS NOT STATED UN[facility]L 82632 DIAB 04-14-2015 [facility] W/NEURO L MANIFESTS TYPE II/UNS NOT UNCNTRL 3572 POLYNEUROPA 04-14-2015 [facility] THY IN L DIABETES V5867 LONG-TERM 04-14-2015 [facility] USE OF L INSULIN 43191 DIAB W/O 01-18-2015 [facility] COMP TYPE I [JUV] NOT STATED UNCNTRL 55348 NAUSEA WITH 01-18-2015 [facility] VOMITING 43156 PLANTAR 11-14-2014 [facility] FIBROMATOSI ANKLE CE S 7295 PAIN IN 11-14-2014 [facility] SOFT FOOT & TISSUES OF ANKLE CE LIMB 3671 MYOPIA 08-12-2014 MUHA JAVI 3559 MONONEURITI 07-02-2014 [facility] OF [facility]AGNOSTICS UNSPECIFIED SITE 08731 DIAB W/O 06-19-2014 [facility] MENTION CARE & COMP TYPE I EDUCATION [JUV TYPE] UNCNTRL 89557 OSTEOARTHRO 04-07-2014 [facility] SIS UNSPEC RADIOLOGY WHETHER GEN/LOC LOWER LEG 19315 OBSTRUCTIVE 12-27-2013 [facility] SLEEP APNEA 95438 OTHER 12-27-2013 [facility] [place] [address] UNSPECIFIED 12-27-2013 [facility] SLEEP [facility] APNEA HOSPITA 1105 DERMATOPHYT 12-20-2013 [facility] OSIS OF THE L MAT BODY 45874 ESOPHAGEAL 12-20-2013 [facility] REFLUX L MAT 5363 GASTROPARES 11-25-2013 [place] [address] NAUSEA 11-25-2013 [facility] D[facility] ALONE 4778 ALLERGIC 11-21-2013 [facility] RHINITIS L MAT DUE TO OTHER ALLERGEN 49898 UNSPECIFIED 11-21-2013 [facility] L MAT ARTHROPATHY SITE UNSPECIFIED 4659 ACUTE URIS 11-10-2013 [facility] RYA OF UNSPECIFIED SITE 4739 UNSPECIFIED 11-10-2013 [facility] SINUSITIS 7862 COUGH 11-10-2013 [facility] 7241 PAIN IN 10-22-2013 [facility] [place] THORACIC [facility] SPINE 7242 LUMBAGO 10-22-2013 [facility] HOSPITA 25305 DIAB W/O 10-14-2013 [facility] MENTION N PHYSICIAN COMP TYPE SERVI II/UNS TYPE UNCNTRL 95327 DIABETES 10-14-2013 [facility] W/KETOACIDO N PHYSICIAN SIS TYPE SERVI II/UNS TYPE [facility] 28057 DEHYDRATION 10-14-2013 [facility] PHYSICIAN SERVI 5849 ACUTE 10-14-2013 [facility] KIDNEY N PHYSICIAN FAILURE SERVI UNSPECIFIED 67809 DIAB 10-13-2013 [facility] W/KETOACIDO N EMERGENCY S TYPE I PHYSI [JUV] NOT STATE UNCN[facility]L 89371 DIAB W/OTH 10-13-2013 [facility]- [facility] TYPE II/UNS EMS NOT UNCNTRL 38114 SINOATRIAL 10-13-2013 [facility]- NODE [facility] DYSFUNCTION EMS 52132 VOMITING 10-13-2013 [facility]- ALONE [facility] EMS 54205 OTHER 10-13-2013 [facility]- ABNORMAL DE CO GLUCOSE EMS 98049 DIABETES 08-14-2013 [facility] W/KETOACIDO SIS TYPE I [JUV] UN[facility]L 43789 OTHER ACUTE 01-31-2011 [facility] EXTERNA & INTER 61267 TOB USE D/O 01-31-2011 [facility] COMP PG [facility] /PP & INTER UNSPEC EPIS CARE/NA 7569 OTH&UNSPEC 01-31-2011 [facility] 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 24237 UNSPECIFIED 01-31-2011 [facility] SLEEP [facility] DISTURBANCE & INTER 7919 OTHER 01-31-2011 [facility] NONSPECIFIC [facility]EDIATRICS FINDING & INTER EXAMINATION OF URINE 4519 PHLEBITIS&T 12-01-2010 [facility] HROMBOPHLEB [facility]EDIATRICS ITIS OF & INTER UNSPECIFIED SITE 67760 SHORTNESS 11-05-2010 [facility] [place] [facility] 72839 ABDOMINAL 10-27-2010 [facility] PAIN, [facility] UNSPECIFIED HOSPITA SITE 89137 OTHER 10-20-2010 [facility] SPECIFIED [facility]ATRICS DISORDER OF & INTER THE ESOPHAGUS 7245 UNSPECIFIED 10-20-2010 [facility] BACKACHE PEDIATRICS & INTER 2762 ACIDOSIS 10-09-2010 [facility] & INTER 5609 UNSPECIFIED 10-09-2010 [facility] INTESTINAL [facility] & INTER OBSTRUCTION 2753 DISORDERS 10-07-2010 [facility] PHOSPHORUS HOSPITA METABOLISM 2768 HYPOPOTASSE 10-07-2010 [facility] 31302 LEUKOCYTOSI 10-07-2010 [facility] UNSPECIFIED SERVICES 5362 PERSISTENT 10-07-2010 [facility]GENCY SERVICES 5601 PARALYTIC 10-07-2010 [facility] ILEUS [facility] HOSPITA 5758 OTHER 10-07-2010 [facility] [place] SPECIFIED RADIOLOGY DISORDER OF GALLBLADDER 5780 HEMATEMESIS 10-07-2010 [facility] HOSPITA 5789 UNSPECIFIED 10-07-2010 [facility] HEMOR[facility]AGE EMERGENCY OF SERVICES GASTROINTES TINAL TRACT 5589 OTH&UNSPEC 10-06-2010 [facility] NONINFECTIO EMERGENCY US SERVICES GASTROENTER ITIS&COLITI S 7850 UNSPECIFIED 09-21-2010 [facility] 18254 DIAB 09-12-2010 [facility]/NEURO [facility] MANIFESTS HOSPITA TYPE I [JUV TYPE] UN[facility] 7840 HEADACHE 09-12-2010 [facility] 04765 ABDOMINAL 09-12-2010 [facility] PAIN, LEFT [facility] UPPER HOSPITA QUADRANT 39460 ABDOMINAL 09-12-2010 [facility] PAIN, [facility] EPIGASTRIC HOSPITA 5253 RETAINED 06-08-2010 [facility] KARI 5264 INFLAMMATOR 06-08-2010 RAIN Y KARI CONDITIONS OF JAW 18573 DIAB 02-14-2008 [facility] TYPE II/UNS NOT UNCNTRL 89406 REGULAR 02-14-2008 [facility] 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 [address] 30 8- 3- 00 00 RE ve YL 70 20 20 0 42 EN E 82 17 17 81 S LI 7 24 #1 TE [address] RI P SI 68 05 06 30 30 00 [...] 75 50 MC G SP RA Y EA 91 05 06 10 30 00 GE Ac SY 23 -2 -1 0. 00 OR ti 70 2- 6- 00 06 GE ve CO 00 20 20 0 04 TO MF 17 17 17 35 WN OR 2 56 T AP SY OT R HE 1 CA ML RY 30 GX 1/ 2" GA 69 05 06 12 30 00 GE Ac BA 09 -1 -0 0. 00 OR ti PE 70 7- 9- 00 06 GE ve NT 81 20 20 0 04 TO IN 11 17 17 16 WN 2 20 80 AP 0 OT MG HE CA TA RY BL ET BA 00 05 05 15 30 00 [facility] SA 00 -0 -2 .0 00 LG ti GL 27 1- 6 00 RE ve AR 71 20 20 42 EN 55 17 17 83 S 10 9 00 #1 0 20 UN 75 IT /M L KW IK PE N UL 08 05 05 10 25 00 NH Ac TI 22 -0 -2 0. 00 LG ti CA 20 1- 6 00 RE ve RE 95 20 20 0 42 EN 83 17 17 83 S PE 1 02 #1 N 20 NE 75 ED LE S 8M M 31 G IN 11 04 05 60 30 00 [facility] MAZA 91 -2 -2 .0 00 LG ti LI 70 8- 6- 00 RE ve N 04 20 20 41 EN SY 81 17 17 69 S RI 4 11 #1 N 20 0. 75 5 ML 31 GX 16 " FR 99 05 05 10 25 00 [facility] EE 07 -0 -2 0. [address] 30 1- 6 00 RE ve YL 70 20 20 0 42 EN E 82 17 17 81 S LI 7 24 #1 TE [address] RI P FL 00 04 05 16 30 00 [facility] [place] 05 -2 -1 .0 00 LG ti IC 43 6- 9- 00 RE ve 27 20 20 42 EN ON 09 17 17 73 S E 9 46 #1 GA 20 OP 75 50 MC G SP RA Y SI 68 04 05 30 30 00 [facility] MV 18 -2 -1 .0 00 LG ti 00 6- 9 00 RE ve TA 47 20 20 41 EN TI 80 17 17 50 S N 3 62 #1 10 20 75 MG TA BL ET TR 60 04 05 30 30 00 [facility] [place] 50 -2 -1 .0 00 LG ti OD 52 6- 9- 00 RE ve ON 65 20 20 40 EN E 50 17 17 46 S 15 1 68 #1 0 20 MG 75 TA BL ET GA 69 04 05 12 30 00 GE Ac BA 09 -2 -1 0. 00 OR ti PE 70 4- 9- 00 06 GE ve NT 81 20 20 0 04 TO IN 11 17 17 16 WN 2 20 80 AP 0 OT MG HE CA TA RY BL ET FL 00 04 05 30 30 00 NH Ac UO 78 -1 -1 .0 00 [...] FR 99 04 05 10 25 00 NH Ac EE 07 -1 -0 0. [address] 30 2- 5- 00 00 RE ve YL 13 20 20 0 39 EN E 00 17 17 08 S 28 1 78 #1 G 20 LA 75 NC ET S TR 60 03 04 30 30 00 NH Ac AZ 50 -3 -2 .0 00 LG ti OD 52 0- 8- 00 00 RE ve ON 65 20 20 40 EN E 50 17 17 46 S 15 1 68 #1 0 20 MG 75 TA BL ET IN 11 03 04 60 30 00 NH Ac MAZA 91 -3 -2 .0 00 LG ti LI 70 0- 8- 00 00 RE ve N 04 20 20 41 EN SY 81 17 17 69 S RI 4 11 #1 N 20 0. 75 5 ML 31 GX 5/ 16 " FR 99 04 04 10 25 00 NH Ac EE 07 -0 -2 0. [address] 30 4- 8- 00 00 RE ve YL 70 20 20 0 38 EN E 82 17 17 27 S LI 7 72 #1 TE [address] RI P FL 60 03 04 16 30 00 NH Ac UT 50 -2 -2 .0 00 LG ti IC 50 6- 1- 00 00 RE ve 82 20 20 42 EN ON 90 17 17 12 S E 1 74 #1 GA 20 OP 75 50 MC G SP RA Y SI 68 03 04 30 30 00 NH Ac MV 18 -2 -2 .0 00 [...] BL ET CY NT HI AN A LA 00 03 04 10 28 00 [place] Ac NT 08 -2 -2 .0 00 LG ti US 82 4- 1- 00 00 RE ve 22 20 20 42 EN 10 03 17 17 09 S 0 3 44 #1 UN 20 IT 75 /M L AL FR 99 03 04 10 25 00 [place] Ac EE 07 -2 -1 0. [address] 30 1- 4- 00 RE ve YL 13 20 20 0 39 EN E 00 17 17 08 S 28 1 78 #1 G 20 LA 75 NC ET S FL 00 03 04 30 30 00 [place] Ac UO 78 -1 -0 .0 00 LG ti XE 12 4- 7- 00 00 RE ve TI 82 20 20 40 EN NE 20 17 17 13 S 1 48 #1 HC 20 L 75 20 MG CA PS UL E LI 68 03 04 30 30 00 WA Ac SI 18 -1 -0 .0 00 LG ti NO 00 4- 7- 00 RE ve GA 51 20 20 41 EN IL 40 17 17 87 S 3 96 #1 10 20 75 MG TA BL ET FR 99 03 04 10 25 00 [place] Ac EE 07 -0 -0 0. [address] 30 9- 7- 00 00 RE ve YL 70 20 20 0 38 EN E 82 17 17 27 S LI 7 72 #1 TE [address] RI P TR 60 03 03 30 30 00 [place] Ac AZ 50 -0 -3 .0 00 LG ti OD 52 3- 1- 00 00 RE ve ON 65 20 20 40 EN E 50 17 17 46 S 15 1 68 #1 0 20 MG 75 TA BL ET IN 11 03 03 60 30 00 [place] Ac MAZA 91 -0 -3 .0 00 LG ti LI 70 4- 1- 00 00 RE ve N 04 20 20 41 EN SY 81 17 17 69 S RI 4 11 #1 N 20 0. 75 5 ML 31 GX 5/ 16 " SI 68 02 03 30 30 00 [place] Ac MV 18 -2 -2 .0 00 LG ti 00 4- 4- 00 RE ve TA 47 20 20 41 EN TI 80 17 17 50 S N 3 62 #1 10 20 75 MG TA BL ET FL 60 02 03 16 30 00 WA Ac UT 50 -2 -2 .0 00 LG ti IC 50 4- 4- 00 00 RE ve 82 20 20 41 EN ON 90 17 17 50 S E 1 51 #1 GA 20 OP 75 50 MC G SP RA Y FR 99 02 03 10 25 00 NH Ac EE 07 -2 -2 0. [address] 30 3- 4- 00 00 RE ve YL 13 20 20 0 39 EN E 00 17 17 08 S 28 1 78 #1 G 20 LA 75 NC ET S GA 00 02 03 12 30 00 NH Ac BA 09 -2 -2 0. 00 LG ti PE 34 7- 4- 00 00 RE ve NT 44 20 20 0 41 EN IN 40 17 17 55 S 5 59 #1 80 20 0 75 MG TA BL ET FR 99 02 03 10 25 00 NH Ac EE 07 -1 -1 0. [address] 30 4- 0- 00 00 RE ve YL 70 20 20 0 38 EN E 82 17 17 27 S LI 7 72 #1 TE [address] RI P HY 00 02 03 20 [address] 59 -2 -1 .0 00 LG ti OC 12 0- 0- 00 00 RE ve OD 60 20 20 41 EN ON 50 17 17 40 S -A 5 84 #1 CE 20 TA 75 MD NO PH 7. 5- 32 5 LA 00 02 03 10 28 00 NH Ac NT 08 -2 -1 .0 00 LG ti US 82 2- 0- 00 00 RE ve 22 20 20 38 EN 10 03 17 17 20 S 0 3 71 #1 UN 20 IT 75 /M L AL FL 00 02 03 30 30 00 NH Ac UO 78 -1 -1 .0 00 LG ti XE 12 3- 0- 00 00 RE ve TI 82 20 20 40 EN NE 20 17 17 13 S 1 48 #1 HC 20 L 75 20 MG CA PS UL E LI 68 02 03 30 30 00 NH Ac SI 18 -1 -1 .0 00 LG ti NO 00 3- 0- 00 00 RE ve GA 51 20 20 39 EN IL 40 17 17 02 S 3 30 #1 10 20 75 MG TA BL ET FR 99 02 03 1. 30 00 NH Ac EE 07 -0 -0 [address] 30 6- 3- 0 00 RE ve YL 70 20 20 41 EN E 80 17 17 10 S LI 5 75 #1 TE 20 75 ME TE R FR 99 02 03 10 25 00 NH Ac EE 07 -0 -0 0. [address] 30 6- 3- 00 00 RE ve YL 13 20 20 0 41 EN E 00 17 17 10 S 28 1 76 #1 G 20 LA 75 NC ET S HY 00 02 03 60 [address] 59 -0 -0 .0 00 LG ti OC 12 6- 3- 00 00 RE ve OD 60 20 20 41 EN ON 50 17 17 10 S -A 5 78 #1 CE 20 TA 75 MD NO PH 7. 5- 32 5 IN 11 02 03 10 30 00 NH Ac MAZA 91 -0 -0 0. 00 LG ti LI 70 4- 3- 00 00 RE ve N 04 20 20 0 38 EN SY 81 17 17 72 S RI 4 10 #1 N 20 0. 75 5 ML 31 GX 5/ 16 " TR 60 02 03 30 30 00 NH Ac AZ 50 -0 -0 .0 00 LG ti OD 52 4- 3- 00 00 RE ve ON 65 20 20 40 EN E 50 17 17 46 S 15 1 68 #1 0 20 MG 75 TA BL ET NI 00 02 03 28 28 00 NH Ac CO 53 -0 -0 .0 00 LG ti TI 61 6- 3- 00 00 RE ve NE 10 20 20 41 EN 88 17 17 10 S 21 8 67 #1 20 MG 75 /2 4H R PA TC H FL 60 01 02 16 30 00 NH Ac UT 50 -2 -2 .0 00 LG ti IC 50 6- 4- 00 00 RE ve 82 20 20 40 EN ON 90 17 17 88 S E 1 04 #1 GA 20 OP 75 50 MC G SP RA Y SI 68 01 02 30 30 00 NH Ac MV 18 -2 -2 .0 00 LG ti 00 6- 4- 00 00 RE ve TA 47 20 20 39 EN TI 80 17 17 17 S N 3 15 #1 10 20 75 MG TA BL ET FR 99 01 02 10 25 00 NH Ac EE 07 -3 -2 0. [address] 30 1- 4- 00 00 RE ve YL 13 20 20 0 39 EN E 00 17 17 08 S 28 1 78 #1 G 20 LA 75 NC ET S GA 00 01 02 12 30 00 NH Ac BA 09 -3 -2 0. 00 LG ti PE 34 0- 4- 00 00 RE ve NT 44 20 20 0 40 EN IN 40 17 17 95 S 5 43 #1 80 20 0 75 MG TA BL ET GA 68 02 02 20 5 00 WA Ac OM 38 -0 -2 .0 00 LG ti ET 20 1- 4- 00 00 RE ve ALONSO 04 20 20 41 EN ZI 00 17 17 02 S NE 1 57 #1 20 12 75 .5 MG TA BL ET ON 68 02 02 12 2 00 [place] Ac DA 46 -0 -2 .0 00 LG ti NS 20 1- 4- 00 RE ve ET 15 20 20 41 EN RO 71 17 17 02 S N 3 58 #1 OD 20 T 75 4 MG TA BL ET FR 99 01 02 10 25 00 WA Ac EE 07 -2 -1 0. [address] 30 1- 7- 00 RE ve YL 70 20 20 0 38 EN E 82 17 17 27 S LI 7 72 #1 TE [address] RI P LA 00 01 02 10 28 00 WA Ac NT 08 -2 -1 .0 00 LG ti US 82 4- 7- 00 00 RE ve 22 20 20 38 EN 10 03 17 17 20 S 0 3 71 #1 UN 20 IT 75 /M L AL ST 00 01 02 60 30 00 WA Ac OO 53 -2 -1 .0 00 LG ti L 61 3- 7- 00 00 RE ve SO 06 20 20 40 EN FT 50 17 17 80 S EN 1 57 #1 ER 20 75 24 0 MG SO FT GE L HY 00 01 02 60 [address] 59 -2 -1 .0 00 LG ti OC 12 3- 7- 00 00 RE ve OD 60 20 20 40 EN ON 50 17 17 80 S -A 5 58 #1 CE 20 TA 75 MD NO PH 7. 5- 32 5 FL 00 02 30 30 00 WA Ac UO 78 -1 -1 .0 00 LG ti XE 12 7- 0- 00 00 RE ve TI 82 20 20 40 EN NE 20 17 17 13 S 1 48 #1 HC 20 L 75 20 MG CA PS UL E LI 68 01 02 30 30 00 WA Ac SI 18 -1 -1 .0 00 LG ti NO 00 7- 0- 00 00 RE ve GA 51 20 20 39 EN IL 40 17 17 02 S 3 30 #1 10 20 75 MG TA BL ET TR 60 01 02 30 30 00 WA Ac AZ 50 [...] LA 00 12 01 10 28 00 NH Ac NT 08 -2 -2 .0 00 LG ti US 82 8- 0- 00 00 RE ve 22 20 20 38 EN 10 03 16 17 20 S 0 3 71 #1 UN 20 IT 75 /M L AL SI 68 12 01 30 30 00 NH Ac MV 18 -2 -2 .0 00 LG ti 00 7- 0- 00 00 RE ve TA 47 20 20 39 EN TI 80 16 17 17 S N 3 15 #1 10 20 75 MG TA BL ET FL 50 12 01 16 30 00 NH Ac UT 38 -2 -2 .0 00 LG ti IC 30 7- 0- 00 00 RE ve 70 20 20 38 EN ON 01 16 17 59 S E 6 83 #1 GA 20 OP 75 50 MC G SP RA Y FR 99 12 01 10 25 00 NH Ac EE 07 -1 -1 0. [address] 30 7- 3- 00 00 RE ve YL 13 20 20 0 39 EN E 00 16 17 08 S 28 1 78 #1 G 20 LA 75 NC ET S LI 68 12 01 30 30 00 WA Ac SI 18 -2 -1 .0 00 LG ti NO 00 0- 3- 00 00 RE ve GA 51 20 20 39 EN IL 40 16 17 02 S 3 30 #1 10 20 75 MG TA BL ET FL 00 12 01 30 30 00 NH Ac UO 78 -2 -1 .0 00 LG ti XE 12 0- 3- 00 00 RE ve TI 82 20 20 40 EN NE 20 16 17 13 S 1 48 #1 HC 20 L 75 20 MG CA PS UL E TR 60 12 01 30 30 00 WA Ac AZ 50 -1 -0 .0 00 LG ti OD 52 1- 9- 00 00 RE ve ON 65 20 20 37 EN E 50 16 17 84 S 15 1 55 #1 0 20 MG 75 TA BL ET IN 11 12 01 60 30 00 WA Ac MAZA 91 -0 -0 .0 00 LG ti LI 70 9- 9- 00 00 RE ve N 04 20 20 38 EN SY 81 16 17 72 S RI 4 10 #1 N 20 0. 75 5 ML 31 GX 5/ 16 " HY 00 02 02 0 10 2 [place] [address] 59 -0 -0 0. LG 38 NL ti OC 13 2- 2- 00 RE 13 EY ve OD 20 20 20 0 EN ON 20 16 16 S PA -A 5 #1 UL CE 20 W TA 75 MD # NO PH 12 EN 07 5 5- 32 5 CL 00 02 02 0 45 10 [...] 12 DS 07 5 TA BL ET TR 00 06 08 2 30 30 [...] ve G 68 20 20 6 GH MD 51 11 11 PH X 2 AR [...] 10 10 PH FA AC 1 AR MD ET MA LY AM CY & IN [...] 70 10 10 PH FA 5 AR MD MA LY CY & # CO 24 [...] 70 10 10 PH FA 5 AR MD MA LY CY & # CO 24 [...] /M L AL 00 08 09 00 28 7 CV 15 MA Ac 09 -2 -1 .0 S 32 X ti 33 7- 1- 00 PH 24 DO ve 17 20 20 AR NA 10 08 08 MA LD 1 CY P 23 32 00 08 09 00 10 2 CV [...] 10 0 UN IT /M L AL TR 60 07 07 02 30 30 [...] Order Detail nces retati t Range on Glucose capillary blood glucometer (05-30-2017 07:49) Glucose = 113 70-110 complet 017 mg/dl ed capilla 07:[address] Urinalysis dipstick W Reflex Microscopic panel in [...] sedimen t by Light microsc opy Epithel OCC OCC complet ial 017 ed cells.s [...] Procedures Procedure DOS Code Location Performer Comment ECG 85458 CAROL RENUSC ROUTINE 7 PHYSICIAN ECG S, PLLC W/LEAST 12 LDS I&R ONLY [facility]OBIL [facility]1794 [facility] 7 MEDICAL IMAG INC IMAGING GB ASS W/PHARMA INTERVENJ FINAL G9638 [facility] REPORTS 7 MEDICAL W/O DOC IMAGING 1/MORE ASS DOSE REDUCTION TECH FINAL G9551 [facility] REPR ABD 7 MEDICAL IMAG STS IMAGING W/O ASS INCIDNT FND LES NTD: [place] [address] THERESE GARG ABDOMEN & 7 MEDICAL PELVIS IMAGING W/[place] [address] THERESE GARG ABDOMINAL 7 MEDICAL REAL IMAGING TIME ASS W/IMAGE LIMITED BLOOD 59435 [facility] COUNT 7 [facility] COMPLETE INC INC AUTO&AUTO DIFRNTL WBC LIPID 63623 [facility] MAC PANEL 7 [facility] INC INC HEMOGLOBI 64331 [facility] MAC N 7 [facility] GLYCOSYLA INC INC NICHOLAS A1C COMPREHEN 75193 [facility] MAC SIVE 7 [facility] METABOLIC INC INC PANEL HEPATITIS 42940 B[facility] MAC C 7 [facility] ANTIBODY INC INC HEPATITIS 52792 B[facility] MAC A 7 [facility] ANTIBODY INC INC HAAB HEPATITIS 45270 B[facility] MAC B CORE 7 [facility] [place] [address] [facility] MAC HEPATITIS 7 [facility] B INC INC SURFACE ANTIGEN DIAB ONLY A5500 [facility] FIT CSTM 7 MEDICAL MEDICAL PREP&SPL SUPPLY [employer] DNSITY INSRT FOR DIAB A5512 [place] ONLY MX 7 MEDICAL MEDICAL DNSITY SUPPLY SUPPLY [employer] FORMD PRFAB EA GROUND A0425 [facility] MILEAGE 7 N-DE Ray-DE PER CO EMS CO EMS STATUTE MILE BLOOD 70298 [facility] COUNT 7 N N COMPLETE COMMUNTIY COMMUNTIY AUTO&AUTO HOSPITA HOSPITA DIFRNTL WBC GLUC BLD 78016 [facility] GLUC MNTR 7 N N DEV COMMUNTIY COMMUNTIY CLEARED HOSPITA HOSPITA FDA SPEC HOME USE URNLS DIP 75196 [facility] 7 N N STICK/TAB COMMUNTIY COMMUNTIY LET HOSPITA HOSPITA REAGENT AUTO MICROSCOP Y COMPREHEN 10825 [facility] SIVE 7 N N METABOLIC COMMUNTIY COMMUNTIY PANEL HOSPITA HOSPITA KETONE 32130 [facility] BODIES 7 N N SERUM COMMUNTIY COMMUNTIY QUALITAT[place] [address] [facility] LIPASE 7 N N COMMUNTIY [place] [address] [facility] LACTATE 7 N N COMMUNTIY COMMUNTIY HOSPITA HOSPITA AMB A0427 [facility] SERVICE 7 HALEY FROST CO EMS CO EMS EMERGENCY TRANSPORT LEVEL 1 INFUSION J7030 [facility] NORMAL 7 N N SALINE COMMUNTIY COMMUNTIY SOLUTION HOSPITA HOSPITA 1000 CC THER 44274 [facility] PROPH/DX 7 N N NJX IV COMMUNTIY COMMUNTIY PUSH HOSPITA HOSPITA SINGLE/1S T SBST/[place] [address] [facility] INFUSION 7 N N HYDRATION COMMUNTIY COMMUNTIY EACH HOSPITA HOSPITA ADDITIONA L HOUR THERAPEUT 63404 [facility] IC 7 N N INJECTION COMMUNTIY COMMUNTIY IV PUSH HOSPITA HOSPITA EACH NEW DRUG ECG 96192 [facility] ROUTINE 7 [place] ECG EMERGENCY W/LEAST SERV 12 LDS I&R ONLY INITIAL 72052 [facility] 7 MEDICINE CARE/DAY SERVICES 30 O MINUTES SBSQ 57220 [facility] 7 N FAMILY CARE/DAY PRACTICE 25 MINUTES SBSQ 44755 [facility] 7 N FAMILY CARE/DAY PRACTICE 25 MINUTES AMB A0427 [facility] 7 HALEY FROST CO EMS CO EMS [place]ERGENC[place] [address] [facility] [place] [facility] HEAD/BRAI 7 RADIOLOGY N W/O CONTRAST MATERIAL RADIOLOGI 83119 [facility] [place] [facility] C 7 RADIOLOGY EXAMINATI ON CHEST SINGLE VIEW FRONTAL ECG 03300 [facility] ROUTINE 7 [place] ECG EMERGENCY W/LEAST SERVI 12 LDS I&R ONLY RADEX 27780 [facility] [place] [facility] SPINE 7 RADIOLOGY LUMBOSACR AL 2/3 VIEWS RADEX 71843 [facility] [place] [facility] SACRUM & 7 RADIOLOGY COCCYX MINIMUM 2 VIEWS GROUND A0425 [facility] Cory-DE Ray-DE PER CO EMS CO EMS STATUTE [facility] 8[address]81 [facility] [place] PATRICE ABDOMEN & 6 RADIOLOGY RHO PELVIS W/O CONTRAST MATERIAL GLUC BLD 00991 [facility] QUAN GLUC MNTR 6 NURSE ADWOA DEV PRACTITIO CLEARED NER GR FDA SPEC HOME USE HEMOGLOBI 80518 [facility] QUAN N 6 NURSE ADWOA GLYCOSYLA PRACTITIO NICHOLAS A1C NER GR BLOOD 61260 [facility] COUNT 6 N N COMPLETE COMMUNTIY COMMUNTIY AUTO&AUTO HOSPITA HOSPITA DIFRNTL WBC GLUC BLD 15717 [facility] GLUC MNTR 6 N N DEV COMMUNTIY COMMUNTIY CLEARED HOSPITA HOSPITA FDA SPEC HOME USE HEMOGLOBI 79513 [facility] N 6 N N GLYCOSYLA COMMUNTIY COMMUNTIY NICHOLAS A1C HOSPITA HOSPITA COMPREHEN 67667 [facility] SIVE 6 N N METABOLIC COMMUNTIY COMMUNTIY PANEL HOSPITA HOSPITA THERAPEUT 31295 [facility] IC 6 N N PROPHYLAC COMMUNTIY COMMUNTIY TIC/DX HOSPITA HOSPITA INJECTION SUBQ/[place] [address] [facility] MAGNESIUM 6 N N COMMUNTIY [place] [address] [facility] PHOSPHORU 6 N N S COMMUNTIY COMMUNTIY INORGANIC HOSPITA HOSPITA OBSERVATI 99286 BIRDWHIST BIRDWHIST ON CARE 6 ELL MAT ELL MAT DISCHARGE MANAGEMEN T COLLECTIO 37203 [facility] N VENOUS 6 N N BLOOD COMMUNTIY COMMUNTIY VENIPUNCT HOSPITA HOSPITA URE THER 53104 [facility] PROPH/DX 6 N N NJX EA COMMUNTIY COMMUNTIY SEQL IV HOSPITA HOSPITA PUSH SBST/DRUG FAC INJECTION C9113 [facility] 6 N N PANTOPRAZ COMMUNTIY COMMUNTIY OLE HOSPITA HOSPITA SODIUM PER VIAL INJECTION J2270 [facility] MORPHINE 6 N N SULFATE COMMUNTIY COMMUNTIY UP TO 10 HOSPITA HOSPITA MG INFUSION J7030 [facility] NORMAL 6 N N SALINE COMMUNTIY COMMUNTIY SOLUTION HOSPITA HOSPITA 1000 CC INJECTION C9113 [facility] 6 N N PANTOPRAZ COMMUNTIY COMMUNTIY OLE HOSPITA HOSPITA SODIUM PER VIAL THER 99035 [facility] PROPH/DX 6 N N NJX EA COMMUNTIY COMMUNTIY SEQL IV HOSPITA HOSPITA PUSH SBST/DRUG FAC COLLECTIO 30519 [facility] N VENOUS 6 N N BLOOD COMMUNTIY COMMUNTIY VENIPUNCT HOSPITA HOSPITA URE INJECTION J2550 [facility] 6 N N PROMETHAZ COMMUNTIY COMMUNTIY INE HCL HOSPITA HOSPITA UP TO 50 MG PROTHROMB 84601 [facility] IN TIME 6 N N COMMUNTIY COMMUNTIY HOSPITA HOSPITA INJECTION J0610 [facility] CALCIUM 6 N N GLUCONATE COMMUNTIY COMMUNTIY PER 10 HOSPITA HOSPITA ML THERAPEUT 90068 [facility] IC 6 N N INJECTION COMMUNTIY COMMUNTIY IV PUSH HOSPITA HOSPITA EACH NEW DRUG INJECTION J2270 [facility] MORPHINE 6 N N SULFATE COMMUNTIY COMMUNTIY UP TO 10 HOSPITA HOSPITA MG NONINVASI 72269 [facility] VE 6 N N EAR/PULSE COMMUNTIY COMMUNTIY OXIMETRY HOSPITA [place] [address] [facility] PHOSPHORU 6 N N S COMMUNTIY COMMUNTIY [place] [address] [facility] MAGNESIUM 6 N N COMMUNTIY COMMUNTIY HOSPITA HOSPITA THERAPEUT 97248 [facility] IC 6 N N PROPHYLAC COMMUNTIY COMMUNTIY TIC/DX HOSPITA HOSPITA INJECTION SUBQ/IM COMPREHEN 11544 [facility] SIVE 6 N N METABOLIC COMMUNTIY COMMUNTIY PANEL HOSPITA HOSPITA HEMOGLOBI 21947 [facility] N 6 N N GLYCOSYLA COMMUNTIY COMMUNTIY NICHOLAS A1C HOSPITA HOSPITA GLUC BLD 37694 [facility] GLUC MNTR 6 N N DEV COMMUNTIY COMMUNTIY CLEARED HOSPITA HOSPITA FDA SPEC HOME USE BLOOD 02685 [facility] COUNT 6 N N COMPLETE COMMUNTIY COMMUNTIY AUTO&AUTO HOSPITA HOSPITA DIFRNTL WBC INITIAL 54073 [facility]WHIST BIRDWHIST OBSERVATI 6 ELL MAT ELL MAT ON CARE/DAY 50 MINUTES BLOOD 67511 [facility] COUNT 6 N N COMPLETE COMMUNTIY COMMUNTIY AUTO&AUTO HOSPITA HOSPITA DIFRNTL WBC TOBACCO 77413 [facility] USE 6 N N CESSATION COMMUNTIY COMMUNTIY HOSPITA HOSPITA INTERMEDI ATE 3-10 MINUTES GLUC BLD 70609 [facility] GLUC MNTR 6 N N DEV COMMUNTIY COMMUNTIY CLEARED HOSPITA HOSPITA FDA SPEC HOME USE BLOOD 01145 [facility] GASES ANY 6 N N COMMUNTIY COMMUNTIY COMBINATI HOSPITA HOSPITA ON PH PCO2 PO2 CO2 HCO3 URNLS DIP 28147 [facility] 6 N N STICK/TAB COMMUNTIY COMMUNTIY LET HOSPITA HOSPITA REAGENT AUTO MICROSCOP Y THERAPEUT 90271 [facility] IC 6 N N PROPHYLAC COMMUNTIY COMMUNTIY TIC/DX HOSPITA HOSPITA INJECTION SUBQ/IM COMPREHEN 62033 [facility] SIVE 6 N N METABOLIC COMMUNTIY COMMUNTIY PANEL HOSPITA HOSPITA KETONE 65561 [facility] BODIES 6 N N SERUM COMMUNTIY COMMUNTIY QUALITAT[place] [address] [facility] LIPASE 6 N N [place] [address] [facility] INFUSION 6 N N THERAPY/P COMMUNTIY COMMUNTIY ROPHYLAXI HOSPITA HOSPITA S /DX 1ST TO 1 [place] [address] [facility] INFUSION 6 N N HYDRATION COMMUNTIY COMMUNTIY EACH HOSPITA HOSPITA ADDITIONA L HOUR THERAPEUT 08497 [facility] IC 6 N N INJECTION COMMUNTIY COMMUNTIY IV PUSH HOSPITA HOSPITA EACH NEW DRUG INJECTION J2550 [facility] 6 N N PROMETHAZ COMMUNTIY COMMUNTIY INE HCL HOSPITA HOSPITA UP TO 50 MG INJECTION J1815 [facility] INSULIN 6 N N PER 5 COMMUNTIY COMMUNTIY UNITS HOSPITA HOSPITA THER 69494 [facility] PROPH/DX 6 N N NJX EA COMMUNTIY COMMUNTIY SEQL IV HOSPITA HOSPITA PUSH SBST/DRUG FAC INJECTION J1885 [facility] 6 N N KETOROLAC COMMUNTIY COMMUNTIY HOSPITA HOSPITA TROMETHAM INE PER 15 [facility] G0378 [facility] OBSERVATI 6 N N ON COMMUNTIY COMMUNTIY SERVICE HOSPITA HOSPITA PER HOUR COLLECTIO 04504 [facility] N VENOUS 6 N N BLOOD COMMUNTIY COMMUNTIY VENIPUNCT HOSPITA HOSPITA URE INFUSION J7030 [facility] NORMAL 6 N N SALINE COMMUNTIY COMMUNTIY SOLUTION HOSPITA HOSPITA 1000 CC INJECTION J2270 [facility] MORPHINE 6 N N SULFATE COMMUNTIY COMMUNTIY UP TO 10 HOSPITA HOSPITA MG ARTERIAL 42463 [facility] PUNCTURE 6 N N WITHDRAWA COMMUNTIY COMMUNTIY L BLOOD HOSPITA HOSPITA DX ARTHROCEN 11596 [facility] TESIS 6 N N ASPIR&/IN COMMUNTIY COMMUNTIY J INTERM HOSPITA HOSPITA JT/BURS W/O US RADEX 10207 [facility] ELBOW 6 N N COMPLETE COMMUNTIY COMMUNTIY MINIMUM 3 HOSPITA HOSPITA VIEWS COLLECTIO 33751 [facility] N VENOUS 6 N N BLOOD COMMUNTIY COMMUNTIY VENIPUNCT HOSPITA HOSPITA URE BASIC 07289 [facility] METABOLIC 6 N N PANEL COMMUNTIY COMMUNTIY CALCIUM HOSPITA HOSPITA TOTAL OBSERVATI 46636 BIRDWHIST BIRDWHIST ON CARE 6 KHUSHBU RÍOS MAT DISCHARGE MANAGEMEN T INFUSION J7030 [facility] NORMAL 6 N N SALINE COMMUNTIY COMMUNTIY SOLUTION HOSPITA HOSPITA 1000 CC THERAPEUT 46724 [facility] IC 6 N N PROPHYLAC COMMUNTIY COMMUNTIY TIC/DX HOSPITA HOSPITA INJECTION SUBQ/IM GLUC BLD 89550 [facility] GLUC MNTR 6 N N DEV COMMUNTIY COMMUNTIY CLEARED HOSPITA HOSPITA FDA SPEC HOME USE BLOOD 10120 [facility] COUNT 6 N N COMPLETE COMMUNTIY COMMUNTIY AUTO&AUTO HOSPITA HOSPITA DIFRNTL WBC BLOOD 84820 [facility] COUNT 6 N N COMPLETE COMMUNTIY COMMUNTIY AUTO&AUTO HOSPITA HOSPITA DIFRNTL WBC GLUC BLD 72505 [facility] GLUC MNTR 6 N N DEV COMMUNTIY COMMUNTIY CLEARED HOSPITA HOSPITA FDA SPEC HOME USE URNLS DIP 74647 [facility] 6 N N STICK/TAB COMMUNTIY COMMUNTIY LET HOSPITA HOSPITA REAGENT AUTO MICROSCOP Y TOBACCO 22074 [facility] USE 6 N N CESSATION COMMUNTIY COMMUNTIY HOSPITA HOSPITA INTERMEDI ATE 3-10 MINUTES INITIAL 83285 [facility]IRDWHIST BIRDWHIST OBSERVATI 6 ELL MAT ELL MAT ON CARE/DAY 50 MINUTES THERAPEUT 04178 [facility] IC 6 N N PROPHYLAC COMMUNTIY COMMUNTIY TIC/DX HOSPITA HOSPITA INJECTION SUBQ/IM THER 86657 [facility] PROPH/DX 6 N N NJX IV COMMUNTIY COMMUNTIY PUSH HOSPITA HOSPITA SINGLE/1S T SBST/DRUG ECG 87961 [facility] ROUTINE 6 N N ECG COMMUNTIY COMMUNTIY W/LEAST HOSPITA HOSPITA 12 LDS TRCG ONLY W/O I&[place] [address] [facility] ABDOMEN & 6 N N PELVIS COMMUNTIY COMMUNTIY W/O HOSPITA HOSPITA CONTRAST MATERIAL COMPREHEN 51417 [facility] SIVE 6 N N METABOLIC COMMUNTIY COMMUNTIY [place] [address] [facility] AMYLASE 6 N N COMMUNTIY COMMUNTIY HOSPITA HOSPITA KETONE 52725 [facility] BODIES 6 N N SERUM COMMUNTIY COMMUNTIY QUALITAT[place] [address] [facility] LIPASE 6 N N COMMUNTIY [place] [address] [facility] PHOSPHORU 6 N N S COMMUNTIY COMMUNTIY INORGANIC HOSPITA HOSPITA INFUSION J7030 [facility] NORMAL 6 N N SALINE COMMUNTIY COMMUNTIY SOLUTION HOSPITA HOSPITA 1000 CC HOSPITAL G0378 [facility] OBSERVATI 6 N N ON COMMUNTIY COMMUNTIY SERVICE HOSPITA HOSPITA PER HOUR DRUG TEST G0479 [facility] 6 N N PRESUMP;I COMMUNTIY [facility] ED CHEMISTRY ANLYZER COLLECTIO 07286 [facility] N VENOUS 6 N N BLOOD COMMUNTIY COMMUNTIY VENIPUNCT HOSPITA HOSPITA URE INJECTION J0360 [facility] 6 N N HYDRALAZI COMMUNTIY COMMUNTIY NE HCL UP HOSPITA HOSPITA TO 20 MG INJECTION J2270 [facility] MORPHINE 6 N N SULFATE COMMUNTIY COMMUNTIY UP TO [address] [place] [address] [facility] INFUSION 6 N N HYDRATION COMMUNTIY COMMUNTIY EACH HOSPITA HOSPITA ADDITIONA L HOUR THERAPEUT 21061 [facility] IC 6 N N INJECTION COMMUNTIY COMMUNTIY IV PUSH HOSPITA HOSPITA EACH NEW DRUG ECG 70222 [facility] ROUTINE 6 [place] ECG EMERGENCY W/LEAST PHYS 12 LDS I&R ONLY COLONOSCO 50038 GASTROENT CASE JUS PY FLX DX 6 EROLOGY W/COLLJ AND SPEC WHEN HEPATOL PFRMD COLOREC G0121 [facility] CANCR 6 N N SCR; COMMUNTIY COMMUNTIY COLNSCPY HOSPITA HOSPITA NOT MEET HI RISK ANES 37238 [place] [facility] ANT LOWER 6 ANESTHESI INTESTINE A GROUP PS ENDOSCOPY DISTAL DUODENUM RINGERS J7120 [facility] LACTATE 6 N N INFUSION COMMUNTIY COMMUNTIY UP TO HOSPITA HOSPITA 1000 CC GLUC BLD 39918 [facility] GLUC MNTR 6 N N DEV COMMUNTIY COMMUNTIY CLEARED HOSPITA HOSPITA FDA SPEC HOME USE GLUC BLD 91298 [facility] GLUC MNTR 6 N N DEV COMMUNTIY COMMUNTIY CLEARED HOSPITA HOSPITA FDA SPEC HOME USE URNLS DIP 35156 [facility] 6 N N STICK/TAB COMMUNTIY COMMUNTIY LET HOSPITA HOSPITA REAGENT AUTO MICROSCOP Y BLOOD 92916 [facility] COUNT 6 N N COMPLETE COMMUNTIY COMMUNTIY AUTO&AUTO HOSP[place] [address] [facility] TROPONIN 6 N N QUANTITAT COMMUNTIY COMMUNTIY VERÓ[place] [address] [facility] LIPASE 6 N N COMMUNTIY COMMUNTIY HOSPITA HOSPITA KETONE 47426 [facility] BODIES 6 N N SERUM COMMUNTIY COMMUNTIY QUALITATI [place] [address] [facility] LACTATE 6 N N COMMUNTIY COMMUNTIY HOSPITA HOSPITA COMPREHEN 50204 [facility] SIVE 6 N N METABOLIC COMMUNTIY COMMUNTIY PANEL HOSPITA HOSPITA THER 71110 [facility] PROPH/DX 6 N N NJX IV COMMUNTIY COMMUNTIY PUSH HOSPITA HOSPITA SINGLE/1S T SBST/DRUG COLLECTIO 47799 [facility] N VENOUS 6 N N BLOOD COMMUNTIY COMMUNTIY VENIPUNCT HOSPITA HOSPITA URE THERAPEUT 29990 [facility] IC 6 N N INJECTION COMMUNTIY COMMUNTIY IV PUSH [place] [address] [facility] INFUSION 6 N N HYDRATION COMMUNTIY COMMUNTIY EACH HOSPITA HOSPITA ADDITIONA L HOUR INJECTION J2270 [facility] MORPHINE 6 N N SULFATE COMMUNTIY COMMUNTIY UP TO 10 HOSPITA HOSPITA MG INFUSION J7030 [facility] NORMAL 6 N N SALINE COMMUNTIY COMMUNTIY SOLUTION HOSPITA HOSPITA [address] [place] [address] [facility] THYROXINE 6 DIAGNOSTI DIAGNOSTI TOTAL CS CS COMPREHEN 78799 [facility] SIVE 6 DIAGNOSTI DIAGNOSTI [place] [address] [facility] THYROID 6 DIAGNOSTI DIAGNOSTI STIMULATI [place] [address] [facility] PROSTATE 6 DIAGNOSTI DIAGNOSTI SPECIFIC CS CS ANTIGEN TOTAL LIPID 31168 [facility] PANEL 6 DIAGNOSTI DIAGNOSTI CS CS BLOOD 26524 [facility] COUNT 6 DIAGNOSTI DIAGNOSTI COMPLETE CS CS AUTO&AUTO DIFRNTL WBC THYROID 29906 [facility] HORM 6 DIAGNOSTI DIAGNOSTI UPTK/THYR CS CS OID HORMONE BINDING RATIO HEMOGLOBI 77471 [facility] N 6 DIAGNOSTI DIAGNOSTI GLYCOSYLA CS CS NICHOLAS A1C INJECTION J2001 [facility] 6 N N LIDOCAINE COMMUNTIY COMMUNTIY HCL HOSPITA HOSPITA INTRAVENO US INFUS 10 MG TDAP 18585 [facility] VACCINE 7 6 N N YRS/> IM COMMUNTIY COMMUNTIY HOSPITA HOSPITA INCISION 30912 BLANCHE MANCIA & 6 PREMA PREMA DRAINAGE ABSCESS SIMPLE/SI NGLE IM ADM 83810 [facility] PRQ ID 6 N N SUBQ/IM COMMUNTIY COMMUNTIY NJXS 1 [facility] 5 KHUSHBU [facility] MAT DAY MANAGEMEN T 30 MIN/< SBSQ 54991 [facility] CARE/DAY 25 MINUTES SBSQ 62847 [facility] CARE/DAY 25 MINUTES ECG 80438 [facility] ROUTINE 5 SCO SCO ECG W/LEAST 12 LDS I&R ONLY AMB A0427 [facility] SERVICE 5 H[facility] DE LEON ALS CO EMS CO EMS EMERGENCY TRANSPORT LEVEL 1 INITIAL 19888 [facility] CARE/DAY 50 MINUTES GROUND A0425 [facility] MILEAGE 5 HALEY DE LEON PER CO EMS CO EMS STATUTE MILE HEMOGLOBI 58081 [facility] N 5 DIAGNOSTI DIAGNOSTI GLYCOSYLA [facility] NICHOLAS A1C URNLS DIP 54472 [facility] 5 DIAGNOSTI DIAGNOSTI STICK/TAB [facility] LET RGNT AUTO W/O MICROSCOP Y CREATININ 15456 [facility] E OTHER 5 DIAGNOSTI DIAGNOSTI SOURCE [facility] ALBUMIN 60333 [facility] URINE 5 DIAGNOSTI DIAGNOSTI MICROALBU [facility] MIN QUANTIATI VE WALKING L4360 [facility] FOOT & N MORGAN PNEUMATC ANKLE CE &/ VACUUM PREFAB CUSTM FIT HEMOGLOBI 59024 [facility] N 5 DIAGNOSTI DIAGNOSTI GLYCOSYLA [facility] NICHOLAS A1C CANE INCL E0100 J & L J & L CANES 4 HOME HOME ALL MEDICAL MEDICAL MATERIAL EQUIPMENT EQUIPMENT ADJUSTBLE /FIX W/TIP HEMOGLOBI 88396 [facility] N 4 DIAGNOSTI DIAGNOSTI GLYCOSYLA [facility] NICHOLAS A1C THYROID 43045 [facility] HORM 4 DIAGNOSTI DIAGNOSTI UPTK/THYR [facility] OID HORMONE BINDING RATIO BLOOD 23498 [facility] COUNT 4 DIAGNOSTI DIAGNOSTI COMPLETE CS CS AUTO&AUTO DIFRNTL WBC LIPID 97736 [facility] PANEL 4 [place] [address] [facility] THYROID 4 DIAGNOSTI DIAGNOSTI STIMULATI CS CS NG HORMONE TSH COMPREHEN 53921 [facility] SIVE 4 DIAGNOSTI DIAGNOSTI [place] [address] [facility] THYROXINE 4 DIAGNOSTI DIAGNOSTI TOTAL CS CS SKIN A5120 DIABETES DIABETES BARRIER 4 CARE [...] INSULIN EDUCATION EDUCATION PUMP NONNDLE CANNULA TYPE INFUS SET A4230 DIABETES DIABETES EXT 4 [...] & WIPES OR EDUCATION EDUCATION SWABS EACH ANKLE L1902 [facility] ORTH 4 FOOT & N MORGAN ANKLE ANKLE CE GAUNT/SIM PREFAB OFF-THE-S HELF MRI LOWER 52443 [facility] EXTREM 4 FOOT & N MORGAN OTH/THN ANKLE CE JT W/O CONTR MATRL SKIN A5120 DIABETES DIABETES BARRIER 4 CARE & CARE & WIPES OR EDUCATION EDUCATION SWABS EACH INFUS SET A4230 DIABETES DIABETES EXT 4 CARE & CARE & INSULIN EDUCATION EDUCATION PUMP NONNDLE CANNULA TYPE TRANSPARE A6257 DIABETES DIABETES NT FILM 4 CARE & CARE & STERL 16 EDUCATION EDUCATION SQ IN OR LESS EA DRESS SYRINGE A4232 DIABETES DIABETES W/NDLE 4 CARE & CARE & EXTERNAL EDUCATION EDUCATION INSULIN PUMP STERILE 3CC WALKING L4360 ISIDRO ELI BOOT 4 FOOT & N MORGAN PNEUMATC ANKLE CE &/ VACUUM PREFAB CUSTM FIT RADIOLOGI 10620 ISIDRO MONROESO C 4 FOOT & N MORGAN EXAMINATI ANKLE CE ON FOOT 2 VIEWS RADEX 23971 ISIDRO MONROESO ANKLE 4 FOOT & N MORGAN COMPLETE ANKLE CE MINIMUM 3 VIEWS SKIN A5120 DIABETES DIABETES BARRIER 4 CARE & CARE & WIPES OR EDUCATION EDUCATION SWABS EACH SYRINGE A4232 DIABETES DIABETES W/NDLE 4 CARE & CARE & EXTERNAL EDUCATION EDUCATION INSULIN PUMP STERILE 3CC INFUS SET A4230 DIABETES DIABETES EXT 4 CARE & CARE & INSULIN EDUCATION EDUCATION PUMP NONNDLE CANNULA TYPE TRANSPARE A6257 DIABETES DIABETES NT FILM 4 CARE & CARE & STERL 16 EDUCATION EDUCATION SQ IN OR LESS EA DRESS EXTERNAL E0784 PANFILO WHITTAKER AMBULATOR 4 [facility] Y E E INFUSION SERVICES SERVICES PUMP INSULIN INFUS SET A4230 DIABETES DIABETES EXT 4 CARE & CARE & INSULIN EDUCATION EDUCATION PUMP NONNDLE CANNULA TYPE SENSOR;IN A9276 DIABETES DIABETES VSV DISP 4 CARE & CARE & INTRSTL EDUCATION EDUCATION CONT GLU MON SYS 1U=1D SYRINGE A4232 DIABETES DIABETES W/NDLE 4 CARE & CARE & EXTERNAL EDUCATION EDUCATION INSULIN PUMP STERILE 3CC TRANSPARE A6257 DIABETES DIABETES NT FILM 4 CARE & CARE & STERL 16 EDUCATION EDUCATION SQ IN OR LESS EA DRESS SKIN A5120 DIABETES DIABETES BARRIER 4 CARE & CARE & WIPES OR EDUCATION EDUCATION SWABS EACH SLEEP STD 23312 [facility] AIRFLOW 4 N N HRT COMMUNITY COMMUNITY RATE&O2 HOSPITA [place] [address] [facility] THYROXINE 4 DIAGNOSTI DIAGNOSTI TOTAL CS CS INCORPORA T COMPREHEN 66513 [facility] SIVE 4 DIAGNOSTI DIAGNOST[place] [address] [facility] THYROID 4 DIAGNOSTI DIAGNOSTI STIMULATI [place] [address] [facility] QUEST INSULIN 4 DIAGNOSTI DIAGNOSTI [place] [address] [facility] C-PEPTIDE 4 DIAGNOSTI DIAGNOSTI CS CS INCORPORA T LIPID 62124 [facility] PANEL 4 DIAGNOSTI DIAGNOSTI CS CS BLOOD 53484 [facility] MATT COUNT 4 DIAGNOSTI DESTINEE COMPLETE CS AUTO&AUTO DIFRNTL WBC THYROID 47932 [facility] HORM 4 DIAGNOSTI DIAGNOSTI UPTK/THYR CS CS OID INCORPORA HORMONE T BINDING RATIO HEMOGLOBI 25574 [facility]ST N 4 DIAGNOSTI DIAGNOSTI GLYCOSYLA CS CS NICHOLAS A1C RADIOLOGI 00327 [facility] EXAM 4 RYA RYA CHEST 2 VIEWS FRONTAL&L ATERAL RADEX 59716 [facility] [place] [facility] SPINE 4 RADIOLOGY LUMBOSACR AL 2/3 VIEWS RADEX 34003 [facility] [place] [facility] 4 RADIOLOGY THORACIC 2 VIEWS HOSPITAL 52959 [facility] 4 [place] A GOP DAY PHYSICIAN MANAGEMEN SERVI T 30 MIN/< SBSQ 20380 [facility] 4 [place] A GOP CARE/DAY PHYSICIAN 25 SERVI MINUTES ECG 50043 [facility] ROUTINE 4 [place] - YORBA ECG EMERGENCY PAT W/LEAST PHYSI 12 LDS I&R ONLY AMB A0427 [facility] SERVICE 4 [facility] ALS CO EMS CO EMS EMERGENCY TRANSPORT LEVEL 1 RADIOLOGI 13527 [facility] [place] [facility] C 4 RADIOLOGY EXAMINATI ON CHEST SINGLE VIEW FRONTAL INITIAL [address] [facility] 4 [place] LILO CARE/DAY PHYSICIAN 70 SERVI MINUTES GROUND A0425 [facility] PER CO [facility] [address] 4 [place] HUG DAY PHYSICIAN MANAGEMEN SERVI T 30 MIN/< SBSQ 16540 [facility] 4 [place] HUG CARE/DAY PHYSICIAN 35 SERVI MINUTES INITIAL 25401 [facility] 4 [place] HUG CARE/DAY PHYSICIAN 70 SERVI MINUTES CRITICAL 21227 [facility] 4 PREMA PREMA ILL/INJUR ED PATIENT INIT 30-74 MIN COLLECTIO 94862 [facility] N VENOUS 1 AND BLOOD PEDIATRIC VENIPUNCT S & INTER URE ALBUMIN 68753 [facility] URINE 1 MICROALBU PEDIATRIC PEDIATRIC MIN S & INTER S & INTER SEMIQUANT ITATIVE COMPREHEN 37863 LAB ER[facility]MO LAB ERASMO SIVE 1 [facility]IC [facility] METABOLIC HOLDING HOLDING PANEL HEMOGLOBI 83976 LAB ERASMO LAB ERASMO N 1 AMERIC AMERIC GLYCOSYLA HOLDING HOLDING NICHOLAS A1C SBSQ 21876 [facility] 1 [facility] CARE/DAY ADVANCED 25 MAZA MINUTES INITIAL 85246 [facility] INPATIENT 1 [facility] CONSULT ADVANCED NEW/ESTAB MAZA PT 40 MIN GASTRIC 42870 [facility] EMPTYING 1 N N IMAGING [facility] 32558 [facility] DISCHARGE 1 BETTY DAY PEDIATRIC MANAGEMEN S & INTER T 30 MIN/< RADEX ABD 71817 [facility] [place] [facility] COMPL 1 RADIOLOGY AQT ABD W/S/E/D VIEWS 1 VIEW CH SBSQ 11103 [facility] 1 BETTY CARE/DAY PEDIATRIC 25 S & INTER MINUTES AMB A0427 [facility] SERVICE 1 [facility] EMS EMERGENCY TRANSPORT LEVEL 1 CRITICAL 50068 [facility] 1 EMERGENCY DEV ILL/INJUR SERVICES ED PATIENT INIT 30-74 MIN INITIAL 04686 [facility] 1 BETTY CARE/DAY PEDIATRIC 70 S & [place] [address] [facility] [place] [facility] ABDOMEN & 1 RADIOLOGY PELVIS W/O CONTRAST MATERIAL GROUND A0425 [facility] MILEAGE 1 [facility] PER CO EMS CO EMS STATUTE MILE LIPID 26375 LAB ERASMO LAB ERASMO PANEL 1 AMERIC [employer]IC HOLDING HOLDING HEMOGLOBI 71536 LAB ERASMO LAB ERASMO N 1 AMERIC AMERIC GLYCOSYLA HOLDING [place] [address] LAB ERASMO LAB ERASMO FREE 1 AMERIC AMERIC THYROXINE HOLDING HOLDING GENERAL 23963 LAB ERASMO LAB ERASMO HEALTH 1 AMERIC 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 HOLDING ECG 64997 [facility] ROUTINE 1 AND ECG PEDIATRIC W/LEAST S & INTER 12 LDS W/I&[place] [address] [facility] [place] [facility] HEAD/BRAI 1 RADIOLOGY RAÚL N W/O CONTRAST MATERIAL DEEP D9220 BRISEYDA RAIN SEDATION/ 0 KARI KARI GENERAL ANESTHESI A-1ST 30 MINUTES ALVEOLECT 44464 BRISEYDA RAIN FADY 0 KARI KARI W/CURTG OSTEITIS/ SEQUESTRE CTOMY ORTHOPANT 19693 BRISEYDA RAIN OGRAM 0 KARI KARI BLD GLU A4253 AM MED AM MED TEST/REAG 8 DIRECT DIRECT T STRIPS [facility] PHARMACY GLU MON-50 LANCETS A4259 AM MED AM MED PER BOX 8 DIRECT DIRECT OF 100 [facility] PHARMACY PHARMACY BLD GLU A4253 AM MED AM MED TEST/REAG 8 DIRECT DIRECT T STRIPS [facility] PHARMACY PHARMACY GLU MON-50 LANCETS A4259 AM MED AM MED PER BOX 8 DIRECT DIRECT OF 100 [facility] PH[facility]Y PHARMACY LANCETS A4259 AM MED AM MED PER BOX 8 DIRECT DIRECT OF 100 [facility] PH[facility]Y PHARMACY BLD GLU A4253 AM MED AM MED TEST/REAG 8 DIRECT DIRECT T STRIPS [facility] PHARMACY PHARMACY GLU MON-50 DEEP D9220 [place] DEIRDRE ELENITA, SEDATION/ 8 FOR BETSY R GENERAL ORAL&MAXI ANESTHESI LLOFACIAL A-1ST 30 SURGERY MINUTES APPL 43728 BRITANY GARG, MODALITY 8 YOHANA Toribio YOHANA Malu 1/> AREAS ELEC STIMJ UNATTENDE D CHIROPRAC 04153 BRITANY GARG, TIC 8 YOHANA Toribio MANIPULAT VERÓN[place] SPINAL 3-4 REGIONS APPLICATI 81954 BRITANY GARG, ON 8 YOHANA Toribio YOHANA Toribio MODALITY 1/> AREAS HOT/COLD PACKS CHIROPRAC 71685 BRITANY GARG, TIC 8 YOHANA Toribio YOHANA Toribio MANIPULAT VERÓ[place] SPINAL 3-4 REGIONS APPLICATI 66114 BRITANY GARG, ON 8 YOHANA M YOHANA Toribio MODALITY 1/> AREAS HOT/COLD PACKS DETERMINA 55461 [facility], TION 8 [facility] E STATE APPL 26786 BRITANY GARG, MODALITY 8 YOHANA M YOHANA Toribio 1/> AREAS ELEC STIMJ UNATTENDE D ORTHOPANT 50562 [facility] JAYNE WONG 8 FOR JOSE Velasquez ORAL&MAXI LLOFACIAL SURGERY Encounters Encounter Start End Date Code Location Performer Type Date EMERGENCY 20619 [facility] DEPT 7 7 PHYSICIAN VISIT S, PLLC HIGH SEVERITY& THREAT FUNJ OFFICE 15604 [facility] CARLINE GALAVIZ OUTPATIEN 7 7 PHYSICIAN T NEW 30 S GROUP MINUTES [facility] - 7 7 MEM HOSP OUTPATIEN INC T OFFICE 08820 [facility] 7 7 ELL ELL T VISIT 15 MINUTES OFFICE 76358 [facility] 7 7 ELL ELL T VISIT 15 MINUTES EMERGENCY 79783 [facility] DEPT 7 7 [place] VISIT EMERGENCY HIGH PHYS SEVERITY& THREAT FUN EMERGENCY 73492 [facility] 7 7 N DEPARTMEN COMMUNTIY T VISIT HOSPITA HIGH/URGE NT [facility] - 7 7 N OUTPATIEN COMMUNTIY T HOSPITA EMERGENCY 05191 [facility] DE[facility] 7 7 [place] - YORBA VISIT EMERGENCY HIGH PHYS SEVERITY& THREAT FUN EMERGENCY 96940 [facility] 7 7 [place] VISIT EMERGENCY HIGH SERVI SEVERITY& THREAT [facility] - 6 6 N OUTPATIEN COMMUNTIY T HOSPITA EMERGENCY 66076 [facility] [place] LO TRA DEPARTMEN EMERGENCY T VISIT SERVI HIGH/URGE NT SEVERITY OFFICE 21686 [facility] QUAN CONSULTAT 6 6 NURSE ADWOA DORANTES/ALFREDITO ARCHER GR PATIENT 60 MIN [facility]OSPITAL [facility] - 6 6 N OUTPATIEN COMMUNTIY T HOSPITA EMERGENCY 94912 [facility] DE[facility] 6 6 [place] LOWE VISIT EMERGENCY HIGH SERVI SEVERITY& THREAT [facility] - 6 6 N OUTPATIEN COMMUNTIY T HOSPITA EMERGENCY 79366 [facility] 6 6 N DEPARTMEN COMMUNTIY T VISIT HOSPITA MODERATE SEVERITY EMERGENCY 98931 [facility] 6 6 [place] LO TRA DEPARTMEN EMERGENCY T VISIT SERVI HIGH/URGE NT SEVERITY OFFICE 42354 [facility] OUTPATIEN 6 6 ELL LEENA STERN T VISIT 15 MINUTES HOSPITAL [facility] - 6 6 N OUTPATIEN COMMUNTIY T HOSPITA EMERGENCY 50037 [facility] 6 6 N DEPARTMEN COMMUNTIY T VISIT HOSPITA LIMITED/M INOR PROB OFFICE 64282 [facility] OUTPATIEN 6 6 KHUSHBU RÍOS MAT T VISIT 15 MINUTES EMERGENCY 39218 [facility] DEPT 6 6 [place] VISIT EMERGENCY HIGH PHYS SEVERITY& THREAT [facility] - 6 6 N OUTPATIEN COMMUNTIY T [facility] - 6 6 N OUTPATIEN COMMUNTIY T [facility] 6 6 N OUTPATIEN COMMUNTIY T HOSPITA EMERGENCY 24916 [facility] 6 6 N DEPARTMEN COMMUNTIY T VISIT HOSPITA HIGH/URGE NT SEVERITY EMERGENCY 66760 [facility] DEPT 6 6 [place] VISIT EMERGENCY HIGH SERV SEVERITY& THREAT FUNCJ OFFICE 69908 [facility] OUTPATIEN 6 6 KHUSHBU STERN T VISIT 15 MINUTES EMERGENCY 18939 [facility] 6 6 PREMA PREMA DEPARTMEN T VISIT HIGH/URGE NT SEVERITY EMERGENCY 61837 [facility] 6 6 N DEPARTMEN COMMUNTIY T VISIT HOSPITA MODERATE SEVERITY HOSPITAL [facility] - 6 6 N OUTPATIEN COMMUNTIY T HOSPITA OFFICE 55819 [facility] OUTPATIEN 5 5 KHUSHBU STERN T VISIT 15 MINUTES EMERGENCY 06284 [facility] DEPT 5 5 SCO SCO VISIT HIGH SEVERITY& THREAT FUNJ [facility]OS[facility] - 5 5 N INPATIENT COMMUNTIY HOSPITA EMERGENCY 94573 [facility] DE[facility] 5 5 EDWAR EDWAR VISIT HIGH SEVERITY& THREAT FUNCJ OFFICE 09733 [facility] OUTPATIEN 5 5 KHUSHBU RÍOS T VISIT 15 MINUTES EMERGENCY 44479 [facility] DEPT 5 5 PREMA PREMA VISIT HIGH SEVERITY& THREAT FUNCJ OFFICE 99635 [place] [facility] OUT[facility] 5 5 FOOT & N MORGAN T VISIT ANKLE CE 15 MINUTES OFFICE 18116 MUHA JAVI MUHA JAVI OUTPATIEN 4 4 T NEW 30 MINUTES OFFICE 70511 [place] [facility] OUT[facility]IEN 4 4 FOOT & N MORGAN T VISIT ANKLE CE 15 MINUTES OFFICE 06496 [place] [facility] OUT[facility]IEN 4 4 FOOT & N MORGAN T VISIT ANKLE CE 15 MINUTES OFFICE 89098 [place] [facility] OUTPATIEN 4 4 FOOT & N MORGAN T VISIT ANKLE CE 15 MINUTES OFFICE 16423 ISIDRO ELI OUTPATIEN 4 4 FOOT & N MORGAN T VISIT ANKLE CE 15 MINUTES OFFICE 73721 ISIDRO MONROESO OUTPATIEN 4 4 FOOT & N MORGAN T NEW 30 ANKLE CE MINUTES [facility] [place] [address] 4 N OUTPATIEN [facility] T HOSPITA OFFICE 56580 [facility] BIRDWHIST OUTPATIEN 4 4 KHUSHBU STERN T VISIT 15 MINUTES EMERGENCY 37563 [facility] MANCIA DEPT 4 4 PREMA PREMA VISIT HIGH SEVERITY& THREAT FUNCJ OFFICE 70679 [facility] OUTPATIEN 4 4 KHUSHBU RÍOS LEENA T VISIT 25 MINUTES EMERGENCY 45743 [facility] DEPT 4 4 RYA RYA VISIT HIGH SEVERITY& THREAT FUN [facility] [place] [address] 67471 [facility] DEPT 4 4 [place] - Y[place]BA VISIT EMERGENCY PAT HIGH PHYSI SEVERITY& THREAT FUNCJ OFFICE 20900 [facility] OUTPATIEN 1 1 AND T VISIT PEDIATRIC 15 S & INTER MINUTES OFFICE 17469 [facility] CHEYANNEAUYOKO OUTPATIEN 1 1 AND T VISIT PEDIATRIC 15 S & INTER MINUTES [facility] [place] [address] 1 N OUTPATIEN [facility] T HOSPITA OFFICE 84494 [facility] CHEYANNE[facility] OUTPATIEN 1 1 AND T VISIT PEDIATRIC 15 S & INTER MINUTES [facility] [place] [address] 1 N INPATIENT COMMUNITY HOSPITA EMERGENCY 48522 DERRICK MANCIA 1 1 EMERGENCY PREMA DEPARTMEN SERVICES T VISIT HIGH/URGE NT SEVERITY OFFICE 71106 [facility] OUT[facility]IEN 1 1 T VISIT 5 PEDIATRIC PEDIATRIC MINUTES S & INTER S & INTER OFFICE 56792 PATRICK FARR OUTPATIEN 1 1 AND T VISIT PEDIATRIC 15 S & INTER MINUTES HOSPITAL [facility] - 1 1 N INPATIENT [facility] OFFICE 83066 BRISEYDA RAIN OUTPATIEN 0 0 KARI KARI T NEW 10 MINUTES OFFICE 34288 BRITANY, ZACARIAS GARG 8 8 YOHANA Toribio T VISIT 15 MINUTES OFFICE 49074 [facility] HABASHZACARIAS 8 8 [facility] STEPHON Davidson NEW 30 CENTER MINUTES OFFICE 79447 [place] [facility], OUTPATIEN 8 8 FOR JOSE Velasquez T NEW 10 ORAL&MAXI MINUTES LLOFACIAL SURGERY
--- OUTSIDE RECORDS SUMMARY | 2017-06-07 16:19 | External Medical Summary Rpt | CCD ---
Author Author , PAULINA Organization PAULINA Address Unknown Phone [email or web address] Care Team Providers Care Cutlet Maker Pork Name Role Phone BAKARI RAÚL, BAKARI Unavailable [...] Unavailable Unavailable PAT, CELLAROSI - YORBA PAT [facility] Unavailable Unavailable ADVANCED MAZA, [facility], Unavailable Unavailable [facility] 2332, Unavailable Unavailable [facility] 2332 [facility] & Unavailable Unavailable EDUCATION, [facility] & Unavailable Unavailable EDUCATION, [facility] EDUCATION [facility] Unavailable Unavailable SERVICES, [facility] Unavailable Unavailable [facility], [facility] FARAGASSO DEV, Unavailable Unavailable FARAGASSO DEV ROSCOE STODDARDLEY Unavailable Unavailable PREMA ROSCOE STODDARDLEY Unavailable Unavailable PREMA [facility] Unavailable Unavailable HOSPITA, [facility] Unavailable Unavailable HOSPITA, [facility] [place] [facility] Un[facility] Un[facility], [facility] [place] [facility] Unavailable Unavailable EMS, [facility] PATRICE RHO, PATRICE Unavailable Unavailable RHO [facility], Unavailable Unavailable [facility] HABASH, KEFAH, Unavailable Unavailable HABASH, KEFAH FINCH, FINCH Unavailable Unavailable [facility], Unavailable Unavailable [facility], Unavailable Unavailable [facility] Un[facility] Unavailable [facility], [facility] RAIN KARI, Unavailable Unavailable RAIN KARI RAIN KARI, Unavailable Unavailable RAIN KARI [facility], Unavailable Unavailable [facility] Unavailable Unavailable SERVICES O, [facility] HOUSMAN LILO, HOUSMAN Unavailable Unavailable L[facility] Unavailable Unavailable EQU[facility], [facility] Un[facility] Unavailable [facility] Un[facility] Unavailable [facility] PS, [facility] Un[facility] Un[facility], [facility] NURSE Unavailable Unavailable PRACTITIONER GR, [facility] PRACTITIONER GR ARABELLA BALDERAS Unavailable Unavailable [facility] # Unavailable Unavailable [id number], [facility] # [id number] [facility] Unavailable Unavailable HOLD[facility], [facility] Unavailable Unavailable [facility], [facility] Unavailable Unavailable [facility], [facility], Unavailable Unavailable [facility] JAVIER ANT, JAVIER ANT Unavailable Unavailable MAJMUDAR, MAJMUDAR Unavailable Unavailable [facility] Unavailable Unavailable SERVICES, [facility] MATT GUTIERREZ Unavailable Unavailable MATT [...] VORKPOR EDWAR, VORKPOR Unavailable Unavailable EDWAR [id number] # Unavailable Unavailable [id number], [id number] # [id number] [facility], WELLS Unavailable Unavailable [facility], [facility] Unavailable Unavailable RICHARD MAT, RICHARD MAT Unavailable Unavailable Purpose Continuity of Care Document - 02-13-2008 through 2016 Problems Code Diagnosis DOS Provider Status [id number] TYPE 2 05-09-2017 [facility] W/HYPOGLYCE SAMUEL W/O COMA K529 NONINFECTIV 05-09-2017 [facility] GASTRO[facility] ITIS & COLITIS UNS Z0389 ENCOUNTER 05-09-2017 [facility], SUSPCT DZ & PLLC COND RULED OUT R1013 EPIGASTRIC 04-24-2017 [facility] R109 UNSPECIFIED 04-05-2017 [facility] K828 OTHER 03-22-2017 [facility] SPECIFIED [facility]ICAL DISEASES OF IMAGING ASS GALLBLADDER E119 TYPE 2 03-09-2017 [facility] INC WITHOUT COMPLICATIO NS Z0000 ENCOUNTER 03-09-2017 [facility] MED EXAM INC W/O ABNORMAL FIND E1040 TYPE 1 02-27-2017 [facility] DI[facility]ES L MELLITUS W/DIAB NEUROPATHY UNS E1043 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-27-2017 [facility] W/DIABETIC L AUTONOMIC POLYNEUROPA THY A787ANK FRACTURE 10-03-2016 [facility] COCCYX L INITIAL ENCNTR FOR CLOS FRACTURE E1165 TYPE 2 09-14-2016 [facility] MELLITUS [place]OS[place] HYPER[place]YCEM [place] K97407 GENERALIZED 09-14-2016 [facility] ABDOMINAL COMMUNTIY TENDERNESS HOSPITA R112 NAUSEA WITH 09-14-2016 [facility] V[facility] N EMERGENCY UNSPECIFIED PHYS R197 DIARRHEA 09-14-2016 [facility] UNSPECIFIED N EMERGENCY PHYS R51 HEADACHE 09-14-2016 [facility] COMM[facility]TIY [facility]OSPITA R739 HYPERGLYCEM 09-14-2016 [facility] IA N EMERGENCY UNSPECIFIED PHYS Z720 TOBACCO USE 09-14-2016 [facility] COMMUNTIY [facility]OSPITA 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 09-14-2016 [facility] CURRENT USE COMMUNTIY OF INSULIN HOSPITA E1310 OTHER 09-06-2016 HOSPITAL SPECIFIED MEDICINE DIAB SERVICES O W/KETOACIDO SIS W/O COMA E860 DEHYDRATION 09-06-2016 [facility] N EMERGENCY SERV I10 ESSENTIAL 09-06-2016 [facility]OS[facility]ITAL PRIMARY MEDICINE HYPERTENSIO SERVICES O N I959 HYPOTENSION 09-06-2016 [facility] N EMERGENCY UNSPECIFIED SERV N179 ACUTE 09-06-2016 [facility] KIDNEY N EMERGENCY FAILURE SERV UNSPECIFIED E1169 TYPE 2 08-31-2016 [facility] DIABETES N EMERGENCY MELLITUS SERVI W/OTH SPEC COMPLICATIO N E872 ACIDOSIS 08-31-2016 [facility] N EMERGENCY SERVI M533 SACROCOCCYG 08-31-2016 [facility] EAL [facility] DISORDERS NEC M545 LOW BACK 08-31-2016 [facility]- [facility] EMS R531 WEAKNESS 08-31-2016 [facility] R5381 OTHER 08-31-2016 [facility] [place] [facility] [facility] D4219WC UNS 08-31-2016 [facility] FRACTURE N EMERGENCY SACRUM SERVI INITIAL ENC CLOS FRACTURE R300 DYSURIA 06-21-2016 [facility] R319 HEMATURIA 06-21-2016 [facility] [place] UNSPECIFIED RADIOLOGY E1065 TYPE 1 06-15-2016 [facility] NURSE DIABETES PRACTITIONE MELLITUS R GR WITH HYPERGLYCEM IA E1010 TYPE 1 06-02-2016 [facility] DIABETES L MAT MELLITUS W/KETOACIDO SIS W/O COMA K219 GASTRO-ESOP 06-02-2016 [facility] H REFLUX L MAT DISEASE WITHOUT ESOPHAGITIS K3184 GASTROPARES 06-02-2016 [facility] IS L MAT F86356 PAIN IN 05-05-2016 [facility] [place] RIGHT [place] RAD[facility]Y M7711 LATERAL 05-05-2016 [facility] EPICONDYLIT N EMERGENCY IS RIGHT SERVI ELBOW R1110 VOMITING 03-02-2016 [facility] UNSPECIFIED COMMUNTIY HOSPITA Z5321 PROC & TX 03-02-2016 [facility] NOT CARRIED COMMUNTIY OUT PT HOSPITA LEAVE PRIOR TO SEEN N521 ERECTILE 12-25-2015 [facility] DYSFUNCTION L MAT DUE TO DISEASES CLASS ELSW R1012 LEFT UPPER 12-18-2015 [facility] [place] [facility] PAIN Z1211 ENCOUNTER 12-02-2015 [place] PS NEOPLASM OF COLON R1011 RIGHT UPPER 11-07-2015 [facility] PAIN HOSPITA Z125 ENCOUNTER 10-29-2015 [facility] MALIGNANT NEOPLASM PROSTATE B354 TINEA 09-15-2015 [facility] CORPORIS COMMUNTIY HOSPITA B358 OTHER 09-15-2015 [facility] DERMATOPHYT OSES L0201 CUTANEOUS 09-15-2015 [facility] ABSCESS OF COMMUNTIY FACE HOSPITA L723 SEBACEOUS 09-15-2015 [facility] CYST COMMUNTIY HOSPITA E0841 DM D/T 07-30-2015 [facility] UNDERLYING L MAT COND W/DIABETIC MONONEUROPA THY A084 VIRAL 07-20-2015 [facility] INTESTINAL COMMUNTIY INFECTION HOSPITA UNSPECIFIED D49116 TYPE 1 DM 07-20-2015 [facility] W/UNS DIAB COMMUNTIY RETINPATH HOSPITA W/O MACULAR EDEMA R000 TACHYCARDIA 07-20-2015 [facility] UNSPECIFIED 36108 DIAB W/O 04-14-2015 [facility] COMP TYPE DIAGNOSTICS II/UNS NOT STATED UN[facility]L 61900 DIAB 04-14-2015 [facility] W/NEURO L MANIFESTS TYPE II/UNS NOT UNCN[facility]L 3572 POLYNEUROPA 04-14-2015 [facility] THY IN L DIABETES V5867 LONG-TERM 04-14-2015 [facility] USE OF L INSULIN 57937 DIAB W/O 01-18-2015 [facility] L[facility] COMP TYPE I [JUV] NOT STATED UNCN[facility]L 66480 NAUSEA WITH 01-18-2015 [facility] VOMITING 08184 PLANTAR 11-14-2014 [facility] FIBROMATOSI ANKLE CE S 7295 PAIN IN 11-14-2014 [facility] & TISSUES OF ANKLE CE LIMB 3671 MYOPIA 08-12-2014 MUHA JAVI 3559 MONONEURITI 07-02-2014 [facility] S OF DIAGNOSTICS UNSPECIFIED SITE 00103 DIAB W/O 06-19-2014 DI[facility] MENTION CARE & COMP TYPE I EDUCATION [JUV TYPE] UNCNTRL 73637 OSTEOARTHRO 04-07-2014 [facility] UNSPEC RADIOLOGY WHETHER GEN/LOC LOWER LEG 98248 OBSTRUCTIVE 12-27-2013 [facility] SLEEP APNEA 59160 OTHER 12-27-2013 [facility] [place] [address] UNSPECIFIED 12-27-2013 [facility] SLEEP [facility] APNEA HOSPITA 1105 DERMATOPHYT 12-20-2013 [facility] OSIS OF THE L MAT BODY 38665 ESOPHAGEAL 12-20-2013 [facility] REFLUX L MAT 5363 GASTROPARES 11-25-2013 [place] [address] NAUSEA 11-25-2013 [facility] DALYU ALONE 4778 ALLERGIC 11-21-2013 [facility] RHINITIS L MAT DUE TO OTHER ALLERGEN 99501 UNSPECIFIED 11-21-2013 [facility] L MAT ARTHROPATHY SITE UNSPECIFIED 4659 ACUTE URIS 11-10-2013 [facility] RYA OF UNSPECIFIED SITE 4739 UNSPECIFIED 11-10-2013 [facility] SALINASA SINUSITIS 7862 COUGH 11-10-2013 [facility] 7241 PAIN IN 10-22-2013 [facility] [place] THORACIC [facility] SPINE 7242 LUMBAGO 10-22-2013 [facility]PITA 41063 DIAB W/O 10-14-2013 [facility] MENTION N PHYSICIAN COMP TYPE SERVI II/UNS TYPE UNCNTRL 69542 DIABETES 10-14-2013 [facility] W/KETOACIDO N PHYSICIAN SIS TYPE SERVI II/UNS TYPE UNCNTRL 40416 DEHYDRATION 10-14-2013 [facility] PH[facility]ICIAN SERVI 5849 ACUTE 10-14-2013 [facility] KIDNEY N PHYSICIAN FAILURE SERVI UNSPECIFIED 44405 DIAB 10-13-2013 [facility] W/KETOACIDO N EMERGENCY S TYPE I PHYSI [JUV] NOT STATE UNCNTRL 42063 DIAB W/OTH 10-13-2013 [facility]- [facility] CO TYPE II/UNS EMS NOT UNCNTRL 45332 SINOATRIAL 10-13-2013 [facility]- NODE [facility] CO DYSFUNCTION EMS 95134 VOMITING 10-13-2013 [facility]- ALONE [place] EMS 53826 OTHER 10-13-2013 [facility]- ABNORMAL DE CO GLUCOSE EMS 68475 DIABETES 08-14-2013 [facility] DALYU W/KETOACIDO SIS TYPE I [JUV] UNCNTRL 40559 OTHER ACUTE 01-31-2011 [facility] EXTERNA & INTER 51768 TOB USE D/O 01-31-2011 [facility] COMP PG [facility]ED[facility] /PP & INTER UNSPEC EPIS CARE/NA 7569 OTH&UNSPEC 01-31-2011 [facility] 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 87487 UNSPECIFIED 01-31-2011 [facility] SLEEP [facility]ED[facility]ICS DISTURBANCE & INTER 7919 OTHER 01-31-2011 [facility] NONSPECIFIC [facility]EDIATRICS FINDING & INTER EXAMINATION OF URINE 4519 PHLEBITIS&T 12-01-2010 [facility] HROMBOPHLEB [facility]EDIATRICS ITIS OF & INTER UNSPECIFIED SITE 28871 SHORTNESS 11-05-2010 [facility] [place] [facility] 76997 ABDOMINAL 10-27-2010 [facility] PAIN, [facility] UNSPECIFIED HOSPITA SITE 29634 OTHER 10-20-2010 [facility] SPECIFIED [facility]ATRICS DISORDER OF & INTER THE ESOPHAGUS 7245 UNSPECIFIED 10-20-2010 [facility] BACKACHE PEDIATRICS & INTER 2762 ACIDOSIS 10-09-2010 [facility] & INTER 5609 UNSPECIFIED 10-09-2010 [facility] INTESTINAL [facility] & INTER OBSTRUCTION 2753 DISORDERS 10-07-2010 [facility] PHOSPHORUS HOSPITA METABOLISM 2768 HYPOPOTASSE 10-07-2010 [facility] HOSPITA 91158 LEUKOCYTOSI 10-07-2010 [facility] UNSPECIFIED SERVICES 5362 PERSISTENT 10-07-2010 [facility]GENCY SERVICES 5601 PARALYTIC 10-07-2010 [facility] ILEUS [facility] HOSPITA 5758 OTHER 10-07-2010 [facility] [place] SPECIFIED RADIOLOGY DISORDER OF GALLBLADDER 5780 HEMATEMESIS 10-07-2010 [facility] HOSPITA 5789 UNSPECIFIED 10-07-2010 [facility] OF SERVICES GASTROINTES TINAL TRACT 5589 OTH&UNSPEC 10-06-2010 [facility] NONINFECTIO EMERGENCY US SERVICES GASTROENTER ITIS&COLITI S 7850 UNSPECIFIED 09-21-2010 [facility] 95324 DIAB 09-12-2010 [facility]/NEURO [facility] MANIFESTS HOSPITA TYPE I [JUV TYPE] UNCNTRL 7840 HEADACHE 09-12-2010 [facility] 07682 ABDOMINAL 09-12-2010 [facility] PAIN, LEFT [facility] UPPER HOSPITA [facility] 53491 ABDOMINAL 09-12-2010 [facility] PAIN, [facility] EPIGASTRIC HOSPITA 5253 RETAINED 06-08-2010 [facility] KARI 5264 INFLAMMATOR 06-08-2010 RAIN Y KARI CONDITIONS OF JAW 14683 DIAB 02-14-2008 [facility] MANIFESTS CENTER TYPE II/UNS NOT UNCNTRL 15333 REGULAR 02-14-2008 [facility] 10116 DEGEN 02-14-2008 [facility] THORACIC/TH M ORACOLUMBAR [...] 82 8- 6- 00 00 SI ve [place] 07 20 20 50 DE [place] 41 [...] 82 7- 5- 00 00 SI ve [place] 07 20 20 49 DE [place] 41 [...] 07 08 60 30 00 EA Ac [place] 46 -2 -[address] ti [...] FR 99 05 06 10 25 00 IN Ac EE 07 -2 -2 0. 00 [...] 17 73 S E 9 46 #1 [place] 20 OP 75 50 MC G SP [...] BA 00 05 05 15 30 00 [facility] SA 00 -0 -2 .0 00 LG ti GL 27 1- 6 00 RE ve AR 71 20 20 42 EN 55 17 17 83 S 10 9 00 #1 0 20 UN 75 IT /M L KW IK PE N UL 08 05 05 10 25 00 IN Ac TI 22 -0 -2 0. 00 LG ti CA 20 1- 6 00 RE ve RE 95 20 20 0 42 EN 83 17 17 83 S PE 1 02 #1 N 20 NE 75 ED LE S 8M M 31 G IN 11 04 05 60 30 00 [facility] MAZA 91 -2 -2 .0 00 LG ti LI 70 8- 6- 00 RE ve N 04 20 20 41 EN SY 81 17 17 69 S RI 4 11 #1 N 20 0. 75 5 ML 31 GX 16 " FR 99 05 05 10 25 00 [facility] EE 07 -0 -2 0. [address] 30 1- 6 00 RE ve YL 70 20 20 0 42 EN E 82 17 17 81 S LI 7 24 #1 TE [address] RI P [place] 00 04 05 16 30 00 [facility] UT 05 -2 -1 .0 00 LG ti IC 43 6- 9- 00 RE ve 27 20 20 42 EN ON 09 17 17 73 S E 9 46 #1 [place] 20 OP 75 50 MC G SP RA Y SI 68 04 05 30 30 00 [facility] MV 18 -2 -1 .0 00 LG ti 00 6- 9 00 RE ve TA 47 20 20 41 EN TI 80 17 17 50 S N 3 62 #1 10 20 75 MG TA BL ET TR 60 04 05 30 30 00 [facility] [place] 50 -2 -1 .0 00 LG [...] FL 00 04 05 30 30 00 IN Ac UO 78 -1 -1 .0 00 [...] 00 7- 2- 00 00 RE ve [place] 51 20 20 41 EN [place] 40 17 17 87 S 3 96 #1 10 20 75 MG TA BL ET FR 99 04 05 10 25 00 IN Ac EE 07 -1 -0 0. [address] 30 2- 5- 00 00 RE ve YL 13 20 20 0 39 EN E 00 17 17 08 S 28 1 78 #1 G 20 LA 75 NC ET S TR 60 03 04 30 30 00 IN Ac [place] 50 -3 -2 .0 00 LG ti OD 52 0- 8- 00 00 RE ve ON 65 20 20 40 EN E 50 17 17 46 S 15 1 68 #1 0 20 MG 75 TA BL ET IN 11 03 04 60 30 00 IN Ac MAZA 91 -3 -2 .0 00 LG ti LI 70 0- 8- 00 00 RE ve N 04 20 20 41 EN SY 81 17 17 69 S RI 4 11 #1 N 20 0. 75 5 ML 31 GX 5/ 16 " FR 99 04 04 10 25 00 IN Ac EE 07 -0 -2 0. [address] 30 4- 8- 00 00 RE ve YL 70 20 20 0 38 EN E 82 17 17 27 S LI 7 72 #1 TE [address] RI P FL 60 03 04 16 30 00 IN Ac UT 50 -2 -2 .0 00 LG ti IC 50 6- 1- 00 00 RE ve 82 20 20 42 EN ON 90 17 17 12 S E 1 74 #1 [place] 20 OP 75 50 MC G SP RA Y SI 68 03 04 30 30 00 IN Ac MV 18 -2 -2 .0 00 [...] NO 00 4- 7- 00 RE ve [place] 51 20 20 41 EN IL 40 [...] 17 50 S E 1 51 #1 [place] 20 OP 75 50 MC G SP RA Y FR 99 02 03 10 25 00 IN Ac EE 07 -2 -2 0. [address] 30 3- 4- 00 00 RE ve YL 13 20 20 0 39 EN E 00 17 17 08 S 28 1 78 #1 G 20 LA 75 NC ET S GA 00 02 03 12 30 00 IN Ac BA 09 -2 -2 0. 00 LG ti PE 34 7- 4- 00 00 RE ve NT 44 20 20 0 41 EN IN 40 17 17 55 S 5 59 #1 80 20 0 75 MG TA BL ET FR 99 02 03 10 25 00 IN Ac EE 07 -1 -1 0. [address] 30 4- 0- 00 00 RE ve YL 70 20 20 0 38 EN E 82 17 17 27 S LI 7 72 #1 TE [address] RI P HY 00 02 03 20 [address] 59 -2 -1 .0 00 LG ti OC 12 0- 0- 00 00 RE ve OD 60 20 20 41 EN ON 50 17 17 40 S -A 5 84 #1 CE 20 TA 75 ND NO PH 7. 5- 32 5 LA 00 02 03 10 28 00 IN Ac NT 08 -2 -1 .0 00 LG ti US 82 2- 0- 00 00 RE ve 22 20 20 38 EN 10 03 17 17 20 S 0 3 71 #1 UN 20 IT 75 /M L AL FL 00 02 03 30 30 00 IN Ac UO 78 -1 -1 .0 00 LG ti XE 12 3- 0- 00 00 RE ve TI 82 20 20 40 EN NE 20 17 17 13 S 1 48 #1 HC 20 L 75 20 MG CA PS UL E LI 68 02 03 30 30 00 IN Ac SI 18 -1 -1 .0 00 LG ti NO 00 3- 0- 00 00 RE ve [place] 51 20 20 39 EN IL 40 17 17 02 S 3 30 #1 10 20 75 MG TA BL ET FR 99 02 03 1. 30 00 IN Ac EE 07 -0 -0 [address] 30 6- 3- 0 00 RE ve YL 70 20 20 41 EN E 80 17 17 10 S LI 5 75 #1 TE 20 75 ME TE R FR 99 02 03 10 25 00 IN Ac EE 07 -0 -0 0. [address] 30 6- 3- 00 00 RE ve YL 13 20 20 0 41 EN E 00 17 17 10 S 28 1 76 #1 G 20 LA 75 NC ET S HY 00 02 03 60 [address] 59 -0 -0 .0 00 LG ti OC 12 6- 3- 00 00 RE ve OD 60 20 20 41 EN ON 50 17 17 10 S -A 5 78 #1 CE 20 TA 75 ND NO PH 7. 5- 32 5 IN 11 02 03 10 30 00 IN Ac MAZA 91 -0 -0 0. 00 LG ti LI 70 4- 3- 00 00 RE ve N 04 20 20 0 38 EN SY 81 17 17 72 S RI 4 10 #1 N 20 0. 75 5 ML 31 GX 5/ 16 " TR 60 02 03 30 30 00 IN Ac AZ 50 -0 -0 .0 00 LG ti OD 52 4- 3- 00 00 RE ve ON 65 20 20 40 EN E 50 17 17 46 S 15 1 68 #1 0 20 MG 75 TA BL ET NI 00 02 03 28 28 00 IN Ac CO 53 -0 -0 .0 00 LG ti TI 61 6- 3- 00 00 RE ve NE 10 20 20 41 EN 88 17 17 10 S 21 8 67 #1 20 MG 75 /2 4H R PA TC H FL 60 01 02 16 30 00 IN Ac UT 50 -2 -2 .0 00 LG ti IC 50 6- 4- 00 00 RE ve 82 20 20 40 EN ON 90 17 17 88 S E 1 04 #1 [place] 20 OP 75 50 MC G SP RA Y SI 68 01 02 30 30 00 IN Ac MV 18 -2 -2 .0 00 LG ti 00 6- 4- 00 00 RE ve TA 47 20 20 39 EN TI 80 17 17 17 S N 3 15 #1 10 20 75 MG TA BL ET FR 99 01 02 10 25 00 IN Ac EE 07 -3 -2 0. [address] 30 1- 4- 00 00 RE ve YL 13 20 20 0 39 EN E 00 17 17 08 S 28 1 78 #1 G 20 LA 75 NC ET S GA 00 01 02 12 30 00 IN Ac BA 09 -3 -2 0. 00 LG ti PE 34 0- 4- 00 00 RE ve NT 44 20 20 0 40 EN IN 40 17 17 95 S 5 43 #1 80 20 0 75 MG TA BL ET [place] 68 02 02 20 5 00 WA [...] 5 58 #1 CE 20 TA 75 ND NO PH 7. 5- 32 5 FL [...] 00 7- 0- 00 00 RE ve [place] 51 20 20 39 EN IL 40 [...] LA 00 12 01 10 28 00 IN Ac NT 08 -2 -2 .0 00 LG ti US 82 8- 0- 00 00 RE ve 22 20 20 38 EN 10 03 16 17 20 S 0 3 71 #1 UN 20 IT 75 /M L AL SI 68 12 01 30 30 00 IN Ac MV 18 -2 -2 .0 00 LG ti 00 7- 0- 00 00 RE ve TA 47 20 20 39 EN TI 80 16 17 17 S N 3 15 #1 10 20 75 MG TA BL ET FL 50 12 01 16 30 00 IN Ac UT 38 -2 -2 .0 00 LG ti IC 30 7- 0- 00 00 RE ve 70 20 20 38 EN ON 01 16 17 59 S E 6 83 #1 [place] 20 OP 75 50 MC G SP RA Y FR 99 12 01 10 25 00 IN Ac EE 07 -1 -1 0. 00 [...] 00 0- 3- 00 00 RE ve [place] 51 20 20 39 EN IL 40 16 17 02 S 3 30 #1 10 20 75 MG TA BL ET FL 00 12 01 30 30 00 IN Ac UO 78 -2 -1 .0 00 [...] #1 UL CE 20 W TA 75 ND # NO PH 12 EN 07 5 [...] ve G 68 20 20 6 GH ND 51 11 11 PH X 2 AR AN [address] -3 CY EW 0 # P AL 24 70 9 CI 55 06 06 0 20 10 KR 64 BA Ac [place] 11 -2 -2 .0 OG 93 LB [...] 0- 0- 00 ER 66 AU ve [place] 40 20 20 3 GH IL 60 [...] 4 GH ZA 10 11 11 PH NY 6 AR AN IN MA DR E [...] 4 GH ZA 10 11 11 PH NY 6 AR AN IN MA DR E [...] P TA BL 24 ET 70 9 [place] 68 02 02 0 12 3 KR [...] 10 10 PH FA AC 1 AR ND ET MA LY AM CY & IN [...] 70 10 10 PH FA 5 AR ND MA LY CY & # CO 24 [...] 70 10 10 PH FA 5 AR ND MA LY CY & # CO 24 [...] 06 10 02 10 30 J 75 [place] Ac VO 16 -3 -0 .0 & [...] Procedure DOS Code Location Performer Comment ECG 95557 CAROL RENUSC ROUTINE 7 PHYSICIAN ECG S, PLLC W/LEAST 12 LDS I&R ONLY HEPATOBIL 22330 [facility] SYST 7 MEDICAL IMAG INC IMAGING GB ASS W/PHARMA INTERVENJ FINAL G9638 [facility] REPORTS 7 MEDICAL W/O DOC IMAGING 1/MORE ASS DOSE REDUCTION TECH FINAL G9551 [facility] REPR ABD 7 MEDICAL IMAG STS IMAGING W/O ASS INCIDNT FND LES NTD: [place] [address] [facility]ER[facility] GARG ABDOMEN & 7 MEDICAL PELVIS IMAGING W/[place] [address] [facility] ABDOMINAL 7 MEDICAL REAL IMAGING TIME ASS W/IMAGE LIMITED BLOOD 20338 [facility] MAC COUNT 7 MEM HOSP MEM [facility]OS[facility] COMPLETE INC INC AUTO&AUTO DIFRNTL WBC LIPID 23618 [facility] MAC PANEL 7 MEM HOSP MEM HOSP INC INC HEMOGLOBI 61557 [facility] MAC N 7 MEM HOSP MEM HOSP GLYCOSYLA INC INC NICHOLAS A1C COMPREHEN 12344 [facility] MAC SIVE 7 MEM HOSP MEM HOSP METABOLIC INC INC PANEL HEPATITIS 30626 [facility] MAC C 7 MEM HOSP MEM HOSP ANTIBODY INC INC HEPATITIS 01509 [facility] MAC A 7 MEM HOSP MEM HOS[facility] ANTIBODY INC INC HAAB HEPATITIS 74678 B[facility] MAC B CORE 7 MEM HOSP MEM HOS[facility] [place] [address] B[facility] MAC HEPATITIS 7 MEM HOSP MEM HOS[facility] B INC INC SURFACE ANTIGEN DIAB ONLY A5500 [facility] FIT CSTM 7 MEDICAL MEDICAL PREP&SPL SUPPLY SUPPLY [employer] DNSITY INSRT FOR DIAB A5512 [facility] [place] ONLY MX 7 MEDICAL MEDICAL DNSITY SUPPLY SUPPLY [employer] FORMD PRFAB EA GROUND A0425 [facility] MILEAGE 7 N-DE Ray-DE PER CO EMS CO EMS STATUTE MILE BLOOD 06468 [facility] COUNT 7 N N COMPLETE COMMUNTIY COMMUNTIY AUTO&AUTO HOSPITA HOSPITA DIFRNTL WBC GLUC BLD 09721 [facility] GLUC MNTR 7 N N DEV COMMUNTIY COMMUNTIY CLEARED HOSPITA HOSPITA FDA SPEC HOME USE URNLS DIP 04636 [facility] 7 N N STICK/TAB COMMUNTIY COMMUNTIY LET HOSPITA HOSPITA REAGENT AUTO MICROSCOP Y COMPREHEN 00614 [facility] SIVE 7 N N METABOLIC COMMUNTIY COMMUNTIY PANEL HOSPITA HOSPITA KETONE 84911 [facility] BODIES 7 N N SERUM COMMUNTIY COMMUNTIY QU[place]IT[place] [address] [facility] LIPASE 7 N N COMMUNTI[place] [address] [facility] LACTATE 7 N N COMMUNTIY COMMUNTIY HOSPITA HOSPITA AMB A0427 [facility] SERVICE 7 HALEY [facility] CO EMS EMERGENCY TRANSPORT LEVEL 1 INFUSION J7030 [facility] NORMAL 7 N N SALINE COMMUNTIY COMMUNTIY SOLUTION HOSPITA HOSPITA 1000 CC THER 91802 [facility] PROPH/DX 7 N N NJX IV COMMUNTIY COMMUNTIY PUSH HOSPITA HOSPITA SINGLE/1S T SBST/[place] [address] [facility] INFUSION 7 N N HYDRATION COMMUNTIY COMMUNTIY EACH HOSPITA HOSPITA ADDITIONA L HOUR THERAPEUT 61471 [facility] IC 7 N N INJECTION COMMUNTIY COMMUNTIY IV PUSH HOSPITA HOSPITA EACH NEW DRUG ECG [id number] [facility] ROUTINE 7 [place] ECG EMERGENCY W/LEAST SERV 12 LDS I&R ONLY INITIAL 09528 [facility] 7 MEDICINE CARE/DAY SERVICES 30 O MINUTES SBSQ 13369 [facility] 7 N FAMILY CARE/DAY PRACTICE 25 MINUTES SBSQ 49486 [facility] 7 N FAMILY CARE/DAY PRACTICE 25 MINUTES AMB A0427 [facility] 7 HALEY FROST [facility] EMS CO EMS [place]ERG[place] [address] [facility] HEAD/BRAI 7 RADIOLOGY N W/O CONTRAST MATERIAL RADIOLOGI 53228 [facility] C 7 RADIOLOGY EXAMINATI ON CHEST SINGLE VIEW FRONTAL ECG 26649 [facility] ROUTINE 7 [place] ECG EMERGENCY W/LEAST SERVI 12 LDS I&R ONLY RADEX 64744 [facility] [place] [facility] SPINE 7 RADIOLOGY LUMBOSACR AL 2/3 VIEWS RADEX 89433 [facility] SACRUM & 7 RADIOLOGY COCCYX MINIMUM 2 VIEWS GROUND A0425 [facility] Ray-DE PER CO EMS CO EMS STATUTE [facility] [address] [facility] [place] PATRICE ABDOMEN & 6 RADIOLOGY RHO PELVIS W/O CONTRAST MATERIAL GLUC BLD 96146 [facility] QUAN GLUC MNTR 6 NURSE ADWOA DEV PRACTITIO CLEARED NER GR FDA SPEC HOME USE HEMOGLOBI 22299 [facility] QUAN N 6 NURSE ADWOA GLYCOSYLA PRACTITIO NICHOLAS A1C NER GR BLOOD 39959 [facility] COUNT 6 N N COMPLETE COMMUNTIY COMMUNTIY AUTO&AUTO HOSPITA HOSPITA DIFRNTL WBC GLUC BLD 83621 [facility] GLUC MNTR 6 N N DEV COMMUNTIY COMMUNTIY CLEARED HOSPITA HOSPITA FDA SPEC HOME USE HEMOGLOBI 19891 [facility] N 6 N N GLYCOSYLA COMMUNTIY COMMUNTIY NICHOLAS A1C HOSPITA HOSPITA COMPREHEN 81695 [facility] SIVE 6 N N METABOLIC COMMUNTIY COMMUNTIY PANEL HOSPITA HOSPITA THERAPEUT 70235 [facility] IC 6 N N PROPHYLAC COMMUNTIY COMMUNTIY TIC/DX HOSPITA HOSPITA INJECTION SUBQ/[place] [address] [facility] MAGNESIUM 6 N N COMMUNTIY [place] [address] [facility] PHOSPHORU 6 N N S COMMUNTIY COMMUNTIY INORGANIC HOSPITA HOSPITA OBSERVATI 36568 BIRDWHIST BIRDWHIST ON CARE 6 ELL MAT ELL MAT DISCHARGE MANAGEMEN T COLLECTIO 72816 [facility] N VENOUS 6 N N BLOOD COMMUNTIY COMMUNTIY VENIPUNCT HOSPITA HOSPITA URE THER 73284 [facility] PROPH/DX 6 N N NJX EA COMMUNTIY COMMUNTIY SEQL IV HOSPITA HOSPITA PUSH SBST/DRUG FAC INJECTION C9113 [facility] 6 N N PANTOPRAZ COMMUNTIY COMMUNTIY OLE HOSPITA HOSPITA SODIUM PER VIAL INJECTION J2270 [facility] MORPHINE 6 N N SULFATE COMMUNTIY COMMUNTIY UP TO 10 HOSPITA HOSPITA MG INFUSION J7030 [facility] NORMAL 6 N N SALINE COMMUNTIY COMMUNTIY SOLUTION HOSPITA HOSPITA 1000 CC INJECTION C9113 [facility] 6 N N PANTOPRAZ COMMUNTIY COMMUNTIY OLE HOSPITA HOSPITA SODIUM PER VIAL THER 18896 [facility] PROPH/DX 6 N N NJX EA COMMUNTIY COMMUNTIY SEQL IV HOSPITA HOSPITA PUSH SBST/DRUG FAC COLLECTIO 50888 [facility] N VENOUS 6 N N BLOOD COMMUNTIY COMMUNTIY VENIPUNCT HOSPITA HOSPITA URE INJECTION J2550 [facility] 6 N N PROMETHAZ COMMUNTIY COMMUNTIY INE HCL HOSPITA HOSPITA UP TO 50 MG PROTHROMB 61718 [facility] IN TIME 6 N N COMMUNTIY COMMUNTIY HOSPITA HOSPITA INJECTION J0610 [facility] CALCIUM 6 N N GLUCONATE COMMUNTIY COMMUNTIY PER 10 HOSPITA HOSPITA ML THERAPEUT 19430 [facility] IC 6 N N INJECTION COMMUNTIY COMMUNTIY IV PUSH HOSPITA HOSPITA EACH NEW DRUG INJECTION J2270 [facility] MORPHINE 6 N N SULFATE COMMUNTIY COMMUNTIY UP TO 10 HOSPITA HOSPITA MG NONINVASI 89110 [facility] VE 6 N N EAR/PULSE COMMUNTIY COMMUNTIY OXIMETRY HOSP[place] [address] [facility] PHOSPHORU 6 N N S COMMUNTIY COMMUNTIY [place] [address] [facility] MAGNESIUM 6 N N COMMUNTIY COMMUNTIY HOSPITA HOSPITA THERAPEUT 61238 [facility] IC 6 N N PROPHYLAC COMMUNTIY COMMUNTIY TIC/DX HOSPITA HOSPITA INJECTION SUBQ/IM COMPREHEN 98783 [facility] SIVE 6 N N METABOLIC COMMUNTIY COMMUNTIY PANEL HOSPITA HOSPITA HEMOGLOBI 56401 [facility] N 6 N N GLYCOSYLA COMMUNTIY COMMUNTIY NICHOLAS A1C HOSPITA HOSPITA GLUC BLD 48174 [facility] GLUC MNTR 6 N N DEV COMMUNTIY COMMUNTIY CLEARED HOSPITA HOSPITA FDA SPEC HOME USE BLOOD 08745 [facility] COUNT 6 N N COMPLETE COMMUNTIY COMMUNTIY AUTO&AUTO HOSPITA HOSPITA DIFRNTL WBC INITIAL 35305 [facility] OBSERVATI 6 ELL MAT ELL MAT ON CARE/DAY 50 MINUTES BLOOD 44148 [facility] COUNT 6 N N COMPLETE COMMUNTIY COMMUNTIY AUTO&AUTO HOSPITA HOSPITA DIFRNTL WBC TOBACCO 44385 [facility] USE 6 N N CESSATION COMMUNTIY COMMUNTIY HOSPITA HOSPITA INTERMEDI ATE 3-10 MINUTES GLUC BLD 39843 [facility] GLUC MNTR 6 N N DEV COMMUNTIY COMMUNTIY CLEARED HOSPITA HOSPITA FDA SPEC HOME USE BLOOD 03875 [facility] GASES ANY 6 N N COMMUNTIY COMMUNTIY COMBINATI HOSPITA HOSPITA ON PH PCO2 PO2 CO2 HCO3 URNLS DIP 76151 [facility] 6 N N STICK/TAB COMMUNTIY COMMUNTIY LET HOSPITA HOSPITA REAGENT AUTO MICROSCOP Y THERAPEUT 93437 [facility] IC 6 N N PROPHYLAC COMMUNTIY COMMUNTIY TIC/DX HOSPITA HOSPITA INJECTION SUBQ/IM COMPREHEN 54955 [facility] SIVE 6 N N METABOLIC COMMUNTIY COMMUNTIY PANEL HOSPITA HOSPITA KETONE 61016 [facility] BODIES 6 N N SERUM COMMUNTIY COMMUNTIY QUALITAT[place] [address] [facility] LIPASE 6 N N [place] [address] [facility] INFUSION 6 N N THERAPY/P COMMUNTIY COMMUNTIY ROPHYLAXI HOSPITA HOSPITA S /DX 1ST TO 1 [place] [address] [facility] INFUSION 6 N N HYDRATION COMMUNTIY COMMUNTIY EACH HOSPITA HOSPITA ADDITIONA L HOUR THERAPEUT 54445 [facility] IC 6 N N INJECTION COMMUNTIY COMMUNTIY IV PUSH HOSPITA HOSPITA EACH NEW DRUG INJECTION J2550 [facility] 6 N N PROMETHAZ COMMUNTIY COMMUNTIY INE HCL HOSPITA HOSPITA UP TO 50 MG INJECTION J1815 [facility] INSULIN 6 N N PER 5 COMMUNTIY COMMUNTIY UNITS HOSPITA HOSPITA THER 70607 [facility] PROPH/DX 6 N N NJX EA COMMUNTIY COMMUNTIY SEQL IV HOSPITA HOSPITA PUSH SBST/DRUG FAC INJECTION J1885 [facility] 6 N N KETOROLAC COMMUNTIY COMMUNTIY HOSPITA HOSPITA TROMETHAM INE PER 15 [facility] G0378 [facility] OBSERVATI 6 N N ON COMMUNTIY COMMUNTIY SERVICE HOSPITA HOSPITA PER HOUR COLLECTIO 43621 [facility] N VENOUS 6 N N BLOOD COMMUNTIY COMMUNTIY VENIPUNCT HOSPITA HOSPITA URE INFUSION J7030 [facility] NORMAL 6 N N SALINE COMMUNTIY COMMUNTIY SOLUTION HOSPITA HOSPITA 1000 CC INJECTION J2270 [facility] MORPHINE 6 N N SULFATE COMMUNTIY COMMUNTIY UP TO 10 HOSPITA HOSPITA MG ARTERIAL 61219 [facility] PUNCTURE 6 N N WITHDRAWA COMMUNTIY COMMUNTIY L BLOOD HOSPITA HOSPITA DX ARTHROCEN 17367 [facility] TESIS 6 N N ASPIR&/IN COMMUNTIY COMMUNTIY J INTERM HOSPITA HOSPITA JT/BURS W/O US RADEX 48033 [facility] ELBOW 6 N N COMPLETE COMMUNTIY COMMUNTIY MINIMUM 3 HOSPITA HOSPITA VIEWS COLLECTIO 22416 [facility] N VENOUS 6 N N BLOOD COMMUNTIY COMMUNTIY VENIPUNCT HOSPITA HOSPITA URE BASIC 06292 [facility] METABOLIC 6 N N PANEL COMMUNTIY COMMUNTIY CALCIUM HOSPITA HOSPITA TOTAL OBSERVATI 27630 [facility] BIRDWHIST ON CARE 6 KHUSHBU RÍOS MAT DISCHARGE MANAGEMEN T INFUSION J7030 [facility] NORMAL 6 N N SALINE COMMUNTIY COMMUNTIY SOLUTION HOSPITA HOSPITA 1000 CC THERAPEUT 63279 [facility] IC 6 N N PROPHYLAC COMMUNTIY COMMUNTIY TIC/DX HOSPITA HOSPITA INJECTION SUBQ/IM GLUC BLD 42509 [facility] GLUC MNTR 6 N N DEV COMMUNTIY COMMUNTIY CLEARED HOSPITA HOSPITA FDA SPEC HOME USE BLOOD 47349 [facility] COUNT 6 N N COMPLETE COMMUNTIY COMMUNTIY AUTO&AUTO HOSPITA HOSPITA DIFRNTL WBC BLOOD 67468 [facility] COUNT 6 N N COMPLETE COMMUNTIY COMMUNTIY AUTO&AUTO HOSPITA HOSPITA DIFRNTL WBC GLUC BLD 22522 [facility] GLUC MNTR 6 N N DEV COMMUNTIY COMMUNTIY CLEARED HOSPITA HOSPITA FDA SPEC HOME USE URNLS DIP 35170 [facility] 6 N N STICK/TAB COMMUNTIY COMMUNTIY LET HOSPITA HOSPITA REAGENT AUTO MICROSCOP Y TOBACCO 96376 [facility] USE 6 N N CESSATION COMMUNTIY COMMUNTIY HOSPITA HOSPITA INTERMEDI ATE 3-10 MINUTES INITIAL 27230 [facility] OBSERVATI 6 ELL MAT ELL MAT ON CARE/DAY 50 MINUTES THERAPEUT 49518 [facility] IC 6 N N PROPHYLAC COMMUNTIY COMMUNTIY TIC/DX HOSPITA HOSPITA INJECTION SUBQ/IM THER 34586 [facility] PROPH/DX 6 N N NJX IV COMMUNTIY COMMUNTIY PUSH HOSPITA HOSPITA SINGLE/1S T SBST/DRUG ECG 63443 [facility] ROUTINE 6 N N ECG COMMUNTIY COMMUNTIY W/LEAST HOSPITA HOSPITA 12 LDS TRCG ONLY W/O I&[place] [address] [facility] ABDOMEN & 6 N N PELVIS COMMUNTIY COMMUNTIY W/O HOSPITA HOSPITA CONTRAST MATERIAL COMPREHEN 21798 [facility] SIVE 6 N N METABOLIC COMMUNTIY COMMUNTIY [place] [address] [facility] AMYLASE 6 N N COMMUNTIY COMMUNTIY HOSPITA HOSPITA KETONE 61484 [facility] BODIES 6 N N SERUM COMMUNTIY COMMUNTIY QUALIT[place] [address] [facility] LIPASE 6 N N COMMUNTI[place] [address] [facility] PHOSPHORU 6 N N S COMMUNTIY COMMUNTIY INORGANIC HOSPITA HOSPITA INFUSION J7030 [facility] NORMAL 6 N N SALINE COMMUNTIY COMMUNTIY SOLUTION HOSPITA HOSPITA 1000 CC HOSPITAL G0378 [facility] OBSERVATI 6 N N ON COMMUNTIY COMMUNTIY SERVICE HOSPITA HOSPITA PER HOUR DRUG TEST G0479 [facility] 6 N N PRESUMP;I COMMUNTIY [facility] ED CHEMISTRY ANLYZER COLLECTIO 16468 [facility] N VENOUS 6 N N BLOOD COMMUNTIY COMMUNTIY VENIPUNCT HOSPITA HOSPITA URE INJECTION J0360 [facility] 6 N N HYDRALAZI COMMUNTIY COMMUNTIY NE HCL UP HOSPITA HOSPITA TO 20 MG INJECTION J2270 [facility] MORPHINE 6 N N SULFATE COMMUNTIY COMMUNTIY UP [place] [address] [facility] INFUSION 6 N N HYDRATION COMMUNTIY COMMUNTIY EACH HOSPITA HOSPITA ADDITIONA L HOUR THERAPEUT 87192 [facility] IC 6 N N INJECTION COMMUNTIY COMMUNTIY IV PUSH HOSPITA HOSPITA EACH NEW DRUG ECG 08997 [facility] ROUTINE 6 [place] ECG EMERGENCY W/LEAST PHYS 12 LDS I&R ONLY COLONOSCO 99461 GASTROENT CASE JUS PY FLX DX 6 EROLOGY W/COLLJ AND SPEC WHEN HEPATOL PFRMD COLOREC G0121 [facility] CANCR 6 N N SCR; COMMUNTIY COMMUNTIY COLNSCPY HOSPITA HOSPITA NOT MEET HI RISK ANES 05641 [place] [facility] ANT LOWER 6 ANESTHESI INTESTINE A GROUP PS ENDOSCOPY DISTAL DUODENUM RINGERS J7120 [facility] LACTATE 6 N N INFUSION COMMUNTIY COMMUNTIY UP TO HOSPITA HOSPITA 1000 CC GLUC BLD 30489 [facility] GLUC MNTR 6 N N DEV COMMUNTIY COMMUNTIY CLEARED HOSPITA HOSPITA FDA SPEC HOME USE GLUC BLD 88557 [facility] GLUC MNTR 6 N N DEV COMMUNTIY COMMUNTIY CLEARED HOSPITA HOSPITA FDA SPEC HOME USE URNLS DIP 46823 [facility] 6 N N STICK/TAB COMMUNTIY COMMUNTIY LET HOSPITA HOSPITA REAGENT AUTO MICROSCOP Y BLOOD 80329 [facility] COUNT 6 N N COMPLETE COMMUNTIY COMMUNTIY AUTO&AUTO HOSP[place] [address] [facility] TROPONIN 6 N N QUANTITAT COMMUNTIY COMMUNTIY VERÓ[place] [address] [facility] LIPASE 6 N N COMMUNTIY COMMUNTIY HOSPITA HOSPITA KETONE 94872 [facility] BODIES 6 N N SERUM COMMUNTIY COMMUNTIY QUALITAT[place] [address] [facility] LACTATE 6 N N COMMUNTIY COMMUNTIY HOSPITA HOSPITA COMPREHEN 74674 [facility] SIVE 6 N N METABOLIC COMMUNTIY COMMUNTIY PANEL HOSPITA HOSPITA THER 36761 [facility] PROPH/DX 6 N N NJX IV COMMUNTIY COMMUNTIY PUSH HOSPITA HOSPITA SINGLE/1S T SBST/DRUG COLLECTIO 07036 [facility] N VENOUS 6 N N BLOOD COMMUNTIY COMMUNTIY VENIPUNCT HOSPITA HOSPITA URE THERAPEUT 57984 [facility] IC 6 N N INJECTION COMMUNTIY COMMUNTIY IV PUSH [place] [address] [facility] INFUSION 6 N N HYDRATION COMMUNTIY COMMUNTIY EACH HOSPITA HOSPITA ADDITIONA L HOUR INJECTION J2270 [facility] MORPHINE 6 N N SULFATE COMMUNTIY COMMUNTIY UP TO 10 HOSPITA HOSPITA MG INFUSION J7030 [facility] NORMAL 6 N N SALINE COMMUNTIY COMMUNTIY SOLUTION HOSPITA HOSPITA [address] [place] [address] [facility] THYROXINE 6 DIAGNOSTI DIAGNOSTI TOTAL CS CS COMPREHEN 30553 [facility] SIVE 6 DIAGNOSTI DIAGNOST[place] [address] [facility] THYROID 6 DIAGNOSTI DIAGNOSTI STIMULATI [place] [address] [facility] PROSTATE 6 DIAGNOSTI DIAGNOSTI SPECIFIC CS CS ANTIGEN TOTAL LIPID 69443 [facility] PANEL 6 DIAGNOSTI DIAGNOSTI CS CS BLOOD 68886 [facility] COUNT 6 DIAGNOSTI DIAGNOSTI COMPLETE CS CS AUTO&AUTO DIFRNTL WBC THYROID 68089 [facility] HORM 6 DIAGNOSTI DIAGNOSTI UPTK/THYR CS CS OID HORMONE BINDING RATIO HEMOGLOBI 21324 [facility] N 6 DIAGNOSTI DIAGNOSTI GLYCOSYLA CS CS NICHOLAS A1C INJECTION J2001 [facility] 6 N N LIDOCAINE COMMUNTIY COMMUNTIY HCL HOSPITA HOSPITA INTRAVENO US INFUS 10 MG TDAP 83167 [facility] VACCINE 7 6 N N YRS/> IM COMMUNTIY COMMUNTIY HOSPITA HOSPITA INCISION 21129 [facility] & 6 PREMA PREMA DRAINAGE ABSCESS SIMPLE/SI NGLE IM ADM 53840 [facility] PRQ ID 6 N N SUBQ/IM COMMUNTIY COMMUNTIY NJXS [facility] [address] [facility] DISCHARGE 5 KHUSHBU [facility] MAT DAY MANAGEMEN T 30 MIN/< SBSQ 12285 [facility] CARE/DAY 25 MINUTES SBSQ 56125 [facility] 5 [facility] CARE/DAY 25 MINUTES ECG 10468 [facility] ROUTINE 5 SCO SCO ECG W/LEAST 12 LDS I&R ONLY AMB A0427 [facility] SERVICE 5 [facility] EMS EMERGENCY TRANSPORT LEVEL 1 INITIAL 45117 [facility] 5 [facility] CARE/DAY 50 MINUTES GROUND A0425 [facility] MILEAGE 5 [facility] PER CO EMS CO EMS STATUTE MILE HEMOGLOBI 64200 [facility] N 5 DIAGNOSTI DIAGNOSTI GLYCOSYLA [facility] NICHOLAS A1C URNLS DIP 29596 [facility] 5 DIAGNOSTI DIAGNOSTI STICK/TAB [facility] LET RGNT AUTO W/O MICROSCOP Y CREATININ 08457 [facility] E OTHER 5 DIAGNOSTI DIAGNOSTI SOURCE [facility] ALBUMIN 56588 [facility] URINE 5 DIAGNOSTI DIAGNOSTI MICROALBU [facility] MIN QUANTIATI VE WALKING L4360 [facility] BOOT 5 FOOT & N MORGAN PNEUMATC ANKLE CE &/ VACUUM PREFAB CUSTM FIT HEMOGLOBI 43722 [facility] N 5 DIAGNOSTI DIAGNOSTI GLYCOSYLA [facility] NICHOLAS A1C CANE INCL E0100 J & L J & L CANES 4 [facility] MEDICAL MATERIAL EQUIPMENT EQUIPMENT ADJUSTBLE /FIX W/TIP HEMOGLOBI 32774 [facility] N 4 DIAGNOSTI DIAGNOSTI GLYCOSYLA [facility] NICHOLAS A1C THYROID 13221 [facility] HORM 4 DIAGNOSTI DIAGNOSTI UPTK/THYR [facility] OID HORMONE BINDING RATIO BLOOD 14810 [facility] COUNT 4 DIAGNOSTI DIAGNOSTI COMPLETE CS CS AUTO&AUTO DIFRNTL WBC LIPID 64201 [facility] PANEL 4 [place] [address] [facility] THYROID 4 DIAGNOSTI DIAGNOSTI STIMULATI CS CS NG HORMONE TSH COMPREHEN 06674 [facility] SIVE 4 DIAGNOSTI DIAGNOSTI [place] [address] [facility] THYROXINE 4 DIAGNOSTI DIAGNOSTI TOTAL [...] OR EDUCATION EDUCATION SWABS EACH ANKLE [id number] [facility]TH 4 FOOT & N MORGAN ANKLE ANKLE CE GAUNT/SIM PREFAB OFF-THE-S HELF MRI LOWER 72423 [facility] EXTREM 4 FOOT & N MORGAN [...] CE &/ VACUUM PREFAB CUSTM FIT RADIOLOGI 23473 ISIDRO MONROESO C 4 FOOT & N MORGAN EXAMINATI ANKLE CE ON FOOT 2 VIEWS RADEX 99083 ISIDRO MONROESO ANKLE 4 FOOT & N [...] OR EDUCATION EDUCATION SWABS EACH SLEEP STD 32895 [facility] AIRFLOW 4 N N HRT COMMUNITY COMMUNITY RATE&O2 HOSPITA [place] [address] [facility] THYROXINE 4 DIAGNOSTI DIAGNOSTI TOTAL CS CS INCORPORA T COMPREHEN 99151 [facility] SIVE 4 DIAGNOSTI DIAGNOSTI [place] [address] [facility] THYROID 4 DIAGNOSTI DIAGNOSTI STIMULATI [place] [address] [facility] INSULIN 4 DIAGNOSTI DIAGNOSTI [place] [address] [facility] C-PEPTIDE 4 DIAGNOSTI DIAGNOSTI CS CS INCORPORA T LIPID 15365 [facility] PANEL 4 DIAGNOSTI DIAGNOSTI CS CS BLOOD 52521 [facility] COUNT 4 DIAGNOSTI DESTINEE COMPLETE CS AUTO&AUTO DIFRNTL WBC THYROID 71212 [facility] HORM 4 DIAGNOSTI DIAGNOSTI UPTK/THYR CS CS OID INCORPORA HORMONE T BINDING RATIO HEMOGLOBI 56289 [facility] N 4 DIAGNOSTI DIAGNOSTI GLYCOSYLA CS CS NICHOLAS A1C RADIOLOGI 21965 [facility] EXAM 4 RYA RYA CHEST 2 VIEWS FRONTAL&L ATERAL RADEX 08704 [facility] [place] [facility] SPINE 4 RADIOLOGY LUMBOSACR AL 2/3 VIEWS RADEX 21383 [facility] [place] [facility] SP[facility] 4 RADIOLOGY THORACIC 2 VIEWS HOSPITAL 03113 [facility] 4 [place] A GOP DAY PHYSICIAN MANAGEMEN SERVI T 30 MIN/< SBSQ 61788 [facility] 4 [place] A GOP CARE/DAY PHYSICIAN 25 SERVI MINUTES ECG 96057 [facility] 4 [place] - YORBA ECG EMERGENCY PAT W/LEAST PHYSI 12 LDS I&R ONLY AMB A0427 [facility] SERVICE 4 [facility] EMS CO EMS EMERGENCY TRANSPORT LEVEL 1 RADIOLOGI 11809 [facility] [place] [facility] C 4 RADIOLOGY EXAMINATI ON CHEST SINGLE VIEW FRONTAL INITIAL 80314 [facility] 4 [place] LILO CARE/DAY PHYSICIAN 70 SERVI MINUTES GROUND A0425 [facility] PER CO EMS [facility] 72324 [facility] 4 [place] HUG DAY PHYSICIAN MANAGEMEN SERVI T 30 MIN/< SBSQ 70396 [facility] 4 [place] HUG CARE/DAY PHYSICIAN 35 SERVI MINUTES INITIAL 24558 [facility] 4 [place] HUG CARE/DAY PHYSICIAN 70 SERVI MINUTES CRITICAL 36848 [facility] 4 PREMA PREMA ILL/INJUR ED PATIENT INIT 30-74 MIN COLLECTIO 00823 [facility] N VENOUS 1 AND BLOOD PEDIATRIC VENIPUNCT S & INTER URE ALBUMIN 40327 [facility] URINE 1 MICROALBU PEDIATRIC PEDIATRIC MIN S & INTER S & INTER SEMIQUANT ITATIVE COMPREHEN 07983 [facility] SIVE 1 [employer] METABOLIC [employer] PANEL HEMOGLOBI 10839 [facility] ERASMO N 1 [employer] GLYCOSYLA [employer] HOLDING NICHOLAS A1C SBSQ 09680 [facility] CARE/DAY ADVANCED 25 MAZA MINUTES INITIAL 13961 [facility] INPATIENT 1 [facility] CONSULT ADVANCED NEW/ESTAB MAZA PT 40 MIN GASTRIC 53146 [facility] EMPTYING 1 N N [facility] 64759 [facility] DISCHARGE 1 BETTY DAY PEDIATRIC MANAGEMEN S & INTER T 30 MIN/< RADEX ABD 58895 [facility] [place] [facility] COMPL 1 RADIOLOGY AQT ABD W/S/E/D VIEWS 1 VIEW CH SBSQ 72953 [facility] 1 BETTY CARE/DAY PEDIATRIC 25 S & INTER MINUTES AMB A0427 [facility] SERVICE 1 [facility] CO EMS CO EMS EMERGENCY TRANSPORT LEVEL 1 CRITICAL 09650 [facility] 1 EMERGENCY DEV ILL/INJUR SERVICES ED PATIENT INIT 30-74 MIN INITIAL 37495 [facility] 1 BETTY CARE/DAY PEDIATRIC 70 S & [place] [address] [facility] [place] ABDOMEN & 1 RADIOLOGY PELVIS W/O CONTRAST MATERIAL GROUND A0425 [facility] MILEAGE 1 [facility] PER CO EMS CO EMS STATUTE MILE LIPID 41290 [facility] PANEL 1 [employer] HEMOGLOBI 26039 [facility] ERASMO N 1 [employer] GLYCOSYLA [employer] [place] [address] LAB ER[facility]MO LAB ERASMO FREE 1 AMERIC AMERIC THYROXINE HOLDING HOLDING GENERAL 92492 [facility] LAB ERASMO HEALTH 1 AMERIC 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 HOLDING ECG 92754 [facility] ROUTINE 1 AND ECG PEDIATRIC W/LEAST S & INTER 12 LDS W/I&R [place] [address] [facility] [place] [facility] HEAD/BRAI 1 RADIOLOGY RAÚL N W/O CONTRAST MATERIAL DEEP D9220 [facility] RAIN SEDATION/ 0 KARI KARI GENERAL ANESTHESI A-1ST 30 MINUTES ALVEOLECT 29089 [facility] RAIN FADY 0 KARI KARI W/CURTG OSTEITIS/ SEQUESTRE CTOMY ORTHOPANT 69057 [facility] RAIN OGRAM 0 KARI KARI BLD GLU A4253 AM MED AM MED TEST/REAG 8 DIRECT DIRECT T STRIPS [facility] PHARMACY GLU MON-50 LANCETS A4259 AM MED AM MED PER BOX 8 DIRECT DIRECT OF 100 [facility] BLD GLU A4253 AM MED AM MED TEST/REAG 8 DIRECT DIRECT T STRIPS [facility] PHARMACY GLU MON-50 LANCETS A4259 AM MED AM MED PER BOX 8 DIRECT DIRECT OF 100 [facility] PH[facility] LANCETS A4259 AM MED AM MED PER BOX 8 DIRECT DIRECT OF 100 [facility] PHARMACY BLD GLU A4253 AM MED AM MED TEST/REAG 8 DIRECT DIRECT T STRIPS [facility] PHARMACY GLU MON-50 DEEP D9220 [place] DEIRDRE ELENITA, SEDATION/ 8 FOR BETSY R GENERAL ORAL&MAXI ANESTHESI LLOFACIAL A-1ST 30 SURGERY MINUTES APPL 85957 BRITANY GARG, MODALITY 8 YOHANA Toribio YOHANA Malu 1/> AREAS ELEC STIMJ UNATTENDE D CHIROPRAC 52214 BRITANY GARG, TIC 8 YOHANA Toribio MANIPULAT [place] SPINAL 3-4 REGIONS APPLICATI 43232 BRITANY GARG, ON 8 YOHANA Toribio YOHANA Toribio MODALITY 1/> AREAS HOT/COLD PACKS CHIROPRAC 07678 BRITANY GARG, TIC 8 YOHANA Toribio YOHANA Toribio MANIPULAT [place] SPINAL 3-4 REGIONS APPLICATI 21190 BRITANY GARG, ON 8 YOHANA M YOHANA Toribio MODALITY 1/> AREAS HOT/COLD PACKS DETERMINA 19101 [facility]ED HABASH, TION 8 EYE CARE [facility] REFRACTIV CENTER E STATE APPL 52452 BRITANY GARG, MODALITY 8 YOHANA M YOHANA Toribio 1/> AREAS ELEC STIMJ UNATTENDE D ORTHOPANT 97719 SD CENTER JAYNE WONG 8 FOR JOSE Velasquez ORAL&MAXI LLOFACIAL SURGERY Encounters Encounter Start End Date Code Location Performer Type Date EMERGENCY 50196 [facility] DEPT 7 7 PHYSICIAN VISIT S, PLLC HIGH SEVERITY& THREAT FUNJ OFFICE 04232 [facility] GALAVIZ OUTPATIEN 7 7 PHYSICIAN T NEW 30 S GROUP MINUTES [facility] - 7 7 [facility] OUTPATIEN INC T OFFICE 76866 [facility] 7 7 ELL ELL T VISIT 15 MINUTES OFFICE 85566 [facility] 7 7 ELL ELL T VISIT 15 MINUTES EMERGENCY 13132 [facility] DEPT 7 7 [place] VISIT EMERGENCY HIGH PHYS SEVERITY& THREAT FUN EMERGENCY 31705 [facility] 7 7 N DEPARTMEN COMMUNTIY T VISIT HOSPITA HIGH/URGE NT [facility] - 7 7 N OUTPATIEN COMMUNTIY T HOSPITA EMERGENCY 50789 [facility] DEPT 7 7 [place] - YORBA VISIT EMERGENCY HIGH PHYS SEVERITY& THREAT FUN EMERGENCY 78171 [facility] DEPT 7 7 [place] VISIT EMERGENCY HIGH SERVI SEVERITY& THREAT [facility] - 6 6 N OUTPATIEN COMMUNTIY T HOSPITA [facility] 83690 [facility] [place] LO TRA DEPARTMEN EMERGENCY T VISIT SERVI HIGH/URGE NT SEVERITY OFFICE 81691 [facility] [place] QUAN CONSULTAT 6 6 NURSE ADWOA DORANTES/ALFREDITO ARCHER GR PATIENT 60 MIN [facility] - 6 6 N OUTPATIEN COMMUNTIY T HOSPITA EMERGENCY 11817 [facility] DEPT 6 6 [place] LOWE VISIT EMERGENCY HIGH SERVI SEVERITY& THREAT [facility] - 6 6 N OUTPATIEN COMMUNTIY T HOSPITA EMERGENCY 52224 [facility] 6 6 N DEPARTMEN COMMUNTIY T VISIT HOSPITA MODERATE SEVERITY EMERGENCY 93022 [facility] 6 6 [place] TRA DEPARTMEN EMERGENCY T VISIT SERVI HIGH/URGE NT SEVERITY OFFICE 78171 [facility]IEN 6 6 ELL LEENA STERN T VISIT 15 MINUTES HOSPITAL [facility] - 6 6 N OUTPATIEN COMMUNTIY T HOSPITA EMERGENCY 44939 [facility] 6 6 N DEPARTMEN COMMUNTIY T VISIT HOSPITA LIMITED/M INOR PROB OFFICE 98377 [facility] OUTPATIEN 6 6 KHUSHBU RÍOS MAT T VISIT 15 MINUTES EMERGENCY 72416 [facility] DEPT 6 6 [place] VISIT EMERGENCY HIGH PHYS SEVERITY& THREAT [facility] - 6 6 N [facility] 6 6 N [facility] 6 6 N OUTPATIEN COMMUNTIY T HOSPITA EMERGENCY 98381 [facility] 6 6 N DEPARTMEN COMMUNTIY T VISIT HOSPITA HIGH/URGE NT SEVERITY EMERGENCY 91750 [facility] DEPT 6 6 [place] VISIT EMERGENCY HIGH SERV SEVERITY& THREAT FUNCJ OFFICE 31279 BIRDWHIST BIRDWHIST OUTPATIEN 6 6 KH[place] STERN T VISIT 15 MINUTES EMERGENCY 24440 BLANCHE MANCIA 6 6 PREMA PREMA DEPARTMEN T VISIT HIGH/URGE NT SEVERITY EMERGENCY 03517 [facility] 6 6 N DEPARTMEN COMMUNTIY T VISIT HOSPITA MODERATE SEVERITY HOSPITAL [facility] - 6 6 N OUTPATIEN COMMUNTIY T HOSPITA OFFICE 03188 BIRDWHIST BIRDWHIST OUTPATIEN 5 5 KHUSHBU STERN T VISIT 15 MINUTES EMERGENCY 67858 [facility] MAC DEPT 5 5 SCO SCO VISIT HIGH SEVERITY& THREAT FUNJ HOSPITAL [facility] - 5 5 N INPATIENT COMMUNTIY HOSPITA EMERGENCY 55649 [facility] DEPT 5 5 EDWAR EDWAR VISIT HIGH SEVERITY& THREAT FUNCJ OFFICE 17136 BIRDWHIST BIRDWHIST OUTPATIEN 5 5 KHUSHBU RÍOS T VISIT 15 MINUTES EMERGENCY 10425 BLANCHE MANCIA DEPT 5 5 PREMA PREMA VISIT HIGH SEVERITY& THREAT FUNCJ OFFICE 32588 [place] [facility] OUTPATIEN 5 5 FOOT & N MORGAN T VISIT ANKLE CE 15 MINUTES OFFICE 16690 MUHA JAVI MUHA JAVI OUTPATIEN 4 4 T NEW 30 MINUTES OFFICE 15381 [place] [facility]ICH[facility] OUTPATIEN 4 4 FOOT & N MORGAN T VISIT ANKLE CE 15 MINUTES OFFICE 03777 [place] RICH[facility] OUTPATIEN 4 4 FOOT & N MORGAN T VISIT ANKLE CE 15 MINUTES OFFICE 68231 [place] RICHARDSO OUTPATIEN 4 4 FOOT & N MORGAN T VISIT ANKLE CE 15 MINUTES OFFICE 19771 ISIDRO ELI OUTPATIEN 4 4 FOOT & N MORGAN T VISIT ANKLE CE 15 MINUTES OFFICE 75816 ISIDRO MONROESO OUTPATIEN 4 4 FOOT & N MORGAN T NEW 30 ANKLE CE MINUTES [facility]OSP[facility] [place] [address] 4 N OUTPATIEN [facility] T HOSPITA OFFICE 02571 BIRDWHIST BIRDWHIST OUTPATIEN 4 4 KHUSHBU STERN T VISIT 15 MINUTES EMERGENCY 74288 BLANCHE MANCIA DEPT 4 4 PREMA PREMA VISIT HIGH SEVERITY& THREAT FUNCJ OFFICE 22441 BIRDWHIST BIRDWHIST OUTPATIEN 4 4 KHUSHBU RÍOS LEENA T VISIT 25 MINUTES EMERGENCY 25889 [facility] KESSLER DEPT 4 4 RYA RYA VISIT HIGH SEVERITY& THREAT [facility] [place] [address] [facility] 44575 [facility] DE[facility] 4 4 [place] - Y[place]BA VISIT EMERGENCY PAT HIGH PHYSI SEVERITY& THREAT FUNCJ OFFICE 66115 [facility] OUTPATIEN 1 1 AND T VISIT PEDIATRIC 15 S & INTER MINUTES OFFICE 93696 [facility] OUTPATIEN 1 1 AND T VISIT PEDIATRIC 15 S & INTER MINUTES [facility] [place] [address] 1 N OUTPATIEN [facility] T HOSPITA OFFICE 00113 [facility] OUTPATIEN 1 1 AND T VISIT PEDIATRIC 15 S & INTER MINUTES [facility] [place] [address] 1 N INPATIENT COMMUNITY HOSPITA EMERGENCY 95645 DERRICK MANCIA 1 1 EMERGENCY PREMA DEPARTMEN SERVICES T VISIT HIGH/URGE NT SEVERITY OFFICE 98534 [facility] 1 1 T VISIT 5 PEDIATRIC PEDIATRIC MINUTES S & INTER S & INTER OFFICE 71802 PATRICK FARR OUTPATIEN 1 1 AND T VISIT PEDIATRIC 15 S & INTER MINUTES HOSPITAL [facility] - 1 1 N INPATIENT [facility] 44961 BRISEYDA RAIN OUTPATIEN 0 0 KARI KARI T NEW 10 MINUTES OFFICE 33363 BRITANY, ZACARIAS GARG 8 8 YOHANA Toribio T VISIT 15 MINUTES OFFICE 44234 [facility] 8 8 [facility] NEW 30 CENTER MINUTES OFFICE 72518 [facility], OUTPATIEN 8 8 FOR JOSE Velasquez T NEW 10 ORAL&MAXI MINUTES LLOFACIAL SURGERY
--- NOTE | 2017-06-07 16:22 | Emergency Room Report ---
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 Onset of symptoms date/time:06/07/17 or onset unknown for: Treatment Prior to Arrival: PT WAS GIVEN GLUCOSE TUBES, GATORADE, PEANUT BUTTER AND JELLY BUT SUGAR KEPT DROPPING. 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 N Clinical Suspician of Infection? N Mental Status: 1 - Regular (Normal Baseline) Sepsis Risk:Possible Sepsis Risk Have you (or family members/close friends) recently traveled outside the [place]? N If Yes, where/when: Have you had exposure to infectious disease within the past month? N TB? Other? Specify: Brittle diabetic. Did not eat breakfast today; took insulin last night. No fevers. Is on Suboxone. Had hypoglycemia today and EMS called. He subsequently ate two PBJ sandwiches, sweet tea, two tubes of glucose per EMS, arrives alert with FSBS 46 on arrival. He states his FSBS was 500 yesterday. ALLERGIES Coded Allergies: No Known Allergies (03/22/17) Home Medications Active Scripts Famotidine (Pepcid) 40 MG PO BID #40 TAB Prov: 03/22/17 Bifidobacterium Infantis (Align) 10.5 MG PO DAILY 30 Days Prov: 05/11/17 ONDANSETRON HCL (Zofran 4MG Tab) 4 MG PO Q8HP PRN NAUSEA AND VOMITING #20 TAB Prov: 05/11/17 Reported Medications Insulin Glargine,Hum.rec.anlog (Basaglar Kwikpen U-100) 40 UNIT SQ DAILY LISINOPRIL (Lisinopril) 10 MG PO DAILY Fluoxetine Hcl (Fluoxetine 20MG) 20 MG PO DAILY GABAPENTIN (Gabapentin) 800 MG PO QHS Trazodone Hcl (Trazodone HCl) 150 MG PO QHS BUPRENORPHINE HCL/NALOXONE HCL (Suboxone 8 MG-2 MG Sl Film) 1 FILM SL BID Omeprazole (Omeprazole 40MG) 40 MG PO DAILY #30 Simvastatin 10 MG PO DAILY #30 History Medical History General CAD? No Angina: No MN: No Hypertension? Yes Hyperlipidemia? Yes CHF? No DVT? No PE? No COPD? No Asthma? No Anemia? No GERD? Yes Gastric ulcers? No GI Bleed? No Hernia? No Thyroid Problems? No Hypothyroidism? No CVA? No Seizures? No Diabetes? Yes Insulin Dependent: Yes Insulin Pump: No Home FSBS? Yes Renal Insuffiency? No End Stage Renal Disease? No UTI? No Stones? No BPH? No GB Disease: No Nephritic Syndrome? No Asplenia? No Hepatitis? No Sickle Cell Disease? No Arthritis? No Migraines? No Cataracts? No Glaucoma? No MRSA? No HIV? No TB? No Anxiety? No Depression? Yes Cancer? No More? No Immunization Hx DT/Tetanus 1-4 Years Ago Pneumonia Received In Past Surgical Hx Previous Surgery?N Social History Smoking Hx Smoker: Current Every Day Smoker Tobacco: Yes Type Cigarettes Packs/day < 1 Pack Alcohol Alcohol: Yes Review of Systems All Other Systems Reviewed and Negative Comment endocrine see above Physical Exam Vital Signs Vital Signs Date Time Temp Pulse Resp B/P Pulse O2 O2 Flow FiO2 Ox Delivery Rate 06/07 1604 96.5 79 20 100 General Appearance normal appearance, WD/WN, no apparent distress, thin Eye Exam - bilateral eye normal exam, bilateral eye PERRL, bilateral eye EOMI Neck normal inspection, non-tender, supple, full range of motion Respiratory Status Yes: trachea midline, chest symmetrical, non tender chest. No: respiratory distress, tender on palpation, use of accessory muscles, pain on inspiration, pain on expiration, productive cough, non productive cough. Lung Sounds bilateral: normal breath sounds, lungs clear. Cardiovascular normal exam, regular rate/rhythm, no peripheral edema, no gallop, no JVD, no murmur, no rub, normal peripheral pulses Gastrointestinal normal bowel sounds, normal exam, non tender, soft, no organomegaly, no pulsatile mass, no guarding, no rebound Extremities normal range of motion Neurologic alert, normal exam, no motor/sensory deficits, oriented x 3 (speech clear; cooperative;aler) Glascow Coma Scale Glascow Coma Scale Response Value EYE response: 4 Spontaneously 4 MOTOR response: 6 OBEYS 6 VERBAL response: 5 Oriented & Converses 5 Total 15 Skin intact, normal color, warm/dry Medical Decision Making LABS/Meds/Orders Pt receiving controlled substance in ED? No Results/Orders Laboratory Tests 06/07/17 1610: Sodium 141, Potassium 3.1 L, Chloride 100, Carbon Dioxide 32, BUN 12, Creatinine 0.8, Estimated Creat Clear 86, Estimated GFR (MDRD) 102, Glucose 48 * L, Calcium 8.5, Total Bilirubin 0.3, AST 29, ALT 22, Alkaline Phosphatase 43 L, Total Protein 7.1, Albumin 3.9, Globulin 3.2, Albumin/Globulin Ratio 1.2, Lipase 102, WBC 11.4 H, RBC 4.41 L, Hgb 14.5, Hct 43.1, MCV 97.7, RDW 12.1, Plt Count 244, MPV 7.5, Gran % 77.6, Gran # 8.8 H, Lymphocytes % 16.4, Monocytes % 4.5, Eosinophils % 1.3, Basophils % 0.3, Lymphocytes # 1.9, Monocytes # 0.5, Eosinophils # 0.2, Basophils # 0.0, PUBS MCHC 33.5, MCH 32.7 H Current Medication Orders Sig/Iban Start time Last Medication Dose Route Stop Time Status Admin Potassium Chloride 0 .STK-MED ONE 06/07 180 DC PO Potassium Chloride 10 MEQ ONCE ONE 06/07 1700 DC 06/07 PO 06/07 170 1803 Sodium Chloride 10 ML PRN PRN 06/07 1645 AC IV 06/08 1640 Dextrose/Water 500 ML .Q5H 06/07 1630 AC 06/07 IV 1804 Sodium Chloride 10 ML PRN PRN 06/07 1630 AC IV 06/08 1623 Dextrose/Water 500 ML .STK-MED ONE 06/07 1625 DC IV Orders Procedure Date/time Status OP COURTSEY MEAL 06/07 170 Active [facility]07 170 Active ELECTROCARDIOGRAM REQUEST 06/07 1701 Active FSBS REQUEST BY CARE AREA 06/07 170 Active IV SALINE LOCK 06/07 1640 Active GUEST TRAY 06/07 1635 Active URINALYSIS/COMPLETE 06/07 1635 Active LIPASE 06/07 1635 Complete CBC WITH AUTO DIFF 06/07 163 Complete CHEM 12 PROFILE 06/07 1635 Complete CM/EKG CM/EKG EKG rate, NSR, rhythm, no evid. of ischemic chgs, no ectopy, normal QRS, normal TN, normal EKG (nl QT nl T w NSR 86) Progress ED Progress Notes 1 Date 06/07/17 Time 1805 Comment FSBS 230, no complaints, KCl PO ED Progress Notes 2 Date 06/07/17 Time 181 Comment Very alert, conversant, ready to d/c; stable Departure Departure Time of Disposition 174 Disposition DC Home or Self Care(routine) Clinical Impression Primary Impression: Hypoglycemia associated with diabetes Secondary Impressions: Hypokalemia Condition STABLE Referrals Dustin GARDNER,Rashel Pond (Family) Patient Instructions Potassium (Alternative Therapy), Type 2 Diabetes Additional Instructions Eat skip protein meals frequently, watch blood sugars closely, see Dr. Chan for follow up to recheck medications, one to two days. Discharge Counseling Counseled pt/family regarding diagnosis, test results, medications/RX, home care, follow up needs ED Critical Care Critical Care Yes Time spent < 30 min Vital system(s) involved: Circulatory Failure (hypoglycemia) I was present at bedside for Coordinating pt's care, During my initial exam, Reviewing lab results, Discussing pt condition, For re-examinations at 1814
--- OUTSIDE RECORDS SUMMARY | 2017-06-07 16:28 | External Medical Summary Rpt | CCD ---
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 Name Role Phone BAKARI RAÚL, BAKARI Unavailable Unavailable RAÚL CARLINE GALAVIZ, CARLINE GALAVIZ Unavailable Unavailable AM MED DIRECT [...] Unavailable Unavailable PAT, CELLAROSI - YORBA PAT [facility] Unavailable Unavailable ADVANCED MAZA, [facility] Unavailable Unavailable [facility] 2332, Unavailable Unavailable [facility] 2332 DIABETES CARE & Unavailable Unavailable EDUCATION, [facility] & Unavailable Unavailable EDUCATION, [facility] EDUCATION [facility] Unavailable Unavailable SERVICES, [facility] Unavailable Unavailable [facility], [facility] FARAGASSO DEV, Unavailable Unavailable FARAGASSO DEV BLANCHE STODDARD Unavailable Unavailable BLANCHE BERGER Unavailable Unavailable PRE[facility] Unavailable Unavailable HOSPITA, [facility] Unavailable Unavailable HOSPITA, [facility], [facility] Unavailable Unavailable EMS, [facility] PATRICE RHO, PATRICE Unavailable Unavailable [...] KARI RAIN KARI, Unavailable Unavailable RAIN KARI [facility], Unavailable Unavailable [facility] Unavailable Unavailable SERVICES O, [facility] HOUSMAN LILO, HOUSMAN Unavailable Unavailable L[facility] Unavailable Unavailable EQU[facility], [facility] Unavailable Unavailable [facility] Un[facility] Unavailable [facility] PS, [facility] Un[facility] Unavailable [facility], [facility] N[facility]available Unavailable PRACTITIONER GR, KM NURSE PRACTITIONER GR ARABELLA BALDERAS Unavailable Unavailable [facility] # Unavailable Unavailable [id number], [facility] # [id number] [facility] Unavailable Unavailable [facility], [facility] Unavailable Unavailable [facility], [facility] Un[facility] Unavailable [facility], [facility], Unavailable Unavailable [facility] JAVIER ANT, JAVIER ANT Unavailable Unavailable MAJMUDAR, MAJMUDAR Unavailable Unavailable [facility] Unavailable Unavailable SERVICES, [facility] MATT GUTIERREZ Unavailable Unavailable MATT FELIPE, MATT Unavailable Unavailable DESTINEE MAX, JOSE P, MAX, Unavailable Unavailable JOSE P MECCARIELLO TRA, Unavailable Unavailable MECCARIELLO TRA MUHA JAVI, MUHA JAVI Unavailable Unavailable MUHA JAVI, MUHA JAVI Unavailable Unavailable ELENITA, BETSY R, Unavailable Unavailable ELENITA BETSY R OZOR, OZOR Unavailable Unavailable [facility], [...] Unavailable SCALF SARA, SCALF SARA Unavailable Unavailable SHALINGY WOOD, SHASHY Unavailable Unavailable WOOD ESTRELLA WOOD, SHASHY Unavailable Unavailable [facility] Unavailable Un[facility]Y [facility]SI, ON LICENSE OF [facility] Unavailable Unavailable EMERGENCY SERV, [facility]Y SERV ON [facility] OF [facility] Unavailable Unavailable EMERGENCY SERVI, [facility] EMERGENCY SERVI ON [facility] OF [facility] Unavailable Unavailable PHYSICIAN SERVI, [facility] PHYSICIAN SERVI KESSLER RYA, KESSLER Unavailable Unavailable RYA KESSLER RYA, KESSLER Unavailable Unavailable RYA QUAN ADWOA, QUAN Unavailable Unavailable ADWOA VORKPOR EDWAR, VORKPOR Unavailable Unavailable EDWAR [id number] # Unavailable Unavailable [id number], [id number] # [id number] WE[facility], WELLS Unavailable Unavailable [facility], [facility] Unavailable Unavailable RICHARD MAT, RICHARD MAT Unavailable Unavailable Purpose Continuity of Care Document - 02-13-2008 through 2016 Problems Code Diagnosis DOS Provider Status [id number] TYPE 2 05-09-2017 [facility] W/HYPOGLYCE SAMUEL W/O COMA K529 NONINFECTIV 05-09-2017 [facility] GASTROENTER [facility] ITIS & COLITIS UNS Z0389 ENCOUNTER 05-09-2017 [facility], SUSPCT DZ & PLLC COND RULED OUT R1013 EPIGASTRIC 04-24-2017 [facility] R109 UNSPECIFIED 04-05-2017 [...] 02-27-2017 [facility] W/DIABETIC L AUTONOMIC POLYNEUROPA THY [id number] FRACTURE 10-03-2016 [facility] COCCYX L INITIAL ENCNTR FOR CLOS FRACTURE E1165 TYPE 2 09-14-2016 [facility] DIABETES COMMUNTIY MELLITUS HOS[place]ITA [place] HYPERGLYCEM [place] R44809 GENERALIZED 09-14-2016 [facility] ABDOMINAL COMMUNTIY TENDERNESS HOSPITA R112 NAUSEA WITH 09-14-2016 [facility] VOMITING N EMERGENCY UNSPECIFIED PHYS R197 DIARRHEA 09-14-2016 [facility] UNSPECIFIED N EMERGENCY PHYS R51 HEADACHE 09-14-2016 [facility] COMMUNTIY HOSPITA R739 HYPERGLYCEM 09-14-2016 [facility] IA N EMERGENCY UNSPECIFIED PHYS Z720 TOBACCO USE 09-14-2016 [facility] COMMUNTIY HOSPITA 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 [facility] 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 USE COMMUNTIY OF INSULIN HOSPITA E1310 OTHER 09-06-2016 [facility] SPECIFIED MEDICINE DIAB SERVICES O W/KETOACIDO SIS W/O COMA E860 DEHYDRATION 09-06-2016 [facility] N EMERGENCY SERV I10 ESSENTIAL 09-06-2016 [facility] PRIMARY MEDICINE HYPERTENSIO SERVICES O N I959 HYPOTENSION 09-06-2016 [facility] N EMERGENCY UNSPECIFIED SERV N179 ACUTE 09-06-2016 [facility] KIDNEY N EMERGENCY FAILURE SERV UNSPECIFIED E1169 TYPE 2 08-31-2016 [facility] DIABETES N EMERGENCY MELLITUS SERVI W/OTH SPEC COMPLICATIO N E872 ACIDOSIS 08-31-2016 [facility] N EMERGENCY SERVI M533 SACROCOCCYG 08-31-2016 [facility] EAL [facility] DISORDERS NEC M545 LOW BACK 08-31-2016 [facility] PAIN [facility] EMS R531 WEAKNESS 08-31-2016 [facility] [place] [facility] R5381 OTHER 08-31-2016 [facility] [place] MALAISE RADIOLOGY [id number] UNS 08-31-2016 [facility] FRACTURE N EMERGENCY SACRUM SERVI INITIAL ENC CLOS FRACTURE R300 DYSURIA 06-21-2016 [facility] SERVI R319 HEMATURIA 06-21-2016 [facility] [place] UNSPECIFIED RADIOLOGY E1065 TYPE 1 06-15-2016 [facility] NURSE DIABETES PRACTITIONE MELLITUS R GR WITH HYPERGLYCEM IA E1010 TYPE 1 06-02-2016 [facility] DIABETES L MAT MELLITUS W/KETOACIDO SIS W/O COMA K219 GASTRO-ESOP 06-02-2016 [facility] H REFLUX L MAT DISEASE WITHOUT ESOPHAGITIS K3184 GASTROPARES 06-02-2016 [facility] IS L MAT M45495 PAIN IN 05-05-2016 [facility] [place] RIGHT ELBOW RADIOLOGY M7711 LATERAL 05-05-2016 [facility] EPICONDYLIT N EMERGENCY IS RIGHT SERVI ELBOW R1110 VOMITING 03-02-2016 [facility] UNSPECIFIED COMMUNTIY HOSPITA Z5321 PROC & TX 03-02-2016 [facility] NOT CARRIED COMMUNTIY OUT PT HOSPITA LEAVE PRIOR TO SEEN N521 ERECTILE 12-25-2015 [facility] DYSFUNCTION L MAT DUE TO DISEASES CLASS ELSW R1012 LEFT UPPER 05-06-2016 [facility] [place] [facility] PAIN Z1211 ENCOUNTER 12-02-2015 [facility] PS NEOPLASM OF COLON R1011 RIGHT UPPER 11-07-2015 [facility] COMMUNTIY PAIN HOSPITA Z125 ENCOUNTER 10-29-2015 [facility] MALIGNANT NEOPLASM PROSTATE B354 TINEA 09-15-2015 [facility] CORPORIS COMMUNTIY HOSPITA B358 OTHER 09-15-2015 [facility] DERMATOPHYT OSES L0201 CUTANEOUS 09-15-2015 [facility] ABSCESS OF COMMUNTIY FACE HOSPITA L723 SEBACEOUS 09-15-2015 [facility] CYST COMMUNTIY HOSPITA E0841 DM D/T 07-30-2015 [facility] UNDERLYING L MAT COND W/DIABETIC MONONEUROPA THY A084 VIRAL 07-20-2015 [facility] INTESTINAL COMMUNTIY INFECTION HOSPITA UNSPECIFIED Z63853 TYPE 1 DM 07-20-2015 [facility] W/UNS DIAB COMMUNTIY RETINPATH HOSPITA W/O MACULAR EDEMA R000 TACHYCARDIA 07-20-2015 [facility] UNSPECIFIED 03751 DIAB W/O 04-14-2015 [facility] COMP TYPE DIAGNOSTICS II/UNS NOT STATED [facility] 54687 DIAB 04-14-2015 [facility] W/NEURO L MANIFESTS TYPE II/UNS NOT [facility]L 3572 POLYNEUROPA 04-14-2015 [facility] THY IN L DIABETES V5867 LONG-TERM 04-14-2015 [facility] USE OF L INSULIN 09999 DIAB W/O 01-18-2015 [facility] LLOYD COMP TYPE I [JUV] NOT STATED [facility] 47513 NAUSEA WITH 01-18-2015 [facility] LLOY[facility] VOMITING 27809 PLANTAR 11-14-2014 [facility] FIBROMATOSI ANKLE CE S 7295 PAIN IN 11-14-2014 [facility] TISSUES OF ANKLE CE LIMB 3671 MYOPIA 08-12-2014 MUHA JAVI 3559 MONONEURITI 07-02-2014 [facility] S OF DIAGNOSTICS UNSPECIFIED SITE 42365 DIAB W/O 06-19-2014 [facility] MENTION CARE & COMP TYPE I EDUCATION [JUV TYPE] UN[facility]L 11636 OSTEOARTHRO 04-07-2014 [facility] UNSPEC RADIOLOGY WHETHER GEN/LOC LOWER LEG 26399 OBSTRUCTIVE 12-27-2013 [facility] SLEEP APNEA 20537 OTHER 12-27-2013 [facility] ALTERATION [facility] [place] [address] UNSPECIFIED 12-27-2013 [facility] SLEEP [facility] APNEA HOSPITA 1105 DERMATOPHYT 12-20-2013 [facility] OSIS OF THE L MAT BODY 04595 ESOPHAGEAL 12-20-2013 [facility] REFLUX L MAT 5363 GASTROPARES 11-25-2013 [place] [address] NAUSEA 11-25-2013 [facility] ALONE 4778 ALLERGIC 11-21-2013 [facility] RHINITIS L MAT DUE TO OTHER ALLERGEN 94973 UNSPECIFIED 11-21-2013 [facility] L MAT ARTHROPATHY SITE UNSPECIFIED 4659 ACUTE URIS 11-10-2013 [facility] RYA OF UNSPECIFIED SITE 4739 UNSPECIFIED 11-10-2013 [facility] SINUSITIS 7862 COUGH 11-10-2013 [facility] [place] RADI[facility] 7241 PAIN IN 10-22-2013 [facility] [place] THORACIC RADIOLOGY SPINE 7242 LUMBAGO 10-22-2013 [facility] HOSPITA 91627 DIAB W/O 10-14-2013 [facility] MENTION N PHYSICIAN COMP TYPE SERVI II/UNS TYPE [facility] 47146 DIABETES 10-14-2013 [facility] W/KETOACIDO N PHYSICIAN SIS TYPE SERVI II/UNS TYPE [facility] 61511 DEHYDRATION 10-14-2013 [facility] N PHYSICIAN SERVI 5849 ACUTE 10-14-2013 [facility] KIDNEY N PHYSICIAN FAILURE SERVI UNSPECIFIED 36684 DIAB 10-13-2013 [facility] W/KETOACIDO N EMERGENCY S TYPE I PHYSI [JUV] NOT STATE UN[facility]L 65722 DIAB W/OTH 10-13-2013 [facility]- MANIFESTS DE CO TYPE II/UNS EMS NOT UN[facility]L 70963 SINOATRIAL 10-13-2013 [facility]- NODE DE CO DYSFUNCTION EMS 71169 VOMITING 10-13-2013 [facility] EMS 63686 OTHER 10-13-2013 [facility]- ABNORMAL DE CO GLUCOSE EMS 38561 DIABETES 08-14-2013 [facility] DALYU W/KETOACIDO SIS TYPE I [JUV] UN[facility]L 43278 OTHER ACUTE 01-31-2011 [facility] EXTERNA & INTER 90868 TOB USE D/O 01-31-2011 [facility] COMP PG [facility]ED[facility] /PP & INTER UNSPEC EPIS CARE/NA 7569 OTH&UNSPEC 01-31-2011 [facility] 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 67151 UNSPECIFIED 01-31-2011 [facility] SLEEP [facility]EDI[facility]ICS DISTURBANCE & INTER 7919 OTHER 01-31-2011 [facility] NONSPECIFIC [facility]EDIATRICS FINDING & INTER EXAMINATION OF URINE 4519 PHLEBITIS&T 12-01-2010 [facility] HROMBOPHLEB [facility]EDIATRICS ITIS OF & INTER UNSPECIFIED SITE 45159 SHORTNESS 11-05-2010 [facility] [place] [facility] 00867 ABDOMINAL 10-27-2010 [facility] PAIN, [facility] UNSPECIFIED HOSPITA SITE 52652 OTHER 10-20-2010 [facility] SPECIFIED [facility]EDIATRICS DISORDER OF & INTER THE ESOPHAGUS 7245 UNSPECIFIED 10-20-2010 [facility] BACKACHE PEDIATRICS & INTER 2762 ACIDOSIS 10-09-2010 [facility] & INTER 5609 UNSPECIFIED 10-09-2010 [facility] INTESTINAL [facility]RICS & INTER OBSTRUCTION 2753 DISORDERS 10-07-2010 [facility] METABOLISM 2768 HYPOPOTASSE 10-07-2010 [facility] HOSPITA 98308 LEUKOCYTOSI 10-07-2010 [facility] UNSPECIFIED SERVICES 5362 PERSISTENT 10-07-2010 [facility]GENCY SERVICES 5601 PARALYTIC 10-07-2010 [facility] ILEUS [facility] HOSPITA 5758 OTHER 10-07-2010 [facility] [place] SPECIFIED RADIOLOGY DISORDER OF GALLBLADDER 5780 HEMATEMESIS 10-07-2010 [facility] HOSPITA 5789 UNSPECIFIED 10-07-2010 [facility] SERVICES GASTROINTES TINAL TRACT 5589 OTH&UNSPEC 10-06-2010 [facility] NONINFECTIO EMERGENCY US SERVICES GASTROENTER ITIS&COLITI S 7850 UNSPECIFIED 09-21-2010 [facility] 60379 DIAB 09-12-2010 [facility] COMMUNITY MANIFESTS HOSPITA TYPE I [JUV TYPE] UNCN[facility]L 7840 HEADACHE 09-12-2010 [facility] [place] [facility] 93078 ABDOMINAL 09-12-2010 [facility] PAIN, LEFT [facility] UPPER HOSPITA QUADRANT 36539 ABDOMINAL 09-12-2010 [facility] PAIN, [facility] EPIGASTRIC HOSPITA 5253 RETAINED 06-08-2010 [facility] K[facility]I 5264 INFLAMMATOR 06-08-2010 RAIN Y KARI CONDITIONS OF JAW 11041 DIAB 02-14-2008 [facility] MANIFESTS CENTER TYPE II/UNS NOT UNCNTRL 37996 REGULAR 02-14-2008 [facility] 58120 DEGEN 02-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 00 OR ti PE 70 9 00 06 GE ve NT 81 20 20 0 04 TO IN 11 17 17 16 WN 2 20 80 AP 0 OT MG HE CA TA RY BL ET IN 11 04 05 60 30 00 [facility] MAZA 91 -2 -2 .0 00 LG ti LI 70 8- 6- 00 RE ve N 04 20 20 41 EN SY 81 17 17 69 S RI 4 11 #1 N 20 0. 75 5 ML 31 GX 5/ 16 " FR 99 05 05 10 25 00 [facility] EE 07 -0 -2 0. [address] 30 1- 6 00 RE ve YL 70 20 20 0 42 EN E 82 17 17 81 S LI 7 24 #1 TE [address] RI P BA 00 05 05 15 30 00 [facility] SA 00 -0 -2 .0 00 LG ti GL 27 1- 6 00 RE ve AR 71 20 20 42 EN 55 17 17 83 S 10 9 00 #1 0 20 UN 75 IT /M L KW IK PE N UL 08 05 05 10 25 00 [facility] TI 22 -0 -2 0. 00 LG ti CA 20 1- 6- 00 RE ve RE 95 20 20 0 42 EN 83 17 17 83 S PE 1 02 #1 N 20 NE 75 ED LE S 8M M 31 G SI 68 04 05 30 30 00 [facility] MV 18 -2 -1 .0 00 LG ti 00 6 00 RE ve TA 47 20 20 41 EN TI 80 17 17 50 S N 3 62 #1 10 20 75 MG TA BL ET TR 60 04 05 30 30 00 [facility] AZ 50 -2 -1 .0 00 LG ti OD 52 6- 9- 00 00 RE ve ON 65 20 20 40 EN E 50 17 17 46 S 15 1 68 #1 0 20 MG 75 TA BL ET FL 00 04 05 16 30 00 [facility] UT 05 -2 -1 .0 00 LG ti IC 43 6- 9- 00 00 RE ve 27 20 20 42 EN ON 09 17 17 73 S E 9 46 #1 DC 20 OP 75 50 MC G SP RA Y GA 69 04 05 12 30 00 GE Ac BA 09 -2 -1 0. 00 OR ti PE 70 9 00 06 GE ve NT 81 20 20 0 04 TO IN 11 17 17 16 WN 2 20 80 AP 0 OT MG HE CA TA RY BL ET LI 68 04 05 30 30 00 WA Ac SI 18 -1 -1 .0 00 LG ti NO 00 7- 2- 00 RE ve DC 51 20 20 41 EN IL 40 17 17 87 S 3 96 #1 10 20 75 MG TA BL ET FL 00 04 05 30 30 00 IA Ac UO 78 -1 -1 .0 00 LG ti XE 12 7- 2- 00 00 RE ve TI 82 20 20 42 EN NE 20 17 17 55 S 1 03 #1 HC 20 L 75 20 MG CA PS UL E FR 99 04 05 10 25 00 IA Ac EE 07 -1 -0 0. 00 [...] LA 00 03 04 10 28 00 IA Ac NT 08 -2 -2 .0 00 LG ti US 82 4- 1- 00 00 RE ve 22 20 20 42 EN 10 03 17 17 09 S 0 3 44 #1 UN 20 IT 75 /M L AL FL 60 03 04 16 30 00 IA Ac UT 50 [...] 00 ME ti PE 10 7- 1- 06 TO ve NT 00 20 20 [...] LA 75 NC ET S LI 68 03 04 30 30 00 [...] MG CA PS UL E TR 60 03 03 30 30 00 [...] LG ti LI 70 4- 1- 00 RE ve N 04 20 20 [...] GA 00 02 03 12 30 00 WA Ac BA 09 -2 -2 0. 00 [...] 75 50 MC G SP RA Y FL 00 02 03 30 30 00 WA Ac UO 78 [...] 5 84 #1 CE 20 TA 75 OH NO PH 7. 5- 32 5 LA 00 02 03 10 28 00 IA Ac NT 08 -2 -1 .0 00 LG ti US 82 2- 0- 00 00 RE ve 22 20 20 38 EN 10 03 17 17 20 S 0 3 71 #1 UN 20 IT 75 /M L AL TR 60 02 03 30 30 00 IA Ac AZ [...] 5 78 #1 CE 20 TA 75 OH NO PH 7. 5- 32 5 IN 11 02 03 10 30 00 IA Ac MAZA 91 -0 -0 0. 00 LG ti LI 70 4- 3- 00 00 RE ve N 04 20 20 0 38 EN SY 81 17 17 72 S RI 4 10 #1 N 20 0. 75 5 ML 31 GX 5/ 16 " SI 68 01 02 30 30 00 WA Ac MV 18 -2 -2 .0 00 LG ti 00 6- 4- 00 00 RE ve TA 47 20 20 39 EN TI 80 17 17 17 S N 3 15 #1 10 20 75 MG TA BL ET GA 00 01 02 12 30 00 IA Ac BA 09 -3 -2 0. 00 LG ti PE 34 0- 4- 00 00 RE ve NT 44 20 20 0 40 EN IN 40 17 17 95 S 5 43 #1 80 20 0 75 MG TA BL ET FR 99 01 02 10 25 00 IA Ac EE 07 -3 -2 0. [address] 30 1- 4- 00 00 RE ve YL 13 20 20 0 39 EN E 00 17 17 08 S 28 1 78 #1 G 20 LA 75 NC ET S DC 68 02 02 20 5 00 WA [...] T 75 4 MG TA BL ET FL 60 01 02 16 30 00 WA Ac UT 50 -2 -2 .0 00 LG ti IC 50 6- 4- 00 00 RE ve 82 20 20 40 EN ON 90 17 17 88 S E 1 04 #1 DC 20 OP 75 50 MC G SP RA Y FR 99 01 02 10 25 00 [...] ST 00 01 02 60 30 00 IA Ac OO [...] 5 58 #1 CE 20 TA 75 OH NO PH 7. 5- 32 5 LI 68 01 02 30 30 00 IA Ac SI 18 -1 -1 .0 00 LG ti NO 00 7- 0- 00 00 RE ve DC 51 20 20 39 EN IL 40 17 17 02 S 3 30 #1 10 20 75 MG TA BL ET FL 00 01 02 30 30 00 IA Ac UO 78 -1 -1 .0 00 LG ti XE 12 7- 0- 00 00 RE ve TI 82 20 20 40 EN NE 20 17 17 13 S 1 48 #1 HC 20 L 75 20 MG CA PS UL E FR 99 01 02 10 25 00 WA Ac EE 07 -0 -0 0. [address] 30 9- 3- 00 00 RE ve YL 13 20 20 0 39 EN E 00 17 17 08 S 28 1 78 #1 G 20 LA 75 NC ET S TR 60 01 02 30 30 00 IA Ac AZ 50 -0 -0 .0 00 LG ti OD 52 9- 3- 00 00 RE ve ON 65 20 20 40 EN E 50 17 17 46 S 15 1 68 #1 0 20 MG 75 TA BL ET GA 68 12 01 12 30 00 GE Ac BA 46 -2 -2 0. 00 OR ti PE 20 8- 0- 00 06 GE ve NT 12 20 20 0 03 TO IN 70 16 17 43 WN 1 31 80 AP 0 OT MG HE CA TA RY BL ET FL 50 12 01 16 [...] SI 68 12 01 30 30 00 IA Ac MV 18 [...] FL 00 12 01 30 30 00 IA Ac UO 78 -2 -1 .0 00 LG ti XE 12 0- 3- 00 00 RE ve TI 82 20 20 40 EN NE 20 16 17 13 S 1 48 #1 HC 20 L 75 20 MG CA PS UL E IN 11 12 01 60 30 00 [...] #1 UL CE 20 W TA 75 OH # NO PH 12 EN 07 5 [...] ve G 68 20 20 6 GH OH 51 11 11 PH X 2 AR [...] 10 10 PH FA AC 1 AR OH ET MA LY AM CY & IN # OP CO HE 24 SM N 70 ET 5- 9 IC 32 5 DE NT IS TR Y 00 10 10 0 20 2 KR 45 AD Ac 40 -1 -1 .0 OG 67 KI ti 60 3- 3- 00 ER 79 NS ve 35 20 20 8 70 10 10 PH FA 5 AR OH MA LY CY & # CO 24 [...] 70 10 10 PH FA 5 AR OH MA LY CY & # CO 24 [...] Procedure DOS Code Location Performer Comment ECG 26207 [facility] ROUTINE 7 PHYSICIAN ECG S, PLLC W/LEAST 12 LDS I&R ONLY HEPATOBIL 94508 [facility] SYST 7 MEDICAL IMAG INC IMAGING GB ASS W/[place] [address] [facility] ABDOMEN & 7 MEDICAL PELVIS IMAGING W/O ASS CONTRAST MATERIAL FINAL G9638 [facility] REPORTS 7 MEDICAL W/O DOC IMAGING 1/MORE ASS DOSE REDUCTION TECH FINAL G9551 [facility] REPR ABD 7 MEDICAL IMAG STS IMAGING W/O ASS INCIDNT FND LES [place]: [place] [address] [place] [facility] ABDOMINAL 7 MEDICAL REAL IMAGING TIME ASS W/IMAGE LIMITED LIPID 95373 [facility] MAC PANEL 7 [facility] INC INC COMPREHEN 14316 [facility] MAC SIVE 7 [facility] METABOLIC INC INC PANEL BLOOD 90471 [facility] MAC COUNT 7 [facility] COMPLETE INC INC AUTO&AUTO DIFRNTL WBC HEMOGLOBI 69795 [facility] MAC N 7 [facility] MEM [facility]OS[facility] GLYCOSYLA INC INC NICHOLAS A1C HEPATITIS 27529 [facility] MAC C 7 [facility] ANTIBODY INC INC HEPATITIS 97938 [facility] B[facility] A 7 [facility] ANTIBODY INC INC HAAB HEPATITIS 48380 [facility] MAC B CORE 7 [facility] [place] [address] [facility] MAC HEPATITIS 7 [facility] B INC INC SURFACE ANTIGEN DIAB ONLY A5500 [facility] FIT CSTM 7 MEDICAL MEDICAL PREP&SPL SUPPLY SUPPLY [employer] DNSITY INSRT FOR DIAB A5512 [facility] ONLY MX 7 MEDICAL MEDICAL DNSITY SUPPLY SUPPLY INS[employer] [facility] FORMD PRFAB EA AMB A0427 [facility] SERVICE 7 [facility] ALS CO EMS CO EMS EMERGENCY TRANSPORT LEVEL 1 THER 41679 [facility] PROPH/DX 7 N N NJX IV COMMUNTIY COMMUNTIY PUSH HOSPITA HOSPITA SINGLE/1S T SBST/DRUG KETONE 59577 [facility] BODIES 7 N N SERUM COMMUNTIY COMMUNTIY [place]ITAT[place] [address] [facility] LIPASE 7 N N COMMUNTIY COMMUNTIY HOSPITA HOSPITA INFUSION J7030 [facility] NORMAL 7 N N SALINE COMMUNTIY COMMUNTIY SOLUTION HOSPITA HOSPITA 1000 CC GROUND A0425 [facility] MILEAGE 7 [facility] PER CO EMS CO EMS STATUTE MILE GLUC BLD 78622 [facility] GLUC MNTR 7 N N DEV COMMUNTIY COMMUNTIY CLEARED HOSPITA HOSPITA FDA SPEC HOME USE THERAPEUT 83799 [facility] IC 7 N N INJECTION COMMUNTIY COMMUNTIY IV PUSH HOSPITA HOSPITA EACH NEW DRUG URNLS DIP 43771 [facility] 7 N N STICK/TAB COMMUNTIY COMMUNTIY LET HOSPITA [place] [address] [facility] INFUSION 7 N N HYDRATION COMMUNTIY COMMUNTIY EACH HOSPITA HOSPITA ADDITIONA L HOUR BLOOD 54244 [facility] COUNT 7 N N COMPLETE COMMUNTIY COMMUNTIY AUTO&AUTO HOSP[place] [address] [facility] LACTATE 7 N N COMMUNTIY COMMUNTIY HOSPITA HOSPITA COMPREHEN 45362 [facility] SIVE 7 N N METABOLIC COMMUNTIY COMMUNTIY PANEL HOSPITA HOSPITA ECG 43095 [facility] ROUTINE 7 [place] ECG EMERGENCY W/LEAST SERV 12 LDS I&R ONLY INITIAL 95827 [facility] [address] 7 MEDICINE CARE/DAY SERVICES 30 O MINUTES SBSQ 75788 [facility] 7 N FAMILY CARE/DAY PRACTICE 25 MINUTES SBSQ 48358 [facility] 7 N FAMILY CARE/DAY PRACTICE 25 MINUTES GROUND [id number] [facility] 7 [place] [address] [facility] [place] [facility] HEAD/BRAI 7 RADIOLOGY N W/O CONTRAST MATERIAL RADIOLOGI 48651 [facility] [place] [facility] C 7 RADIOLOGY EXAMINATI ON CHEST SINGLE VIEW FRONTAL AMB [id number] [facility] SERVICE 7 [place] ALS CO EMS CO EMS EMERGENCY TRANSPORT LEVEL 1 ECG 27207 [facility] ROUTINE 7 [place] ECG EMERGENCY W/LEAST SERVI 12 LDS I&R ONLY RADEX 25772 [facility] [place] [facility] SPINE 7 RADIOLOGY LUMBOSACR AL 2/3 VIEWS RADEX 03353 [facility] [place] [facility] SACRUM & 7 RADIOLOGY [place] [address] [place] [address] [facility] [place] PATRICE ABDOMEN & 6 RADIOLOGY RHO PELVIS W/O CONTRAST MATERIAL GLUC BLD 16760 [facility] QUAN GLUC MNTR 6 NURSE ADWOA DEV PRACTITIO CLEARED NER GR FDA SPEC HOME USE HEMOGLOBI 87295 [facility] QUAN N 6 NURSE ADWOA GLYCOSYLA PRACTITIO NICHOLAS A1C NER GR HEMOGLOBI 50576 [facility] N 6 N N GLYCOSYLA COMMUNTIY COMMUNTIY NICHOLAS A1C HOSPITA HOSPITA GLUC BLD 13120 [facility] GLUC MNTR 6 N N DEV COMMUNTIY COMMUNTIY CLEARED HOSPITA HOSPITA FDA SPEC HOME USE COMPREHEN 80382 [facility] SIVE 6 N N METABOLIC COMMUNTIY COMMUNTIY PANEL HOSPITA HOSPITA INJECTION J2270 [facility] MORPHINE 6 N N SULFATE COMMUNTIY COMMUNTIY UP TO 10 HOSPITA HOSPITA MG COLLECTIO 41948 [facility] N VENOUS 6 N N BLOOD COMMUNTIY COMMUNTIY VENIPUNCT HOSPITA HOSPITA URE BLOOD 39923 [facility] COUNT 6 N N COMPLETE COMMUNTIY COMMUNTIY AUTO&AUTO HOSPITA HOSPITA DIFRNTL WBC OBSERVATI 31128 [facility] ON CARE 6 ELL MAT ELL MAT DISCHARGE MANAGEMEN T THER 12817 [facility] PROPH/DX 6 N N NJX EA COMMUNTIY COMMUNTIY SEQL IV HOSPITA HOSPITA PUSH SBST/DRUG FAC INJECTION C9113 [facility] 6 N N PANTOPRAZ COMMUNTIY COMMUNTIY OLE HOSPITA [place] [address] [facility] MAGNESIUM 6 N N COMMUNTI[place] [address] [facility] PHOSPHORU 6 N N S COMMUNTIY COMMUNTIY INORGANIC HOSPITA HOSPITA THERAPEUT 73294 [facility] IC 6 N N PROPHYLAC COMMUNTIY COMMUNTIY TIC/DX HOSPITA HOSPITA INJECTION SUBQ/IM THERAPEUT 88135 [facility] IC 6 N N PROPHYLAC COMMUNTIY COMMUNTIY TIC/DX HOSPITA HOSPITA INJECTION SUBQ/IM INJECTION J0610 [facility] CALCIUM 6 N N GLUCONATE COMMUNTIY COMMUNTIY PER [place] [address] [facility] MAGNESIUM 6 N N [place] [address] [facility] [facility] PHOSPHORU 6 N N S COMMUNTIY COMMUNTIY INORGANIC HOSPITA HOSPITA INJECTION [id number] [facility] 6 N N PANTOPRAZ COMMUNTIY COMMUNTIY OLE HOSPITA HOSPITA SODIUM PER VIAL THER 23597 [facility] PROPH/DX 6 N N NJX EA COMMUNTIY COMMUNTIY SEQL IV HOSPITA HOSPITA PUSH SBST/DRUG FAC INFUSION J7030 [facility] NORMAL 6 N N SALINE COMMUNTIY COMMUNTIY SOLUTION HOSPITA HOSPITA 1000 CC BLOOD 75697 [facility] COUNT 6 N N COMPLETE COMMUNTIY COMMUNTIY AUTO&AUTO HOSPITA HOSPITA DIFRNTL WBC INJECTION J2550 [facility] 6 N N PROMETHAZ COMMUNTIY COMMUNTIY INE HCL HOSPITA HOSPITA UP TO 50 MG INJECTION J2270 [facility] MORPHINE 6 N N SULFATE COMMUNTIY COMMUNTIY UP TO 10 HOSPITA HOSPITA MG INITIAL 25955 [facility] OBSERVATI 6 ELL MAT ELL MAT ON CARE/DAY 50 MINUTES COMPREHEN 28730 [facility] SIVE 6 N N METABOLIC COMMUNTIY COMMUNTIY PANEL HOSPITA HOSPITA GLUC BLD 77913 [facility] GLUC MNTR 6 N N DEV COMMUNTIY COMMUNTIY CLEARED HOSPITA HOSPITA FDA SPEC HOME USE HEMOGLOBI 14127 [facility] N 6 N N GLYCOSYLA COMMUNTIY COMMUNTIY NICHOLAS A1C HOSPITA HOSPITA THERAPEUT 81845 [facility] IC 6 N N INJECTION COMMUNTIY COMMUNTIY IV PUSH HOSPITA HOSPITA EACH NEW DRUG NONINVASI 02768 [facility] VE 6 N N EAR/PULSE COMMUNTIY COMMUNTIY OXIMETRY HOSPITA HOSPITA SINGLE DETER COLLECTIO 40421 [facility] N VENOUS 6 N N BLOOD COMMUNTIY COMMUNTIY VENIPUNCT HOSPITA HOSPITA URE PROTHROMB 64810 [facility] IN TIME 6 N [place] [address] [facility] INFUSION 6 N N THERAPY/P COMMUNTIY COMMUNTIY ROPHYLAXI HOSPITA HOSPITA S /DX 1ST TO 1 [place] [address] [facility] INFUSION 6 N N HYDRATION COMMUNTIY COMMUNTIY EACH HOSPITA HOSPITA ADDITIONA L HOUR COLLECTIO 40832 [facility] N VENOUS 6 N N BLOOD COMMUNTIY COMMUNTIY VENIPUNCT HOSPITA HOSPITA URE THERAPEUT 77306 [facility] IC 6 N N INJECTION COMMUNTIY COMMUNTIY IV PUSH HOSPITA HOSPITA EACH NEW DRUG ARTERIAL 90257 [facility] PUNCTURE 6 N N WITHDRAWA COMMUNTIY COMMUNTIY L BLOOD HOSPITA HOSPITA DX GLUC BLD 16817 [facility] GLUC MNTR 6 N N DEV COMMUNTIY COMMUNTIY CLEARED HOSPITA HOSPITA FDA SPEC HOME USE BLOOD 51843 [facility] GASES ANY 6 N N COMMUNTIY COMMUNTIY COMBINATI HOSPITA HOSPITA ON PH PCO2 PO2 CO2 HCO3 URNLS DIP 83217 [facility] 6 N N STICK/TAB COMMUNTIY COMMUNTIY LET HOSPITA HOSPITA REAGENT AUTO MICROSCOP Y TOBACCO 21036 [facility] USE 6 N N CESSATION COMMUNTIY COMMUNTIY HOSPITA HOSPITA INTERMEDI ATE 3-10 MINUTES COMPREHEN 39755 [facility] SIVE 6 N N METABOLIC COMMUNTIY COMMUNTIY PANEL HOSPITA HOSPITA INJECTION J2270 [facility] MORPHINE 6 N N SULFATE COMMUNTIY COMMUNTIY UP TO 10 HOSPITA HOSPITA MG INJECTION J1815 [facility] INSULIN 6 N N PER 5 COMMUNTIY COMMUNTIY UNITS HOSPITA HOSPITA INJECTION J2550 [facility] 6 N N PROMETHAZ COMMUNTIY COMMUNTIY INE HCL HOSPITA HOSPITA UP TO 50 MG BLOOD 52552 [facility] COUNT 6 N N COMPLETE COMMUNTIY COMMUNTIY AUTO&AUTO HOSPITA HOSPITA DIFRNTL WBC INFUSION J7030 [facility] NORMAL 6 N N SALINE COMMUNTIY COMMUNTIY SOLUTION HOSPITA HOSPITA 1000 CC THER 42465 [facility] PROPH/DX 6 N N NJX EA COMMUNTIY COMMUNTIY SEQL IV HOSPITA HOSPITA PUSH SBST/DRUG FAC INJECTION J1885 [facility] 6 N N KETOROLAC COMMUNTIY COMMUNTIY HOSPITA HOSPITA TROMETHAM INE PER 15 MG THERAPEUT 17772 [facility] IC 6 N N PROPHYLAC COMMUNTIY COMMUNTIY TIC/DX HOSPITA HOSPITA INJECTION SUBQ/IM KETONE 52837 [facility] BODIES 6 N N SERUM COMMUNTIY COMMUNTIY QUALITAT[place] [address] [facility] LIPASE 6 N N COMMUNTIY COMMUNTIY HOSPITA HOSPITA HOSPITAL G0378 [facility] OBSERVATI 6 N N ON COMMUNTIY COMMUNTIY SERVICE HOSPITA HOSPITA PER HOUR ARTHROCEN 23857 [facility] GRIGSBY 6 [place] LO TRA ASPIR&/IN EMERGENCY J INTERM SERVI JT/BURS W/O US RADEX 80746 [facility] [place] [facility] ELBOW 6 RADIOLOGY JERRI COMPLETE MINIMUM 3 VIEWS COLLECTIO 02968 [facility] N VENOUS 6 N N BLOOD COMMUNTIY COMMUNTIY VENIPUNCT HOSPITA HOSPITA URE GLUC BLD 12636 [facility] GLUC MNTR 6 N N DEV COMMUNTIY COMMUNTIY CLEARED HOSPITA HOSPITA FDA SPEC HOME USE BLOOD 11387 [facility] COUNT 6 N N COMPLETE COMMUNTIY COMMUNTIY AUTO&AUTO HOSPITA HOSPITA DIFRNTL WBC INFUSION J7030 [facility] NORMAL 6 N N SALINE COMMUNTIY COMMUNTIY SOLUTION HOSPITA HOSPITA 1000 CC BASIC 84913 [facility] METABOLIC 6 N N PANEL COMMUNTIY COMMUNTIY CALCIUM HOSPITA HOSPITA TOTAL OBSERVATI 50635 [facility] BIRDWHIST ON CARE 6 ELL MAT ELL MAT DISCHARGE MANAGEMEN T THERAPEUT 80644 [facility] IC 6 N N PROPHYLAC COMMUNTIY COMMUNTIY TIC/DX HOSPITA HOSPITA INJECTION SUBQ/IM THER 67233 [facility] PROPH/DX 6 N N NJX IV COMMUNTIY COMMUNTIY PUSH HOSPITA HOSPITA SINGLE/1S T SBST/[place] [address] [facility] LIPASE 6 N N COMMUNTIY COMMUNTIY HOSPITA HOSPITA KETONE 64854 [facility] BODIES 6 N N SERUM COMMUNTIY COMMUNTIY QUALITAT[place] [address] [facility] PHOSPHORU 6 N N S COMMUNTIY COMMUNTIY INORGANIC HOSPITA HOSPITA HOSPITAL G0378 [facility] OBSERVATI 6 N N ON COMMUNTIY COMMUNTIY SERVICE HOSPITA HOSPITA PER HOUR DRUG TEST G0479 [facility] 6 N N PRESUMP;I COMMUNTIY COMMUNTIY NSTRUMENT HOSPITA HOSPITA ED CHEMISTRY ANLYZER INFUSION J7030 [facility] NORMAL 6 N N SALINE COMMUNTIY COMMUNTIY SOLUTION HOSP[place] [address] [place] [address] [facility] [place] [facility]AL[facility]ARA ABDOMEN & 6 RADIOLOGY PELVIS W/O CONTRAST MATERIAL ECG 78575 [facility] ROUTINE 6 N N ECG COMMUNTIY COMMUNTIY W/LEAST HOSPITA HOSPITA 12 LDS TRCG ONLY W/O I&R THERAPEUT 49051 [facility] IC 6 N N PROPHYLAC COMMUNTIY COMMUNTIY TIC/DX HOSPITA HOSPITA INJECTION SUBQ/IM BLOOD 35001 [facility] COUNT 6 N N COMPLETE COMMUNTIY COMMUNTIY AUTO&AUTO HOSP[place] [address] [facility] AMYLASE 6 N N COMMUNTIY COMMUNTIY HOSPITA HOSPITA INJECTION J0360 [facility] 6 N N HYDRALAZI COMMUNTIY COMMUNTIY NE HCL UP HOSPITA HOSPITA TO 20 MG INJECTION J2270 [facility] MORPHINE 6 N N SULFATE COMMUNTIY COMMUNTIY UP TO 10 HOSPITA HOSPITA MG COMPREHEN 47021 [facility] SIVE 6 N N METABOLIC COMMUNTIY COMMUNTIY PANEL HOSPITA HOSPITA INITIAL 71634 [facility] OBSERVATI 6 ELL MAT ELL MAT ON CARE/DAY 50 MINUTES TOBACCO 57169 [facility] USE 6 N N CESSATION COMMUNTIY COMMUNTIY HOSPITA HOSPITA INTERMEDI ATE 3-10 MINUTES GLUC BLD 11963 [facility] GLUC MNTR 6 N N DEV COMMUNTIY COMMUNTIY CLEARED HOSPITA HOSPITA FDA SPEC HOME USE THERAPEUT 01757 [facility] IC 6 N N INJECTION COMMUNTIY COMMUNTIY IV PUSH HOSPITA HOSPITA EACH NEW DRUG URNLS DIP 03456 [facility] 6 N N STICK/TAB COMMUNTIY COMMUNTIY LET HOSPITA HOSPITA REAGENT AUTO MICROSCOP Y COLLECTIO 87895 [facility] N VENOUS 6 N N BLOOD COMMUNTIY COMMUNTIY [place] [address] [facility] INFUSION 6 N N HYDRATION COMMUNTIY COMMUNTIY EACH HOSPITA HOSPITA ADDITIONA L HOUR ECG 61608 [facility] ROUTINE 6 [place] ECG EMERGENCY W/LEAST PHYS 12 LDS I&R ONLY GLUC BLD 17121 [facility] GLUC MNTR 6 N N DEV COMMUNTIY COMMUNTIY CLEARED HOSPITA HOSPITA FDA SPEC HOME USE COLONOSCO 27669 GASTROENT CASE JUS PY FLX DX 6 EROLOGY W/COLLJ AND SPEC WHEN HEPATOL PFRMD COLOREC G0121 [facility] CANCR 6 N N SCR; COMMUNTIY COMMUNTIY COLNSCPY HOSPITA HOSPITA NOT MEET HI RISK ANES 03547 [place] ANT LOWER 6 ANESTHESI INTESTINE A GROUP PS ENDOSCOPY DISTAL DUODENUM RINGERS J7120 [facility] LACTATE 6 N N INFUSION COMMUNTIY COMMUNTIY UP TO HOSPITA HOSPITA 1000 CC KETONE 99157 [facility] BODIES 6 N N SERUM COMMUNTIY COMMUNTIY QUALITAT[place] [address] [facility] LIPASE 6 N N COMMUNTIY COMMUNTIY HOSPITA HOSPITA THER 21121 [facility] PROPH/DX 6 N N NJX IV COMMUNTIY COMMUNTIY PUSH HOSPITA HOSPITA SINGLE/1S T SBST/DRUG INFUSION J7030 [facility] NORMAL 6 N N SALINE COMMUNTIY COMMUNTIY SOLUTION HOSPITA HOSPITA 1000 CC GLUC BLD 56454 [facility] GLUC MNTR 6 N N DEV COMMUNTIY COMMUNTIY CLEARED HOSPITA HOSPITA FDA SPEC HOME USE URNLS DIP 44247 [facility] 6 N N STICK/TAB COMMUNTIY COMMUNTIY LET HOSPITA HOSPITA REAGENT AUTO MICROSCOP Y THERAPEUT 86647 [facility] IC 6 N N INJECTION COMMUNTIY COMMUNTIY IV PUSH HOSPITA HOSPITA EACH NEW DRUG COLLECTIO 31106 [facility] N VENOUS 6 N N BLOOD COMMUNTIY COMMUNTIY [place] [address] [facility] INFUSION 6 N N HYDRATION COMMUNTIY COMMUNTIY EACH HOSPITA HOSPITA ADDITIONA L HOUR COMPREHEN 80923 [facility] SIVE 6 N N METABOLIC COMMUNTIY COMMUNTIY PANEL HOSPITA HOSPITA INJECTION J2270 [facility] MORPHINE 6 N N SULFATE COMMUNTIY COMMUNTIY UP TO [address] [place] [address] [facility] LACTATE 6 N N COMMUNTIY COMMUNTIY HOSPITA HOSPITA BLOOD 29369 [facility] COUNT 6 N N COMPLETE COMMUNTIY COMMUNTIY AUTO&AUTO HOSP[place] [address] [facility] TROPONIN 6 N N QUANTITAT COMMUNTIY COMMUNTIY VERÓNICA HOSPITA HOSPITA THYROID 70741 [facility] HORM 6 DIAGNOSTI DIAGNOSTI UPTK/THYR CS CS OID HORMONE BINDING RATIO BLOOD 40151 [facility] COUNT 6 DIAGNOSTI DIAGNOSTI COMPLETE CS CS AUTO&AUTO DIFRNTL WBC COMPREHEN 72787 [facility] SIVE 6 DIAGNOSTI DIAGNOSTI [place] [address] [facility] THYROID 6 DIAGNOSTI DIAGNOSTI STIMULATI CS CS NG HORMONE TSH LIPID 80259 [facility] PANEL 6 DIAGNOSTI DIAGNOSTI CS CS HEMOGLOBI 27401 [facility] N 6 DIAGNOSTI DIAGNOSTI GL[place] [address] [facility] THYROXINE 6 DIAGNOST[place] [address] [facility] PROSTATE 6 DIAGNOSTI DIAGNOSTI SPECIFIC CS CS ANTIGEN TOTAL INJECTION J2001 [facility] 6 N N LIDOCAINE COMMUNTIY COMMUNTIY HCL HOSPITA HOSPITA INTRAVENO US INFUS 10 MG IM ADM 40584 [facility] PRQ ID 6 N N SUBQ/IM COMMUNTIY COMMUNTIY NJXS 1 HOSPITA HOSPITA VACCINE TDAP 40978 [facility] VACCINE 7 6 N N YRS/> IM COMMUNTIY COMMUNTIY HOSPITA HOSPITA INCISION 94501 [facility]IA & 6 PREMA PREMA DRAINAGE ABSCESS SIMPLE/SI [facility] 27260 [facility] BIRDWHIST DISCHARGE 5 KHUSHBU RÍOS MAT DAY MANAGEMEN T 30 MIN/< SBSQ 93477 [facility] 5 KHUSHBU RÍOS MAT CARE/DAY 25 MINUTES SBSQ 00085 [facility] 5 KHUSHBU RÍOS MAT CARE/DAY 25 MINUTES GROUND A0425 [facility] MILEAGE 5 [facility]Y [place] LEON PER CO EMS CO EMS STATUTE MILE AMB A0427 [facility] SERVICE 5 [facility] LEON ALS CO EMS CO EMS EMERGENCY TRANSPORT LEVEL 1 INITIAL 02729 [facility] 5 KHUSHBU RÍOS [facility] CARE/DAY 50 MINUTES ECG 60702 [facility] ROUTINE 5 SCO SCO ECG W/LEAST 12 LDS I&R ONLY HEMOGLOBI 08641 [facility] N 5 DIAGNOSTI DIAGNOSTI GLYCOSYLA [facility] NICHOLAS A1C CREATININ 71258 [facility] E OTHER 5 DIAGNOSTI DIAGNOSTI SOURCE [facility] URNLS DIP 78377 [facility] 5 DIAGNOSTI DIAGNOSTI STICK/TAB CS LET RGNT AUTO W/O MICROSCOP Y ALBUMIN 52952 [facility] URINE 5 DIAGNOSTI DIAGNOSTI MICROALBU [facility] MIN QUANTIATI VE WALKING L4360 IS[facility]ROE BOOT 5 FOOT & N MORGAN PNEUMATC ANKLE CE &/ VACUUM PREFAB CUSTM FIT HEMOGLOBI 51524 [facility] N 5 DIAGNOSTI DIAGNOSTI GLYCOSYLA CS NICHOLAS A1C CANE INCL E0100 J & L J & L CANES 4 [facility] MATERIAL EQUIPMENT EQUIPMENT ADJUSTBLE /FIX W/[place] [address] [facility] THYROXINE 4 DIAGNOSTI DIAGNOSTI TOTAL CS CS HEMOGLOBI 99001 [facility] N 4 DIAGNOSTI DIAGNOSTI GLYCOSYLA CS CS NICHOLAS A1C THYROID 92002 [facility] HORM 4 DIAGNOSTI DIAGNOSTI UPTK/THYR [facility] OID HORMONE BINDING RATIO BLOOD 18108 [facility] COUNT 4 DIAGNOSTI DIAGNOSTI COMPLETE CS CS AUTO&[place] [address] [facility] THYROID 4 DIAGNOSTI DIAGNOSTI STIMULATI CS CS NG HORMONE TSH COMPREHEN 25914 [facility] SIVE 4 DIAGNOSTI DIAGNOSTI METABOLIC CS CS PANEL LIPID 90057 [facility] PANEL 4 DIAGNOSTI DIAGNOSTI CS CS TRANSPARE A6257 DIABETES DIABETES NT FILM 4 CARE & CARE & STERL 16 EDUCATION EDUCATION SQ IN OR LESS EA DRESS INFUS SET A4230 DIABETES DIABETES EXT 4 [...] EDUCATION SQ IN OR LESS EA DRESS ANKLE L1902 [place] [facility] 4 FOOT & N MORGAN ANKLE ANKLE CE GAUNT/SIM PREFAB OFF-THE-S HELF MRI LOWER 40763 PROSCAN PROSCAN EXTREM 4 RADIOLOGY RADIOLOGY OT/THN JT W/O CONTR MATRL TRANSPARE A6257 DIABETES DIABETES NT FILM 4 CARE & CARE & STERL 16 EDUCATION EDUCATION SQ IN OR LESS EA DRESS INFUS SET A4230 DIABETES DIABETES EXT 4 CARE & CARE & INSULIN EDUCATION EDUCATION PUMP NONNDLE CANNULA TYPE SYRINGE A4232 DIABETES DIABETES W/NDLE 4 CARE & CARE & EXTERNAL EDUCATION EDUCATION INSULIN PUMP STERILE 3CC SKIN A5120 DIABETES DIABETES BARRIER 4 CARE & CARE & WIPES OR EDUCATION EDUCATION SWABS EACH WALKING L4360 [place] [facility] BOOT 4 FOOT & N MORGAN PNEUMATC ANKLE CE &/ VACUUM PREFAB CUSTM FIT RADIOLOGI 32979 [place] [facility] C 4 FOOT & N MORGAN EXAMINATI ANKLE CE ON FOOT 2 VIEWS RADEX 66512 ISIDRO ELI ANKLE 4 FOOT & N MORGAN COMPLETE ANKLE CE MINIMUM 3 VIEWS TRANSPARE A6257 DIABETES DIABETES NT FILM 4 [...] INSULIN EDUCATION EDUCATION PUMP NONNDLE CANNULA TYPE EXTERNAL E0784 PANFILO WHITTAKER AMBULATOR 4 [facility]ALTH[facility] HEALTHCAR Y E E INFUSION SERVICES SERVICES PUMP INSULIN SKIN A5120 DIABETES DIABETES BARRIER 4 CARE & CARE & WIPES OR EDUCATION EDUCATION SWABS EACH SYRINGE A4232 DIABETES DIABETES W/NDLE 4 CARE & CARE & EXTERNAL EDUCATION EDUCATION INSULIN PUMP STERILE 3CC SENSOR;IN A9276 DIABETES DIABETES VSV DISP 4 CARE & CARE & INTRSTL EDUCATION EDUCATION CONT GLU MON SYS 1U=1D TRANSPARE A6257 DIABETES DIABETES NT FILM 4 CARE & CARE & STERL 16 EDUCATION EDUCATION SQ IN OR LESS EA DRESS SLEEP STD 16863 SHASHY SHASHY AIRFLOW 4 WOOD WOOD HRT RATE&O2 SAT EFFORT UNATT THYROID 26130 [facility] HORM 4 DIAGNOSTI DIAGNOSTI UPTK/THYR CS OID INCORPORA HORMONE T BINDING RATIO HEMOGLOBI 14033 [facility] N 4 DIAGNOSTI DIAGNOSTI GLYCOSYLA CS CS NICHOLAS A1C LIPID 91053 [facility] PANEL 4 DIAGNOSTI DIAGNOSTI CS CS COMPREHEN 97641 [facility] SIVE 4 DIAGNOSTI DIAGNOST[place] [address] [facility] THYROID 4 DIAGNOSTI DIAGNOSTI STIMULATI CS NG HORMONE TSH BLOOD 00468 [facility] COUNT 4 DIAGNOSTI DESTINEE COMPLETE CS AUTO&[place] [address] [facility] INSULIN 4 DIAGNOSTI DIAGNOSTI [place] [address] [facility] C-PEPTIDE 4 DIAGNOSTI [place] [address] [facility] THYROXINE 4 DIAGNOSTI DIAGNOSTI TOTAL CS CS INCORPORA T RADIOLOGI 25718 [facility] EXAM 4 RYA RYA CHEST 2 VIEWS FRONTAL&L ATERAL RADEX 21932 [facility] [place] [facility] SPINE 4 RADIOLOGY LUMBOSACR AL 2/3 VIEWS RADEX 15449 [facility] [place] [facility] SPINE 4 RADIOLOGY THORACIC 2 VIEWS HOSPITAL 87059 [facility] 4 [place] A GOP DAY PHYSICIAN MANAGEMEN SERVI T 30 MIN/< SBSQ 77821 [facility] 4 [place] A GOP CARE/DAY PHYSICIAN 25 SERVI MINUTES RADIOLOGI 06826 [facility] 4 [place] - YORBA EXAMINATI EMERGENCY PAT ON CHEST PHYSI SINGLE VIEW FRONTAL GROUND A0425 [facility] MILEAGE 4 Cory-DE DE LEON PER CO EMS CO EMS STATUTE MILE AMB A0427 [facility] SERVICE 4 N-DE DE LEON ALS CO EMS CO EMS EMERGENCY TRANSPORT LEVEL 1 INITIAL 51192 [facility] 4 [place] LILO CARE/DAY PHYSICIAN 70 SERVI MINUTES ECG 56812 [facility] ROUTINE 4 [place] - YORBA ECG EMERGENCY PAT W/LEAST PHYSI 12 LDS I&R ONLY HOSPITAL 26604 [facility] 4 [place] HUG DAY PHYSICIAN MANAGEMEN SERVI T 30 MIN/< SBSQ 64108 [facility] 4 [place] HUG CARE/DAY PHYSICIAN 35 SERVI MINUTES INITIAL 84157 [facility] 4 [place] G CARE/DAY PHYSICIAN 70 SERVI MINUTES CRITICAL 02550 [facility] 4 PREMA PREMA ILL/INJUR ED PATIENT INIT 30-74 MIN ALBUMIN 07076 [facility] URINE 1 [facility]CROALBU P[facility] PEDIATRIC MIN S & INTER S & INTER SEMIQUANT ITATIVE COMPREHEN 44587 [facility] LAB ERASMO SIVE 1 [facility]IC [employer] METABOLIC [employer] HOLDING PANEL COLLECTIO 73969 [facility] N VENOUS 1 AND BLOOD PEDIATRIC VENIPUNCT S & INTER URE HEMOGLOBI 61092 LAB ER[facility] LAB ERASMO N 1 AMERIC AMERIC GLYCOSYLA HOLDING HOLDING NICHOLAS A1C SBSQ 40846 [facility] CARE/DAY ADVANCED 25 MAZA MINUTES INITIAL 18399 [facility] INPATIENT 1 [place] JERRI CONSULT ADVANCED NEW/ESTAB MAZA PT 40 MIN GASTRIC 89940 [facility] [place] [facility] EMPTYING 1 RADIOLOGY [facility] 83829 [facility] DISCHARGE 1 BETTY DAY PEDIATRIC MANAGEMEN S & INTER T 30 MIN/< SBSQ 44579 [facility] 1 BETTY CARE/DAY PEDIATRIC 25 S & INTER MINUTES RADEX ABD 33037 [facility] [place] [facility] COMPL 1 RADIOLOGY AQT ABD W/S/E/D [address] [address] [place] [address] [facility] [place] [facility] ABDOMEN & 1 RADIOLOGY PELVIS W/O CONTRAST MATERIAL INITIAL 52322 [facility] 1 BETTY CARE/DAY PEDIATRIC 70 S & INTER MINUTES AMB A0427 [facility] SERVICE 1 [facility] ALS [place] [facility] EMS EMERGENCY TRANSPORT LEVEL 1 CRITICAL 10471 [place] [address] EMERGENCY DEV ILL/INJUR SERVICES ED PATIENT INIT 30-74 MIN GROUND A0425 [facility] MILEAGE 1 [facility] [place] LEON PER [place] EMS CO EMS STATUTE MILE LIPID 73431 [facility] PANEL 1 [employer] [place] [address] LAB ERASMO LAB ERASMO FREE 1 AMERIC AMERIC THYROXINE HOLDING HOLDING HEMOGLOBI 91699 LAB [facility] LAB ERASMO N 1 AMERIC AMERIC GLYCOSYLA HOLDING HOLDING NICHOLAS A1C GENERAL 71717 LAB ER[facility] LAB ERASMO HEALTH 1 AMERIC 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 HOLDING ECG 99119 [facility] ROUTINE 1 AND ECG PEDIATRIC W/LEAST S & INTER 12 LDS W/I&R [place] [address] [facility] [place] [facility] HEAD/BRAI 1 RADIOLOGY RAÚL N W/O CONTRAST MATERIAL ALVEOLECT 37514 [facility] FADY 0 KARI KARI W/CURTG OSTEITIS/ SEQUESTRE CTOMY DEEP D9220 [facility] RAIN SEDATION/ 0 KARI KARI GENERAL ANESTHESI A-1ST 30 MINUTES ORTHOPANT 31818 [facility] RAIN OGRAM 0 KARI KARI LANCETS A4259 AM MED AM MED PER BOX 8 DIRECT DIRECT OF 100 [facility] BLD GLU A4253 AM MED AM MED TEST/REAG 8 DIRECT DIRECT T [facility] GLU MON-50 LANCETS A4259 AM MED AM MED PER BOX 8 DIRECT DIRECT OF 100 [facility] BLD GLU A4253 AM MED AM MED TEST/REAG 8 DIRECT DIRECT T [facility] PH[facility]AC[facility] GLU MON-50 BLD GLU A4253 AM MED AM MED TEST/REAG 8 DIRECT DIRECT T [facility] PHARMACY GLU MON-50 LANCETS A4259 AM MED AM MED PER BOX 8 DIRECT DIRECT OF 100 [facility] DEEP D9220 [facility], SEDATION/ 8 FOR BETSY Castillo GENERAL ORAL&MAXI ANESTHESI LLOFACIAL A- 30 SURGERY MINUTES APPLICATI 46996 BRITANY GARG, ON 8 YOHANA Toribio MODALITY 1/> AREAS HOT/COLD PACKS CHIROPRAC 57874 BRITANY GARG, TIC 8 YOHANA Toribio MANIPULAT [place] SPINAL 3-4 REGIONS APPL 98348 BRITANY GARG, MODALITY 8 YOHANA Toribio 1/> AREAS ELEC STIMJ UNATTENDE D APPL 30512 BRITANY GARG, MODALITY 8 YOHANA Toribio 1/> AREAS ELEC STIMJ UNATTENDE D DETERMINA 44562 [facility], TION 8 [facility] CHIROPRA 26090 BRITANY GARG, TIC 8 YOHANA Toribio MANIPUL[place] SPINAL 3-4 REGIONS APPLICATI 18343 BRITANY GARG, ON 8 YOHANA Toribio YOHANA Toribio MODALITY 1/> AREAS HOT/COLD PACKS ORTHOPANT 64590 OR JAYNE LIN 8 FOR JOSE Velasquez ORAL&MAXI LLOFACIAL SURGERY Encounters Encounter Start End Date Code Location Performer Type Date EMERGENCY 86497 [facility] DEPT 7 7 PHYSICIAN VISIT S, PLLC HIGH SEVERITY& THREAT FUNJ OFFICE 03944 [facility] OUTPATIEN 7 7 PHYSICIAN T NEW 30 S GROUP MINUTES [facility] - 7 7 [facility] OUTPATIEN INC T OFFICE 74191 [facility] 7 7 ELL ELL T VISIT 15 MINUTES OFFICE 16688 [facility]IEN 7 7 KHUSHBU ELL T VISIT 15 MINUTES EMERGENCY 54105 [facility] DEPT 7 7 [place] VISIT EMERGENCY HIGH PHYS SEVERITY& THREAT CRITICAL ACCESS HOSPITAL [facility] 7 7 N OUTPATIEN COMMUNTIY T HOSPITA EMERGENCY 52876 [facility] 7 7 N DEPARTMEN COMMUNTIY T VISIT HOSPITA HIGH/URGE NT SEVERITY EMERGENCY 28965 [facility] 7 7 [place] - YORBA VISIT EMERGENCY HIGH PHYS SEVERITY& THREAT FUNJ EMERGENCY 51614 [facility]PT 7 7 [place] VISIT EMERGENCY HIGH SERVI SEVERITY& THREAT FUNJ EMERGENCY 71069 [facility] 6 6 [place] DEPARTMEN EMERGENCY T VISIT SERVI HIGH/URGE NT SEVERITY [facility] [place] [address] 6 N OUTPATIEN COMMUNTIY T HOSPITA OFFICE 38432 [facility] 6 6 NURSE ADWOA BRADEN NEW/ESTAB NER GR PATIENT 60 MIN [facility] [place] [address] 6 N OUTPATIEN COMMUNTIY T HOSPITA EMERGENCY 83732 [facility] DEPT 6 6 N VISIT COMMUNTIY HIGH HOSPITA SEVERITY& THREAT CRITICAL ACCESS HOSPITAL EMERGENCY 61720 [facility] 6 6 N DEPARTMEN COMMUNTIY T VISIT HOSPITA MODERATE SEVERITY EMERGENCY 50588 [facility] 6 6 [place] DEPARTMEN EMERGENCY T VISIT SERVI HIGH/URGE NT SEVERITY HOSPITAL [facility] - 6 6 N OUTPATIEN COMMUNTIY T HOSPITA OFFICE 52821 [facility] 6 6 ELL MAT ELL MAT T VISIT 15 MINUTES EMERGENCY 76479 [facility] 6 6 N DEPARTMEN COMMUNTIY T VISIT HOSPITA LIMITED/M [facility] - 6 6 N OUTPATIEN COMMUNTIY T HOSPITA OFFICE 63658 [facility] 6 6 ELL MAT ELL MAT T VISIT 15 MINUTES HOSPITAL [facility] - 6 6 N OUTPATIEN COMMUNTIY T HOSPITA EMERGENCY 40974 [facility]PT 6 6 [place] VISIT EMERGENCY HIGH PHYS SEVERITY& THREAT [facility] - 6 6 N OUTPATIEN COMMUNTIY T HOSPITA EMERGENCY 14247 [facility] DEPT 6 6 [place] VISIT EMERGENCY HIGH SERV SEVERITY& THREAT [facility]ESS H[facility]PITAL [facility] - 6 6 N OUTPATIEN COMMUNTIY T H[facility]PITA EMERGENCY 58113 [facility] 6 6 N DEPARTMEN COMMUNTIY T VISIT HOSPITA HIGH/URGE NT SEVERITY OFFICE 82652 BIRDWHIST BIRDWHIST OUTPATIEN 6 6 ELL MAT ELL MAT T VISIT 15 MINUTES EMERGENCY 29442 BLANCHE MANCIA 6 6 PREMA PREMA DEPARTMEN T VISIT HIGH/URGE NT SEVERITY HOSPITAL [facility] - 6 6 N OUTPATIEN COMMUNTIY T HOSPITA EMERGENCY 19570 [facility] 6 6 N DEPARTMEN COMMUNTIY T VISIT HOSPITA MODERATE SEVERITY OFFICE 76814 BIRDWHIST BIRDWHIST OUTPATIEN 5 5 ELL LEENA ELL MAT T VISIT 15 MINUTES EMERGENCY 71392 BUBBA MAC DEPT 5 5 SCO SCO VISIT HIGH SEVERITY& THREAT CRITICAL ACCESS HOSPITAL [facility] - 5 5 N INPATIENT COMMUNTIY HOSPITA EMERGENCY 23909 [facility] VORKPOR DEPT 5 5 EDWAR EDWAR VISIT HIGH SEVERITY& THREAT [facility] OFFICE 81057 BIRDWHIST BIRDWHIST OUTPATIEN 5 5 KHUSHBU RÍOS T VISIT 15 MINUTES EMERGENCY 51455 BLANCHE MANCIA DEPT 5 5 PREMA PREMA VISIT HIGH SEVERITY& THREAT [facility] 13870 [place] [facility] 5 5 FOOT & N [place]GAN T VISIT ANKLE CE 15 MINUTES OFFICE 60019 MUHA JAVI MUHA JAVI OUTPATIEN 4 4 T NEW 30 MINUTES OFFICE 83890 [place] [facility] 4 4 FOOT & N MORGAN T VISIT ANKLE CE 15 MINUTES OFFICE 84365 [place] [facility] OUT[facility] 4 4 FOOT & N [facility]GAN T VISIT ANKLE CE 15 MINUTES OFFICE 13213 [place] [facility] OUT[facility] 4 4 FOOT & N MORGAN T VISIT ANKLE CE 15 MINUTES OFFICE 99965 [place] [facility] OUT[facility] 4 4 FOOT & N MORGAN T VISIT ANKLE CE 15 MINUTES OFFICE 61038 [place] [facility] OUTPATIEN 4 4 FOOT & N MORGAN T NEW 30 ANKLE CE MINUTES HOSPITAL [facility] - 4 4 N OUTPATIEN COMMUNITY T HOSPITA OFFICE 49964 BIRDWHIST BIRDWHIST OUTPATIEN 4 4 KHUSHBU STERN T VISIT 15 MINUTES EMERGENCY 02357 BLANCHE MANCIA DEPT 4 4 PREMA PREMA VISIT HIGH SEVERITY& THREAT FUNCJ OFFICE 89921 BIRDWHIST BIRDWHIST OUTPATIEN 4 4 KHUSHBU STERN T VISIT 25 MINUTES EMERGENCY 34417 [facility] KESSLER DEPT 4 4 RYA RYA VISIT HIGH SEVERITY& THREAT [facility] [place] [address] [facility] 91484 [facility] CE[facility] DEPT 4 4 [place] - YORBA VISIT EMERGENCY PAT HIGH PHYSI SEVERITY& THREAT FUNCJ OFFICE 46125 [facility] CHEYANNEAU[facility] OUTPATIEN 1 1 AND T VISIT PEDIATRIC 15 S & INTER MINUTES OFFICE 48645 [facility] OUTPATIEN 1 1 AND T VISIT PEDIATRIC 15 S & INTER MINUTES [facility] [place] [address] [facility] 85943 [facility] CHEYANNEAU[facility] OUTPATIEN 1 1 AND T VISIT PEDIATRIC 15 S & INTER MINUTES [facility] [place] [address] 1 N INPATIENT COMMUNITY HOSPITA EMERGENCY 60714 DERRICK MANCIA 1 1 EMERGENCY PREMA DEPARTMEN SERVICES T VISIT HIGH/URGE NT SEVERITY OFFICE 74820 [facility] OUTPATIEN 1 1 T VISIT 5 PEDIATRIC PEDIATRIC MINUTES S & INTER S & INTER OFFICE 99738 [facility] CHEYANNEAU[facility] OUTPATIEN 1 1 AND T VISIT PEDIATRIC 15 S & INTER MINUTES [facility] [place] [address] 1 N INPATIENT COMMUNITY HOSPITA OFFICE 74444 BRISEYDA RAIN OUTPATIEN 0 0 KARI KARI T NEW 10 MINUTES OFFICE 27796 GARG, ZACARIAS GARG 8 8 YOHANA Toribio T VISIT 15 MINUTES OFFICE 63408 [facility] [place] [facility] MINUTES OFFICE 59125 [facility], OUTPATIEN 8 8 FOR JOSE Davidson NEW 10 ORAL&MAXI MINUTES LLOFACIAL SURGERY
--- OUTSIDE RECORDS SUMMARY | 2017-06-07 16:28 | External Medical Summary Rpt | CCD ---
Author Author , PAULINA WILSONJAMES Address Unknown Phone [email or web address] Care Team Providers Care Orthophoto Tech/Draftsman Name Role Phone BAKARI RAÚL, BAKARI Unavailable [...] Unavailable PAT, CELLAROSI - YORBA PAT [facility] Unavailable Unavailable ADVANCED MAZA, [facility] AD[facility]ANCED [facility], Unavailable Unavailable [facility] 2332, Unavailable Unavailable [facility] 2332 [facility] & Unavailable Unavailable EDUCATION, [facility] & Unavailable Unavailable EDUCATION, [facility] Unavailable Unavailable SERVICES, [facility] Unavailable Unavailable [facility], [facility] FARAGASSO DEV, Unavailable Unavailable FARAGASSO DEV BLANCHE STODDARD Unavailable Unavailable BLANCHE BERGER Unavailable Unavailable [facility] Unavailable Unavailable HOSPITA, [facility] Unavailable Unavailable HOSPITA, [facility], [facility] Unavailable Unavailable EMS, [facility] PATRICE RHO, PATRICE Unavailable Unavailable [...] KARI RAIN KARI, Unavailable Unavailable RAIN KARI [facility], Unavailable Unavailable [facility] Unavailable Unavailable [...] [place] NURSE Unavailable Unavailable PRACTITIONER GR, KM NURSE PRACTITIONER GR ARABELLA BALDERAS Unavailable Unavailable [facility] # Unavailable Unavailable [id number], [facility] # [id number] [facility] Unavailable Unavailable [facility], [facility] Unavailable Unavailable [facility], [facility] Un[facility] Unavailable [facility], [facility], Unavailable Unavailable [facility] JAVIER ANT, JAVIER ANT Unavailable Unavailable MAJMUDAR, MAJMUDAR Unavailable Unavailable [facility] Unavailable Unavailable SERVICES, [facility] MATT GUTIERREZ Unavailable Unavailable MATT [...] [facility] Unavailable Unavailable [facility]Y [facility], [facility] Unavailable Unavailable EMERGENCY SERV, [facility] Unavailable Unavailable EMERGENCY SERVI, [facility] Unavailable Unavailable PHYSICIAN SERVI, [facility] KESSLER RYA, KESSLER Unavailable Unavailable RYA KESSLER RYA, KESSLER Unavailable Unavailable RYA QUAN ADWOA, QUAN Unavailable Unavailable ADWOA VORKPOR EDWAR, VORKPOR Unavailable Unavailable EDWAR [id number] # Unavailable Unavailable [id number], [id number] # [id number] [facility], WELLS Unavailable Unavailable [facility], [facility] Unavailable Unavailable RICHARD MAT, RICHARD MAT Unavailable Unavailable Purpose Continuity of Care Document - 02-13-2008 through 2016 Problems Code Diagnosis DOS Provider Status [id number] TYPE 2 05-09-2017 [facility] W/HYPOGLYCE SAMUEL W/O COMA K529 NONINFECTIV 05-09-2017 [facility] ITIS & COLITIS UNS Z0389 ENCOUNTER 05-09-2017 [facility] SUSPCT DZ & PLLC COND RULED OUT R1013 EPIGASTRIC 04-24-2017 [facility] R109 UNSPECIFIED 04-05-2017 [...] 02-27-2017 [facility] W/DIABETIC L AUTONOMIC POLYNEUROPA THY [id number] FRACTURE 10-03-2016 [facility] COCCYX L INITIAL ENCNTR FOR CLOS FRACTURE E1165 TYPE 2 09-14-2016 [facility] DIABETES COMMUNTIY MELLITUS HOSPITA WITH HYPERGLYCEM [place] H27241 GENERALIZED 09-14-2016 [facility] ABDOMINAL COMMUNTIY TENDERNESS HOSPITA R112 NAUSEA WITH 09-14-2016 [facility] VOMITING N EMERGENCY UNSPECIFIED PHYS R197 DIARRHEA 09-14-2016 [facility] UNSPECIFIED N EMERGENCY PHYS R51 HEADACHE 09-14-2016 [facility] COMMUNTIY HOSPITA R739 HYPERGLYCEM 09-14-2016 [facility] IA N EMERGENCY UNSPECIFIED PHYS Z720 TOBACCO USE 09-14-2016 [facility] COMMUNTIY HOSPITA 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 [facility] 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 USE COMMUNTIY OF INSULIN HOSPITA E1310 OTHER 09-06-2016 [facility] SPECIFIED MEDICINE DIAB SERVICES O W/KETOACIDO SIS W/O COMA E860 DEHYDRATION 09-06-2016 [facility] N [facility]ERGENCY SERV I10 ESSENTIAL 09-06-2016 [facility] PRIMARY MEDICINE HYPERTENSIO SERVICES O N I959 HYPOTENSION 09-06-2016 [facility] N EMERGENCY UNSPECIFIED SERV N179 ACUTE 09-06-2016 [facility] KIDNEY N EMERGENCY FAILURE SERV UNSPECIFIED E1169 TYPE 2 08-31-2016 [facility] DIABETES N EMERGENCY MELLITUS SERVI W/OTH SPEC COMPLICATIO N E872 ACIDOSIS 08-31-2016 [facility] N EMERGENCY SERVI M533 SACROCOCCYG 08-31-2016 [facility] DISORDERS NEC M545 LOW BACK 08-31-2016 [facility] EMS R531 WEAKNESS 08-31-2016 [facility] R5381 OTHER 08-31-2016 [facility] [facility] [id number] UNS 08-31-2016 [facility] FRACTURE N EMERGENCY SACRUM [...] K3184 GASTROPARES 06-02-2016 [facility] IS L MAT T19221 PAIN IN 05-05-2016 [facility] [place] RIGHT [place] RADIOLOGY M7711 LATERAL 05-05-2016 [facility] EPICONDYLIT N EMERGENCY IS RIGHT SERVI ELBOW R1110 VOMITING 03-02-2016 [facility] UNSPECIFIED COMMUNTIY HOSPITA Z5321 PROC & TX 03-02-2016 [facility] NOT CARRIED COMMUNTIY OUT PT HOSPITA LEAVE PRIOR TO SEEN N521 ERECTILE 12-25-2015 [facility] DYSFUNCTION L MAT DUE TO DISEASES CLASS ELSW R1012 LEFT UPPER 05-06-2016 [facility] [place] [facility] PAIN Z1211 ENCOUNTER 12-02-2015 [place] [facility] GROUP PS NEOPLASM OF COLON R1011 RIGHT UPPER 11-07-2015 [facility] COMMUNTIY PAIN HOSPITA Z125 ENCOUNTER 10-29-2015 [facility] MALIGNANT NEOPLASM PROSTATE B354 TINEA 09-15-2015 [facility] CORPORIS COMMUNTIY HOSPITA B358 OTHER 09-15-2015 [facility] DERMATOPHYT OSES L0201 CUTANEOUS 09-15-2015 [facility] ABSCESS OF COMMUNTIY FACE HOSPITA L723 SEBACEOUS 09-15-2015 [facility] CYST COMMUNTIY HOSPITA E0841 DM D/T 07-30-2015 [facility] UNDERLYING L MAT COND W/DIABETIC MONONEUROPA THY A084 VIRAL 07-20-2015 [facility] INTESTINAL COMMUNTIY INFECTION HOSPITA UNSPECIFIED R85292 TYPE 1 DM 07-20-2015 [facility] W/UNS DIAB COMMUNTIY RETINPATH HOSPITA W/O MACULAR EDEMA R000 TACHYCARDIA 07-20-2015 [facility] UNSPECIFIED 15154 DIAB W/O 04-14-2015 [facility] COMP TYPE DIAGNOSTICS II/UNS NOT STATED UNCNTRL 27597 DIAB 04-14-2015 [facility] W/NEURO L MANIFESTS TYPE II/UNS NOT UNCNTRL 3572 POLYNEUROPA 04-14-2015 [facility] THY IN L DIABETES V5867 LONG-TERM 04-14-2015 [facility] USE OF L INSULIN 62823 DIAB W/O 01-18-2015 [facility] LLOYD COMP TYPE I [JUV] NOT STATED UNCNTRL 65030 NAUSEA WITH 01-18-2015 [facility] LLOYD VOMITING 72719 PLANTAR 11-14-2014 [facility] FIBROMATOSI ANKLE CE S 7295 PAIN IN 11-14-2014 [place] [facility] TISSUES OF ANKLE CE LIMB 3671 MYOPIA 08-12-2014 MUHA JAVI 3559 MONONEURITI 07-02-2014 [facility] S OF DIAGNOSTICS UNSPECIFIED SITE 56367 DIAB W/O 06-19-2014 [facility] MENTION CARE & COMP TYPE I EDUCATION [JUV TYPE] UNCNTRL 36774 OSTEOARTHRO 04-07-2014 [facility] UNSPEC RADIOLOGY WHETHER GEN/LOC LOWER LEG 19760 OBSTRUCTIVE 12-27-2013 [facility] SLEEP APNEA 90333 OTHER 12-27-2013 [facility] ALTERATION [facility] [address] UNSPECIFIED 12-27-2013 [facility] SLEEP [facility] APNEA HOSPITA 1105 DERMATOPHYT 12-20-2013 [facility] OSIS OF THE L MAT BODY 93921 ESOPHAGEAL 12-20-2013 [facility] REFLUX L MAT 5363 GASTROPARES 11-25-2013 [place] [address] NAUSEA 11-25-2013 [facility] ALONE 4778 ALLERGIC 11-21-2013 [facility] RHINITIS L MAT DUE TO OTHER ALLERGEN 24139 UNSPECIFIED 11-21-2013 [facility] L MAT ARTHROPATHY SITE UNSPECIFIED 4659 ACUTE URIS 11-10-2013 KESSLER RYA OF UNSPECIFIED SITE 4739 UNSPECIFIED 11-10-2013 [facility] [place] SINUSITIS 7862 COUGH 11-10-2013 [facility] 7241 PAIN IN 10-22-2013 [facility] [place] THORACIC [facility] SPINE 7242 LUMBAGO 10-22-2013 [facility] HOSPITA 66096 DIAB W/O 10-14-2013 [facility] MENTION N PHYSICIAN COMP TYPE SERVI II/UNS TYPE UNCNTRL 47537 DIABETES 10-14-2013 [facility] W/KETOACIDO N PHYSICIAN SIS TYPE SERVI II/UNS TYPE UNCNTRL 66913 DEHYDRATION 10-14-2013 [facility] N PHYSICIAN SERVI 5849 ACUTE 10-14-2013 [facility] KIDNEY N PHYSICIAN FAILURE SERVI UNSPECIFIED 52813 DIAB 10-13-2013 [facility] W/KETOACIDO N EMERGENCY S TYPE I PHYSI [JUV] NOT STATE UNCNTRL 92145 DIAB W/OTH 10-13-2013 [facility]- MANIFESTS DE CO TYPE II/UNS EMS NOT UNCNTRL 57628 SINOATRIAL 10-13-2013 [facility]- NODE DE CO DYSFUNCTION EMS 37846 VOMITING 10-13-2013 [facility]- ALONE DE CO EMS 28340 OTHER 10-13-2013 [facility]- ABNORMAL DE CO GLUCOSE EMS 36700 DIABETES 08-14-2013 [facility] DALYU W/KETOACIDO SIS TYPE I [JUV] UNCNTRL 54460 OTHER ACUTE 01-31-2011 [facility] EXTERNA & INTER 77289 TOB USE D/O 01-31-2011 [facility] COMP PG [facility]ED[facility] /PP & INTER UNSPEC EPIS CARE/NA 7569 OTH&UNSPEC 01-31-2011 [facility] 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 06603 UNSPECIFIED 01-31-2011 [facility] SLEEP [facility] DISTURBANCE & INTER 7919 OTHER 01-31-2011 [facility] NONSPECIFIC [facility]EDIATRICS FINDING & INTER EXAMINATION OF URINE 4519 PHLEBITIS&T 12-01-2010 [facility] HROMBOPHLEB [facility]EDIATRICS ITIS OF & INTER UNSPECIFIED SITE 22999 SHORTNESS 11-05-2010 [facility] [place] AD[facility]ED [facility]ZA 08372 ABDOMINAL 10-27-2010 [facility] PAIN, [facility] UNSPECIFIED HOSPITA SITE 69959 OTHER 10-20-2010 [facility] SPECIFIED [facility]EDIATRICS DISORDER OF & INTER THE ESOPHAGUS 7245 UNSPECIFIED 10-20-2010 [facility] BACKACHE PEDIATRICS & INTER 2762 ACIDOSIS 10-09-2010 [facility] & INTER 5609 UNSPECIFIED 10-09-2010 [facility] INTESTINAL [facility] & INTER OBSTRUCTION 2753 DISORDERS 10-07-2010 [facility] PHOSPHORUS HOSPITA METABOLISM 2768 HYPOPOTASSE 10-07-2010 [facility] HOSPITA 30362 LEUKOCYTOSI 10-07-2010 [facility] UNSPECIFIED SERVICES 5362 PERSISTENT 10-07-2010 [facility] 5601 PARALYTIC 10-07-2010 [facility] ILEUS [facility] HOSPITA 5758 OTHER 10-07-2010 [facility] [place] SPECIFIED RADIOLOGY DISORDER OF GALLBLADDER 5780 HEMATEMESIS 10-07-2010 [facility] HOSPITA 5789 UNSPECIFIED 10-07-2010 [facility] OF SERVICES GASTROINTES TINAL TRACT 5589 OTH&UNSPEC 10-06-2010 [facility] NONINFECTIO EMERGENCY US SERVICES GASTROENTER ITIS&COLITI S 7850 UNSPECIFIED 09-21-2010 [facility] 31597 DIAB 09-12-2010 [facility]/NE[facility]O COMMUNITY MANIFESTS HOSPITA TYPE I [JUV TYPE] UNCNTRL 7840 HEADACHE 09-12-2010 [facility] [place] [facility] 20372 ABDOMINAL 09-12-2010 [facility] PAIN, LEFT [facility] UPPER HOSPITA QUADRANT 74714 ABDOMINAL 09-12-2010 [facility] PAIN, [facility] EPIGASTRIC HOSPITA 5253 RETAINED 06-08-2010 [facility] K[facility]I 5264 INFLAMMATOR 06-08-2010 RAIN Y KARI CONDITIONS OF JAW 43330 DIAB 02-14-2008 [facility] C[facility] TYPE II/UNS NOT UNCNTRL 90760 REGULAR 02-14-2008 [facility] 81861 DEGEN 02-14-2008 [facility] THORACIC/TH M ORACOLUMBAR [...] 82 8- 6- 00 00 SI ve OR 07 20 20 50 DE IL 41 [...] 82 7- 5- 00 00 SI ve OR 07 20 20 49 DE IL 41 [...] 07 08 60 30 00 EA Ac OR 46 -2 -[address] ti [...] 17 73 S E 9 46 #1 OR 20 OP 75 50 MC G SP [...] IN 11 04 05 60 30 00 [facility] MAZA 91 -2 -2 .0 00 LG ti LI 70 8- 6- 00 RE ve N 04 20 20 41 EN SY 81 17 17 69 S RI 4 11 #1 N 20 0. 75 5 ML 31 GX 5/ 16 " FR 99 05 05 10 25 00 [facility] EE 07 -0 -2 0. [address] 30 1- 6 00 RE ve YL 70 20 20 0 42 EN E 82 17 17 81 S LI 7 24 #1 TE [address] RI P BA 00 05 05 15 30 00 [facility] SA 00 -0 -2 .0 00 LG ti GL 27 1- 6 00 RE ve AR 71 20 20 42 EN 55 17 17 83 S 10 9 00 #1 0 20 UN 75 IT /M L KW IK PE N UL 08 05 05 10 25 00 [facility] TI 22 -0 -2 0. 00 LG ti CA 20 1- 6- 00 RE ve RE 95 20 20 0 42 EN 83 17 17 83 S PE 1 02 #1 N 20 NE 75 ED LE S 8M M 31 G SI 68 04 05 30 30 00 [facility] MV 18 -2 -1 .0 00 LG ti 00 6 00 RE ve TA 47 20 20 41 EN TI 80 17 17 50 S N 3 62 #1 10 20 75 MG TA BL ET TR 60 04 05 30 30 00 [facility] AZ 50 -2 -1 .0 00 LG ti OD 52 6- 9- 00 00 RE ve ON 65 20 20 40 EN E 50 17 17 46 S 15 1 68 #1 0 20 MG 75 TA BL ET FL 00 04 05 16 30 00 [facility] UT 05 -2 -1 .0 00 LG ti IC 43 6- 9- 00 00 RE ve 27 20 20 42 EN ON 09 17 17 73 S E 9 46 #1 OR 20 OP 75 50 MC G SP [...] NO 00 7- 2- 00 RE ve OR 51 20 20 41 EN IL 40 17 17 87 S 3 96 #1 10 20 75 MG TA BL ET FL 00 04 05 30 30 00 VT Ac UO 78 -1 -1 .0 00 LG ti XE 12 7- 2- 00 00 RE ve TI 82 20 20 42 EN NE 20 17 17 55 S 1 03 #1 HC 20 L 75 20 MG CA PS UL E FR 99 04 05 10 25 00 VT Ac EE 07 -1 -0 0. [address] 30 2- 5- 00 00 RE ve YL 13 20 20 0 39 EN E 00 17 17 08 S 28 1 78 #1 G 20 LA 75 NC ET S TR 60 03 04 30 30 00 VT Ac AZ 50 -3 -2 .0 00 LG ti OD 52 0- 8- 00 00 RE ve ON 65 20 20 40 EN E 50 17 17 46 S 15 1 68 #1 0 20 MG 75 TA BL ET IN 11 03 04 60 30 00 [facility] Ac MAZA 91 -3 -2 .0 00 LG ti LI 70 0- 8- 00 00 RE ve N 04 20 20 41 EN SY 81 17 17 69 S RI 4 11 #1 N 20 0. 75 5 ML 31 GX 5/ 16 " FR 99 04 04 10 25 00 VT Ac EE 07 -0 -2 0. [address] 30 4- 8- 00 00 RE ve YL 70 20 20 0 38 EN E 82 17 17 27 S LI 7 72 #1 TE [address] RI P LA 00 03 04 10 28 00 VT Ac NT 08 -2 -2 .0 00 LG ti US 82 4- 1- 00 00 RE ve 22 20 20 42 EN 10 03 17 17 09 S 0 3 44 #1 UN 20 IT 75 /M L AL FL 60 03 04 16 30 00 VT Ac UT 50 -2 -2 .0 00 LG ti IC 50 6- 1- 00 00 RE ve 82 20 20 42 EN ON 90 17 17 12 S E 1 74 #1 OR 20 OP 75 50 MC G SP RA Y SI 68 03 04 30 30 00 VT Ac MV 18 -2 -2 .0 00 [...] NO 00 4- 7- 00 RE ve OR 51 20 20 41 EN IL 40 [...] 17 50 S E 1 51 #1 OR 20 OP 75 50 MC G SP [...] LI 68 02 03 30 30 00 VT Ac SI 18 -1 -1 .0 00 LG ti NO 00 3- 0- 00 00 RE ve OR 51 20 20 39 EN IL 40 17 17 02 S 3 30 #1 10 20 75 MG TA BL ET FR 99 02 03 10 25 00 VT Ac EE 07 -1 -1 0. [address] 30 4- 0- 00 00 RE ve YL 70 20 20 0 38 EN E 82 17 17 27 S LI 7 72 #1 TE [address] RI P HY 00 02 03 20 [address] 59 -2 -1 .0 00 LG ti OC 12 0- 0- 00 00 RE ve OD 60 20 20 41 EN ON 50 17 17 40 S -A 5 84 #1 CE 20 TA 75 NE NO PH 7. 5- 32 5 LA 00 02 03 10 28 00 VT Ac NT 08 -2 -1 .0 00 LG ti US 82 2- 0- 00 00 RE ve 22 20 20 38 EN 10 03 17 17 20 S 0 3 71 #1 UN 20 IT 75 /M L AL TR 60 02 03 30 30 00 VT Ac AZ 50 -0 -0 .0 00 [...] 5 78 #1 CE 20 TA 75 NE NO PH 7. 5- 32 5 IN 11 02 03 10 30 00 VT Ac MAZA 91 -0 -0 0. 00 [...] GA 00 01 02 12 30 00 VT Ac BA 09 -3 -2 0. 00 LG ti PE 34 0- 4- 00 00 RE ve NT 44 20 20 0 40 EN IN 40 17 17 95 S 5 43 #1 80 20 0 75 MG TA BL ET FR 99 01 02 10 25 00 VT Ac EE 07 -3 -2 0. [address] 30 1- 4- 00 00 RE ve YL 13 20 20 0 39 EN E 00 17 17 08 S 28 1 78 #1 G 20 LA 75 NC ET S OR 68 02 02 20 5 00 WA [...] 17 88 S E 1 04 #1 OR 20 OP 75 50 MC G SP [...] ST 00 01 02 60 30 00 VT Ac OO 53 -2 -1 .0 00 LG ti L 61 3- 7- 00 00 RE ve SO 06 20 20 40 EN FT 50 17 17 80 S EN 1 57 #1 ER 20 75 24 0 MG SO FT GE L HY 00 01 02 60 [address] 59 -2 -1 .0 00 LG ti OC 12 3- 7- 00 00 RE ve OD 60 20 20 40 EN ON 50 17 17 80 S -A 5 58 #1 CE 20 TA 75 NE NO PH 7. 5- 32 5 LI 68 01 02 30 30 00 VT Ac SI 18 -1 -1 .0 00 LG ti NO 00 7- 0- 00 00 RE ve OR 51 20 20 39 EN IL 40 17 17 02 S 3 30 #1 10 20 75 MG TA BL ET FL 00 01 02 30 30 00 VT Ac UO 78 -1 -1 .0 00 [...] TR 60 01 02 30 30 00 VT Ac AZ 50 -0 -0 .0 00 [...] FL 50 12 01 16 30 00 VT Ac UT 38 -2 -2 .0 00 LG ti IC 30 7- 0- 00 00 RE ve 70 20 20 38 EN ON 01 16 17 59 S E 6 83 #1 OR 20 OP 75 50 MC G SP RA Y FR 99 12 01 10 25 00 VT Ac EE 07 -2 -2 0. [address] 30 8- 0- 00 00 RE ve YL 70 20 20 0 38 EN E 82 16 17 27 S LI 7 72 #1 TE [address] RI P LA 00 12 01 10 28 00 VT Ac NT 08 -2 -2 .0 00 LG ti US 82 8- 0- 00 00 RE ve 22 20 20 38 EN 10 03 16 17 20 S 0 3 71 #1 UN 20 IT 75 /M L AL SI 68 12 01 30 30 00 VT Ac MV 18 -2 -2 .0 00 LG ti 00 7- 0- 00 00 RE ve TA 47 20 20 39 EN TI 80 16 17 17 S N 3 15 #1 10 20 75 MG TA BL ET FR 99 12 01 10 25 00 VT Ac EE 07 -1 -1 0. [address] 30 7- 3- 00 00 RE ve YL 13 20 20 0 39 EN E 00 16 17 08 S 28 1 78 #1 G 20 LA 75 NC ET S LI 68 12 01 30 30 00 VT Ac SI 18 -2 -1 .0 00 LG ti NO 00 0- 3- 00 00 RE ve OR 51 20 20 39 EN IL 40 16 17 02 S 3 30 #1 10 20 75 MG TA BL ET FL 00 12 01 30 30 00 VT Ac UO 78 -2 -1 .0 00 [...] #1 UL CE 20 W TA 75 NE # NO PH 12 EN 07 5 [...] ve G 68 20 20 6 GH NE 51 11 11 PH X 2 AR AN [address] -3 CY EW 0 # P AL 24 70 9 CI 55 06 06 0 20 10 KR 64 BA Ac OR 11 -2 -2 .0 OG 93 LB [...] 0- 0- 00 ER 66 AU ve OR 40 20 20 3 GH IL 60 [...] 4 GH ZA 10 11 11 PH OR 6 AR AN IN MA DR E [...] 4 GH ZA 10 11 11 PH OR 6 AR AN IN MA DR E [...] P TA BL 24 ET 70 9 OR 68 02 02 0 12 3 KR [...] 10 10 PH FA AC 1 AR NE ET MA LY AM CY & IN # OP CO HE 24 SM N 70 ET 5- 9 IC 32 5 DE NT IS TR Y 00 10 10 0 20 2 KR 45 AD Ac 40 -1 -1 .0 OG 67 KI ti 60 3- 3- 00 ER 79 NS ve 35 20 20 8 70 10 10 PH FA 5 AR NE MA LY CY & # CO 24 [...] 70 10 10 PH FA 5 AR NE MA LY CY & # CO 24 [...] 06 10 02 10 30 J 75 OR Ac VO 16 -3 -0 .0 & [...] Procedure DOS Code Location Performer Comment ECG 23644 [facility] ROUTINE 7 PHYSICIAN ECG S, PLLC W/LEAST 12 LDS I&R ONLY HEPATOBIL 91805 [facility] SYST 7 MEDICAL IMAG INC IMAGING [place] ASS W/[place] [address] [facility] ABDOMEN & 7 MEDICAL PELVIS IMAGING W/O ASS CONTRAST MATERIAL FINAL G9638 [facility] REPORTS 7 MEDICAL W/O DOC IMAGING 1/MORE ASS DOSE REDUCTION TECH FINAL G9551 [facility] REPR ABD 7 MEDICAL IMAG STS IMAGING W/O ASS INCIDNT FND LES [place]: [place] [address] [place] [facility] ABDOMINAL 7 MEDICAL REAL IMAGING TIME ASS W/IMAGE LIMITED LIPID 99570 [facility] PANEL 7 [facility] INC INC COMPREHEN 99826 [facility] MAC SIVE 7 [facility] METABOLIC INC INC PANEL BLOOD 15359 [facility] MAC COUNT 7 [facility] COMPLETE INC INC AUTO&AUTO DIFRNTL WBC HEMOGLOBI 04525 [facility] MAC N 7 [facility] GLYCOSYLA INC INC NICHOLAS A1C HEPATITIS 76730 [facility] MAC C 7 [facility] ANTIBODY INC INC HEPATITIS 10243 [facility] B[facility] A 7 [facility] ANTIBODY INC INC HAAB HEPATITIS 77386 B[facility] MAC B CORE 7 [facility] [place] [address] [facility] MAC HEPATITIS 7 [facility] B INC INC SURFACE ANTIGEN DIAB ONLY A5500 [facility] CSTM 7 MEDICAL MEDICAL PREP&SPL SUPPLY SUPPLY [employer] DNSITY INSRT FOR DIAB A5512 [facility] ONLY MX 7 MEDICAL MEDICAL DNSITY SUPPLY SUPPLY [employer] FORMD PRFAB EA AMB [id number] [facility] SERVICE 7 [facility] [place] ALS CO EMS CO EMS EMERGENCY TRANSPORT LEVEL 1 THER 73690 [facility] PROPH/DX 7 N N NJX IV COMMUNTIY COMMUNTIY PUSH HOSPITA HOSPITA SINGLE/1S T SBST/DRUG KETONE 94033 [facility] BODIES 7 N N SERUM COMMUNTIY COMMUNTIY QUALITATI [place] [address] [facility] LIPASE 7 N N COMMUNTIY COMMUNTIY HOSPITA HOSPITA INFUSION J7030 [facility] NORMAL 7 N N SALINE COMMUNTIY COMMUNTIY SOLUTION HOSPITA HOSPITA 1000 CC GROUND A0425 [facility] MILEAGE 7 [facility] [place] PER CO EMS CO EMS STATUTE MILE GLUC BLD 31891 [facility] GLUC MNTR 7 N N DEV COMMUNTIY COMMUNTIY CLEARED HOSPITA HOSPITA FDA SPEC HOME USE THERAPEUT 06085 [facility] IC 7 N N INJECTION COMMUNTIY COMMUNTIY IV PUSH HOSPITA HOSPITA EACH NEW DRUG URNLS DIP 57710 [facility] 7 N N STICK/TAB COMMUNTIY COMMUNTIY LET HOSPITA [place] [address] [facility] INFUSION 7 N N HYDRATION COMMUNTIY COMMUNTIY EACH HOSPITA HOSPITA ADDITIONA L HOUR BLOOD 88673 [facility] COUNT 7 N N COMPLETE COMMUNTIY COMMUNTIY AUTO&AUTO HOSPITA [place] [address] [facility] LACTATE 7 N N COMMUNTIY COMMUNTIY HOSPITA HOSPITA COMPREHEN 01168 [facility] SIVE 7 N N METABOLIC COMMUNTIY COMMUNTIY PANEL HOSPITA HOSPITA ECG [id number] [facility] ROUTINE 7 [place] ECG EMERGENCY W/LEAST SERV 12 LDS I&R ONLY INITIAL 08091 [facility] 7 MEDICINE CARE/DAY SERVICES 30 O MINUTES SBSQ [id number] [facility] 7 N FAMILY CARE/DAY PRACTICE 25 MINUTES SBSQ [id number] [facility] 7 N FAMILY CARE/DAY PRACTICE 25 MINUTES GROUND [id number] [facility] [place] [address] [facility] [place] [facility]/BRAI 7 RADIOLOGY N W/O CONTRAST MATERIAL RADIOLOGI 82319 [facility] [place] [facility] C 7 RADIOLOGY EXAMINATI ON CHEST SINGLE VIEW FRONTAL AMB [id number] [facility] SERVICE 7 [place] ALS CO EMS CO EMS EMERGENCY TRANSPORT LEVEL 1 ECG [id number] [facility] ROUTINE 7 [place] ECG EMERGENCY W/LEAST SERVI 12 LDS I&R ONLY RADEX 92785 [facility] [place] [facility] SPINE 7 RADIOLOGY LUMBOSACR AL 2/3 VIEWS RADEX 80983 [facility] [place] [facility] SACRUM & 7 RADIOLOGY [place] [address] [place] [address] [facility] [place] PATRICE ABDOMEN & 6 RADIOLOGY RHO PELVIS W/O CONTRAST MATERIAL GLUC BLD 49975 [facility] QUAN GLUC MNTR 6 NURSE ADWOA DEV PRACTITIO CLEARED NER GR FDA SPEC HOME USE HEMOGLOBI 14495 [facility] QUAN N 6 NURSE ADWOA GLYCOSYLA PRACTITIO NICHOLAS A1C NER GR HEMOGLOBI 89796 [facility] N 6 N N GLYCOSYLA COMMUNTIY COMMUNTIY NICHOLAS A1C HOSPITA HOSPITA GLUC BLD 76180 [facility] GLUC MNTR 6 N N DEV COMMUNTIY COMMUNTIY CLEARED HOSPITA HOSPITA FDA SPEC HOME USE COMPREHEN 63416 [facility] SIVE 6 N N METABOLIC COMMUNTIY COMMUNTIY PANEL HOSPITA HOSPITA INJECTION [id number] [facility] MORPHINE 6 N N SULFATE COMMUNTIY COMMUNTIY UP TO 10 HOSPITA HOSPITA MG COLLECTIO 44679 [facility] N VENOUS 6 N N BLOOD COMMUNTIY COMMUNTIY VENIPUNCT HOSPITA HOSPITA URE BLOOD 62280 [facility] COUNT 6 N N COMPLETE COMMUNTIY COMMUNTIY AUTO&AUTO HOSPITA HOSPITA DIFRNTL WBC OBSERVATI 98762 [facility] CARE 6 ELL MAT ELL MAT DISCHARGE MANAGEMEN T THER 70130 [facility] PROPH/DX 6 N N NJX EA COMMUNTIY COMMUNTIY SEQL IV HOSPITA HOSPITA PUSH SBST/DRUG FAC INJECTION C9113 [facility] 6 N N PANTOPRAZ COMMUNTIY COMMUNTIY OLE HOSPITA [place] [address] [facility] MAGNESIUM 6 N N COMMUNTIY [place] [address] [facility] PHOSPHORU 6 N N S COMMUNTIY COMMUNTIY INORGANIC HOSPITA HOSPITA THERAPEUT 66394 [facility] IC 6 N N PROPHYLAC COMMUNTIY COMMUNTIY TIC/DX HOSPITA HOSPITA INJECTION SUBQ/IM THERAPEUT 76985 [facility] IC 6 N N PROPHYLAC COMMUNTIY COMMUNTIY TIC/DX HOSPITA HOSPITA INJECTION SUBQ/IM INJECTION [id number] [facility] CALCIUM 6 N N GLUCONATE COMMUNTIY COMMUNTIY PER [address] [place] [address] [facility] MAGNESIUM 6 N N COMMUNTI[place] [address] [facility] PHOSPHORU 6 N N S COMMUNTIY COMMUNTIY INORGANIC HOSPITA HOSPITA INJECTION C9113 [facility] 6 N N PANTOPRAZ COMMUNTIY COMMUNTIY OLE HOSPITA HOSPITA SODIUM PER VIAL THER 31324 [facility] PROPH/DX 6 N N NJX EA COMMUNTIY COMMUNTIY SEQL IV HOSPITA HOSPITA PUSH SBST/DRUG FAC INFUSION J7030 [facility] NORMAL 6 N N SALINE COMMUNTIY COMMUNTIY SOLUTION HOSPITA HOSPITA 1000 CC BLOOD 74771 [facility] COUNT 6 N N COMPLETE COMMUNTIY COMMUNTIY AUTO&AUTO HOSPITA HOSPITA DIFRNTL WBC INJECTION J2550 [facility] 6 N N PROMETHAZ COMMUNTIY COMMUNTIY INE HCL HOSPITA HOSPITA UP TO 50 MG INJECTION J2270 [facility] MORPHINE 6 N N SULFATE COMMUNTIY COMMUNTIY UP TO 10 HOSPITA HOSPITA MG INITIAL 33672 [facility] B[facility] OBSERVATI 6 ELL MAT ELL MAT ON CARE/DAY 50 MINUTES COMPREHEN 68140 [facility] SIVE 6 N N METABOLIC COMMUNTIY COMMUNTIY PANEL HOSPITA HOSPITA GLUC BLD 84307 [facility] GLUC MNTR 6 N N DEV COMMUNTIY COMMUNTIY CLEARED HOSPITA HOSPITA FDA SPEC HOME USE HEMOGLOBI 74283 [facility] N 6 N N GLYCOSYLA COMMUNTIY COMMUNTIY NICHOLAS A1C HOSPITA HOSPITA THERAPEUT 89304 [facility] IC 6 N N INJECTION COMMUNTIY COMMUNTIY IV PUSH HOSPITA HOSPITA EACH NEW DRUG NONINVASI 06473 [facility] VE 6 N N EAR/PULSE COMMUNTIY COMMUNTIY OXIMETRY HOSPITA HOSPITA SINGLE DETER COLLECTIO 51874 [facility] N VENOUS 6 N N BLOOD COMMUNTIY COMMUNTIY VENIPUNCT HOSPITA HOSPITA URE PROTHROMB 59039 [facility] IN TIME 6 N N [place] [address] [facility] INFUSION 6 N N THERAPY/P COMMUNTIY COMMUNTIY ROPHYLAXI HOSPITA HOSPITA S /DX 1ST TO 1 [place] [address] [facility] INFUSION 6 N N HYDRATION COMMUNTIY COMMUNTIY EACH HOSPITA HOSPITA ADDITIONA L HOUR COLLECTIO 41245 [facility] N VENOUS 6 N N BLOOD COMMUNTIY COMMUNTIY VENIPUNCT HOSPITA HOSPITA URE THERAPEUT 21019 [facility] IC 6 N N INJECTION COMMUNTIY COMMUNTIY IV PUSH HOSPITA HOSPITA EACH NEW DRUG ARTERIAL 00480 [facility] PUNCTURE 6 N N WITHDRAWA COMMUNTIY COMMUNTIY L BLOOD HOSPITA HOSPITA DX GLUC BLD 60958 [facility] GLUC MNTR 6 N N DEV COMMUNTIY COMMUNTIY CLEARED HOSPITA HOSPITA FDA SPEC HOME USE BLOOD 15125 [facility] GASES ANY 6 N N COMMUNTIY COMMUNTIY COMBINATI HOSPITA HOSPITA ON PH PCO2 PO2 CO2 HCO3 URNLS DIP 73348 [facility] 6 N N STICK/TAB COMMUNTIY COMMUNTIY LET HOSPITA HOSPITA REAGENT AUTO MICROSCOP Y TOBACCO 98324 [facility] USE 6 N N CESSATION COMMUNTIY COMMUNTIY HOSPITA HOSPITA INTERMEDI ATE 3-10 MINUTES COMPREHEN 06827 [facility] SIVE 6 N N METABOLIC COMMUNTIY COMMUNTIY PANEL HOSPITA HOSPITA INJECTION J2270 [facility] MORPHINE 6 N N SULFATE COMMUNTIY COMMUNTIY UP TO 10 HOSPITA HOSPITA MG INJECTION J1815 [facility] INSULIN 6 N N PER 5 COMMUNTIY COMMUNTIY UNITS HOSPITA HOSPITA INJECTION J2550 [facility] 6 N N PROMETHAZ COMMUNTIY COMMUNTIY INE HCL HOSPITA HOSPITA UP TO 50 MG BLOOD 31189 [facility] COUNT 6 N N COMPLETE COMMUNTIY COMMUNTIY AUTO&AUTO HOSPITA HOSPITA DIFRNTL WBC INFUSION J7030 [facility] NORMAL 6 N N SALINE COMMUNTIY COMMUNTIY SOLUTION HOSPITA HOSPITA 1000 CC THER 37263 [facility] PROPH/DX 6 N N NJX EA COMMUNTIY COMMUNTIY SEQL IV HOSPITA HOSPITA PUSH SBST/DRUG FAC INJECTION J1885 [facility] 6 N N KETOROLAC COMMUNTIY COMMUNTIY HOSPITA HOSPITA TROMETHAM INE PER 15 MG THERAPEUT 07730 [facility] IC 6 N N PROPHYLAC COMMUNTIY COMMUNTIY TIC/DX HOSPITA HOSPITA INJECTION SUBQ/IM KETONE 24483 [facility] BODIES 6 N N SERUM COMMUNTIY COMMUNTIY QUALITAT[place] [address] [facility] LIPASE 6 N N COMMUNTIY COMMUNTIY HOSPITA HOSPITA HOSPITAL G0378 [facility] OBSERVATI 6 N N ON COMMUNTIY COMMUNTIY SERVICE HOSPITA HOSPITA PER HOUR ARTHROCEN 76523 [facility] MICHEAL GRIGSBY 6 [place] LO TRA ASPIR&/IN EMERGENCY J INTERM SERVI JT/BURS W/O US RADEX 23823 [facility] [place] FINCH ELBOW 6 RADIOLOGY JERRI COMPLETE MINIMUM 3 VIEWS COLLECTIO 20518 [facility] N VENOUS 6 N N BLOOD COMMUNTIY COMMUNTIY VENIPUNCT HOSPITA HOSPITA URE GLUC BLD 41573 [facility] GLUC MNTR 6 N N DEV COMMUNTIY COMMUNTIY CLEARED HOSPITA HOSPITA FDA SPEC HOME USE BLOOD 98562 [facility] COUNT 6 N N COMPLETE COMMUNTIY COMMUNTIY AUTO&AUTO HOSPITA HOSPITA DIFRNTL WBC INFUSION J7030 [facility] NORMAL 6 N N SALINE COMMUNTIY COMMUNTIY SOLUTION HOSPITA HOSPITA 1000 CC BASIC 93421 [facility] METABOLIC 6 N N PANEL COMMUNTIY COMMUNTIY CALCIUM HOSPITA HOSPITA TOTAL OBSERVATI 45846 [facility] BIRDWHIST ON CARE 6 ELL MAT ELL MAT DISCHARGE MANAGEMEN T THERAPEUT 59315 [facility] IC 6 N N PROPHYLAC COMMUNTIY COMMUNTIY TIC/DX HOSPITA HOSPITA INJECTION SUBQ/IM THER 48937 [facility] PROPH/DX 6 N N NJX IV COMMUNTIY COMMUNTIY PUSH HOSPITA HOSPITA SINGLE/1S T SBST/[place] [address] [facility] LIPASE 6 N N COMMUNTIY COMMUNTIY HOSPITA HOSPITA KETONE 18664 [facility] BODIES 6 N N SERUM COMMUNTIY COMMUNTIY QUALITATI [place] [address] [facility] PHOSPHORU 6 N N S COMMUNTIY COMMUNTIY INORGANIC HOSPITA HOSPITA HOSPITAL G0378 [facility] OBSERVATI 6 N N ON COMMUNTIY COMMUNTIY SERVICE HOSPITA HOSPITA PER HOUR DRUG TEST G0479 [facility] 6 N N PRESUMP;I COMMUNTIY COMMUNTIY NSTRUMENT HOSPITA HOSPITA ED CHEMISTRY ANLYZER INFUSION J7030 [facility] NORMAL 6 N N SALINE COMMUNTIY COMMUNTIY SOLUTION HOSPITA [address] [place] [address] [facility] [place] SCALF SARA ABDOMEN & 6 RADIOLOGY PELVIS W/O CONTRAST MATERIAL ECG 33325 [facility] ROUTINE 6 N N ECG COMMUNTIY COMMUNTIY W/LEAST HOSPITA HOSPITA 12 LDS TRCG ONLY W/O I&R THERAPEUT 78773 [facility] IC 6 N N PROPHYLAC COMMUNTIY COMMUNTIY TIC/DX HOSPITA HOSPITA INJECTION SUBQ/IM BLOOD 65806 [facility] COUNT 6 N N COMPLETE COMMUNTIY COMMUNTIY AUTO&AUTO HOSPITA [place] [address] [facility] AMYLASE 6 N N COMMUNTIY COMMUNTIY HOSPITA HOSPITA INJECTION J0360 [facility] 6 N N HYDRALAZI COMMUNTIY COMMUNTIY NE HCL UP HOSPITA HOSPITA TO 20 MG INJECTION J2270 [facility] MORPHINE 6 N N SULFATE COMMUNTIY COMMUNTIY UP TO 10 HOSPITA HOSPITA MG COMPREHEN 44934 [facility] SIVE 6 N N METABOLIC COMMUNTIY COMMUNTIY PANEL HOSPITA HOSPITA INITIAL 90632 [facility] BIRD[facility]IST OBSERVATI 6 ELL MAT ELL MAT ON CARE/DAY 50 MINUTES TOBACCO 22581 [facility] USE 6 N N CESSATION COMMUNTIY COMMUNTIY HOSPITA HOSPITA INTERMEDI ATE 3-10 MINUTES GLUC BLD 43940 [facility] GLUC MNTR 6 N N DEV COMMUNTIY COMMUNTIY CLEARED HOSPITA HOSPITA FDA SPEC HOME USE THERAPEUT 36912 [facility] IC 6 N N INJECTION COMMUNTIY COMMUNTIY IV PUSH HOSPITA HOSPITA EACH NEW DRUG URNLS DIP 16798 [facility] 6 N N STICK/TAB COMMUNTIY COMMUNTIY LET HOSPITA HOSPITA REAGENT AUTO MICROSCOP Y COLLECTIO 68148 [facility] N VENOUS 6 N N BLOOD COMMUNTIY COMMUNTIY [place] [address] [facility] INFUSION 6 N N HYDRATION COMMUNTIY COMMUNTIY EACH HOSPITA HOSPITA ADDITIONA L HOUR ECG 60788 [facility] OZOR ROUTINE 6 [place] ECG EMERGENCY W/LEAST PHYS 12 LDS I&R ONLY GLUC BLD 17728 [facility] GLUC MNTR 6 N N DEV COMMUNTIY COMMUNTIY CLEARED HOSPITA HOSPITA FDA SPEC HOME USE COLONOSCO 98199 GASTROENT CASE JUS PY FLX DX 6 EROLOGY W/COLLJ AND SPEC WHEN HEPATOL PFRMD COLOREC G0121 [facility] CANCR 6 N N SCR; COMMUNTIY COMMUNTIY COLNSCPY HOSPITA HOSPITA NOT MEET HI RISK ANES 49854 [place] J[place] ANT LOWER 6 ANESTHESI INTESTINE A GROUP PS ENDOSCOPY DISTAL DUODENUM RINGERS J7120 [facility] LACTATE 6 N N INFUSION COMMUNTIY COMMUNTIY UP TO HOSPITA HOSPITA 1000 CC KETONE 82253 [facility] BODIES 6 N N SERUM COMMUNTIY COMMUNTIY QUALITAT[place] [address] [facility] LIPASE 6 N N COMMUNTIY COMMUNTIY HOSPITA HOSPITA THER 74260 [facility] PROPH/DX 6 N N NJX IV COMMUNTIY COMMUNTIY PUSH HOSPITA HOSPITA SINGLE/1S T SBST/DRUG INFUSION J7030 [facility] NORMAL 6 N N SALINE COMMUNTIY COMMUNTIY SOLUTION HOSPITA HOSPITA 1000 CC GLUC BLD 94359 [facility] GLUC MNTR 6 N N DEV COMMUNTIY COMMUNTIY CLEARED HOSPITA HOSPITA FDA SPEC HOME USE URNLS DIP 20766 [facility] 6 N N STICK/TAB COMMUNTIY COMMUNTIY LET HOSPITA HOSPITA REAGENT AUTO MICROSCOP Y THERAPEUT 79027 [facility] IC 6 N N INJECTION COMMUNTIY COMMUNTIY IV PUSH HOSPITA HOSPITA EACH NEW DRUG COLLECTIO 64750 [facility] N VENOUS 6 N N BLOOD COMMUNTIY COMMUNTIY [place] [address] [facility] INFUSION 6 N N HYDRATION COMMUNTIY COMMUNTIY EACH HOSPITA HOSPITA ADDITIONA L HOUR COMPREHEN 10861 [facility] SIVE 6 N N METABOLIC COMMUNTIY COMMUNTIY PANEL HOSPITA HOSPITA INJECTION J2270 [facility] MORPHINE 6 N N SULFATE COMMUNTIY COMMUNTIY UP TO 10 [place] [address] [facility] LACTATE 6 N N COMMUNTIY COMMUNTIY HOSPITA HOSPITA BLOOD 53824 [facility] COUNT 6 N N COMPLETE COMMUNTIY COMMUNTIY AUTO&AUTO HOSPITA [place] [address] [facility] TROPONIN 6 N N QUANTITAT COMMUNTIY COMMUNTIY VERÓNICA HOSPITA HOSPITA THYROID 98677 [facility] HORM 6 DIAGNOSTI DIAGNOSTI UPTK/THYR CS CS OID HORMONE BINDING RATIO BLOOD 46829 [facility] COUNT 6 DIAGNOSTI DIAGNOSTI COMPLETE CS CS AUTO&AUTO DIFRNTL WBC COMPREHEN 08030 [facility] SIVE 6 DIAGNOSTI DIAGNOSTI [place] [address] [facility] THYROID 6 DIAGNOSTI DIAGNOSTI STIMULATI CS CS NG HORMONE TSH LIPID 47107 [facility] PANEL 6 DIAGNOSTI DIAGNOSTI CS CS HEMOGLOBI 49047 [facility] N 6 DIAGNOSTI DIAGNOSTI GLYCOSYLA [place] [address] [facility] THYROXINE 6 DIAGNOST[place] [address] [facility] PROSTATE 6 DIAGNOSTI DIAGNOSTI SPECIFIC CS CS ANTIGEN TOTAL INJECTION J2001 [facility] 6 N N LIDOCAINE COMMUNTIY COMMUNTIY HCL HOSPITA HOSPITA INTRAVENO US INFUS 10 MG IM ADM 71019 [facility] PRQ ID 6 N N SUBQ/IM COMMUNTIY COMMUNTIY NJXS 1 HOSPITA HOSPITA VACCINE TDAP 66501 [facility] VACCINE 7 6 N N YRS/> IM COMMUNTIY COMMUNTIY HOSPITA HOSPITA INCISION 04272 [facility] & 6 PREMA PREMA DRAINAGE ABSCESS SIMPLE/SI [facility] 69997 [facility] B[facility]IST DISCHARGE 5 [facility]USH[facility] RÍ[facility] MAT DAY MANAGEMEN T 30 MIN/< SBSQ 86774 [facility] 5 KHUSHBU RÍOS MAT CARE/DAY 25 MINUTES SBSQ 86475 [facility] 5 KHUSHBU RÍOS MAT CARE/DAY 25 MINUTES GROUND A0425 [facility] MILEAGE 5 [facility] [place] [facility] [facility] CO EMS STATUTE MILE AMB A0427 [facility] SERVICE 5 [facility] [place] [facility] [facility] EMS CO EMS EMERGENCY TRANSPORT LEVEL 1 INITIAL 62753 [facility] 5 KHUSHBU RÍOS [facility] CARE/DAY 50 MINUTES ECG 26506 [facility] ROUTINE 5 SCO SCO ECG W/LEAST 12 LDS I&R ONLY HEMOGLOBI 04741 [facility] N 5 DIAGNOSTI DIAGNOSTI GLYCOSYLA [facility] NICHOLAS A1C CREATININ 33665 [facility] E OTHER 5 DIAGNOSTI DIAGNOSTI SOURCE [facility] URNLS DIP 27326 [facility] 5 DIAGNOSTI DIAGNOSTI STICK/TAB CS LET RGNT AUTO W/O MICROSCOP Y ALBUMIN 23845 [facility] URINE 5 DIAGNOSTI DIAGNOSTI MICROALBU [facility] MIN QUANTIATI VE WALKING L4360 ISIDRO [place] BOOT 5 FOOT & N MORGAN PNEUMATC ANKLE CE &/ VACUUM PREFAB CUSTM FIT HEMOGLOBI 12968 [facility] N 5 DIAGNOSTI DIAGNOSTI GLYCOSYLA CS NICHOLAS A1C CANE INCL E0100 J & L J & L CANES 4 [facility] MATERIAL EQUIPMENT EQUIPMENT ADJUSTBLE /FIX W/[place] [address] [facility] THYROXINE 4 DIAGNOSTI DIAGNOSTI TOTAL CS CS HEMOGLOBI 30133 [facility] N 4 DIAGNOSTI DIAGNOSTI GLYCOSYLA CS CS NICHOLAS A1C THYROID 07616 [facility] HORM 4 DIAGNOSTI DIAGNOSTI UPTK/THYR [facility] OID HORMONE BINDING RATIO BLOOD 10293 [facility] COUNT 4 DIAGNOSTI DIAGNOSTI COMPLETE CS CS AUTO&[place] [address] [facility] THYROID 4 DIAGNOSTI DIAGNOSTI STIMULATI CS CS NG HORMONE TSH COMPREHEN 28775 [facility] SIVE 4 DIAGNOSTI DIAGNOSTI METABOLIC CS CS PANEL LIPID 96650 [facility] PANEL 4 DIAGNOSTI DIAGNOSTI CS [...] CE GAUNT/SIM PREFAB OFF-THE-S HELF MRI LOWER 18565 PROSCAN PROSCAN EXTREM 4 RADIOLOGY RADIOLOGY OT/THN [...] CE &/ VACUUM PREFAB CUSTM FIT RADIOLOGI 12394 [place] [facility] C 4 FOOT & N MORGAN EXAMINATI ANKLE CE ON FOOT 2 VIEWS RADEX 51624 ISIDRO ELI ANKLE 4 FOOT & N [...] IN OR LESS EA DRESS SLEEP STD 66822 SHASHY SHASHY AIRFLOW 4 WOOD WOOD HRT RATE&O2 SAT EFFORT UNATT THYROID 71856 [facility] HORM 4 DIAGNOSTI DIAGNOSTI UPTK/THYR CS OID INCORPORA HORMONE T BINDING RATIO HEMOGLOBI 77795 [facility] N 4 DIAGNOSTI DIAGNOSTI GLYCOSYLA CS CS NICHOLAS A1C LIPID 61943 [facility] PANEL 4 DIAGNOSTI DIAGNOSTI CS CS COMPREHEN 04634 [facility] SIVE 4 DIAGNOSTI DIAGNOST[place] [address] [facility] THYROID 4 DIAGNOSTI DIAGNOSTI STIMULATI CS NG HORMONE TSH BLOOD 02774 [facility] COUNT 4 DIAGNOSTI DESTINEE COMPLETE CS AUTO&[place] [address] [facility] INSULIN 4 DIAGNOSTI DIAGNOSTI [place] [address] [facility] C-PEPTIDE 4 DIAGNOSTI [place] [address] [facility] THYROXINE 4 DIAGNOSTI DIAGNOSTI TOTAL CS CS INCORPORA T RADIOLOGI 02757 [facility]KSSL[facility] C EXAM 4 RYA RYA CHEST 2 VIEWS FRONTAL&L ATERAL RADEX 59976 [facility] [place] [facility] SPINE 4 RADIOLOGY LUMBOSACR AL 2/3 VIEWS RADEX 64294 [facility] [place] [facility] [place] SPINE 4 RADIOLOGY THORACIC 2 VIEWS HOSPITAL 98197 [facility] 4 [place] A GOP DAY PHYSICIAN MANAGEMEN SERVI T 30 MIN/< SBSQ 78009 [facility] 4 [place] A GOP CARE/DAY PHYSICIAN 25 SERVI MINUTES RADIOLOGI 67727 [facility] 4 [place] - YORBA EXAMINATI EMERGENCY PAT ON CHEST PHYSI SINGLE VIEW FRONTAL GROUND A0425 [facility] MILEAGE 4 Cory-DE DE LE[place] PER [place] EMS CO EMS STATUTE MILE AMB A0427 [facility] SERVICE 4 N-DE DE LEON ALS [place] EMS CO EMS EMERGENCY TRANSPORT LEVEL 1 INITIAL 98844 [facility] 4 [place] LILO CARE/DAY PHYSICIAN 70 SERVI MINUTES ECG 98102 [facility] ROUTINE 4 [place] - YORBA ECG EMERGENCY PAT W/LEAST PHYSI 12 LDS I&R ONLY HOSPITAL 88167 [facility] 4 [place] HUG DAY PHYSICIAN MANAGEMEN SERVI T 30 MIN/< SBSQ [address] [facility] 4 [place] HUG CARE/DAY PHYSICIAN 35 SERVI MINUTES INITIAL [address] [facility] 4 [place] G CARE/DAY PHYSICIAN 70 SERVI MINUTES CRITICAL 98100 [facility] 4 PREMA PREMA ILL/INJUR ED PATIENT INIT 30-74 MIN ALBUMIN 96441 [facility] URINE 1 MICROALBU PEDIATRIC PEDIATRIC MIN S & INTER S & INTER SEMIQUANT ITATIVE COMPREHEN 37753 LAB ERASMO LAB ERASMO SIVE 1 [employer] METABOLIC [employer] HOLDING PANEL COLLECTIO 36624 [facility] N VENOUS 1 AND BLOOD PEDIATRIC VENIPUNCT S & INTER URE HEMOGLOBI 74118 LAB ERASMO LAB ERASMO N 1 [employer]IC [employer] GLYCOSYLA HOLDING HOLDING NICHOLAS A1C SBSQ 47534 [facility] CARE/DAY ADVANCED 25 MAZA MINUTES INITIAL 32492 [facility] INPATIENT 1 [place] JERRI CONSULT ADVANCED NEW/ESTAB MAZA PT 40 MIN GASTRIC 17114 [facility] [place] MAT EMPTYING 1 RADIOLOGY [facility] 60154 [facility] DISCHARGE 1 BETTY DAY PEDIATRIC MANAGEMEN S & INTER T 30 MIN/< SBSQ 59762 [facility] 1 BETTY CARE/DAY PEDIATRIC 25 S & INTER MINUTES RADEX ABD 38695 [facility] [place] MAT COMPL 1 RADIOLOGY AQT ABD W/S/E/D [address] [place] [address] [facility] [place] MAT ABDOMEN & 1 RADIOLOGY PELVIS W/O CONTRAST MATERIAL INITIAL 87642 [facility] 1 BETTY CARE/DAY PEDIATRIC 70 S & INTER MINUTES AMB A0427 [facility] SERVICE 1 [facility] ALS [place] EMS CO EMS EMERGENCY TRANSPORT LEVEL 1 CRITICAL 70209 [place] [address] EMERGENCY DEV ILL/INJUR SERVICES ED PATIENT INIT 30-74 MIN GROUND A0425 [facility] MILEAGE 1 [facility] [place] [facility] STATUTE MILE LIPID 81132 LAB ERASMO LAB ERASMO PANEL 1 [employer] [place] [address] LAB ERASMO LAB ERASMO FREE 1 AMERIC AMERIC THYROXINE HOLDING HOLDING HEMOGLOBI 35921 LAB ERASMO LAB ERASMO N 1 AMERIC AMERIC GLYCOSYLA [facility]ING [facility]ING [place] A1C GENERAL 55090 LAB ERASMO LAB ERASMO HEALTH 1 AMERIC 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 HOLDING ECG 23107 [facility] ROUTINE 1 AND ECG PEDIATRIC W/LEAST S & INTER 12 LDS W/I&[place] [address] [facility] [place] [facility] HEAD/BRAI 1 RADIOLOGY RAÚL N W/O CONTRAST MATERIAL ALVEOLECT 05039 [facility] RAIN FADY 0 KARI KARI W/CURTG OSTEITIS/ SEQUESTRE CTOMY DEEP D9220 [facility] RAIN SEDATION/ 0 KARI KARI GENERAL ANESTHESI A-1ST 30 MINUTES ORTHOPANT 13113 [place] RAIN OGRAM 0 KARI KARI LANCETS A4259 AM MED AM MED PER BOX 8 DIRECT DIRECT OF 100 [facility] PH[facility]ACY BLD GLU A4253 AM MED AM MED TEST/REAG 8 DIRECT DIRECT T [facility] PHARMACY GLU MON-50 LANCETS A4259 AM MED AM MED PER BOX 8 DIRECT DIRECT OF 100 [facility] PH[facility]ACY BLD GLU A4253 AM MED AM MED TEST/REAG 8 DIRECT DIRECT T [facility] PHARMACY GLU MON-50 BLD GLU A4253 AM MED AM MED TEST/REAG 8 DIRECT DIRECT T [facility] PHARMACY GLU MON-50 LANCETS A4259 AM MED AM MED PER BOX 8 DIRECT DIRECT OF 100 [facility] DEEP D9220 [facility], SEDATION/ 8 FOR BETSY Castillo GENERAL ORAL&MAXI ANESTHESI LLOFACIAL A- 30 SURGERY MINUTES APPLICATI 39193 BRITANY GARG, ON 8 YOHANA Toribio MODALITY 1/> AREAS HOT/COLD PACKS CHIROPRAC 73293 BRITANY GARG, TIC 8 YOHANA Toribio MANIPULAT [place] SPINAL 3-4 REGIONS APPL 66852 BRITANY GARG, MODALITY 8 YOHANA Toribio 1/> AREAS ELEC STIMJ UNATTENDE D APPL 22759 BRITANY GARG, MODALITY 8 YOHANA Toribio 1/> AREAS ELEC STIMJ UNATTENDE D DETERMINA 83063 [facility]ASH, TION 8 [facility] CHIROPRA 19772 BRITANY GARG, TIC 8 YOHANA Toribio MANIPULAT [place] SPINAL 3-4 REGIONS APPLICATI 46503 BRITANY GARG, ON 8 YOHANA Toribio YOHANA Toribio MODALITY 1/> AREAS HOT/COLD PACKS ORTHOPANT 93667 [place] JAYNE LIN 8 FOR JOSE Velasquez ORAL&MAXI LLOFACIAL SURGERY Encounters Encounter Start End Date Code Location Performer Type Date EMERGENCY 90864 [facility] DEPT 7 7 PHYSICIAN VISIT S, PLLC HIGH SEVERITY& THREAT FUNJ OFFICE 74036 [facility]PATIEN 7 7 PHYSICIAN T NEW 30 S GROUP MINUTES [facility]OS[facility] - 7 7 [facility] OUTPATIEN INC T OFFICE 68974 [facility] 7 7 ELL ELL T VISIT 15 MINUTES OFFICE 54500 [facility] OUTPATIEN 7 7 KHUSHBU ELL T VISIT 15 MINUTES EMERGENCY 04895 [facility] DEPT 7 7 [place] VISIT EMERGENCY HIGH PHYS SEVERITY& THREAT PENDING SALE TO [facility] 7 7 N OUTPATIEN COMMUNTIY T HOSPITA EMERGENCY 62990 [facility] 7 7 N DEPARTMEN COMMUNTIY T VISIT HOSPITA HIGH/URGE NT SEVERITY EMERGENCY 46194 [facility] DE[facility] 7 7 [place] - YORBA VISIT EMERGENCY HIGH PHYS SEVERITY& THREAT FUNJ EMERGENCY 85732 [facility] DEPT 7 7 [place] VISIT EMERGENCY HIGH SERVI SEVERITY& THREAT FUNJ EMERGENCY 16081 [facility] 6 6 [place] DEPARTMEN EMERGENCY T VISIT SERVI HIGH/URGE NT SEVERITY [facility] [place] [address] 6 N OUTPATIEN COMMUNTIY T HOSPITA OFFICE 55514 [facility] 6 6 NURSE ADWOA BRADEN NEW/ESTAB NER GR PATIENT 60 MIN [facility] [place] [address] 6 N OUTPATIEN COMMUNTIY T HOSPITA EMERGENCY 06179 [facility] DEPT 6 6 N VISIT COMMUNTIY HIGH HOSPITA SEVERITY& THREAT [facility] 73692 [facility] 6 6 N DEPARTMEN COMMUNTIY T VISIT HOSPITA MODERATE SEVERITY EMERGENCY 70151 [facility] 6 6 [place] DEPARTMEN EMERGENCY T VISIT SERVI HIGH/URGE NT SEVERITY HOSPITAL [facility] - 6 6 N OUTPATIEN COMMUNTIY T HOSPITA OFFICE 03261 [facility] 6 6 ELL MAT ELL MAT T VISIT 15 MINUTES EMERGENCY 88685 [facility] 6 6 N DEPARTMEN COMMUNTIY T VISIT HOSPITA LIMITED/M [facility] - 6 6 N OUTPATIEN COMMUNTIY T HOSPITA OFFICE 50934 [facility] 6 6 ELL MAT ELL MAT T VISIT 15 MINUTES HOSPITAL [facility] - 6 6 N OUTPATIEN COMMUNTIY T HOSPITA EMERGENCY 72574 [facility] DEPT 6 6 [place] VISIT EMERGENCY HIGH PHYS SEVERITY& THREAT [facility] - 6 6 N OUTPATIEN COMMUNTIY T HOSPITA EMERGENCY 76754 [facility] DEPT 6 6 [place] VISIT EMERGENCY HIGH SERV SEVERITY& THREAT PENDING SALE TO [facility] - 6 6 N OUTPATIEN COMMUNTIY T HOSPITA EMERGENCY 82677 [facility] 6 6 N DEPARTMEN COMMUNTIY T VISIT HOSPITA HIGH/URGE NT SEVERITY OFFICE 66876 [facility] OUTPATIEN 6 6 ELL MAT ELL MAT T VISIT 15 MINUTES EMERGENCY [id number] BLANCHE MANCIA 6 6 PREMA PREMA DEPARTMEN T VISIT HIGH/URGE NT SEVERITY HOSPITAL [facility] - 6 6 N OUTPATIEN COMMUNTIY T HOSPITA EMERGENCY 81042 [facility] 6 6 N DEPARTMEN COMMUNTIY T VISIT HOSPITA MODERATE SEVERITY OFFICE 34012 BIRDWHIST BIRDWHIST OUTPATIEN 5 5 ELL LEENA ELL MAT T VISIT 15 MINUTES EMERGENCY 62449 BUBBA MAC DEPT 5 5 SCO SCO VISIT HIGH SEVERITY& THREAT PENDING SALE TO [facility] - 5 5 N INPATIENT COMMUNTIY HOSPITA EMERGENCY 94893 VORK[facility] VORKPOR DEPT 5 5 EDWAR EDWAR VISIT HIGH SEVERITY& THREAT PENDING SALE TO [facility] OFFICE 11761 BIRDWHIST BIRDWHIST OUTPATIEN 5 5 KHUSHBU RÍOS T VISIT 15 MINUTES EMERGENCY 07069 BLANC[facility] MANCIA DEPT 5 5 PREMA [facility] H[facility] [place] [facility] OUT[facility]EN 5 5 FOOT & N MORGAN T VISIT ANKLE CE 15 MINUTES OFFICE 27149 MUHA JAVI MUHA JAVI OUTPATIEN 4 4 T NEW 30 MINUTES OFFICE 06335 [place] [facility] OUTPATIEN 4 4 FOOT & N MORGAN T VISIT ANKLE CE 15 MINUTES OFFICE 58633 [place] [facility] OUTPATIEN 4 4 FOOT & N MORGAN T VISIT ANKLE CE 15 MINUTES OFFICE 89692 [place] [facility] OUTPATIEN 4 4 FOOT & N MORGAN T VISIT ANKLE CE 15 MINUTES OFFICE 67571 [place] [facility] OUTPATIEN 4 4 FOOT & N MORGAN T VISIT ANKLE CE 15 MINUTES OFFICE 98106 [place] [facility] OUTPATIEN 4 4 FOOT & N MORGAN T NEW 30 ANKLE CE MINUTES HOSPITAL [facility] - 4 4 N OUTPATIEN COMMUNITY T HOSPITA OFFICE 70401 BIRDWHIST BIRDWHIST OUTPATIEN 4 4 KHUSHBU STERN T VISIT 15 MINUTES EMERGENCY 71422 BLANCHE MANCIA DEPT 4 4 PREMA PREMA VISIT HIGH SEVERITY& THREAT FUNCJ OFFICE 31675 BIRDWHIST BIRDWHIST OUTPATIEN 4 4 KHUSHBU STERN T VISIT 25 MINUTES EMERGENCY 76215 [facility] KESSLER DEPT 4 4 RYA RYA VISIT HIGH SEVERITY& THREAT [facility] [place] [address] 4 N [facility] 79347 [facility] CELLAROSI DEPT 4 4 [place] - YORBA VISIT EMERGENCY PAT HIGH PHYSI SEVERITY& THREAT FUNCJ OFFICE 42079 [facility] OUTPATIEN 1 1 AND T VISIT PEDIATRIC 15 S & INTER MINUTES OFFICE 57234 [facility] OUTPATIEN 1 1 AND T VISIT PEDIATRIC 15 S & INTER MINUTES [facility] [place] [address] 1 N [facility] 47810 [facility]NE[facility] OUTPATIEN 1 1 AND T VISIT PEDIATRIC 15 S & INTER MINUTES [facility] [place] [address] 1 N INPATIENT COMMUNITY HOSPITA EMERGENCY 00157 DERRICK MANCIA 1 1 EMERGENCY PREMA DEPARTMEN SERVICES T VISIT HIGH/URGE NT SEVERITY OFFICE 62179 [facility] OUTPATIEN 1 1 T VISIT 5 PEDIATRIC PEDIATRIC MINUTES S & INTER S & INTER OFFICE 84285 [facility] OUTPATIEN 1 1 AND T VISIT PEDIATRIC 15 S & INTER MINUTES [facility] [place] [address] 1 N INPATIENT COMMUNITY HOSPITA OFFICE 09130 BRISEYDA RAIN OUTPATIEN 0 0 KARI KARI T NEW 10 MINUTES OFFICE 34633 GARG, ZACARIAS GARG 8 8 YOHANA Toribio T VISIT 15 MINUTES OFFICE 86899 [facility] 8 [facility] MINUTES OFFICE 13845 [place] [facility], OUTPATIEN 8 8 FOR JOSE Davidson NEW 10 ORAL&MAXI MINUTES LLOFACIAL SURGERY
--- OUTSIDE RECORDS SUMMARY | 2017-06-07 16:30 | External Medical Summary Rpt | CCD ---
Demographics Preferred Language Danish Marital Status Unknown Oriental Orthodox Affiliation Unknown Race Unknown Ethnic Group Unknown Author Author , PAULINA GALLARDO Address Unknown Phone Immunization No patient found.
--- OUTSIDE RECORDS SUMMARY | 2017-06-07 16:30 | External Medical Summary Rpt | CCD ---
Demographics Preferred Language Gibraltarian Marital Status Unknown Hinduism Affiliation Unknown Race Unknown Ethnic Group Unknown Author Author , PAULINA GALLARDO Address Unknown Phone Immunization No patient found.
--- OUTSIDE RECORDS SUMMARY | 2017-06-07 16:32 | External Medical Summary Rpt ---
Author Author PAULINA Jesus, [employer] Organization [employer] Address Unknown Phone Unavailable Results Glucose [Mass/volume] in Capillary blood by Glucometer Observa Value Referen Units Interpr Notes Date tion ce etation Range Glucose 70 - 110 mg/dl High No Oct 17 [Mass/vol informati 2017 7:49 ume] in on in AM Capillary source [...] mg/dL Normal No Oct 3 .total informati 2016 [Mass/vol on in 12:39 PM ume] [...] 3.5 - 5.1 mmoL/L Normal No May 3 informati 2016 [Moles/vo on in 12:39 PM lume] in source Serum or data Plasma Sodium 136 - 145 mmoL/L Normal No May 16 [Moles/vo informati 2016 lume] in on in 12:39 PM Serum or source Plasma data Aspartate 15 - 37 U/L Normal No May 16 informati 2017 aminotran on in 12:39 PM sferase source [Enzymati data c activity/ volume] in Serum or Plasma Alanine 12 - 78 U/L Normal No May 3 aminotran informati 2016 sferase on in 12:39 PM [Enzymati source c data activity/ volume] in Serum or Plasma Protein 6.4 - 8.2 gm/dL Normal No May 3 [Mass/vol informati 2016 ume] in on in 12:39 PM Serum or source Plasma data INR in Blood by Coagulation assay Observa Value Referen Units Interpr Notes Date tion ce etation Range INR in 0.9 - 1.1 No Normal INDICATIO Oct 3 Blood by informati N 2017 Coagulati on in 12:39 PM on assay source INR data RANGETHER APY FOR DVT, PE, ATRIAL FIB; 2.0 - 3.0PROPHY LAXIS FOR VTETHERAP Y FOR MECHANICA L HEART 2.5 - 3.5VALVE; PREVENTIO N OF SYSTEMICE MBOLISM SECONDARY TO AMI Prothromb 9.4 - SECONDS Normal No May 3 in time 11.8 informati 2016 (PT) in on in 12:39 PM Platelet source poor data plasma by Coagulati on assay CBC W Auto Differential panel in Blood Observa Value Referen Units Interpr Notes Date tion ce etation Range Basophils 0 - 0.2 K/MM3 Normal No May 3 inform2016 [#/volume on in 12:39 PM ] in source Blood by data Automated count Basophils 0.1 - 2.0 % Normal No May 16 /100 inform2016 leukocyte on in 12:39 PM s in source Blood by data Automated count Eosinophi 0.0 - 0.4 K/mm3 Normal No May 16 ls 2016 [#/volume on in 12:39 PM ] in source Blood by data Automated count Eosinophi 0.1 - % Normal No May 16 ls/100 12.0 inform2016 leukocyte on in 12:39 PM s in source Blood by data Automated count Granulocy 1.3 - 8.0 K/mm3 Normal No May 16 lory 2016 [#/volume on in 12:39 PM ] [...] High No May 16 te mean 97.8 inform2016 corpuscul on in 12:39 PM ar volume source [Entitic data volume] by Automated count Monocytes 0.1 - 1.0 K/mm3 Normal No May 3 informati 2016 [#/volume on in 12:39 PM ] in source Blood by data Automated count Monocytes 1.7 - 9.3 % Normal No Oct 3 /100 informati 2017 leukocyte on in 12:39 PM s in source Blood by data Automated count Platelets 142 - 424 K/mm3 Normal No May 3 informati 2016 [#/volume on in 12:39 PM ] in source Blood data Erythrocy 4.6 - 6.2 M/mm3 Normal No May 3 lory informati 2016 [#/volume on in [...] High No Sep 28 [Mass/vol alert informati 2017 6:11 ume] in on in AM Capillary [...] Low No Sep 27 [Mass/vol 10.1 informati 2016 8:20 ume] in on in PM Serum or source Plasma data Chloride 98 - 107 mmoL/L Normal No Sep 27 [Moles/vo informati 2017 8:20 lume] in on in PM Serum or source Plasma data Carbon 21.0 - mmoL/L Normal No Sep 27 dioxide, 32.0 informati 2017 8:20 total on in PM [Moles/vo source lume] in data Serum or Plasma Creatinin 0.70 - mg/dL Low No Sep 27 e 1.30 informati 2017 8:20 [Mass/vol on in PM ume] in source Serum or data Plasma Creatinin 50 - 200 ML/MIN Normal No Sep 27 e renal informati 2017 8:20 clearance on in PM source predicted [...] 3.5 - 5.1 mmoL/L Normal No Sep informati 2016 8:20 [Moles/vo on in PM lume] in source Serum or data Plasma Sodium 136 - 145 mmoL/L Normal No Sep [Moles/vo informati 2016 8:20 lume] in on in PM Serum or source Plasma data Glucose [Mass/volume] in Capillary blood by Glucometer Observa Value Referen Units Interpr Notes Date tion ce etation Range Glucose 70 - 110 mg/dl High No Sep [Mass/vol informati 2016 8:06 ume] in on in PM Capillary source blood by data Glucomete r Glucose [Mass/volume] in Capillary blood by Glucometer Observa Value Referen Units Interpr Notes Date tion ce etation Range Glucose 70 - 110 mg/dl High No Sep [Mass/vol informati 2016 4:55 ume] in on in PM Capillary source blood by data Glucomete r Glucose [Mass/volume] in Capillary blood by Glucometer Observa Value Referen Units Interpr Notes Date tion ce etation Range Glucose 70 - 110 mg/dl High No Sep 27 [Mass/vol alert informati 2017 ume] in on in 11:47 AM Capillary source blood by data Glucomete r DIARRHEA PANEL,PCR Observa Value Referen Units Interpr Notes Date tion ce etation Range Adenovi NOT NOT No No No Sep 27 ranjeet DETECTE DETECTE informa informa informa 2017 40+41 D tion in tion in tion in 10:25 Ag source source source AM [Presen data data data ce] in Stool Aeromon NOT NOT No No No Sep 27 as DETECTE DETECTE informa informa informa 2016 salmoni D tion in tion in tion in 10:25 tash source source source AM [Presen data data data ce] in Unspeci fied specime n Astrovi NOT NOT No No No Sep 27 ranjeet DETECTE DETECTE informa informa informa 2017 [Presen D tion in tion in tion [...] culture Entamoe NOT NOT No No No May 10 ba DETECTE DETECTE informa informa informa 2016 histoly D tion in tion in tion in 10:25 jennifer source source source AM [Presen data data data ce] in Stool by Trichro me stain Giardia NOT NOT No No No Sep DETECTE DETECTE informa informa informa 2016 lamblia D tion in tion in tion in 10:25 Ag source source source AM [Presen data data data ce] in Stool Norovir DETECTE NOT No Abnorma No May 10 us Ag D DETECTE informa l informa 2016 [Presen tion in tion in 10:25 ce] in source source AM Stool data data Stool NOT NOT No No No May 10 Plesiom DETECTE DETECTE informa informa informa 2017 [...] NOT NOT No No No Sep 27 cholera DETECTE DETECTE informa informa informa 2017 [...] 27 sp DETECTE DETECTE informa informa informa 2017 identif D tion in tion in tion [...] No Sep 27 te mean 97.8 informati 2016 6:10 corpuscul on in AM ar volume [...] M/mm3 Low No Sep 27 lory informati 2016 6:10 [#/volume on in AM ] in source Amniotic data fluid Erythrocy 11.5 - % Normal No Sep 27 te 17.5 informati 2016 6:10 distribut on in AM ion width [...] Sep 27 nce of informa informa informa 2016 Urine [...] Sep 27 in E informa informa informa 2017 [Presen tion in tion in tion in 4:16 AM ce] in source source source Urine data data data by Test strip Erythro NEGATIV NEG No No No Sep 27 cytes E informa informa informa 2017 [Presen tion in tion in tion in [...] Interpr Notes Date ti ce etation Range Positive urine drug screen samples are stored for 7 days. Contact the Lab if confirmation of positives is needed. Ampheta NEGATIV <1000 ng/mL No No May 09 mine E informa informa 2016 [Presen tion in tion in 3:10 PM ce] in source source Urine data data by Screen method Barbitura <200 ng/mL No No May 09 lory informati informati 2017 3:10 [Mass/vol on in on in PM ume] in source source Urine by data data Screen method Benzodiaz 200 ng/mL ng/mL No No May 09 epines informati informati 2016 3:10 [Mass/vol on in on in PM ume] in source source Serum or data data Plasma by Screen method Cocaine <300 ng/g No No May 09 [Mass/vol informati informati 2016 3:10 ume] in on in on in PM Unspecifi source source ed data data specimen Methadone <300 ng/mL No No May 09 informati informati 2016 3:10 [Mass/vol on in on in PM ume] in source source Unspecifi data data ed specimen Opiates <300 ng/mL No No May 09 [Mass/vol informati informati 2016 3:10 ume] in on in on in PM Unspecifi source source ed data data specimen Phencycli <25 ng/mL No No May 09 dine informati informati 2016 3:10 [Mass/vol on in on in PM [...] Glucose 70 - 110 mg/dl No No May 09 [Mass/vol informati informati 2016 1:54 ume] in on in on in PM Capillary source source blood by data data Glucomete r Amylase [Enzymatic activity/volume] in Serum or Plasma Observa Value Referen Units Interpr Notes Date ti ce etation Range Amylase 25 - 115 U/L Normal No May 09 [Enzymati informati 2016 c on in 12:29 PM activity/ source volume] data in Serum or Plasma Lipase [Enzymatic activity/volume] in Serum or Plasma Observa Value Referen Units Interpr Notes Date ti ce etation Range Lipase 73 - 393 U/L Normal No May 09 [Enzymati informati 2016 c on in 12:29 PM activity/ source volume] data in Serum or Plasma Ethanol [Mass/volume] in Serum or Plasma Observa Value Referen Units Interpr Notes Date tion ce etation Range Ethanol 0 - 99 mg/dL Normal ANY May 09 [Mass/vol ALCOHOL > 2017 ume] in OR = 80 12:02 PM Serum or MG/DL IS Plasma CONSIDERE D LEGALLYIN TOXICATED UNDER [place] [employer] LAW. Comprehensive metabolic 2000 panel in Serum [...] Calcium 8.5 - mg/dL Low No Sep 26 [Mass/vol 10.1 informati 2017 ume] in on in 12:02 PM Serum or source Plasma data Chloride 98 - 107 mmoL/L Normal No Sep 26 [Moles/vo informati 2017 lume] in on in [...] gm/dL Normal No Sep 26 [Mass/vol informati 2016 ume] in on in 12:02 PM Serum source data Glucose 74 - 106 mg/dL High No Sep [Mass/vol informati 2016 ume] in on in 12:02 PM Serum or source Plasma data Potassium 3.5 - 5.1 mmoL/L Normal No Sep inform2016 [Moles/vo on in 12:02 PM lume] in source Serum or data Plasma Sodium 136 - 145 mmoL/L Normal No May 09 [Moles/vo informati 2016 lume] in on in 12:02 PM Serum or source Plasma data Aspartate 15 - 37 U/L Normal No Sep inform2016 aminotran on in 12:02 PM sferase source [...] Granulocy 1.3 - 8.0 K/mm3 High No Sep lory inform2016 [#/volume on in 12:02 PM ] in source Blood by data Automated count Granulocy 37.0 - % High No Sep lory/100 80.0 2016 leukocyte on in 12:02 PM s in source Blood by data Automated count Hematocri 42.0 - % Normal No Sep t [Volume 52.0 informati 2017 on in 12:02 PM Fraction] source of Blood data Hemoglobi 14.1 - g/dL Normal No Sep n 18.0 informati 2016 [Mass/vol on in 12:02 PM ume] in source Blood data Lymphocyt 0.7 - 4.5 K/mm3 Low No Sep es informati 2016 [#/volume on in 12:02 PM ] in source Unspecifi data ed specimen by Automated count Lymphocyt 10 - 50 % Low No Sep es informati 2016 [#/volume on in 12:02 PM ] in source Unspecifi data ed specimen by Automated count Erythrocy 27 - 31.2 pg High No Sep 26 te mean 2016 corpuscul on in 12:02 PM ar source hemoglobi data n [Entitic mass] Erythrocy 31.8 - g/dl Normal No Sep 26 te mean 35.4 inform2016 corpuscul on in 12:02 PM ar source hemoglobi data n concentra tion [Mass/vol ume] by Automated count Erythrocy 82.2 - fL High No Sep 26 te mean 97.8 inform2016 corpuscul on in 12:02 PM ar volume source [Entitic data volume] by Automated count Monocytes 0.1 - 1.0 K/mm3 Normal No Sep 26 informati 2016 [#/volume on in 12:02 PM ] in source Blood by data Automated count Monocytes 1.7 - 9.3 % Normal No Sep 26 inform2016 leukocyte on in 12:02 PM s in source Blood by data Automated count Platelets 142 - 424 K/mm3 Normal No Sep 26 inform2016 [#/volume on in 12:02 PM ] in source Blood data Erythrocy 4.6 - 6.2 M/mm3 Normal No Sep 26 lory inform2016 [#/volume on in 12:02 PM ] in source Amniotic data fluid Erythrocy 11.5 - % Normal No Sep 26 te 17.5 inform2016 distribut on in 12:02 PM ion width [...] - 50 % Low No Sep 26 informa 2016 tion in 12:02 source PM data Macrocy 1+ No No No No Sep 26 lory informa informa informa informa 2017 [Presen tion in tion in tion in tion in 12:02 ce] in source source source source PM Blood data data data data Monocytes 2 - 9 % Normal No Sep 26 /100 informati 2016 leukocyte on in 12:02 PM s in source Blood by data Automated count Platele NORMAL No No No No Sep 26 ts informa informa informa informa 2016 [Presen tion in tion in tion in tion in 12:02 ce] in source source source source PM Blood data data data data by Light microsc opy Neutrophi 42 - 76 % High No May 09 ls informati 2016 [#/volume on in 12:02 [...] IS Plasma CONSIDERE D LEGALLYIN TOXICATED UNDER [facility] LAW. Urinalysis dipstick W Reflex Microscopic panel [...] Mar 22 cytes NTACT informa informa informa 2017 [Presen tion in tion in tion in 11:48 ce] in source source source AM Urine data data data Color YELLOW YELLOW No No No Mar 22 of informa informa informa 2017 Urine tion [...] No No Mar 22 s informati informati 2016 [#/volume on in on in 11:48 AM ] in source source Urine data data Urinalysis dipstick W Reflex Microscopic panel in Urine Observa Value Referen Units Interpr Notes Date tion ce etation Range Appeara CLEAR CLEAR No No No Mar 22 nce of informa informa informa 2017 Urine [...] 116 U/L Low No Mar 22 phosphata ati 2016 se on in 10:40 AM [Enzymati [...] Normal No Mar 22 dioxide, 32.0 informati 2016 total on in 10:40 AM [Moles/vo source lume] in data Serum or Plasma Creatinin 0.70 - mg/dL Normal No Mar 22 e 1.30 informati 2016 [Mass/vol on in 10:40 AM ume] in source Serum or data Plasma Creatinin 50 - 200 ML/MIN Normal No Mar 22 e renal inform2016 clearance on in 10:40 AM source predicted [...] Interpr Notes Date ti ce etation Range Amylase 25 - 115 U/L Low No Mar 22 [Enzymati informati 2016 c on in 10:40 AM activity/ source volume] data in Serum or Plasma Lipase [Enzymatic activity/volume] in Serum or Plasma Observa Value Referen Units Interpr Notes Date ti ce etation Range Lipase 73 - 393 U/L Normal No Mar 22 [Enzymati informati 2016 c on in 10:40 AM activity/ source volume] data in Serum or Plasma CBC W Auto Differential panel in Blood Observa Value Referen Units Interpr Notes Date ti ce etation Range Basophils 0 - 0.2 K/MM3 Normal No Mar 222016 [#/volume on in 10:40 AM ] in source Blood by data Automated count Basophils 0.1 - 2.0 % Normal No Mar 222016 leukocyte on in 10:40 AM s in source Blood by data Automated count Eosinophi 0.0 - 0.4 K/mm3 Normal No Mar 22 ls 2016 [#/volume on in 10:40 AM ] [...] % Normal No Mar 22 lory/100 80.0 2016 leukocyte on in 10:40 AM s in source Blood by data Automated count Hematocri 42.0 - % Normal No Mar 22 t [Volume 52.0 2016 on in 10:40 AM Fraction] source [...] High No Mar 22 te mean 97.8 2016 corpuscul on in 10:40 AM ar volume source [Entitic data volume] by Automated count Monocytes 0.1 - 1.0 K/mm3 Normal No Mar 22 inform2016 [#/volume on in 10:40 AM ] in source Blood by data Automated count Monocytes 1.7 - 9.3 % Normal No Mar 22 /100 2016 leukocyte on in 10:40 AM s in source Blood by data Automated count Platelet 7.4 - fl Low Mar 22 mean 10.4 2016 volume on in 10:40 AM [Entitic source volume] data in Blood by Automated count Platelets 142 - 424 K/mm3 Normal Mar 222016 [#/volume on in 10:40 AM [...] - K/MM3 Normal Mar 22 s 10.8 2016 [#/volume on in 10:40 AM ] in source Blood data
--- OUTSIDE RECORDS SUMMARY | 2017-06-07 16:32 | External Medical Summary Rpt ---
[...] IS Plasma CONSIDERE D LEGALLYIN TOXICATED UNDER [place] [employer] LAW. Comprehensive metabolic 2000 panel in Serum [...] IS Plasma CONSIDERE D LEGALLYIN TOXICATED UNDER [facility] LAW. Urinalysis dipstick W Reflex Microscopic panel [...]
[2017-06-07 16:42] LABS: LYMPH # 1.9 K/mm3 (0.7-4.5); LYMPH % 16.4 % (10-50)
[2017-06-07 16:58] LABS: HEMOGLOBIN 14.5 g/dL (14.1-18.0)
[2017-06-07 18:19] VITALS: BP 137/78
== END 2017-06-07 18:19 | disposition home or self-care (01) ==
LOC: ER 16:00
PROVIDERS: Emergency Medicine
DX: E11.649 Type 2 diabetes mellitus with hypoglycemia without coma (principal); E11.65 Type 2 diabetes mellitus with hyperglycemia; Z79.4 Long term (current) use of insulin; I10 Essential (primary) hypertension; E78.5 Hyperlipidemia, unspecified; K21.9 Gastro-esophageal reflux disease without esophagitis; F17.210 Nicotine dependence, cigarettes, uncomplicated